=== PATIENT | male | born 1935 | race Caucasian/White ===

== ENCOUNTER → 2018-01-23 | Outpatient (CLI) | payer MEDICARE ==
[~2018-01-23] MED LIST: ASPEC81 PO; CLC150 PO; FLM4 PO; HYDR-5688 PO; LRT5 PO; MULT-506 PO; REVEIWED; SIMV80TA2 PO
--- NOTE | 2018-01-23 13:40 | DIAGNOSTIC IMAGING REPORT ---
TWO VIEW CHEST CLINICAL HISTORY: Dyspnea. FINDINGS: PA and lateral chest radiographs are compared to study dated 02/02/2015. The PA view is degraded by patient rotation. The patient is status post midline sternotomy and cardiac valve surgery. The heart is enlarged and there is atherosclerotic calcification of the thoracic aorta. Pulmonary vasculature is noncongested. There are bibasilar airspace opacities, left greater than right. There is no large pleural effusion or pneumothorax. The skeletal structures are osteopenic. The bony thorax appears intact. IMPRESSION: 1. Cardiomegaly without radiographic evidence of congestive failure. 2. There are bibasilar airspace opacities, left greater than right. This likely represents atelectasis. Correlate clinically for evidence of superimposed pneumonia. Electronically signed by: yAdin Snyder M.D. 01/23/2018 1:38 PM Dictated Date/Time: 01/23/2018 1:35 PM
--- NOTE | 2018-01-23 13:44 | DIAGNOSTIC IMAGING REPORT ---
ART DOP LOWER EXT BILAT CLINICAL HISTORY: 82 years-old Male presenting with PERIPHERAL ARTERY DISEASE. TECHNIQUE: Real-time grayscale and color and spectral Doppler ultrasound imaging of the bilateral lower extremities arteries was performed. Measurements calculated based on NASCET criteria. COMPARISON: 02/03/2015. FINDINGS: Right: Common femoral artery: Patent. Peak systolic velocity 161 cm/s. Superficial femoral artery: Focal stenosis in the proximal right superficial femoral artery. Distal to this, significant blunting of waveforms with spectral broadening and decreased peak systolic velocity noted. Arterial waveforms are not appreciable in the mid femoral artery, consistent with occlusion. However, arterial waveforms are detectable distally, consistent with reconstitution, where the peak systolic velocity measures 53 cm/s. Deep femoral artery: Patent. Peak systolic velocity 169 cm/s. Popliteal artery: Spectral broadening. Peak systolic velocity 33-41 cm/s. Anterior tibial artery: Spectral broadening. Peak systolic velocity 20-36 cm/s. Posterior tibial artery: Spectral broadening. Peak systolic velocity 28-30 cm/s. Peroneal artery: Spectral broadening with loss of diastolic flow. Peak systolic velocity 19-22 cm/s. Dorsalis pedis: Patent. Peak systolic velocity 29-41 cm/s. Left: Common femoral artery: Patent. Peak systolic velocity 126 cm/s. Superficial femoral artery: Patent. Peak systolic velocity 172 cm/s at the site of mild stenosis in the mid femoral artery. Peak systolic velocity measures 89-157 cm/s in the proximal femoral artery. The distal femoral artery peak systolic velocity measures 74-100 cm/s. Deep femoral artery: Patent. Peak systolic velocity 116 cm/s. Popliteal artery: Mild spectral broadening. Peak systolic velocity 34-64 cm/s. Anterior tibial artery: Patent. Peak systolic velocity 49 cm/s. Posterior tibial artery: Patent. Peak systolic velocity 59 cm/s. Peroneal artery: Spectral broadening. Peak systolic velocity 30 cm/s. Dorsalis pedis: Intermittent spectral broadening. Peak systolic velocity 19-35 cm/s. MAUREEN Not performed. Reference ranges: Normal MAUREEN 1.0-1.4; 0.9-0.99 borderline; less than 0.9 abnormal. IMPRESSION: 1. 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 Right lower extremity arteries remain patent through the level of the dorsalis pedis. 2. Atherosclerosis without severe focal stenosis in the left lower extremity. Mild stenosis of the mid left superficial femoral artery. 3. MAUREEN not performed. Electronically signed by: Nitin Guillermo M.D. 01/23/2018 1:43 PM Dictated Date/Time: 01/23/2018 1:33 PM
== END | disposition home or self-care (01) ==
LOC: C.ULTR 12:03
PROVIDERS: ATTEND Internal Medicine
DX: I73.9 Peripheral vascular disease, unspecified (principal); R06.00 Dyspnea, unspecified

== ENCOUNTER 2019-10-05 14:26 | Inpatient (IN) ==
[2019-10-05 17:14] LABS: Basophils # (auto) 0.04 K/uL (0-0.2); Basophils % (auto) 0.4 %; Eosinophils # (auto) 0.12 K/uL (0-0.5); Eosinophils % (auto) 1.1 %; Hematocrit (blood only) 35.2 % (42-52); Hemoglobin 11.6 g/dL (14.0-18.0); Immature Granulocytes # (auto) 0.01 K/uL (0.00-0.02); Immature Granulocytes % (auto) 0.1 %; Lymphocytes # (auto) 1.49 K/uL (1.2-3.4); Lymphocytes % (auto) 14.3 %; Mean Corpuscular Hemoglobin 30.7 pg (25-34); Mean Corpuscular Volume 93.1 fL (80-100); Mean Platelet Volume 9.3 fL (7.4-10.4); Monocytes # (auto) 1.06 K/uL (0.11-0.59); Monocytes % (auto) 10.1 %; Neutrophils # (auto) 7.73 K/uL (1.4-6.5); Platelet Count 204 K/uL (130-400); RDW Coefficient of Variation 15.4 % (11.5-14.5); RDW Standard Deviation 52.7 fL (36.4-46.3); Red Blood Count 3.78 M/uL (4.7-6.1); White Blood Count 10.45 K/uL (4.8-10.8)
--- NOTE | 2019-10-05 17:31 | XRay Report ---
SINGLE VIEW CHEST CLINICAL HISTORY: Atypical chest pain. FINDINGS: An AP, portable, upright chest radiograph is compared to study dated 03/15/2019. The examina tion is degraded by portable technique and patient rotation. The patient is status post midline castrejon otomy. The heart is enlarged noting atherosclerotic calcification of the thoracic aorta. There is mil d pulmonary vascular congestion. Chronic interstitial thickening is similar to previous. There is a l obulated 4 cm subpleural density identified in the left midlung. No large pleural effusion or pneumot horax is seen. The skeletal structures are osteopenic. The bony thorax is grossly intact. Calcific te ndinopathy is noted in the left shoulder. IMPRESSION: 1. Cardiomegaly with mild pulmonary vascular congestion. 2. There is a 4 cm lobulated subpleural density seen in the left midlung. Correlation with a chest CT is recommended to exclude underlying neoplasm. ACT 112: Negative or not required by law. Electronically signed by: Aydin Snyder M.D. 10/05/2019 5:30 PM
[2019-10-05 17:32] LABS: INR 1.1 (0.9-1.1); Partial Thromboplastin Ratio 1.1; Partial Thromboplastin Time 28.6 Seconds (21.0-31.0); Prothrombin Time 11.5 Seconds (9.0-12.0)
[2019-10-05 17:39] LABS: Alanine Aminotransferase 13 U/L (12-78); Albumin Level 3.1 gm/dl (3.4-5.0); Aspartate Aminotransferase 29 U/L (15-37); BUN Creatinine Ratio 14.7 (10-20); Blood Urea Nitrogen 17 mg/dl (7-18); Calcium 9.9 mg/dl (8.5-10.1); Carbon Dioxide 27 mmol/L (21-32); Chloride 104 mmol/L (98-107); Creatinine Clr Calc Pharmacy 46.9 ml/min; Est GFR (African American) 65.3; Est GFR (Non-African American) 56.3; Glucose 117 mg/dl (70-99); Lipase 50 U/L (73-393); Potassium 4.2 mmol/L (3.5-5.1); Sodium 137 mmol/L (136-145)
[2019-10-05 17:44] LABS: Albumin Globulin Ratio 0.6 (0.9-2); Alkaline Phosphatase 208 U/L (45-117); Bilirubin,Total 0.6 mg/dl (0.2-1); Globulin 4.9 gm/dl (2.5-4.0); Troponin I < 0.015 ng/ml (0-0.045)
[2019-10-05] MEDS ORDERED: OXYCODONE IR HOME PACK PO ONE (19:58)
--- NOTE | 2019-10-05 20:31 | Magnetic Resonance Report ---
MR cervical spine wo con, MR thoracic spine wo con HISTORY: 84 years-old Male neck rad down arms subacute neck and low back pain. No reported trauma or known cancer COMPARISON: Thoracic spine radiographs 03/15/2018 TECHNIQUE: Multiplanar multisequence MRI of the cervical and thoracic spine was obtained without the use of IV contrast. 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 Motion degraded exam. 2.1 x 2.2 cm T2 hyperintense structure is noted within the region of the left nasal turbinate and nasopharynx. No abnormality identified involving the imaged posterior fossa. Signal within the brainstem and cervical spinal cord also appears normal. Infiltrative 10 mm lesion of the C3 vertebral body extends to the posterior cortex. Ill-defined lesion is also noted involving the C6 vertebral body extending into the right pedicle. Heterogeneous marrow signal of the occipital condyles and lateral arches of C1 and right lateral mass of C2 suggests additional lesions. Ill-defin ed lesion involves the right C5 facet. No acute pathologic fracture identified. C2-C3: Uncovertebral spurring with small posterior annular disc bulge and moderate facet arthrosis. N o central canal or foraminal narrowing. C3-C4: Probable erosion of the posterior cortex of the C3 lesion. Mild central canal stenosis with mo derate narrowing of the lateral recesses. Mild to moderate bilateral foraminal narrowing. C4-C5: Mild disc space narrowing with uncovertebral spurring and moderate facet arthrosis. Flattening of the ventral thecal sac without significant central canal stenosis. Neuroforamen are generally pat ent. C5-C6: Mild disc space narrowing with posterior disc osteophyte complex and facet arthrosis causes mi ld central canal and mild bilateral foraminal narrowing. Mild right and moderate left foraminal narro wing. C6-C7: Posterior annular disc bulge with facet arthrosis. Central canal is patent. No significant for aminal narrowing. C7-T1: Mild spondylitic spurring with facet arthrosis. No central canal or foraminal narrowing. THORACIC: Limited exam. The patient was unable to tolerate axial images. STIR images were also obtained. Ill-de fined areas of marrow replacement are noted throughout the thoracic segment also within the imaged up per lumbar spine. Large lesions at T3 and T4 extend into the posterior elements and demonstrate epidu ral tumor which measures up to at least 3.0 cm along the posterior aspect of the thecal sac at T3-T4. Large amount of edema within the paraspinal musculature is noted within the mid and lower cervical s pine and upper thoracic spine centered about the T2 and T3 lesions, conglomerate measuring up to at l east 4.5 x 3.4 cm tracking along the left T2 and T3 ribs. Lesions also appear to extend into the left neuroforamen at T2-T3 and T3-T4 and also possibly on the right. Findings result in severe central ca nal stenosis, AP dimension of the thecal sac measuring 4 mm at T3. There are also appears to be sever e multilevel left foraminal narrowing. No additional high-grade central canal stenosis identified in the sagittal images. Conus medullaris t erminates at T12-L1. IMPRESSION: 1. Limited exam secondary to patient pain and discomfort. 2. Multifocal infiltrative osseous lesions of the cervical, thoracic and lumbar spine suggest metasta tic disease from unknown primary versus multiple myeloma. 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 Oncologic consultation and workup is needed. 3. C3 lesion may partially erode through the posterior cortex of the vertebral body. No high-grade ce ntral canal or foraminal narrowing of the cervical spine. 4. Indeterminate T2 hyperintense lesion of the left nasal turbinates and nasopharynx. This may reflec t a mucocele however should be correlated with direct imaging to exclude mass. ACT 112: Negative or not required by law. The above report was generated using voice recognition software. It may contain grammatical, syntax o r spelling errors. Electronically signed by: Alessandro Beal M.D. 10/05/2019 8:30 PM
[2019-10-05] MEDS ORDERED: OXYCODONE HCL IR 5 MG TAB (IMMEDIATE RELEASE) ONE (21:04)
--- NOTE | 2019-10-05 23:22 | Emergency Department Note ---
Entered by Doreen Francois acting as a scribe for History of Present Illness General Chief complaint: Back Injury/Pain Stated complaint: SEVERE BACK PAIN Time Seen by Provider: 10/05/19 16:15 Source: patient Mode of arrival: wheelchair Limitations: no limitations History of Present Illness Onset (ago): month(s) 4 Location: back Radiation: extremity (bilateral arms) Pain Consistency: + constant Maximum Pain Intensity: 10 Current Pain Intensity: 10 Relieved By: + none Exacerbated By: + movement Associated symptoms: + chest pain and + cough; no fever/chills and no weakness (No numbness or weakness in the legs) Treatments prior to arrival: other (Hydrocodone) The patient is an 84 year old male who presents to the ED with complaints of back pain. He rates his discomfort as a 10/10 in severity. Movement worsens his pain. His daughter states the pain started in April of 2019. He saw his PCP, Dr. Issa who then referred him to Dr. Izaguirre of Orthopedics. He saw Orthopedics, but states "they didn't do anything". He went back to Dr. Wilfred Fischer who made a referral to physical therapy and the patient went to [facility] for therapy, but has not seen much improvement. He states the pain is located in his upper back, below the neck. The pain radiates down his bilateral arms. Hydrocodone has provided good relief. His daughter reports ever since he had aortic valve replacement in 2011, he has experienced a chronic cough and she thinks his pain may be from coughing so hard. The patient denies any recent fevers. He has experienced some chest pain. He denies any numbness or weakness in the legs. Home Medications Home Medications Medication Instructions Recorded Confirmed Type apixaban 5 mg PO BID 08/05/18 10/05/19 History aspirin 325 mg PO QAM 08/05/18 10/05/19 History carvedilol 12.5 mg PO BID 08/05/18 10/05/19 History digoxin 125 mcg PO Q2D 08/05/18 10/05/19 History losartan 12.5 mg PO QAM 08/05/18 10/05/19 History blood sugar diagnostic [OneTouch #50 ea 08/08/18 07/30/19 Rx Verio strips] lancets [OneTouch Delica Lancets] #25 ea 08/08/18 07/30/19 Rx insulin glargine 100 unit/mL 35 units SUBCUT HS #1 ml 04/17/19 10/05/19 History subcutaneous solution tamsulosin 0.4 mg capsule 0.4 mg PO BID cap 04/17/19 10/05/19 History metoprolol succinate 50 mg 50 mg PO QAM #90 tab 09/26/19 10/05/19 Rx tablet,extended release 24 hr atorvastatin 40 mg PO HS 10/05/19 10/05/19 History furosemide [Lasix] 20 mg PO QAM 10/05/19 10/05/19 History insulin glargine 6 unit SUBCUT QAM 10/05/19 10/05/19 History metformin 500 mg PO QAM 10/05/19 10/05/19 History tramadol 50 mg PO DAILY PRN 10/05/19 10/05/19 History Allergies Allergy/AdvReac Type Severity Reaction Status Date / Time doxycycline Allergy Mild Rash Verified 10/05/19 16:25 tetracycline Allergy Mild RASH Verified 10/05/19 16:25 Penicillins Allergy Unknown HIVES-SOB Verified 10/05/19 16:25 Past Med/Surg History Medical History Aortic stenosis Atrial flutter BPH w/o urinary obs/LUTS CAD (coronary artery disease) 1-vessel (LAD), complicated by internal bleeding requiring another surgery Cardiomyopathy Carotid artery stenosis Carotid stenosis Chronic cough Chronic renal disease COPD (chronic obstructive pulmonary disease) Depression Diabetes mellitus, new onset (2018) Dyslipidemia History of alcohol dependence quit early History of tobacco use Leg fracture, left s/p ORIF Mixed hyperlipidemia PAD (peripheral artery disease) PAD (peripheral artery disease) Surgical History Aortic valve replaced [facility] - 2011 H/O carotid endarterectomy left S/P aortic valve replacement with bioprosthetic valve (2010) S/P CABG (coronary artery bypass graft) (2010) Complicated postoperative course S/P CABG x 1 Family History Father , age 79 Congestive heart failure Atherosclerosis Mother , from diverticulitis age 84 Rheumatoid arthritis Social History Preferred Language: Cymro Communication Ability: Effective 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 and A total of 10 systems reviewed and were otherwise negative Physical Exam Vital Signs Vital Signs - 24 hr 10/05/19 14:58 10/05/19 16:26 10/05/19 17:00 Temperature 36.7 C Temperature Source Oral Pulse Rate 107 H 104 H Pulse Rate [Finger] 103 H Pulse Rate from SpO2 Sensor 105 H Pulse Rhythm [Finger] Regular Pulse Strength [Finger] Normal Respiratory Rate 18 18 17 Respiratory Effort / Characteristics Non-Labored Spontaneous Respiratory Depth Normal Respiratory Pattern Regular Blood Pressure 150/65 H 151/77 H Blood Pressure [Right Arm] 132/90 Blood Pressure Mean 93 83 Blood Pressure Mean [Right Arm] 104 Blood Pressure Position [Right Arm] Lying Pulse Oximetry 94 96 94 Oxygen Delivery Method Room Air Room Air Room Air Sepsis Recent Fever Within 48 Hours No Sepsis New/Unexplained Change in Mental Status No Sepsis Action Taken by Nursing No Action Required 10/05/19 17:08 10/05/19 17:30 10/05/19 18:00 Temperature Temperature Source Pulse Rate 105 H 104 H 106 H Pulse Rate [Finger] Pulse Rate from SpO2 Sensor 105 H 103 H 106 H Pulse Rhythm [Finger] Pulse Strength [Finger] Respiratory Rate 24 22 22 Respiratory Effort / Characteristics Respiratory Depth Respiratory Pattern Blood Pressure 149/78 H 160/76 H Blood Pressure [Right Arm] Blood Pressure Mean 125 122 Blood Pressure Mean [Right Arm] Blood Pressure Position [Right Arm] Pulse Oximetry 94 93 94 Oxygen Delivery Method Room Air Room Air Room Air Sepsis Recent Fever Within 48 Hours Sepsis New/Unexplained Change in Mental Status Sepsis Action Taken by Nursing 10/05/19 18:30 10/05/19 19:50 10/05/19 20:00 Temperature Temperature Source Pulse Rate 103 H Pulse Rate [Finger] 111 H Pulse Rate from SpO2 Sensor 101 H 109 H 113 H Pulse Rhythm [Finger] Pulse Strength [Finger] Respiratory Rate 23 22 Respiratory Effort / Characteristics Respiratory Depth Respiratory Pattern Blood Pressure 135/67 136/62 149/66 H Blood Pressure [Right Arm] 136/62 Blood Pressure Mean 97 98 97 Blood Pressure Mean [Right Arm] 86 Blood Pressure Position [Right Arm] Pulse Oximetry 94 94 94 Oxygen Delivery Method Room Air Sepsis Recent Fever Within 48 Hours Sepsis New/Unexplained Change in Mental Status Sepsis Action Taken by Nursing 10/05/19 20:30 10/05/19 20:40 10/05/19 21:00 Temperature Temperature Source Pulse Rate Pulse Rate [Finger] 88 Pulse Rate from SpO2 Sensor 107 H 108 H Pulse Rhythm [Finger] Pulse Strength [Finger] Respiratory Rate 20 Respiratory Effort / Characteristics Respiratory Depth Respiratory Pattern Blood Pressure 134/70 155/83 H Blood Pressure [Right Arm] 155/83 H Blood Pressure Mean 89 106 Blood Pressure Mean [Right Arm] 107 Blood Pressure Position [Right Arm] Pulse Oximetry 92 98 93 Oxygen Delivery Method Sepsis Recent Fever Within 48 Hours Sepsis New/Unexplained Change in Mental Status Sepsis Action Taken by Nursing 10/05/19 21:30 10/05/19 23:05 10/05/19 23:06 Temperature Temperature Source Pulse Rate Pulse Rate [Finger] Pulse Rate from SpO2 Sensor 105 H Pulse Rhythm [Finger] Pulse Strength [Finger] Respiratory Rate Respiratory Effort / Characteristics Respiratory Depth Respiratory Pattern Blood Pressure 145/81 H 110/72 Blood Pressure [Right Arm] Blood Pressure Mean 117 75 Blood Pressure Mean [Right Arm] Blood Pressure Position [Right Arm] Pulse Oximetry 92 Oxygen Delivery Method Sepsis Recent Fever Within 48 Hours Sepsis New/Unexplained Change in Mental Status Sepsis Action Taken by Nursing General: Non-ill appearing older male in no acute distress. HEENT: Normal cephalic atraumatic. Pupils are equal round and reactive to light. Extraocular movements are intact. Oropharynx is pink with moist mucous membranes. No swelling of the mouth lips or tongue. Neck: Supple with a midline trachea. No meningeal signs or stiffness, no JVD or bruits. No Stridor. Chest: Clear to auscultation bilaterally. No wheezes or rhonchi. No increased work of breathing. Heart: regular rate and rhythm. Abdomen: Soft nontender, nondistended without rebound guarding or rigidity. Extremities: No cyanosis clubbing or edema. No calf tenderness or asymmetry Spine/Back. Pain in upper thoracic region, worse with palpation and movement. No CVA tenderness Skin: Good turgor without rashes. Neurologic exam: Cranial nerves two through 12 are intact. Motor and sensation are intact and symmetrical throughout. Course Course 1636: The patient was evaluated in room C4 and a complete history and physical were performed. 1951: Nursing informed me the patient is having intense pain. 1999: I reevaluated the patient. He had a hard time sitting for the entire MRI. His daughter would like us to try Oxycodone. 2199: I reevaluated the patient. He is resting comfortably. I discussed his results and my recommendation he remain in the hospital for further evaluation and management and he and his daughter are agreeable with the plan. 2009: I discussed the patients case with Dr. Bronson, [facility] Hospitalist. The patient will be further evaluated. Administered Medications Discontinued Medications Oxycodone HCl (Roxicodone Immediate Rel 5mg Home Pack) 1 homepack PO UD ONE Stop: 10/05/19 19:59 Last Admin: 10/05/19 22:32 Dose: Not Given Documented by: [id number] Oxycodone HCl (Roxicodone Immediate Rel) Confirm Administered Dose 5 mg .ROUTE .STK-MED ONE Stop: 10/05/19 21:05 Last Admin: 10/05/19 21:07 Dose: 5 mg Documented by: [id number] Medical Decision Making Differential Diagnosis The differential diagnoses considered include lumbar disc disease, electrolyte or metabolic abnormality, cardiac disease, CHF. Medical Records Attestation: I reviewed the patient's medical records. Home Medications Current Medication List: was personally reviewed by me Laboratory Data Attestation: I reviewed the patient's lab results. Result diagrams: 10/05/19 17:02 10/05/19 17:02 Lab Results 10/05/19 10/05/19 10/05/19 Range/Units 17:02 17:02 17:02 WBC 10.45 (4.8-10.8) K/uL RBC 3.78 L (4.7-6.1) M/uL Hgb 11.6 L (14.0-18.0) g/dL Hct 35.2 L (42-52) % MCV 93.1 (80-100) fL MCH 30.7 (25-34) pg MCHC 33.0 (32-36) g/dL RDW Std Deviation 52.7 H (36.4-46.3) fL RDW Coeff of Godfrey 15.4 H (11.5-14.5) % Plt Count 204 (130-400) K/uL MPV 9.3 (7.4-10.4) fL Immature Gran % (Auto) 0.1 % Neut % (Auto) 74.0 % Lymph % (Auto) 14.3 % [place] % (Auto) 10.1 % Eos % (Auto) 1.1 % Baso % (Auto) 0.4 % Immature Gran # (Auto) 0.01 (0.00-0.02) K/uL Neut # (Auto) 7.73 H (1.4-6.5) K/uL Lymph # (Auto) 1.49 (1.2-3.4) K/uL [place] # (Auto) 1.06 H (0.11-0.59) K/uL Eos # (Auto) 0.12 (0-0.5) K/uL Baso # (Auto) 0.04 (0-0.2) K/uL PT 11.5 (9.0-12.0) Seconds INR 1.1 (0.9-1.1) APTT 28.6 (21.0-31.0) Seconds PTT Ratio 1.1 Sodium 137 (136-145) mmol/L Potassium 4.2 (3.5-5.1) mmol/L Chloride 104 (98-107) mmol/L Carbon Dioxide 27 (21-32) mmol/L Anion Gap 6.0 (3-11) BUN 17 (7-18) mg/dl Creatinine 1.18 (0.6-1.4) mg/dl Est Cr Clr Drug Dosing 46.9 ml/min Est GFR ( Amer) 65.3 Est GFR (Non-Af Amer) 56.3 BUN/Creatinine Ratio 14.7 (10-20) Glucose 117 H (70-99) mg/dl Calcium 9.9 (8.5-10.1) mg/dl Total Bilirubin 0.6 (0.2-1) mg/dl AST 29 (15-37) U/L ALT 13 (12-78) U/L Alkaline Phosphatase 208 H (45-117) U/L Troponin I < 0.015 (0-0.045) ng/ml Total Protein 8.0 (6.4-8.2) gm/dl Albumin 3.1 L (3.4-5.0) gm/dl Globulin 4.9 H (2.5-4.0) gm/dl Albumin/Globulin Ratio 0.6 L (0.9-2) Lipase 50 L (73-393) U/L Imaging Data Radiologist's Impression: Radiology results as stated below per my review and the radiologist's interpretation: SINGLE VIEW CHEST CLINICAL HISTORY: Atypical chest pain. FINDINGS: An AP, portable, upright chest radiograph is compared to study dated 03/15/2019. The examination is degraded by portable technique and patient rotation. The patient is status post midline sternotomy. The heart is enlarged noting atherosclerotic calcification of the thoracic aorta. There is mild pulmonary vascular congestion. Chronic interstitial thickening is similar to previous. There is a lobulated 4 cm subpleural density identified in the left midlung. No large pleural effusion or pneumothorax is seen. The skeletal structures are osteopenic. The bony thorax is grossly intact. Calcific tendinopathy is noted in the left shoulder. IMPRESSION: 1. Cardiomegaly with mild pulmonary vascular congestion. 2. There is a 4 cm lobulated subpleural density seen in the left midlung. Correlation with a chest CT is recommended to exclude underlying neoplasm. ACT 112: Negative or not required by law. Electronically signed by: Aydin Snyder M.D. 10/05/2019 5:30 PM MR cervical spine wo con, MR thoracic spine wo con HISTORY: 84 years-old Male neck rad down arms subacute neck and low back pain. No reported trauma or known cancer COMPARISON: Thoracic spine radiographs 03/15/2018 TECHNIQUE: Multiplanar multisequence MRI of the cervical and thoracic spine was obtained without the use of IV contrast. 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 Motion degraded exam. 2.1 x 2.2 cm T2 hyperintense structure is noted within the region of the left nasal turbinate and nasopharynx. No abnormality identified involving the imaged posterior fossa. Signal within the brainstem and cervical spinal cord also appears normal. Infiltrative 10 mm lesion of the C3 vertebral body extends to the posterior cortex. Ill-defined lesion is also noted involving the C6 vertebral body extending into the right pedicle. Heterogeneous marrow signal of the occipital condyles and lateral arches of C1 and right lateral mass of C2 suggests additional lesions. Ill-defined lesion involves the right C5 facet. No acute pathologic fracture identified. C2-C3: Uncovertebral spurring with small posterior annular disc bulge and moderate facet arthrosis. No central canal or foraminal narrowing. C3-C4: Probable erosion of the posterior cortex of the C3 lesion. Mild central canal stenosis with moderate narrowing of the lateral recesses. Mild to moderate bilateral foraminal narrowing. C4-C5: Mild disc space narrowing with uncovertebral spurring and moderate facet arthrosis. Flattening of the ventral thecal sac without significant central canal stenosis. Neuroforamen are generally patent. C5-C6: Mild disc space narrowing with posterior disc osteophyte complex and facet arthrosis causes mild central canal and mild bilateral foraminal narrowing. Mild right and moderate left foraminal narrowing. C6-C7: Posterior annular disc bulge with facet arthrosis. Central canal is patent. No significant foraminal narrowing. C7-T1: Mild spondylitic spurring with facet arthrosis. No central canal or foraminal narrowing. THORACIC: Limited exam. The patient was unable to tolerate axial images. STIR images were also obtained. Ill-defined areas of marrow replacement are noted throughout the thoracic segment also within the imaged upper lumbar spine. Large lesions at T3 and T4 extend into the posterior elements and demonstrate epidural tumor which measures up to at least 3.0 cm along the posterior aspect of the thecal sac at T3-T4. Large amount of edema within the paraspinal musculature is noted within the mid and lower cervical spine and upper thoracic spine centered about the T2 and T3 lesions, conglomerate measuring up to at least 4.5 x 3.4 cm tracking along the left T2 and T3 ribs. Lesions also appear to extend into the left neuroforamen at T2-T3 and T3-T4 and also possibly on the right. Findings result in severe central canal stenosis, AP dimension of the thecal sac measuring 4 mm at T3. There are also appears to be severe multilevel left foraminal narrowing. No additional high-grade central canal stenosis identified in the sagittal images. Conus medullaris terminates at T12-L1. IMPRESSION: 1. Limited exam secondary to patient pain and discomfort. 2. Multifocal infiltrative osseous lesions of the cervical, thoracic and lumbar spine suggest metastatic disease from unknown primary versus multiple myeloma. Large infiltrative mass/masses of T2-T3 extend into the epidural space, left foramina and paraspinal tissues as above tracking along the adjacent ribs resulting in severe central canal stenosis at T2-T3 with severe left-sided foraminal narrowing at T2-T3 and T3-T4. Oncologic consultation and workup is needed. 3. C3 lesion may partially erode through the posterior cortex of the vertebral body. No high-grade central canal or foraminal narrowing of the cervical spine. 4. Indeterminate T2 hyperintense lesion of the left nasal turbinates and nasopharynx. This may reflect a mucocele however should be correlated with di rect imaging to exclude mass. ACT 112: Negative or not required by law. The above report was generated using voice recognition software. It may contain grammatical, syntax or spelling errors. Electronically signed by: Alessandro Beal M.D. 10/05/2019 8:30 PM ECG Data Attestation: I personally reviewed and interpreted this ECG as follows: Indication: + other (back pain) Rate (beats per minute): 105 Rhythm: + sinus tachycardia ECG Findings: + Other (non-specific interventicular block, non-specific T-wave abnormalities) Comparison ECG Date: from (08/05/2018) Change: the following changes noted (Rate has increased, normal sinus rhythm has replaced atrial fibrillation) Blood Pressure Blood Pressure Findings: Elevated blood pressure Blood Pressure Disposition: further management by hospitalist JESSA Hendricks This patient comes in as scribed above he has been having back pain and neck pain for several months. He has been to physical therapy. He had no fall or trauma. it was getting worse and it radiates down his arms mostly the left. He has no chest pain or shortness of breath. it is definitely positional. He has had no trauma. On exam, he has no neurologic deficits. IV access established EKG and multiple blood testing was obtained. EKG does not suggest acute coronary syndrome or arrhythmia. Chest x-ray does not show any definite acute findings. He has no significant electrolyte or metabolic abnormalities. MRI was obtained of the cervical and thoracic spine. The patient did not tolerate laying in the MRI for that long of a the time and the thoracic is somewhat suboptimal however there are lesions on the cervical and thoracic spine. Please refer to report. He also has a T2 lesion which sounds like it encroaches along the spine of the neural foramen. I think this is likely causing his pain. He was given oxycodone p.o. I do think he needs to be admitted/observe for further treatment and evaluation. I am concerned that this could be metastatic or oncologic process such as multiple myeloma. I discussed this with the patient and his daughter and they agree with the plan.I have consulted the [facility] hospitalist to see the patient in the ER for these measures. Impression & Plan Thoracic spine tumor, Radicular pain, Back pain, Metastasis to spinal column, Neck pain, Chronic anticoagulation Discharge Plan Visit Data Chief Complaint: Back Injury/Pain Stated Complaint: SEVERE BACK PAIN ED Provider: Matty Daniel Discharge Problem: Thoracic spine tumor, Radicular pain, Back pain, Metastasis to spinal column, Neck pain, Chronic anticoagulation Forms Stand Alone Forms: [facility] Prescriptions Prescriptions: No Action metoprolol succinate 50 mg tablet extended release 24 hr 50 mg PO QAM Qty: 90 RF: 3 Lantus U-100 Insulin 100 unit/mL solution 35 units subcut HS Qty: 1 RF: 0 carvedilol 12.5 mg tablet 12.5 mg PO BID RF: 0 aspirin 325 mg Tablet 325 mg PO QAM RF: 0 losartan 25 mg tablet 12.5 mg PO QAM RF: 0 digoxin 125 mcg tablet 125 mcg PO Q2D RF: 0 apixaban 5 mg tablet 5 mg PO BID RF: 0 (DME) blood sugar diagnostic [OneTouch Verio] strip See Dose Instructions .ROUTE .MEDSUPPLY Qty: 50 RF: 0 (DME) lancets [OneTouch Delica Lancets] 30 gauge misc See Dose Instructions .ROUTE .MEDSUPPLY Qty: 25 RF: 0 tamsulosin 0.4 mg capsule 0.4 mg PO BID RF: 0 insulin glargine 100 unit/mL Solution 6 unit SUBCUT QAM RF: 0 furosemide [Lasix] 20 mg Tablet 20 mg PO QAM RF: 0 atorvastatin 40 mg tablet 40 mg PO HS RF: 0 metformin 500 mg tablet extended release 24 hr 500 mg PO QAM RF: 0 tramadol 50 mg Tablet 50 mg PO DAILY PRN (Reason: Pain) RF: 0 Referrals Referrals: Kit Issa MD [Primary Care Provider] - The scribe's documentation has been prepared under my direction and personally reviewed by me in its entirety. I confirm that the note above accurately reflects all work, treatment, procedures, and medical decision making performed by me.
--- NOTE | 2019-10-06 01:01 | History & Physical Report ---
Date of Service October 06, 2019 Assessment & Plan (1) Back pain: Jayy is an 84-year-old male with a past medical history of a flutter/A. fib, CABG, cardiomyopathy, dyslipidemia, PAD, COPD, type 2 diabetes, hypertension, and BPH who presented to the emergency department with cervical and thoracic back pain and who was found to have multiple bony lesions on MRI. Vertebral bony lesions Multifocal infiltrative osseous lesions of the cervical, thoracic, and lumbar spine appreciated on MRI. Large masses of T2-T3 extending into the epidural space and a C3 lesion eroding through the posterior cortex of the vertebral body. Highly concerning for metastatic disease versus multiple myeloma. Total protein elevated, SPEP/UPEP ordered Oncology consulted. Patient's daughter is known to Dr. Reed with [facility] oncology, and they prefer to follow with [facility] oncology even if they are out of network with insurance. X-ray film from March 2019 reviewed, consistent with degenerative change but no ashley lesions appreciated on plain film at that time. Pain control with morphine 2 to 4 mg every 4 hours as needed CAD with history of CABG Continue metoprolol XL 50 mg every morning Continue TRAIN RESERVATION CLERK carvedilol 12.5 mg p.o. twice daily Continue losartan 12.5 mg p.o. every morning Continue Lasix 20 mg p.o. every morning Continue atorvastatin 40 mg p.o. nightly History of a flutter/A. fib Continue TRAIN RESERVATION CLERK digoxin 125 mcg every other day Beta-blockers as above Continue TRAIN RESERVATION CLERK apixaban 5 mg p.o. twice daily Hypertension Continue ARB as above Continue aspirin daily. Patient is on full dose aspirin TRAIN RESERVATION CLERK, recommend decrease to 81 mg Type 2 diabetes mellitus On TRAIN RESERVATION CLERK glargine 35 units nightly, 6 units every morning Converted to hospital basal bolus based on total insulin requirements Glargine 10 units twice daily, SSI insulin. Hold oral anti-glycemic's DVT prophylaxis: Apixaban as above FEN/GI: Type II diabetic diet CODE STATUS: Full code. Discussed with patient and his daughter. Disposition: Admit to [facility] (2) Atrial flutter with controlled response: (3) Status post carotid endarterectomy: (4) Anticoagulant long-term use: (5) S/P CABG (coronary artery bypass graft): (6) Cardiomyopathy: (7) Carotid artery stenosis: (8) PAD (peripheral artery disease): (9) S/P aortic valve replacement with bioprosthetic valve: (10) Lesion of vertebra: History of Present Illness Chief Complaint: Neck/back pain Primary Care Provider: Kit Issa MD Jayy is an 84-year-old male with a past medical history of a flutter/A. 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 Zaheer reports that his back pain began several months ago in March 2019 in the midline upper neck. He reports he had x-rays at that time which showed degenerative disc disease and he was referred to physical therapy and Dr. Holbrook. Repeat x-rays showed degenerative changes and he was referred to therapy at [place]. His pain did not improve with therapy and continued to gradually worsen. On follow-up with his primary care physician Dr. Levy son he had a lidocaine shot on August 24 which helped transiently, but quickly wear off. In the last 2 weeks he has had gradual increase in his pain to 10/10 which is not improved with tramadol. He was scheduled for consultation with pain management, but missed that appointment and was recommended by his PCP to go to the emergency department for intractable pain. He has been found to have multiple bony lesions on MRI. He reports his pain has been a 10/10 in the last week, is 8/10 at time of visit following pain medication administration. He reports his pain is worst in the midline and paraspinal neck and upper thoracic spine, but occasionally travels down as far as his tailbone. He has experienced left arm burning just in the past week. Denies extremity weakness or other change in sensation. He has had 6 pound weight loss this week from an absent appetite without nausea. No weight change prior to this. He denies B-cell symptoms including night sweats. He has not had any recent fever, chills, chest pain, shortness of breath. He endorses a wet cough since his cardiac bypass in 2011. He denies other new symptoms. Last colonoscopy was within 5 years, reports no concerning findings and was recommended for 10-year follow-up. History of BPH with LUTS, no change in urinary symptoms recently. Medical history: Reviewed in EMR Surgical history: Reviewed in EMR Family history: History of lung cancer and a son who was a heavy smoker. History of CHF in his father. History of rheumatoid arthritis in his mother. 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 Recreational, denies recreational drug use Allergies Allergy/AdvReac Type Severity Reaction Status Date / Time doxycycline Allergy Mild Rash Verified 10/05/19 16:25 tetracycline Allergy Mild RASH Verified 10/05/19 16:25 Penicillins Allergy Unknown HIVES-SOB Verified 10/05/19 16:25 Home Medications Home Medications Medication Instructions Recorded Confirmed Type apixaban 5 mg PO BID 08/05/18 10/05/19 History aspirin 325 mg PO QAM 08/05/18 10/05/19 History carvedilol 12.5 mg PO BID 08/05/18 10/05/19 History digoxin 125 mcg PO Q2D 08/05/18 10/05/19 History losartan 12.5 mg PO QAM 08/05/18 10/05/19 History blood sugar diagnostic [OneTouch #50 ea 08/08/18 07/30/19 Rx Verio strips] lancets [OneTouch Delica Lancets] #25 ea 08/08/18 07/30/19 Rx insulin glargine 100 unit/mL 35 units SUBCUT HS #1 ml 04/17/19 10/05/19 History subcutaneous solution tamsulosin 0.4 mg capsule 0.4 mg PO BID cap 04/17/19 10/05/19 History metoprolol succinate 50 mg 50 mg PO QAM #90 tab 09/26/19 10/05/19 Rx tablet,extended release 24 hr atorvastatin 40 mg PO HS 10/05/19 10/05/19 History furosemide [Lasix] 20 mg PO QAM 10/05/19 10/05/19 History insulin glargine 6 unit SUBCUT QAM 10/05/19 10/05/19 History metformin 500 mg PO QAM 10/05/19 10/05/19 History tramadol 50 mg PO DAILY PRN 10/05/19 10/05/19 History Past Med/Surg History Medical History Aortic stenosis Atrial flutter BPH w/o urinary obs/LUTS CAD (coronary artery disease) 1-vessel (LAD), complicated by internal bleeding requiring another surgery Cardiomyopathy Carotid artery stenosis Carotid stenosis Chronic cough Chronic renal disease COPD (chronic obstructive pulmonary disease) Depression Diabetes mellitus, new onset (2018) Dyslipidemia History of alcohol dependence quit early 1970s History of tobacco use Leg fracture, left s/p ORIF Mixed hyperlipidemia PAD (peripheral artery disease) PAD (peripheral artery disease) Surgical History Aortic valve replaced [facility] - 2011 H/O carotid endarterectomy left S/P aortic valve replacement with bioprosthetic valve (2010) S/P CABG (coronary artery bypass graft) (2010) Complicated postoperative course S/P CABG x 1 Family History Father , age 79 Congestive heart failure Atherosclerosis Mother , from diverticulitis age 84 Rheumatoid arthritis Social History Preferred Language: Cymraes Communication Ability: Effective 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 Weight changes as noted in HPI Eyes: Denies double vision, vision change, eye pain ENT: Denies ear pain, sore throat, sinus pain Cardiovascular: Denies Chest pain, chest pressure, palpitations, extremity swelling Respiratory: Denies shortness of breath, sputum production, difficulty breathing. Wet cough is noted in HPI Gastrointestinal: Denies abdominal pain, nausea, vomiting, constipation, diarrhea. Endorses minimal appetite in the last week. Genitourinary: Denies pain with urination, urinary urgency, urinary frequency. Endorses intermittent BPH symptoms. Musculoskeletal: Denies weakness. Endorses left shoulder and neck/back pain as noted in HPI. Integumentary:Denies rash, lesions, bruising Neurological: Denies headache, numbness, focal weakness Physical Exam Physical Exam: General: A&Ox3. NAD. Cooperative. HEENT: Atraumatic, normocephalic. Pulm: Expiratory rhonchi present. -wheezes, -rales, -rhonchi. Symmetrical chest rise. No increase work of breathing. No respiratory distress. Cardiac: RRR, soft systolic murmur appreciated. Radial pulses intact and symmetrical. Abdominal: Nontender, soft. BS present. MSK: Endorses tenderness at midline and parasternal cervical and high thoracic spine. Denies worsening of pain with palpation. CN II: Visual quan are full to confrontation. Pupils are equal and react to light and accomidation. Visual acuity grossly intact. CN III, IV, : At primary gaze, there is no eye deviation. EoM intact without nystagmus. No visual field cuts. CN V: Facial sensation is intact to soft touch in all 3 divisions bilaterally. CN VII: No facial asymmetry, full strength to eyebrow raise, smile, eye close, and cheek puff. CN VII: Hearing is grossly intact. CN IX, X: Palate elevates symmetrically. Phonation is normal without dysarthria. CN XI: Head turning and shoulder shrug are intact CN XII: Tongue protrudes midline. Sensory: Light touch, pinprick intact in upper and low extremities without deficit or asymmetry. Strength: RUE: Shoulder flexion/extension/internal rotation/external rotation, elbow flexion/extension, finger flexion/extension, fur puller strength, interosseous 5/5 LUE: Shoulder flexion/extension/internal rotation/external rotation, elbow flexion/extension, finger flexion/extension, fur puller strength, interosseous 5/5 RLE: Hip flexion, knee flexion/extension, ankle plantar flexion/dorsiflexion 5/5 LLE: Hip flexion, knee flexion/extension, ankle plantar flexion/dorsiflexion 5/5 Results & Data Vital Signs (Past 12 Hours) Vital Signs Temp Pulse Pulse Resp BP BP Pulse Ox 10/05/19 23:06 110/72 10/05/19 23:05 92 10/05/19 21:30 145/81 H 10/05/19 21:00 155/83 H 93 10/05/19 20:40 88 20 155/83 H 98 10/05/19 20:30 134/70 92 10/05/19 20:00 149/66 H 94 10/05/19 19:50 111 H 22 136/62 136/62 94 10/05/19 18:30 103 H 23 135/67 94 10/05/19 18:00 106 H 22 160/76 H 94 10/05/19 17:30 104 H 22 149/78 H 93 10/05/19 17:08 105 H 24 94 10/05/19 17:00 104 H 17 151/77 H 94 10/05/19 16:26 103 H 18 132/90 96 10/05/19 14:58 36.7 C 107 H 18 150/65 H 94 Code Status & VTE Plan VTE Prophylaxis Plan VTE Prophylaxis will be ordered: Yes Supervising Physician Co-Signing Physician Notes Patient was seen and examined by me personally. I reviewed the chart, the orders and discussed the case in detail with Dr. Nitin Walters MD . I read this H&P and agree with its contents to entirety. Resident Activity Tracking Resident Involvement: Resident Care Provided Care Provided: Adult Hospital Medicine
[2019-10-06] MEDS ORDERED: GLUCAGON FOR INJ 1 MG VIAL SQ PRN (01:28)
[2019-10-06] MEDS ORDERED: MoRPHine SULFATE 4 MG/ML 1 ML CARP\\VIAL IV PRN (01:28)
[2019-10-06] MEDS ORDERED: GLUCOSE 40% GEL 15 GM TUBE PO PRN (01:28)
[2019-10-06] MEDS ORDERED: MoRPHine SULFATE 2 MG/ML CARP IV PRN (01:28)
[2019-10-06] MEDS ORDERED: DEXTROSE 50% 50 ML SYRINGE IV PRN (01:28)
[2019-10-06] MEDS ORDERED: CARBOHYDRATES FOR HYPOGLYCEMIA PO PRN (01:28)
[2019-10-06] MEDS ORDERED: GLUCOSE 10 TABS/TUBE PO PRN (01:28)
--- NOTE | 2019-10-06 04:17 | Billing Data ---
Date of Service October 06, 2019 Coding Level of Care Code 75113 OBS Care - Level 3
[2019-10-06] MEDS ORDERED: OXYCODONE HCL IR 5 MG TAB (IMMEDIATE RELEASE) ONE (06:04)
[2019-10-06] MEDS: FUROSEMIDE 20 MG TAB PO SCH (09:07)
[2019-10-06] MEDS: ASPIRIN 325 MG ECTAB PO SCH (09:07)
[2019-10-06] MEDS: carvediloL 12.5 MG TAB PO SCH ×2 (09:07→21:00)
[2019-10-06] MEDS: METOPROLOL SUCC 50MG EXT REL TAB PO SCH (09:07)
[2019-10-06] MEDS: LOSARTAN POTASSIUM 25 MG TAB PO SCH (09:08)
[2019-10-06] MEDS: INSULIN GLARGINE SOLOSTAR 100 UNITS/ML 3 ML PEN SC SCH ×2 (09:19→21:09)
[2019-10-06] MEDS: APIXABAN 5 MG TABLET PO SCH ×2 (09:19→21:01)
[2019-10-06] MEDS: INSULIN ASPART 100 UNITS/ML 3 ML PEN SC SCH ×4 (09:20→21:11)
[2019-10-06] MEDS: OXYCODONE HCL IR 5 MG TAB (IMMEDIATE RELEASE) PO PRN ×3 (10:09→21:06)
--- NOTE | 2019-10-06 14:49 | Hospitalist Progress Note ---
Date of Service October 06, 2019 Assessment & Plan (1) Back pain: Jayy is an 84-year-old male with a past medical history of a flutter/A. fib, CABG, cardiomyopathy, dyslipidemia, PAD, COPD, type 2 diabetes, hypertension, and BPH who presented to the emergency department with cervical and thoracic back pain and who was found to have multiple bony lesions on MRI. Vertebral bony lesions: - Multifocal infiltrative osseous lesions of the cervical, thoracic, and lumbar spine appreciated on MRI. Large masses of T2-T3 extending into the epidural space and a C3 lesion eroding through the posterior cortex of the vertebral body. Highly concerning for metastatic disease versus multiple myeloma. - Total protein elevated, SPEP/UPEP ordered - [facility] consulted. Patient's daughter is known to Dr. Reed with [facility] oncology, and they prefer to follow with [facility] oncology even if they are out of network with insurance. - X-ray film from March 2019 reviewed, consistent with degenerative change but no ahsley lesions appreciated on plain film at that time. - Pain control with oxycodone 5 mg every 4 hours as needed - Bowel regimen available CAD with history of CABG: - Continue metoprolol XL 50 mg every morning - Continue PIEROGI MAKER carvedilol 12.5 mg p.o. twice daily - Continue losartan 12.5 mg p.o. every morning - Continue Lasix 20 mg p.o. every morning - Continue atorvastatin 40 mg p.o. nightly - Patient has cough that is been chronic and persistent since CABG. Will attempt flutter valve and Symbicort as this is previously relieved the symptoms while in hospital, cough exacerbates current pain from spinal masses History of a flutter/A. fib: - Continue PIEROGI MAKER digoxin 125 mcg every other day - Beta-blockers as above - Continue PIEROGI MAKER apixaban 5 mg p.o. twice daily Hypertension: - Continue home regimen - Continue aspirin daily Type 2 diabetes mellitus: - On PIEROGI MAKER glargine 35 units nightly, 6 units every morning - Converted to hospital basal bolus based on total insulin requirements - Glargine 10 units twice daily, SSI insulin. - Hold oral anti-glycemic's Diet: Type II diabetic diet DVT prophylaxis: Apixaban as above Code: Full code. (2) Atrial flutter with controlled response: (3) Status post carotid endarterectomy: (4) Anticoagulant long-term use: (5) S/P CABG (coronary artery bypass graft): (6) Cardiomyopathy: (7) Carotid artery stenosis: (8) PAD (peripheral artery disease): (9) S/P aortic valve replacement with bioprosthetic valve: (10) Lesion of vertebra: Supervising Physician Co-Signing Physician Notes Patient seen and examined with PGY-1 Dr. Velazquez. Agree with history, exam findings, assessment and plan as outlined with the following updates: In brief, Mr. Turk is an 84 year old male with history of CAD, cardiomyopathy, afib/aflutter anticoagulated with Xa, COPD, DM, HTN admitted with intractable upper thoracic pain and upper extremity paresthesias. On admission, was found to have lytic lesions and amass in the upper thoracic region. Unsure if this is MM vs metastatic disease. MM work up in progress. Appreciate heme-onc ([facility]) recommendations. Bony pain controlled with oxycodone. If not seen by mid-day tomorrow by Heme-Onc, we will call the rounding provider to follow up on any recommendations. Subpleural density on CXR. Needs follow up CT Chest. Anticipate that once pain is controlled, barring any additional inpatient work up that needs to be performed, patient can be discharged. Subjective Patient continues to have numbness and tingling in upper extremities specifically it has moved to his right arm in place of left arm where it had been for some time; patient's back pain has improved on oxycodone and prefers this in place of IV medication; having no continued issues with movement of the arms or legs Review of Systems Constitutional: no fever, no chills and no sweats Eyes: no diplopia, no discharge and no spots in vision Ear, Nose, Mouth, Throat: no tinnitus, no dizziness, no nasal congestion and no nasal discharge Respiratory: no cough, no dyspnea and no wheezing Cardiovascular: no chest pain, no radiating jaw, neck or arm pain, no palpitations and no edema Gastrointestinal: no abdominal pain, no nausea and no vomiting Genitourinary: no difficulty urinating, no urinary frequency and no hematuria Physical Exam Constitutional: WD/WN, vitals as above Eyes: PERRL, conjunctivae normal, anicteric sclerae Respiratory: normal respiratory effort and + cough; no respiratory distress and no labored breathing Auscultation: + rhonchi (lower lobes); no crackles, no rales and no wheezes Cardiovascular: Rate/Rhythm: regular rate and regular rhythm Heart Sounds: normal S1 and normal S2; no gallop, no murmur and no cardiac rub Vessels: no JVD Neurologic: patellar DTR's 2+ bilat, sensation intact and PERRL, EOMI, accommodation nl, no face palsy, no dysarthria normal touch/pain/proprioception and moves all extremities; no focal motor deficits Results & Data ([facility]) Vital Signs (Past 12 Hours) Vital Signs Temp Pulse Resp BP Pulse Ox 10/06/19 07:38 96 10/06/19 07:35 36.5 C 100 H 20 100/60 86 L Laboratory Results 10/06/19 10/06/19 10/06/19 Range/Units 12:04 08:09 05:37 WBC (4.8-10.8) K/uL RBC (4.7-6.1) M/uL Hgb (14.0-18.0) g/dL Hct (42-52) % MCV (80-100) fL MCH (25-34) pg MCHC (32-36) g/dL RDW Std Deviation (36.4-46.3) fL RDW Coeff of Godfrey (11.5-14.5) % Plt Count (130-400) K/uL MPV (7.4-10.4) fL Immature Gran % (Auto) % Neut % (Auto) % Lymph % (Auto) % [place] % (Auto) % Eos % (Auto) % Baso % (Auto) % Immature Gran # (Auto) (0.00-0.02) K/uL Neut # (Auto) (1.4-6.5) K/uL Lymph # (Auto) (1.2-3.4) K/uL [place] # (Auto) (0.11-0.59) K/uL Eos # (Auto) (0-0.5) K/uL Baso # (Auto) (0-0.2) K/uL PT (9.0-12.0) Seconds INR (0.9-1.1) APTT (21.0-31.0) Seconds PTT Ratio Sodium (136-145) mmol/L Potassium (3.5-5.1) mmol/L Chloride (98-107) mmol/L Carbon Dioxide (21-32) mmol/L Anion Gap (3-11) BUN (7-18) mg/dl Creatinine (0.6-1.4) mg/dl Est Cr Clr Drug Dosing ml/min Est GFR ( Amer) Est GFR (Non-Af Amer) BUN/Creatinine Ratio (10-20) Glucose (70-99) mg/dl POC Glucose 126 H 120 H (70-99) mg/dl Calcium (8.5-10.1) mg/dl Total Bilirubin (0.2-1) mg/dl AST (15-37) U/L ALT (12-78) U/L Alkaline Phosphatase (45-117) U/L Troponin I (0-0.045) ng/ml Total Protein (6.4-8.2) gm/dl Total Protein (PEP) Pending Albumin (3.4-5.0) gm/dl Albumin (PEP) Pending Globulin (2.5-4.0) gm/dl Albumin/Globulin Ratio (0.9-2) Chmhw-2-Fapvaizos Pending Uommm-2-Rdmbkjhlt Pending Ishx-6-Vginvkxx Pending Gofn-2-Livlhahy Pending Gamma Globulins Pending Monoclonal Peak 3 Pending Ser Monoclonl Protein Pending Ser Monoclonal Prot 2 Pending PEP Interpretation Pending Lipase (73-393) U/L 10/05/19 10/05/19 10/05/19 Range/Units 17:02 17:02 17:02 WBC 10.45 (4.8-10.8) K/uL RBC 3.78 L (4.7-6.1) M/uL Hgb 11.6 L (14.0-18.0) g/dL Hct 35.2 L (42-52) % MCV 93.1 (80-100) fL MCH 30.7 (25-34) pg MCHC 33.0 (32-36) g/dL RDW Std Deviation 52.7 H (36.4-46.3) fL RDW Coeff of Godfrey 15.4 H (11.5-14.5) % Plt Count 204 (130-400) K/uL MPV 9.3 (7.4-10.4) fL Immature Gran % (Auto) 0.1 % Neut % (Auto) 74.0 % Lymph % (Auto) 14.3 % [place] % (Auto) 10.1 % Eos % (Auto) 1.1 % Baso % (Auto) 0.4 % Immature Gran # (Auto) 0.01 (0.00-0.02) K/uL Neut # (Auto) 7.73 H (1.4-6.5) K/uL Lymph # (Auto) 1.49 (1.2-3.4) K/uL [place] # (Auto) 1.06 H (0.11-0.59) K/uL Eos # (Auto) 0.12 (0-0.5) K/uL Baso # (Auto) 0.04 (0-0.2) K/uL PT 11.5 (9.0-12.0) Seconds INR 1.1 (0.9-1.1) APTT 28.6 (21.0-31.0) Seconds PTT Ratio 1.1 Sodium 137 (136-145) mmol/L Potassium 4.2 (3.5-5.1) mmol/L Chloride 104 (98-107) mmol/L Carbon Dioxide 27 (21-32) mmol/L Anion Gap 6.0 (3-11) BUN 17 (7-18) mg/dl Creatinine 1.18 (0.6-1.4) mg/dl Est Cr Clr Drug Dosing 46.9 ml/min Est GFR ( Amer) 65.3 Est GFR (Non-Af Amer) 56.3 BUN/Creatinine Ratio 14.7 (10-20) Glucose 117 H (70-99) mg/dl POC Glucose (70-99) mg/dl Calcium 9.9 (8.5-10.1) mg/dl Total Bilirubin 0.6 (0.2-1) mg/dl AST 29 (15-37) U/L ALT 13 (12-78) U/L Alkaline Phosphatase 208 H (45-117) U/L Troponin I < 0.015 (0-0.045) ng/ml Total Protein 8.0 (6.4-8.2) gm/dl Total Protein (PEP) Albumin 3.1 L (3.4-5.0) gm/dl Albumin (PEP) Globulin 4.9 H (2.5-4.0) gm/dl Albumin/Globulin Ratio 0.6 L (0.9-2) Ramze-0-Plnndxreq Xvoqb-3-Aaglrwyos Zlek-1-Tufsvliq Eqwl-9-Dlqboduw Gamma Globulins Monoclonal Peak 3 Ser Monoclonl Protein Ser Monoclonal Prot 2 PEP Interpretation Lipase 50 L (73-393) U/L Medications Administered Current Inpatient Medications Acetaminophen (Tylenol) 650 mg PO Q4H PRN PRN Reason: pain/fever Stop: 11/05/19 01:27 Apixaban (Eliquis) 5 mg PO BID [facility] Stop: 11/05/19 08:59 Last Admin: 10/06/19 09:19 Dose: 5 mg Documented by: Aspirin (Ecotrin) 325 mg PO QAM [facility] Stop: 11/05/19 08:59 Last Admin: 10/06/19 09:07 Dose: 325 mg Documented by: Atorvastatin Calcium (Lipitor) 40 mg PO HS [facility] Stop: 11/05/19 20:59 Carvedilol (Coreg) 12.5 mg PO BID [facility] Stop: 11/05/19 08:59 Last Admin: 10/06/19 09:07 Dose: 12.5 mg Documented by: Dextrose (Dextrose 50%) 25 - 50 ml IV UD PRN; Protocol PRN Reason: Hypoglycemia Protocol Stop: 11/05/19 01:27 Digoxin (Lanoxin) 0.125 mg PO Q48H [facility] Stop: 11/05/19 15:59 Fluticasone/Vilanterol (Breo Ellipta 100/25 Mcg Inh) 1 puffs INH DAILY [facility] Stop: 11/06/19 08:59 Furosemide (Lasix) 20 mg PO QAM [facility] Stop: 11/05/19 08:59 Last Admin: 10/06/19 09:07 Dose: 20 mg Documented by: Glucagon (Glucagen) 1 mg SQ UD PRN; Protocol PRN Reason: Hypoglycemia Protocol Stop: 11/05/19 01:27 Glucose (Dex4 Glucose) 4 - 8 tabs PO UD PRN; Protocol PRN Reason: Hypoglycemia Protocol Stop: 11/05/19 01:27 Glucose (Glucose 40%) 15 - 30 gm PO UD PRN; Protocol PRN Reason: Hypoglycemia Protocol Stop: 11/05/19 01:27 Insulin Aspart (Novolog Flexpen) 0 units SC ACHS [facility] Stop: 11/05/19 07:29 Last Admin: 10/06/19 13:31 Dose: 1 units Documented by: Insulin Glargine (Lantus Solostar Pen) 10 units SC BID [facility] Stop: 11/05/19 08:59 Last Admin: 10/06/19 09:19 Dose: 10 units Documented by: Losartan Potassium (Cozaar) 12.5 mg PO QAM [facility] Stop: 11/05/19 08:59 Last Admin: 10/06/19 09:08 Dose: 12.5 mg Documented by: Metoprolol Succinate ([facility]l) [facility] Stop: 11/05/19 08:59 Last Admin: 10/06/19 09:07 Dose: 50 mg Documented by: Miscellaneous (Carbohydrates For Hypoglycemia) 15 - 30 gm PO UD PRN PRN Reason: Hypoglycemia Protocol Stop: 11/05/19 01:27 Oxycodone HCl (Roxicodone Immediate Rel) 5 mg PO Q4H PRN PRN Reason: Pain Stop: 10/20/19 05:16 Last Admin: 10/06/19 10:09 Dose: 5 mg Documented by: Resident Activity Tracking Resident Involvement: Resident Care Provided Care Provided: Adult Hospital Medicine
[2019-10-06] MEDS: FLUTICASONE/VILANTEROL 100/25MCG 14 PUFFS/INHALER INH SCH (16:54)
--- NOTE | 2019-10-06 17:03 | Electrocardiogram Report ---
Test Reason : Blood Pressure : / mmHG Vent. Rate : 105 BPM Atrial Rate : 105 BPM P-R Int : 200 ms QRS Dur : 134 ms QT Int : 352 ms P-R-T Axes : 084 004 109 degrees QTc Int : 465 ms Sinus tachycardia Non-specific intra-ventricular conduction block T wave abnormality, consider lateral ischemia Abnormal ECG When compared with ECG of 05-AUG-2018 15:42, Sinus rhythm has replaced Atrial fibrillation /flutter Confirmed by Dylan Graham ([id number]) on 10/06/2019 5:02:57 PM Referred By: REFERRED SELF Confirmed By:Dylan Graham
[2019-10-06] MEDS: DIGOXIN 0.125 MG TAB PO SCH (17:09)
[2019-10-06] MEDS: ATORVASTATIN 40 MG TAB PO SCH (21:01)
[2019-10-06] MEDS: ACETAMINOPHEN 325 MG TAB PO PRN (21:05)
[2019-10-07 06:51] LABS: Basophils # (auto) 0.03 K/uL (0-0.2); Basophils % (auto) 0.3 %; Eosinophils # (auto) 0.28 K/uL (0-0.5); Eosinophils % (auto) 2.7 %; Hematocrit (blood only) 29.4 % (42-52); Hemoglobin 9.8 g/dL (14.0-18.0); Immature Granulocytes # (auto) 0.02 K/uL (0.00-0.02); Immature Granulocytes % (auto) 0.2 %; Lymphocytes # (auto) 1.97 K/uL (1.2-3.4); Mean Corpuscular Hemoglobin 30.3 pg (25-34); Mean Corpuscular Hgb Conc 33.3 g/dL (32-36); Mean Platelet Volume 9.2 fL (7.4-10.4); Monocytes # (auto) 1.24 K/uL (0.11-0.59); Monocytes % (auto) 11.9 %; Neutrophils # (auto) 6.85 K/uL (1.4-6.5); Neutrophils % (auto) 65.9 %; Platelet Count 203 K/uL (130-400); RDW Coefficient of Variation 15.5 % (11.5-14.5); RDW Standard Deviation 52.3 fL (36.4-46.3); Red Blood Count 3.23 M/uL (4.7-6.1); White Blood Count 10.39 K/uL (4.8-10.8)
[2019-10-07 07:30] LABS: BUN Creatinine Ratio 22.8 (10-20); Calcium 9.4 mg/dl (8.5-10.1); Creatinine Clr Calc Pharmacy 39.1 ml/min; Est GFR (African American) 52.6; Est GFR (Non-African American) 45.4
[2019-10-07] MEDS: OXYCODONE HCL IR 5 MG TAB (IMMEDIATE RELEASE) PO PRN (08:02)
[2019-10-07] MEDS: FLUTICASONE/VILANTEROL 100/25MCG 14 PUFFS/INHALER INH SCH (08:37)
[2019-10-07] MEDS: carvediloL 12.5 MG TAB PO SCH (08:38)
[2019-10-07] MEDS: ASPIRIN 325 MG ECTAB PO SCH (08:39)
[2019-10-07] MEDS: LOSARTAN POTASSIUM 25 MG TAB PO SCH (08:39)
[2019-10-07] MEDS: METOPROLOL SUCC 50MG EXT REL TAB PO SCH (08:40)
[2019-10-07] MEDS: APIXABAN 5 MG TABLET PO SCH ×2 (08:40→20:58)
[2019-10-07] MEDS: FUROSEMIDE 20 MG TAB PO SCH (08:40)
[2019-10-07] MEDS: SENNA 8.6 MG TAB PO SCH (08:40)
[2019-10-07] MEDS: INSULIN GLARGINE SOLOSTAR 100 UNITS/ML 3 ML PEN SC SCH ×2 (08:42→21:00)
[2019-10-07] MEDS: INSULIN ASPART 100 UNITS/ML 3 ML PEN SC SCH ×4 (09:01→21:00)
[2019-10-07] MEDS ORDERED: OXYCODONE HCL IR 5 MG TAB (IMMEDIATE RELEASE) PO PRN ×2 (10:13→16:31)
[2019-10-07] MEDS ORDERED: Nursing to Pharmacy Communication ONE (11:20)
[2019-10-07] MEDS ORDERED: LIDOCAINE 5% 1 PATCH TD ONE (11:30)
[2019-10-07] MEDS: IOVERSOL 100ml IV PRN (13:12)
--- NOTE | 2019-10-07 13:54 | CT Scan Report ---
CT SCAN OF THE CHEST, ABDOMEN, AND PELVIS WITH IV CONTRAST CLINICAL HISTORY: Metastatic disease. COMPARISON STUDY: Chest x-ray dated 10/05/2019. MRI of the thoracic spine dated 10/05/2019. Abdominal CT dated 611. TECHNIQUE: Following the IV administration of 93 of Optir[employer] 320, CT scan of the chest, abdomen, and p rafael was performed from the thoracic inlet to the proximal femora. Images are reviewed in the axial, sagittal, and coronal planes. IV contrast was administered without complication. A dose lowering te chnique was utilized adhering to the principles of ALARA. CT DOSE: 840.89 mGy.cm FINDINGS: CHEST: Thyroid: Imaged portions of the thyroid gland are normal in size and attenuation. Thoracic aorta: There is advanced atherosclerotic calcification of the thoracic aorta, which is nancy l in caliber and demonstrates standard 3-vessel arch anatomy. No dissection is seen. Pulmonary vasculature: The pulmonary trunk is normal in caliber. There are no filling defects identif ied in the central pulmonary vessels to indicate pulmonary embolus. Note that this examination was no t protocoled for evaluation of the pulmonary arteries. Heart: The patient is status post midline sternotomy and aortic valve surgery. The heart is enlarged and without pericardial effusion. The coronary arteries are densely calcified. Lungs and pleural spaces: Emphysematous change is identified. No airspace consolidation is seen typic al for pneumonia. There is trace right pleural effusion. 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 There is a 1.3 cm irregular nodule in the l eft lower lobe on image #107, and a 1.9 cm irregular nodule in the left lower lobe seen on image #170 . A 1.4 cm irregular nodule in the right upper lobe is seen on image #139, and a 0.7 cm irregular rig ht middle lobe nodule is seen on image #173. A 5 mm right lower lobe nodule is seen on image #117 anny ng the major fissure and a subcentimeter left upper lobe nodule seen on image #89. The trachea and ce ntral airways are clear. Lower neck: A left supraclavicular node on image #24 measures 2.9 x 2.2 cm. Question right cervical a denopathy versus thrombosis of the right internal jugular vein. Mediastinum: There is mediastinal lymphadenopathy. A subcarinal node seen on image #133 measures 4.2 x 3.1 cm. A large right peritracheal rohan aggregate on image #84 measures 4.8 x 3.9 cm. Kellee: There is right hilar adenopathy. The largest node is seen on image #121 and measures 3.4 x 2.4 cm. Axillae: There is no axillary lymphadenopathy. Bony thorax: The skeletal structures are osteopenic. 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 A large permeative lesion is seen within the body, left pedicle, and left lamina of T3 , as well as the superior aspect of T2. This measures to significant acquired compromise of the centr al canal at this level. Additional spinal lesions are identified, the largest of which is located in the body of T12. Vertebral body height is maintained throughout the thoracic spine. Hyperkyphosis is observed. Additional lesions are present within the manubrium of the sternum, the left humeral head, several bilateral ribs. There is a pathological fracture of the right posterior fourth rib. ABDOMEN AND PELVIS: Liver: The contrast-enhanced liver is cirrhotic in morphology and heterogeneous in attenuation. There is hypertrophy of the left lobe and caudate as well as nodularity of the surface contour. There is n o intra- or extrahepatic biliary ductal dilatation. The hepatic veins and portal veins are patent. Gallbladder: There are numerous calcified gallstones with no CT evidence of acute cholecystitis. Spleen: Normal in size and attenuation. Small splenules are unchanged dating back to 2010. Pancreas: The pancreas is moderately atrophic. Numerous parenchymal calcifications suggest chronic pa ncreatitis. Adrenal glands: Bilateral adrenal nodules are unchanged dating back to 2011. The largest is on the le ft and measures 2.3 cm. These likely represent adenomas but cannot be definitively characterized due to the presence of IV contrast. Kidneys: The contrast enhanced kidneys are atrophic and without hydronephrosis. The kidneys enhance s ymmetrically. A 1.3 cm cyst is noted in the left lower pole. Abdominal vasculature: There is advanced atherosclerotic calcification and mild ectasia of the abdomi nal aorta. Stomach and bowel: There is a small hiatal hernia. There is moderate diverticulosis of left colon wit hout CT evidence of acute diverticulitis. No bowel obstruction is seen. Fecal retention is noted in t he right colon. The appendix is normal as visualized. Peritoneum: There is no intraperitoneal free air or abdominal ascites. Lymphadenopathy: There are numerous mildly enlarged retroperitoneal and left iliac chain lymph nodes. The largest is in the left periaortic region seen on image #157 and measures 1.1 x 1.0 cm. There is no upper abdominal or mesenteric lymphadenopathy. Pelvic viscera: The prostate gland is enlarged and heterogeneous noting median lobe hypertrophy. The bladder wall is thickened and trabeculated indicating chronic outlet obstruction. There are left larg er than right fat-containing inguinal hernias. Skeletal structures: The skeletal structures are osteopenic. Numerous osteolytic lesions are identifi ed in the lumbar spine and bony pelvis. Large lesions are seen within the bodies of L1 and L3. Severa l small lesions are present within the iliac wings bilaterally as well as the left pubic ring. IMPRESSION: 1. Cardiomegaly and emphysema. 2. Again seen is evidence of multifocal osteolytic metastatic disease as detailed above. Lesions cent ered around T3 encroach upon the thecal sac and contribute to severe central canal stenosis. This was better assessed on the recent thoracic spine MRI. 3. There is bulky right hilar, mediastinal, and left supraclavicular adenopathy. 4. Question a necrotic right supraclavicular adenopathy versus thrombosis of the right internal jugul ar vein. Ultrasound correlation would be definitive. 5. There are numerous (less than 10) irregular pulmonary nodules scattered throughout both lungs. Thi s is highly concerning for pulmonary metastatic disease. 6. Cirrhotic liver morphology. 7. Mildly enlarged retroperitoneal and left iliac chain lymph nodes are concerning for metastatic dis ease. 8. Cholelithiasis. 9. Moderate diverticulosis of the left colon without CT evidence of acute diverticulitis. 10. Prostatomegaly with evidence of chronic bladder outlet obstruction. 11. Trace right pleural effusion. 12. There are numerous calcified pleural plaques seen bilaterally consistent with asbestos related pl eural disease. This likely corresponds to the left subpleural density seen by chest x-ray. 13. Additional findings as above. ACT 112: Negative or not required by law. Electronically signed by: Aydin Snyder M.D. 10/07/2019 1:52 PM
[2019-10-07] MEDS: ACETAMINOPHEN 325 MG TAB PO PRN (15:51)
--- NOTE | 2019-10-07 16:25 | Hospitalist Progress Note ---
Date of Service October 07, 2019 Assessment & Plan (1) Back pain: Jayy is an 84-year-old male with a past medical history of a flutter/A. fib, CABG, cardiomyopathy, dyslipidemia, PAD, COPD, type 2 diabetes, hypertension, and BPH who presented to the emergency department with cervical and thoracic back pain and who was found to have multiple bony lesions on MRI. Vertebral bony lesions: - CT chest/abdomen/pelvis conducted 10/07 demonstrating multiple likely metastatic lesions throughout lungs bilaterally and liver. Also demonstrated an increased size of prostate likely representing prostate cancer in the setting of an elevated PSA - PSA 154 - Multifocal infiltrative osseous lesions of the cervical, thoracic, and lumbar spine appreciated on MRI. Large masses of T2-T3 extending into the epidural space and a C3 lesion eroding through the posterior cortex of the vertebral body. Highly concerning for metastatic disease versus multiple myeloma. - Nuclear medicine bone scan ordered; to be performed tomorrow - SPEP/UPEP pending - [facility] Oncology consulted: Had discussion with Dr. Reed who recommended CT chest abdomen pelvis as well as nuclear medicine bone scan and PSA. Also recommended set-up for outpatient radiation oncology, and surgery for biopsy of 1 of the sites of disease for better determination of oncologic type - X-ray film from March 2019 reviewed, consistent with degenerative change but no ashley lesions appreciated on plain film at that time. - Pain control with oxycodone 5 mg every 4 hours as needed - Bowel regimen available CAD with history of CABG: - Continue metoprolol XL 50 mg every morning - Continue [employer] NON MEDICAL carvedilol 12.5 mg p.o. twice daily - Continue losartan 12.5 mg p.o. every morning - Continue Lasix 20 mg p.o. every morning - Continue atorvastatin 40 mg p.o. nightly History of a flutter/A. fib: - Continue [employer] NON MEDICAL digoxin 125 mcg every other day - Beta-blockers as above - Continue [employer] NON MEDICAL apixaban 5 mg p.o. twice daily Hypertension: - Continue home regimen - Continue aspirin daily Type 2 diabetes mellitus: - On [employer] NON MEDICAL glargine 35 units nightly, 6 units every morning - Converted to hospital basal bolus based on total insulin requirements - Glargine 10 units twice daily, SSI insulin. - Hold oral anti-glycemic's Diet: Type II diabetic diet DVT prophylaxis: Apixaban as above Code: Full code. Supervising Physician Co-Signing Physician Notes Patient seen and examined with PGY-1 Dr. Velazquez. Agree with history, exam fin dings, assessment and plan as outlined with the following updates: In brief, Mr. Turk is an 84 year old male with history of CAD, cardiomyopathy, afib/aflutter anticoagulated with Xa, COPD, DM, HTN admitted with intractable upper thoracic pain and upper extremity paresthesias. On admission, was found to have lytic lesions and a mass in the upper thoracic region. Pain is controlled with oxycodone 5mg q4h. Added lidocaine patch to the upper back but doubt this will have much effect on bony pain. Primary is likely prostate given elevated PSA, but will need tissue bx to be done to confirm. This can be arranged as an outpatient. Dr. Velazquez called heme-onc and spoke with Dr. Reed (after he was not able to get in contact with the provider listed as the weekend on-call heme-onc provider for [facility]). We were informed by Dr. Reed that their service does not come to the hospital to see patients without a confirmed primary diagnosis. Dr. Reed did give recommendations for further work up including additional CT Abd/Pelvis. CT Chest as well to follow up on subpleural density seen on CXR. CT Chest/Abd/Pelvis with likely metastatic nodules within the bilateral lungs as well as enlarged lymph nodes in the right hilar, mediastinal, left supraclavicular, retroperitoneal and left iliac change lymphadenopathy. Noted additional bony lesions in the lumbar spine and pelvis as well. Bone scan pending tomorrow AM. Protein electrophoresis still pending. Discussed that tissue dx can be done as an outpatient. Patient's daughter works with Dr. Reed at [facility] and would prefer for father to have care with [facility]. Will plan to refer to radiation oncology for symptom management of his painful bony lesions. Low blood pressures this afternoon after oxycodone dose. Asymptomatic. Hold coreg and tamsulosin this evening. Dispo: pending any new medical issues, likely discharge tomorrow after bone scan. Subjective Patient continues to have numbness and tingling in upper extremities specifically it has moved to his right arm in place of left arm where it had been for some time; patient's back pain has improved on oxycodone and family would like to try lidocaine patch for patient's pain family would like to try lidocaine patch; having no continued issues with movement of the arms or legs Subsequent reevaluation, patient not tolerating lidocaine patch as still having continued increased pain. That was previously well controlled while on oxycodone every 4 hours. Review of Systems Review of Systems: All systems reviewed & are unremarkable except as noted in HPI & below Neurologic: + tingling (to right shoulder) and + radiating pain (to right shoulder) Physical Exam Constitutional: WD/WN, vitals as above Eyes: PERRL, conjunctivae normal, anicteric sclerae Respiratory: normal respiratory effort and + cough; no respiratory distress and no labored breathing Auscultation: + rhonchi (lower lobes); no crackles, no rales and no wheezes Cardiovascular: Rate/Rhythm: regular rate and regular rhythm Heart Sounds: normal S1 and normal S2; no gallop, no murmur and no cardiac rub Vessels: no JVD Neurologic: patellar DTR's 2+ bilat, sensation intact and PERRL, EOMI, accommodation nl, no face palsy, no dysarthria normal touch/pain/propriocep tion and moves all extremities; no focal motor deficits Results & Data ([facility]) Vital Signs (Past 12 Hours) Vital Signs Temp Pulse Resp BP Pulse Ox 10/07/19 07:23 36.4 C L 81 16 105/65 91 Laboratory Results 10/07/19 10/07/19 10/07/19 Range/Units 13:01 12:00 08:15 WBC (4.8-10.8) K/uL RBC (4.7-6.1) M/uL Hgb (14.0-18.0) g/dL Hct (42-52) % MCV (80-100) fL MCH (25-34) pg MCHC (32-36) g/dL RDW Std Deviation (36.4-46.3) fL RDW Coeff of Godfrey (11.5-14.5) % Plt Count (130-400) K/uL MPV (7.4-10.4) fL Immature Gran % (Auto) % Neut % (Auto) % Lymph % (Auto) % Branch % (Auto) % Eos % (Auto) % Baso % (Auto) % Immature Gran # (Auto) (0.00-0.02) K/uL Neut # (Auto) (1.4-6.5) K/uL Lymph # (Auto) (1.2-3.4) K/uL Branch # (Auto) (0.11-0.59) K/uL Eos # (Auto) (0-0.5) K/uL Baso # (Auto) (0-0.2) K/uL Sodium (136-145) mmol/L Potassium (3.5-5.1) mmol/L Chloride (98-107) mmol/L Carbon Dioxide (21-32) mmol/L Anion Gap (3-11) BUN (7-18) mg/dl Creatinine (0.6-1.4) mg/dl Est Cr Clr Drug Dosing ml/min Est GFR ( Amer) Est GFR (Non-Af Amer) BUN/Creatinine Ratio (10-20) Glucose (70-99) mg/dl POC Glucose 111 H 106 H (70-99) mg/dl Calcium (8.5-10.1) mg/dl Prostate Specific Ag 154.000 H (0-4) ng/ml Specimen Hemolysis Ur Creatinine 24 Hour Ur Total Protein 24 Hr Protein/Creat Ratio 24h Urine Albumin (%) U Hnrso-5-Ncaoxdih (%) U Vbest-8-Qchdyqin (%) U Beta Globulin (%) U Gamma Globulin (%) U Abnormal Prot Band 1 U Abnormal Prot Band 2 U Abnormal Prot Band 3 Urine PEP Interpret Procainamide 10/07/19 10/07/19 10/07/19 Range/Units 06:29 06:29 04:30 WBC 10.39 (4.8-10.8) K/uL RBC 3.23 L (4.7-6.1) M/uL Hgb 9.8 L (14.0-18.0) g/dL Hct 29.4 L (42-52) % MCV 91.0 (80-100) fL MCH 30.3 (25-34) pg MCHC 33.3 (32-36) g/dL RDW Std Deviation 52.3 H (36.4-46.3) fL RDW Coeff of Godfrey 15.5 H (11.5-14.5) % Plt Count 203 (130-400) K/uL MPV 9.2 (7.4-10.4) fL Immature Gran % (Auto) 0.2 % Neut % (Auto) 65.9 % Lymph % (Auto) 19.0 % Branch % (Auto) 11.9 % Eos % (Auto) 2.7 % Baso % (Auto) 0.3 % Immature Gran # (Auto) 0.02 (0.00-0.02) K/uL Neut # (Auto) 6.85 H (1.4-6.5) K/uL Lymph # (Auto) 1.97 (1.2-3.4) K/uL Branch # (Auto) 1.24 H (0.11-0.59) K/uL Eos # (Auto) 0.28 (0-0.5) K/uL Baso # (Auto) 0.03 (0-0.2) K/uL Sodium 132 L (136-145) mmol/L Potassium 4.0 (3.5-5.1) mmol/L Chloride 99 (98-107) mmol/L Carbon Dioxide 28 (21-32) mmol/L Anion Gap 5.0 (3-11) BUN 32 H D (7-18) mg/dl Creatinine 1.41 H (0.6-1.4) mg/dl Est Cr Clr Drug Dosing 39.1 ml/min Est GFR ( Amer) 52.6 Est GFR (Non-Af Amer) 45.4 BUN/Creatinine Ratio 22.8 H (10-20) Glucose 104 H (70-99) mg/dl POC Glucose (70-99) mg/dl Calcium 9.4 (8.5-10.1) mg/dl Prostate Specific Ag (0-4) ng/ml Specimen Hemolysis Ur Creatinine 24 Hour Pending Ur Total Protein 24 Hr Pending Protein/Creat Ratio 24h Pending Urine Albumin (%) Pending U Kgaxf-6-Gwwtoyjb (%) Pending U Jhera-4-Vavjsukq (%) Pending U Beta Globulin (%) Pending U Gamma Globulin (%) Pending U Abnormal Prot Band 1 Pending U Abnormal Prot Band 2 Pending U Abnormal Prot Band 3 Pending Urine PEP Interpret Pending Procainamide Pending 10/06/19 10/06/19 Range/Units 21:08 17:18 WBC (4.8-10.8) K/uL RBC (4.7-6.1) M/uL Hgb (14.0-18.0) g/dL Hct (42-52) % MCV (80-100) fL MCH (25-34) pg MCHC (32-36) g/dL RDW Std Deviation (36.4-46.3) fL RDW Coeff of Godfrey (11.5-14.5) % Plt Count (130-400) K/uL MPV (7.4-10.4) fL Immature Gran % (Auto) % Neut % (Auto) % Lymph % (Auto) % Branch % (Auto) % Eos % (Auto) % Baso % (Auto) % Immature Gran # (Auto) (0.00-0.02) K/uL Neut # (Auto) (1.4-6.5) K/uL Lymph # (Auto) (1.2-3.4) K/uL Branch # (Auto) (0.11-0.59) K/uL Eos # (Auto) (0-0.5) K/uL Baso # (Auto) (0-0.2) K/uL Sodium (136-145) mmol/L Potassium (3.5-5.1) mmol/L Chloride (98-107) mmol/L Carbon Dioxide (21-32) mmol/L Anion Gap (3-11) BUN (7-18) mg/dl Creatinine (0.6-1.4) mg/dl Est Cr Clr Drug Dosing ml/min Est GFR ( Amer) Est GFR (Non-Af Amer) BUN/Creatinine Ratio (10-20) Glucose (70-99) mg/dl POC Glucose 144 H 138 H (70-99) mg/dl Calcium (8.5-10.1) mg/dl Prostate Specific Ag (0-4) ng/ml Specimen Hemolysis Ur Creatinine 24 Hour Ur Total Protein 24 Hr Protein/Creat Ratio 24h Urine Albumin (%) U Xhpig-5-Iglubcwe (%) U Usgdt-3-Bnziaree (%) U Beta Globulin (%) U Gamma Globulin (%) U Abnormal Prot Band 1 U Abnormal Prot Band 2 U Abnormal Prot Band 3 Urine PEP Interpret Procainamide Diagnostic Findings CT SCAN OF THE CHEST, ABDOMEN, AND PELVIS WITH IV CONTRAST CLINICAL HISTORY: Metastatic disease. COMPARISON STUDY: Chest x-ray dated 10/05/2019. MRI of the thoracic spine dated 10/05/2019. Abdominal CT dated 611. TECHNIQUE: Following the IV administration of 93 of Optiray 320, CT scan of the chest, abdomen, and pelvis was performed from the thoracic inlet to the proximal femora. Images are reviewed in the axial, sagittal, and coronal planes. IV con trast was administered without complication. A dose lowering technique was utilized adhering to the principles of ALARA. CT DOSE: 840.89 mGy.cm FINDINGS: CHEST: Thyroid: Imaged portions of the thyroid gland are normal in size and attenuation. Thoracic aorta: There is advanced atherosclerotic calcification of the thoracic aorta, which is normal in caliber and demonstrates standard 3-vessel arch anatomy. No dissection is seen. Pulmonary vasculature: The pulmonary trunk is normal in caliber. There are no filling defects identified in the central pulmonary vessels to indicate pulmonary embolus. Note that this examination was not protocoled for evaluation of the pulmonary arteries. Heart: The patient is status post midline sternotomy and aortic valve surgery. The heart is enlarged and without pericardial effusion. The coronary arteries are densely calcified. Lungs and pleural spaces: Emphysematous change is identified. No airspace consolidation is seen typical for pneumonia. There is trace right pleural effusion. 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 There is a 1.3 cm irregular nodule in the left lower lobe on image #107, and a 1.9 cm irregular nodule in the left lower lobe seen on image #170. A 1.4 cm irregular nodule in the right upper lobe is seen on image #139, and a 0.7 cm irregular right middle lobe nodule is seen on image #173. A 5 mm right lower lobe nodule is seen on image #117 along the major fissure and a subcentimeter left upper lobe nodule seen on image #89. The trachea and central airways are clear. Lower neck: A left supraclavicular node on image #24 measures 2.9 x 2.2 cm. Question right cervical adenopathy versus thrombosis of the right internal jugular vein. Mediastinum: There is mediastinal lymphadenopathy. A subcarinal node seen on image #133 measures 4.2 x 3.1 cm. A large right peritracheal rohan aggregate on image #84 measures 4.8 x 3.9 cm. Kellee: There is right hilar adenopathy. The largest node is seen on image #121 and measures 3.4 x 2.4 cm. Axillae: There is no axillary lymphadenopathy. Bony thorax: The skeletal structures are osteopenic. There is evidence of multifocal osteolytic metastatic disease. A large permeative lesion is seen within the body, left pedicle, and left lamina of T3, as well as the superior aspect of T2. This measures to significant acquired compromise of the central canal at this level. Additional spinal lesions are identified, the largest of which is located in the body of T12. Vertebral body height is maintained throughout the thoracic spine. Hyperkyphosis is observed. Additional lesions are present within the manubrium of the sternum, the left humeral head, several bilateral ribs. There is a pathological fracture of the right posterior fourth rib. ABDOMEN AND PELVIS: Liver: The contrast-enhanced liver is cirrhotic in morphology and heterogeneous in attenuation. There is hypertrophy of the left lobe and caudate as well as nod ularity of the surface contour. There is no intra- or extrahepatic biliary ductal dilatation. The hepatic veins and portal veins are patent. Gallbladder: There are numerous calcified gallstones with no CT evidence of acute cholecystitis. Spleen: Normal in size and attenuation. Small splenules are unchanged dating back to 2010. Pancreas: The pancreas is moderately atrophic. Numerous parenchymal calcifications suggest chronic pancreatitis. Adrenal glands: Bilateral adrenal nodules are unchanged dating back to 2011. The largest is on the left and measures 2.3 cm. These likely represent adenomas but cannot be definitively characterized due to the presence of IV contrast. Kidneys: The contrast enhanced kidneys are atrophic and without hydronephrosis. The kidneys enhance symmetrically. A 1.3 cm cyst is noted in the left lower pole. Abdominal vasculature: There is advanced atherosclerotic calcification and mild ectasia of the abdominal aorta. Stomach and bowel: There is a small hiatal hernia. There is moderate diverticulosis of left colon without CT evidence of acute diverticulitis. No bowel obstruction is seen. Fecal retention is noted in the right colon. The appendix is normal as visualized. Peritoneum: There is no intraperitoneal free air or abdominal ascites. Lymphadenopathy: There are numerous mildly enlarged retroperitoneal and left iliac chain lymph nodes. The largest is in the left periaortic region seen on image #157 and measures 1.1 x 1.0 cm. There is no upper abdominal or mesenteric lymphadenopathy. Pelvic viscera: The prostate gland is enlarged and heterogeneous noting median lobe hypertrophy. The bladder wall is thickened and trabeculated indicating chronic outlet obstruction. There are left larger than right fat-containing inguinal hernias. Skeletal structures: The skeletal structures are osteopenic. Numerous osteolytic lesions are identified in the lumbar spine and bony pelvis. Large lesions are seen within the bodies of L1 and L3. Several small lesions are present within the iliac wings bilaterally as well as the left pubic ring. IMPRESSION: 1. Cardiomegaly and emphysema. 2. Again seen is evidence of multifocal osteolytic metastatic disease as detailed above. Lesions centered around T3 encroach upon the thecal sac and contribute to severe central canal stenosis. This was better assessed on the recent thoracic spine MRI. 3. There is bulky right hilar, mediastinal, and left supraclavicular adenopathy. 4. Question a necrotic right supraclavicular adenopathy versus thrombosis of the right internal jugular vein. Ultrasound correlation would be definitive. 5. There are numerous (less than 10) irregular pulmonary nodules scattered throughout both lungs. This is highly concerning for pulmonary metastatic disease. 6. Cirrhotic liver morphology. 7. Mildly enlarged retroperitoneal and left iliac chain lymph nodes are concerning for metastatic disease. 8. Cholelithiasis. 9. Moderate diverticulosis of the left colon without CT evidence of acute diverticulitis. 10. Prostatomegaly with evidence of chronic bladder outlet obstruction. 11. Trace right pleural effusion. 12. There are numerous calcified pleural plaques seen bilaterally consistent with asbestos related pleural disease. This likely corresponds to the left subpleural density seen by chest x-ray. 13. Additional findings as above. ACT 112: Negative or not required by law. Electronically signed by: Aydin Snyder M.D. 10/07/2019 1:52 PM Medications Administered Current Inpatient Medications Acetaminophen (Tylenol) 650 mg PO Q4H PRN PRN Reason: pain/fever Stop: 11/05/19 01:27 Last Admin: 10/07/19 15:51 Dose: 650 mg Documented by: Apixaban (Eliquis) 5 mg PO BID DOMO Stop: 11/05/19 08:59 Last Admin: 10/07/19 08:40 Dose: 5 mg Documented by: Aspirin (Ecotrin) 325 mg PO QAM DOMO Stop: 11/05/19 08:59 Last Admin: 10/07/19 08:39 Dose: 325 mg Documented by: Atorvastatin Calcium (Lipitor) 40 mg PO HS [facility] Stop: 11/05/19 20:59 Last Admin: 10/06/19 21:01 Dose: 40 mg Documented by: Carvedilol (Coreg) 12.5 mg PO BID [facility] Stop: 11/05/19 08:59 Last Admin: 10/07/19 08:38 Dose: 12.5 mg Documented by: Dextrose (Dextrose 50%) 25 - 50 ml IV UD PRN; Protocol PRN Reason: Hypoglycemia Protocol Stop: 11/05/19 01:27 Digoxin (Lanoxin) 0.125 mg PO Q48H [facility]O Stop: 11/05/19 15:59 Last Admin: 10/06/19 17:09 Dose: 0.125 mg Documented by: Fluticasone/Vilanterol (Breo Ellipta 100/25 Mcg Inh) 1 puffs INH DAILY [facility] Stop: 11/06/19 08:59 Last Admin: 10/07/19 08:37 Dose: 1 puffs Documented by: Furosemide (Lasix) 20 mg PO QAM [facility] Stop: 11/05/19 08:59 Last Admin: 10/07/19 08:40 Dose: 20 mg Documented by: Glucagon (Glucagen) 1 mg SQ UD PRN; Protocol PRN Reason: Hypoglycemia Protocol Stop: 11/05/19 01:27 Glucose (Dex4 Glucose) 4 - 8 tabs PO UD PRN; Protocol PRN Reason: Hypoglycemia Protocol Stop: 11/05/19 01:27 Glucose (Glucose 40%) 15 - 30 gm PO UD PRN; Protocol PRN Reason: Hypoglycemia Protocol Stop: 11/05/19 01:27 Insulin Aspart (Novolog Flexpen) 0 units SC ACHS [facility] Stop: 11/05/19 07:29 Last Admin: 10/07/19 13:02 Dose: 4 units Documented by: Insulin Glargine (Lantus Solostar Pen) 10 units SC BID [facility] Stop: 11/05/19 08:59 Last Admin: 10/07/19 08:42 Dose: 10 units Documented by: Ioversol (Optiray 320 100ml) 93 ml IV ONCE PRN PRN Reason: Interaction Checking Stop: 10/11/19 13:11 Last Admin: 10/07/19 13:12 Dose: 93 ml Documented by: Losartan Potassium (Cozaar) 12.5 mg PO QAM [facility] Stop: 11/05/19 08:59 Last Admin: 10/07/19 08:39 Dose: 12.5 mg Documented by: Metoprolol Succinate ([facility]rol Xl) [facility] [place] Stop: 11/05/19 08:59 Last Admin: 10/07/19 08:40 Dose: 50 mg Documented by: Miscellaneous (Carbohydrates For Hypoglycemia) 15 - 30 gm PO UD PRN PRN Reason: Hypoglycemia Protocol Stop: 11/05/19 01:27 Miscellaneous (Remove Lidoderm Patch) 1 ea N/A DAILY@2100 [facility] Stop: 11/06/19 20:59 Oxycodone HCl (Roxicodone Immediate Rel) 5 mg PO Q4H PRN PRN Reason: Pain Stop: 10/21/19 16:29 Sennosides (Senokot) [facility] [place] Stop: 11/06/19 08:59 Last Admin: 10/07/19 08:40 Dose: 8.6 mg Documented by: Tamsulosin HCl (Flomax) 0.4 mg PO [facility] Stop: 11/06/19 20:59 Resident Activity Tracking Resident Involvement: Resident Care Provided Care Provided: Adult Hospital Medicine
[2019-10-07] MEDS: ATORVASTATIN 40 MG TAB PO SCH (20:58)
[2019-10-07] MEDS ORDERED: TAMSULOSIN HCL 0.4 MG CAP PO SCH (21:00)
[2019-10-08] MEDS: ACETAMINOPHEN 325 MG TAB PO PRN ×2 (01:38→16:36)
[2019-10-08 05:40] LABS: Basophils # (auto) 0.03 K/uL (0-0.2); Basophils % (auto) 0.4 %; Eosinophils # (auto) 0.36 K/uL (0-0.5); Eosinophils % (auto) 4.3 %; Hemoglobin 10.7 g/dL (14.0-18.0); Immature Granulocytes # (auto) 0.03 K/uL (0.00-0.02); Immature Granulocytes % (auto) 0.4 %; Lymphocytes # (auto) 1.42 K/uL (1.2-3.4); Mean Corpuscular Hemoglobin 30.2 pg (25-34); Mean Corpuscular Hgb Conc 33.4 g/dL (32-36); Mean Corpuscular Volume 90.4 fL (80-100); Mean Platelet Volume 9.3 fL (7.4-10.4); Monocytes # (auto) 0.71 K/uL (0.11-0.59); Monocytes % (auto) 8.5 %; Neutrophils # (auto) 5.78 K/uL (1.4-6.5); Neutrophils % (auto) 69.4 %; Platelet Count 202 K/uL (130-400); RDW Coefficient of Variation 15.1 % (11.5-14.5); RDW Standard Deviation 50.5 fL (36.4-46.3); Red Blood Count 3.54 M/uL (4.7-6.1); White Blood Count 8.33 K/uL (4.8-10.8)
[2019-10-08 06:07] LABS: BUN Creatinine Ratio 24.9 (10-20); Calcium 9.4 mg/dl (8.5-10.1); Creatinine Clr Calc Pharmacy 39.1 ml/min; Est GFR (African American) 52.6; Est GFR (Non-African American) 45.4; Potassium 3.7 mmol/L (3.5-5.1)
[2019-10-08] MEDS: APIXABAN 5 MG TABLET PO SCH ×2 (08:35→20:58)
[2019-10-08] MEDS: METOPROLOL SUCC 50MG EXT REL TAB PO SCH (08:36)
[2019-10-08] MEDS: ASPIRIN 325 MG ECTAB PO SCH (08:36)
[2019-10-08] MEDS: SENNA 8.6 MG TAB PO SCH (08:37)
[2019-10-08] MEDS: LOSARTAN POTASSIUM 25 MG TAB PO SCH (08:38)
[2019-10-08] MEDS: FUROSEMIDE 20 MG TAB PO SCH (08:39)
[2019-10-08] MEDS: INSULIN GLARGINE SOLOSTAR 100 UNITS/ML 3 ML PEN SC SCH ×2 (08:40→20:59)
[2019-10-08] MEDS: INSULIN ASPART 100 UNITS/ML 3 ML PEN SC SCH ×4 (08:43→21:00)
[2019-10-08] MEDS: FLUTICASONE/VILANTEROL 100/25MCG 14 PUFFS/INHALER INH SCH (08:44)
[2019-10-08] MEDS ORDERED: LIDOCAINE 5% 1 PATCH TD SCH (09:00)
--- NOTE | 2019-10-08 13:28 | Radiation OncologyConsultation ---
Date of Consultation October 08, 2019 Assessment & Plan (1) Secondary malignant neoplasm of bone: Assessment: Mr. Turk is an 84-year-old gentleman who presents with no known history of cancer. The patient presented to the emergency room due to back pain. Imaging studies have revealed potential metastatic disease involving the thoracic spine. Additionally, CT of the abdomen and pelvis did reveal prostatomegaly with enlarged retroperitoneal and iliac chain lymph nodes. PSA is elevated to 154.0. The patient has been admitted to the hospital for further work-up and evaluation. I have been asked to evaluate the patient regarding radiation therapy. Recommendation/Discussion/Plan: 1. Given elevated PSA, patient most likely has metastatic prostate cancer. I discussed the case with Dr. Jose Ramon Reed for medical oncology who agrees to stil l obtain a tissue diagnosis. Tissue diagnosis may be obtained for multiple sources/locations including spine (orthopedic surgery), left supraclavicular mass (ultrasound required first, IR-guided biopsy) or prostate gland (via urology). Will defer to primary medical team to determine method for obtaining tissue diagnosis. 2. Based on imaging studies and elevated PSA and high likelihood of metastatic prostate cancer, we will bring the patient down tomorrow for CT simulation for treatment planning for radiation therapy. I would like to wait for the bone scan to be completed in order to make sure that we adequately treat areas that are involved with metastatic disease and causing him pain. Bone scan is scheduled to be completed today. 3. After confirming a tissue diagnosis, we will plan to deliver palliative external beam radiation therapy in 10 fractions at 300 cGy per fraction. This may be completed in the outpatient setting. Plan: 1. Obtain tissue diagnosis. Confirm metastatic prostate cancer. 2. Bone scan to be completed today. 3. CT simulation for treatment planning for radiation therapy tomorrow. Plan to start radiation therapy either on Tuesday or depending on results from work-up. 4. Continue all other management as per primary medical team. Rationale/Explanation of Treatment: I explained the indications, alternatives, benefits, risks and side effects of external beam radiation therapy. I then discussed radiation therapy side effects for treatment which include, but are not limited to, skin erythema, dry/moist desquamation of the skin, hyperpigmentation, telangiectasias, damage to the heart and development of cardiovascular disease, damage to the lungs including radiation pneumonitis, pul monary fibrosis, decrease in pulmonary function, cough, fistula formation, tracheal stenosis, esophageal stenosis, esophageal perforation, dysphagia, nausea, vomiting, ulcers in stomach/bowel, gastritis, gastric perforation, bowel perforation, bowel obstruction, weight loss, dehydration, decreased appetite, liver damage including hepatitis and liver failure, damage to the kidneys including decreased renal function and renal failure, spinal cord damage including myelopathy, fatigue and secondary malignancy. I have explained the indications, alternatives, benefits, risks and side effects of radiation therapy. I have explained the most common side effects including but are not limited to skin erythema, skin break down, hair loss, fibrosis, adhesion development, heart failure and heart disease, esophagitis, esophageal stenosis, bowel obstruction, urinary symptoms, thyroid disorders, mucositis, nausea, vomiting, diarrhea, anemia, fatigue, carotid artery stenosis and development of secondary malignancy. Additionally, patients suffer may have xerostomia, stomatitis, glossitis, dysphagia, aspiration, mandibular osteoradionecrosis, mucocutaneous fistula formation, lymphedema in the neck, p haryngeal edema, mucositis, loss of taste. I have explained the CT simulation process and treatment planning. I explained what to expect before, during and after treatment on a regular basis. The patient understands and would be willing to consent to treatment. The patient and family had multiple questions which were answered to their full satisfaction. Thank you for allowing us to participate in the care of this patient. This chart was completed in part utilizing [employer] Voice Recognition software. Attempts were made to minimize the grammatical errors, random word insertions, pronoun errors and incomplete sentences. Any formal questions or concerns about the content, text or information contained within the body of this dictation should be directly addressed to the provider for clarification. Patria Reed MD Department of Radiation Oncology [facility] Present on Admission?: Yes History of Present Illness Attending Physician: Jorge Campbell DO History of Present Illness 10/05/2019. Patient presents to emergency room department with upper neck pain. No previous history of cancer. 10/05/2019. MRI of cervical spine. IMPRESSION: 1. Limited exam secondary to patient pain and discomfort. 2. Multifocal infiltrative osseous lesions of the cervical, thoracic and lumbar spine suggest metastatic disease from unknown primary versus multiple myeloma. Large infiltrative mass/masses of T2-T3 extend into the epidural space, left foramina and paraspinal tissues as above tracking along the adjacent ribs resulting in severe central canal stenosis at T2-T3 with severe left-sided foraminal narrowing at T2-T3 and T3-T4. Oncologic consultation and workup is needed. 3. C3 lesion may partially erode through the posterior cortex of the vertebral body. No high-grade central canal or foraminal narrowing of the cervical spine. 4. Indeterminate T2 hyperintense lesion of the left nasal turbinates and nasopharynx. This may reflect a mucocele however should be correlated with direct imaging to exclude mass. 10/07/2019. CT of chest/abdomen/pelvis. IMPRESSION: 1. Cardiomegaly and emphysema. 2. Again seen is evidence of multifocal osteolytic metastatic disease as detailed above. Lesions centered around T3 encroach upon the thecal sac and contribute to severe central canal stenosis. This was better assessed on the recent thoracic spine MRI. 3. There is bulky right hilar, mediastinal, and left supraclavicular adenopathy. 4. Question a necrotic right supraclavicular adenopathy versus thrombosis of the right internal jugular vein. Ultrasound correlation would be definitive. 5. There are numerous (less than 10) irregular pulmonary nodules scattered throughout both lungs. This is highly concerning for pulmonary metastatic disease. 6. Cirrhotic liver morphology. 7. Mildly enlarged retroperitoneal and left iliac chain lymph nodes are concerning for metastatic disease. 8. Cholelithiasis. 9. Moderate diverticulosis of the left colon without CT evidence of acute diverticulitis. 10. Prostatomegaly with evidence of chronic bladder outlet obstruction. 11. Trace right pleural effusion. 12. There are numerous calcified pleural plaques seen bilaterally consistent with asbestos related pleural disease. This likely corresponds to the left subpleural density seen by chest x-ray. 13. Additional findings as above. 10/07/2019. PSA. 154.0. Patient continues to have pain involving the neck and upper back. Allergies Allergy/AdvReac Type Severity Reaction Status Date / Time doxycycline Allergy Mild Rash Verified 10/05/19 16:25 tetracycline Allergy Mild RASH Verified 10/05/19 16:25 Penicillins Allergy Unknown HIVES-SOB Verified 10/05/19 16:25 Home Medications Home Medications Medication Instructions Recorded Confirmed Type apixaban 5 mg PO BID 08/05/18 10/05/19 History aspirin 325 mg PO QAM 08/05/18 10/05/19 History carvedilol 12.5 mg PO BID 08/05/18 10/05/19 History digoxin 125 mcg PO Q2D 08/05/18 10/05/19 History losartan 12.5 mg PO QAM 08/05/18 10/05/19 History blood sugar diagnostic [OneTouch #50 ea 08/08/18 07/30/19 Rx Verio strips] lancets [OneTouch Delica Lancets] #25 ea 08/08/18 07/30/19 Rx insulin glargine 100 unit/mL 35 units SUBCUT HS #1 ml 04/17/19 10/05/19 History subcutaneous solution tamsulosin 0.4 mg capsule 0.4 mg PO BID cap 04/17/19 10/05/19 History metoprolol succinate 50 mg 50 mg PO QAM #90 tab 09/26/19 10/05/19 Rx tablet,extended release 24 hr atorvastatin 40 mg PO HS 10/05/19 10/05/19 History furosemide [Lasix] 20 mg PO QAM 10/05/19 10/05/19 History insulin glargine 6 unit SUBCUT QAM 10/05/19 10/05/19 History metformin 500 mg PO QAM 10/05/19 10/05/19 History tramadol 50 mg PO DAILY PRN 10/05/19 10/05/19 History oxycodone 5 mg PO Q4H PRN #20 tab 10/07/19 Rx Patient History Medical History Aortic stenosis Atrial flutter BPH w/o urinary obs/LUTS CAD (coronary artery disease) 1-vessel (LAD), complicated by internal bleeding requiring another surgery Cardiomyopathy Carotid artery stenosis Carotid stenosis Chronic cough Chronic renal disease COPD (chronic obstructive pulmonary disease) Depression Diabetes mellitus, new onset (2018) Dyslipidemia History of alcohol dependence quit early History of tobacco use Leg fracture, left s/p ORIF Mixed hyperlipidemia PAD (peripheral artery disease) PAD (peripheral artery disease) Surgical History Aortic valve replaced [facility] - 2011 H/O carotid endarterectomy left S/P aortic valve replacement with bioprosthetic valve (2010) S/P CABG (coronary artery bypass graft) (2010) Complicated postoperative course S/P CABG x 1 Family History Father , age 79 Congestive heart failure Atherosclerosis Mother , from diverticulitis age 84 Rheumatoid arthritis Social History Preferred Language: Andorran Communication Ability: Effective Invasive Manager Required: No Beliefs That Will Affect Care: None marital status: marital status details: spouse 2009 Current Living Situation: Alone 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 other: 3 children one of whom is Feels Safe at Home: Yes Safety Concerns: Feels Safe At This Time Smoking Status: Former smoker Tobacco Type: cigarettes ; Cigarettes Per Day: 1- 2 ppd ; Smoking End Date: 12-14 years ago ; Hx Alcohol Use: No Hx Substance Use: No Review of Systems Constitutional: as per Subjective / HPI Eyes: as per Subjective / HPI Ear, Nose, Mouth, Throat: as per Subjective / HPI Respiratory: as per Subjective / HPI Cardiovascular: as per Subjective / HPI Gastrointestinal: as per Subjective / HPI Musculoskeletal: as per Subjective / HPI Integumentary: as per Subjective / HPI Neurologic: as per Subjective / HPI Psychiatric: as per Subjective / HPI Endocrine: as per Subjective / HPI Hematologic / Lymphatic: as per Subjective / HPI Allergy / Immunological: as per Subjective / HPI Physical Exam Constitutional: WD/WN, vitals as above well developed and well nourished Eyes: PERRL, conjunctivae normal, anicteric sclerae ENMT: external ear and nose normal, oropharynx normal Neck: trachea midline, no thyromegaly Respiratory: normal respiratory effort, lungs clear to auscultation Cardiovascular: RRR, no murmur, no edema Gastrointestinal (Abdomen): normal bowel sounds, soft, nontender, no hepatosplenomegaly Musculoskeletal: no cyanosis or clubbing, extremities motor strength 5/5 Tenderness to palpation involving the cervical spine. Skin: no rashes, warm and dry Neurologic: patellar DTR's 2+ bilat, sensation intact and PERRL, EOMI, accommodation nl, no face palsy, no dysarthria Psychiatric: A+Ox3, euthymic affect Time Spent Attending I spent 45 minutes for this consultation, which included obtaining clinical information, performing a physical exam, recommending a plan of action and answering questions. Greater than 50% of the time spent was direct face to face interaction with the patient.
[2019-10-08] MEDS: OXYCODONE HCL IR 5 MG TAB (IMMEDIATE RELEASE) PO PRN ×2 (14:15→21:06)
--- NOTE | 2019-10-08 15:08 | Nuclear Medicine Report ---
NM bone scan whole body CLINICAL HISTORY: 84 years-old Male presenting with determination of extent of metastatic tumors. TECHNIQUE: Planar anterior and posterior imaging of the whole body was performed 3 hours following th e intravenous administration of 27.2 mCi Tc-99m MDP. COMPARISON: MR T-spine from 10/05/2019, CT chest from 10/07/2019, and CT abdomen pelvis from 10/07/2019. FINDINGS: Extensive multifocal osseous metastatic disease involving the calvarium, cervical, thoracic, and lumb ar spine, sacrum, pelvis, and ribs. The manubrium also appears involved. Additionally, there is appen dicular skeletal involvement within the left clavicle, bilateral humeri, right forearm, and bilateral femurs. More vague and mild radiotracer avidity in the right knee and left foot likely degenerative in etiolo gy. Urinary bladder excreted radiotracer avidity also noted. IMPRESSION: 1. Widespread osseous metastatic disease evidenced by multifocal radiotracer avid osseous lesions in volving the axial and appendicular skeleton. ACT 112: Negative or not required by law. Electronically signed by: Nitin Guillermo M.D. 10/08/2019 3:06 PM
[2019-10-08] MEDS: IOVERSOL 100ml IV PRN (15:14)
--- NOTE | 2019-10-08 15:33 | CT Scan Report ---
CT sinus w con HISTORY: 84 years-old Male further evaluate mass widespread osseous metastatic disease. Follow-up ex am to assess a lesion of the nasal terminates seen on MRI cervical spine. COMPARISON: Chest CT 10/07/2019, MRI cervical spine 10/05/2019, bone scan 10/08/2019 TECHNIQUE: Multiple axial CT images of the paranasal sinuses were obtained following the intravenous ministration of 93 mL Optiray 320 IV contrast. A dose lowering technique was used consistent with the principals of ELADIA. FINDINGS: Imaged intracranial structures demonstrate age-related involutional changes. Encephalomalacia of the right frontal lobe. Patchy white matter hypodensities suggest chronic microvascular ischemic disease. Study is not tailored to assess for possible intracranial metastatic disease. There is a 5.1 x 2.5 x 1.7 cm soft tissue attenuating lesion centered about the left inferior nasal turbinate which demonst rates circumscribed margins without invasion into the adjacent structures. This extends to the neonatal intensive care nurse ior nasal nasal aperture and partially extends into the nasopharynx. Rightward bowing and spurring of the nasal septum. Prior bilateral lens replacement. No adenopathy identified. Calcified plaque of th e cavernous and supraclinoid segments of the internal carotid arteries. Mastoid air cells and middle ear cavities are clear. Mild mucosal thickening of the nasal turbinates and ethmoid air cells. The sphenoid, maxillary and frontal sinuses are clear. Patent sphenoethmoidal, and frontoethmoidal recesses and bilateral maxillary ostiomeatal units. No large Verito cell. Unrema rkable tuan kendall. IMPRESSION: 1. The lesion originally described on the recent MRI cervical spine study correlates with a lobular s oft tissue attenuating 5.1 x 2.5 x 1.7 cm lesion centered about the inferior left nasal turbinate ext ending through the posterior nasal aperture into the nasopharynx. Correlation with direct visualizati on and tissue sampling is recommended. 2. Mild mucosal thickening of the remaining nasal turbinates and ethmoid air cells. 3. Patency of the sinus outflow tracts. 4. Rightward bowing and spurring of the nasal septum. ACT 112: Negative or not required by law. The above report was generated using voice recognition software. It may contain grammatical, syntax o r spelling errors. Electronically signed by: Alessandro Beal M.D. 10/08/2019 3:32 PM
--- NOTE | 2019-10-08 15:48 | Orthopedic Consultation ---
Date of Consultation October 08, 2019 Assessment & Plan (1) Lesion of vertebra: Plan at this time the gentleman appears to have metastatic disease most likely prostate in origin. Would suggest complementing his MRI scans with an MRI of the lumbar spine. I discussed with the family possible need for surgical intervention to provide additional stabilization to this region of the thoracic spine in order to avoid neurologic compromise. Certainly not suggesting any urgent procedure. It appears that he is going to be seeking possible radiation oncology. Hopefully this would be all that would be necessary to address his thoracic region. History of Present Illness Reason for Consultation: Thoracic and neck pain Attending Physician: Jorge Campbell DO History of Present Illness This is a very pleasant 84-year-old male that comes to the hospital for worsening worsening he states that he has pain in the upper thoracic spine. Denies any numbness or tingling or radicular complaints involving the rib cage of the arms or the lower extremities. He is a community ambulator. He has had no changes in bowel bladder function. Allergies Allergy/AdvReac Type Severity Reaction Status Date / Time doxycycline Allergy Mild Rash Verified 10/05/19 16:25 tetracycline Allergy Mild RASH Verified 10/05/19 16:25 Penicillins Allergy Unknown HIVES-SOB Verified 10/05/19 16:25 Home Medications Home Medications Medication Instructions Recorded Confirmed Type apixaban 5 mg PO BID 08/05/18 10/05/19 History aspirin 325 mg PO QAM 08/05/18 10/05/19 History carvedilol 12.5 mg PO BID 08/05/18 10/05/19 History digoxin 125 mcg PO Q2D 08/05/18 10/05/19 History losartan 12.5 mg PO QAM 08/05/18 10/05/19 History blood sugar diagnostic [OneTouch #50 ea 08/08/18 07/30/19 Rx Verio strips] lancets [OneTouch Delica Lancets] #25 ea 08/08/18 07/30/19 Rx insulin glargine 100 unit/mL 35 units SUBCUT HS #1 ml 04/17/19 10/05/19 History subcutaneous solution tamsulosin 0.4 mg capsule 0.4 mg PO BID cap 04/17/19 10/05/19 History metoprolol succinate 50 mg 50 mg PO QAM #90 tab 09/26/19 10/05/19 Rx tablet,extended release 24 hr atorvastatin 40 mg PO HS 10/05/19 10/05/19 History furosemide [Lasix] 20 mg PO QAM 10/05/19 10/05/19 History insulin glargine 6 unit SUBCUT QAM 10/05/19 10/05/19 History metformin 500 mg PO QAM 10/05/19 10/05/19 History tramadol 50 mg PO DAILY PRN 10/05/19 10/05/19 History oxycodone 5 mg PO Q4H PRN #20 tab 10/07/19 Rx Patient History Medical History (Updated 10/08/19 @ 13:23 by Patria Reed MD) Aortic stenosis Atrial flutter BPH w/o urinary obs/LUTS CAD (coronary artery disease) 1-vessel (LAD), complicated by internal bleeding requiring another surgery Cardiomyopathy Carotid artery stenosis Carotid stenosis Chronic cough Chronic renal disease COPD (chronic obstructive pulmonary disease) Depression Diabetes mellitus, new onset (2017) Dyslipidemia History of alcohol dependence quit early History of tobacco use Leg fracture, left s/p ORIF Mixed hyperlipidemia PAD (peripheral artery disease) PAD (peripheral artery disease) Secondary malignant neoplasm of bone (Chronic) Surgical History Aortic valve replaced [facility] - 2011 H/O carotid endarterectomy left S/P aortic valve replacement with bioprosthetic valve (2010) S/P CABG (coronary artery bypass graft) (2010) Complicated postoperative course S/P CABG x 1 Family History Father , age 79 Congestive heart failure Atherosclerosis Mother , from diverticulitis age 84 Rheumatoid arthritis Social History Preferred Language: Vietnamese Communication Ability: Effective Family And Marriage Counsellor Required: No Beliefs That Will Affect Care: None marital status: marital status details: spouse 2009 Current Living Situation: Alone 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 Sensations intact to light touch and cold. He has limited range of motion of the left ankle but reasonable range of motion to the right ankle. There is no evidence of clonus. Reflexes are blunted bilaterally lower extremities. He does have tenderness palpation of the upper thoracic spine. Results & Data ([facility]) Vital Signs (Past 12 Hours) Vital Signs Temp Pulse Resp BP Pulse Ox 10/08/19 15:35 36.5 C 82 16 100/63 96 10/08/19 07:08 36.5 C 83 16 99/60 L 91
[2019-10-08] MEDS: DIGOXIN 0.125 MG TAB PO SCH (16:08)
--- NOTE | 2019-10-08 18:04 | Hospitalist Progress Note ---
Date of Service October 08, 2019 Assessment & Plan (1) Back pain: Jayy is an 84-year-old male with a past medical history of a flutter/A. fib, CABG, cardiomyopathy, dyslipidemia, PAD, COPD, type 2 diabetes, hypertension, and BPH who presented to the emergency department with cervical and thoracic back pain and who was found to have multiple bony lesions on MRI likely 2/2 metastatic prostate cancer vs. MM. Vertebral bony lesions: - CT chest/abdomen/pelvis conducted 2 demonstrating multiple likely metastatic lesions throughout lungs bilaterally and liver. Also demonstrated an increased size of prostate likely representing prostate cancer in the setting of an elevated PSA of 154 - Multifocal infiltrative osseous lesions of the cervical, thoracic, and lumbar spine appreciated on MRI. Large masses of T2-T3 extending into the epidural space and a C3 lesion eroding through the posterior cortex of the vertebral body. Highly concerning for metastatic disease versus multiple myeloma. - Nuclear medicine bone scan w/ multiple bony mets in the axial and appendicular skeleton - CT sinus to better evaluate the lesion seen on MR, 5.1X2.5X1.7cm lesion that is soft tissue attenuation in the inferior left nasal turbinate. recommendation from radiology is tissue sampling. - SPEP[facility]UPEP [facility] consulted: Had discussion with Dr. Reed who recommended CT chest abdomen pelvis as well as nuclear medicine bone scan and PSA. Also recommended radiation oncology, and surgery for biopsy of 1 of the sites of disease for better determination of oncologic type - consulted orthopaedics for concern of impingement of the thecal sac with concern for collapse and potential for paralysis. Currently neurovascularly intact. - consulted radiation oncology, with plan for Sim tomorrow - X-ray film from March 2019 reviewed, consistent with degenerative change but no ashley lesions appreciated on plain film at that time. - Pain control with oxycodone 5 mg every 4 hours as needed - Bowel regimen available CAD with history of CABG: - Continue metoprolol XL 50 mg every morning - Holding carvedilol 12.5 mg p.o. twice daily - Holding losartan 12.5 mg p.o. every morning - Continue Lasix 20 mg p.o. every morning - Continue atorvastatin 40 mg p.o. nightly History of a flutter/A. fib: - Continue [employer] digoxin 125 mcg every other day - Beta-blockers as above - Continue [employer] apixaban 5 mg p.o. twice daily Hypertension: - Continue home regimen - Continue Aspirin daily Type 2 diabetes mellitus: - On [employer] glargine 35 units nightly, 6 units every morning - Converted to hospital basal bolus based on total insulin requirements - Glargine 10 units twice daily, SSI insulin. - Hold oral anti-glycemic's Diet: Type II diabetic diet DVT prophylaxis: Apixaban as above Code: Full code. Supervising Physician Co-Signing Physician Notes I personally examined the patient and verified all fuller points of history and exam, discussed case, and agree with decision making with Dr Arauz. Pain about the same. Mostly whenever he moves. Case discussed with orthopedic surgery, input appreciated. Radiation oncology input appreciated. Updated patient and daughter to the best of my ability. Vitals noted, in general he is awake and alert pleasant no distress. He does appear a bit uncomfortable whenever he tries to move but otherwise no distress. HEENT normocephalic atraumatic mucous membranes moist. Breathing unlabored no accessory muscle use good effort. Skin shows no rashes no pallor or icterus. Labs and diagnostics noted. Metastatic cancer with significant bony mets/bone painscans noted, radiation treatment will hopefully be able to protect spine from further deteriorationwe will need to discuss with radiation oncology, but at this point hopefully orthopedic stabilization will not be required. More than likely prostate, obtain tissuemost likely from supraclavicular nodewe will need to discuss with radiology. Then close outpatient follow-up with hematology/oncology and radiation oncology. Otherwise as above. Subjective Mr. Turk is doing okay this morning. He states that he has been urinating more frequently. He also complains of 5/10 pain in his back and pain that bothers him when he moves or attempts to get up. The pain does not does not go down his legs and he does not feel weak. Review of Systems Constitutional: no fever and no chills Respiratory: + cough (chronic since his CABG) denies shortness of breath Cardiovascular: no chest pain and no palpitations Gastrointestinal: no nausea and no vomiting Genitourinary: + urinary frequency; no dysuria Neurologic: no headache(s) Physical Exam Constitutional: WD/WN, vitals as above well developed and well nourished Eyes: PERRL, conjunctivae normal, anicteric sclerae ENMT: external ear and nose normal, oropharynx normal Neck: trachea midline, no thyromegaly Respiratory: normal respiratory effort, lungs clear to auscultation normal respiratory effort and + cough; no respiratory distress and no labored breathing Auscultation: no crackles, no rales and no wheezes Cardiovascular: RRR, no murmur, no edema Rate/Rhythm: regular rate and regular rhythm Heart Sounds: normal S1 and normal S2; no gallop, no murmur and no cardiac rub Gastrointestinal (Abdomen): normal bowel sounds, soft, nontender, no hepatospl enomegaly Musculoskeletal: no cyanosis or clubbing, extremities motor strength 5/5 back: pain on palpation of the spinous process of C7-T1 region Skin: no rashes, warm and dry Neurologic: patellar DTR's 2+ bilat, sensation intact and PERRL, EOMI, accommodation nl, no face palsy, no dysarthria normal touch/pain/proprioception and moves all extremities; no focal motor deficits Psychiatric: A+Ox3, euthymic affect Results & Data ([facility]) Vital Signs (Past 12 Hours) Vital Signs Temp Pulse Pulse Resp BP Pulse Ox 10/08/19 16:08 82 10/08/19 15:35 36.5 C 82 16 100/63 96 10/08/19 07:08 36.5 C 83 16 99/60 L 91 Resident Activity Tracking Resident Involvement: Resident Care Provided Care Provided: Adult Hospital Medicine
--- NOTE | 2019-10-08 18:23 | Billing Data ---
Date of Service October 08, 2019 Coding Level of Care Code 51805 Subseq Hosp Care Lvl 3
[2019-10-08] MEDS: ATORVASTATIN 40 MG TAB PO SCH (20:58)
[2019-10-09] MEDS: OXYCODONE HCL IR 5 MG TAB (IMMEDIATE RELEASE) PO PRN ×2 (01:12→10:17)
[2019-10-09 06:31] LABS: Basophils # (auto) 0.05 K/uL (0-0.2); Basophils % (auto) 0.6 %; Eosinophils # (auto) 0.44 K/uL (0-0.5); Eosinophils % (auto) 5.6 %; Hematocrit (blood only) 30.7 % (42-52); Immature Granulocytes # (auto) 0.02 K/uL (0.00-0.02); Immature Granulocytes % (auto) 0.3 %; Lymphocytes % (auto) 21.8 %; Mean Corpuscular Hemoglobin 29.8 pg (25-34); Mean Corpuscular Hgb Conc 32.6 g/dL (32-36); Mean Corpuscular Volume 91.4 fL (80-100); Mean Platelet Volume 9.3 fL (7.4-10.4); Monocytes # (auto) 0.69 K/uL (0.11-0.59); Monocytes % (auto) 8.8 %; Neutrophils % (auto) 62.9 %; Platelet Count 220 K/uL (130-400); RDW Coefficient of Variation 15.3 % (11.5-14.5); RDW Standard Deviation 51.5 fL (36.4-46.3); Red Blood Count 3.36 M/uL (4.7-6.1)
[2019-10-09 07:02] LABS: BUN Creatinine Ratio 24.2 (10-20); Calcium 9.3 mg/dl (8.5-10.1); Creatinine Clr Calc Pharmacy 36.7 ml/min; Est GFR (African American) 48.8; Est GFR (Non-African American) 42.1
[2019-10-09] MEDS: FLUTICASONE/VILANTEROL 100/25MCG 14 PUFFS/INHALER INH SCH (08:44)
[2019-10-09] MEDS: FUROSEMIDE 20 MG TAB PO SCH (08:45)
[2019-10-09] MEDS: APIXABAN 5 MG TABLET PO SCH (08:45)
[2019-10-09] MEDS: METOPROLOL SUCC 50MG EXT REL TAB PO SCH (08:45)
[2019-10-09] MEDS: SENNA 8.6 MG TAB PO SCH (08:46)
[2019-10-09] MEDS: ASPIRIN 325 MG ECTAB PO SCH (08:46)
[2019-10-09] MEDS: INSULIN ASPART 100 UNITS/ML 3 ML PEN SC SCH ×2 (08:49→12:04)
[2019-10-09] MEDS: INSULIN GLARGINE SOLOSTAR 100 UNITS/ML 3 ML PEN SC SCH (08:50)
[2019-10-09] MEDS ORDERED: SODIUM CHLORIDE 0.9% 500 ML IV ONE (08:58)
[2019-10-09 09:28] LABS: Alpha 1 Globulin 0.6 g/dL (0.2-0.3); Beta-1-Globulin 0.4 g/dL (0.4-0.6); Beta-2-Globulin 0.4 g/dL (0.2-0.5); Monoclonal Protein Band 1 DNR g/dL (NONE DETECTED); Monoclonal Protein Band 2 DNR g/dL (NONE DETECTED); Monoclonal Protein Band 3 DNR g/dL (NONE DETECTED); Total Protein 6.4 g/dL (6.1-8.1)
--- NOTE | 2019-10-09 15:01 | Ultrasound Report ---
ULTRASOUND GUIDED FINE NEEDLE ASPIRATION OF LEFT SUPRACLAVICULAR LYMPH NODE CLINICAL HISTORY: Metastatic disease. COMPARISON STUDY: Chest CT October 07, 2019. PROCEDURE: Sonography of the left supraclavicular region demonstrated an enlarged left supraclavicula r lymph node that measured 2.8 x 1.6 cm. The cortex was markedly thickened. This was targeted for tin y laceration. The procedure, risks and benefits were discussed with the patient and informed written consent was obtained. The procedure was performed by Dr. Richardson following a timeout. Skin of the l eft supraclavicular region was prepped and draped in sterile fashion and local anesthesia was achieve d with 1% lidocaine. Under direct ultrasound guidance, 2 22-gauge fine needle aspirations were perfor med. Samples were deemed preliminarily adequate by pathology. The patient tolerated the procedure wel l and no immediate complications were evident. IMPRESSION: Successful ultrasound guided fine needle aspiration of an enlarged left supraclavicular lymph node. ACT 112: Negative or not required by law. Electronically signed by: Kentrell Richardson M.D. 10/09/2019 2:59 PM
--- NOTE | 2019-10-09 19:36 | Billing Data ---
Date of Service October 09, 2019 Coding Level of Care Code D/C Day Management <30 mins
--- NOTE | 2019-10-09 20:26 | Discharge Summary ---
Date of Service October 09, 2019 Admission HPI Per Admitting Provider Jayy is an 84-year-old male with a past medical history of a flutter/A. 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 Zaheer reports that his back pain began several months ago in March 2019 in the midline upper neck. He reports he had x-rays at that time which showed degenerative disc disease and he was referred to physical therapy and Dr. Holbrook. Repeat x-rays showed degenerative changes and he was referred to therapy at [place]. His pain did not improve with therapy and continued to gradually worsen. On follow-up with his primary care physician Dr. Levy son he had a lidocaine shot on August 24 which helped transiently, but quickly wear off. In the last 2 weeks he has had gradual increase in his pain to 10/10 which is not improved with tramadol. He was scheduled for consultation with pain management, but missed that appointment and was recommended by his PCP to go to the emergency department for intractable pain. He has been found to have multiple bony lesions on MRI. He reports his pain has been a 10/10 in the last week, is 8/10 at time of visit following pain medication administration. He reports his pain is worst in the midline and paraspinal neck and upper thoracic spine, but occasionally travels down as far as his tailbone. He has experienced left arm burning just in the past week. Denies extremity weakness or other change in sensation. He has had 6 pound weight loss this week from an absent appetite without nausea. No weight change prior to this. He denies B-cell symptoms including night sweats. He has not had any recent fever, chills, chest pain, shortness of breath. He endorses a wet cough since his cardiac bypass in 2011. He denies other new symptoms. Last colonoscopy was within 5 years, reports no concerning findings and was recommended for 10-year follow-up. History of BPH with LUTS, no change in urinary symptoms recently. Medical history: Reviewed in EMR Surgical history: Reviewed in EMR Family history: History of lung cancer and a son who was a heavy smoker. History of CHF in his father. History of rheumatoid arthritis in his mother. 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 Recreational, denies recreational drug use Admission Exam Per Admitting Provider Constitutional: well developed and well nourished; no acute distress Eyes: PERRL ENMT: Mouth: + oral mucosal abnormality (MM very dry) Throat: no posterior oropharynx abnormality Neck: trachea midline, no thyromegaly Respiratory: Auscultation: + wheezes (scattered b/l ) Cardiovascular: Rate/Rhythm: regular rate; + abnormal rhythm (irregular ) Heart Sounds: normal S1 and normal S2; no murmur Vessels: posterior tibial pulses present and dorsalis pedis pulses present; no JVD Extremities: no edema Gastrointestinal (Abdomen): normal bowel sounds, soft, nontender, no hepatosplenomegaly Musculoskeletal: Extremities: strength 5/5 throughout Skin: no rashes, warm and dry multiple scars about the distal left leg Neurologic: deep tendon reflexes 2+ bilaterally; no focal motor deficits Psychiatric: A+Ox3, euthymic affect Lymphatic: no cervical lymphadenopathy Principal Diagnosis Metastatic cancer CAD Hx. of A. flutter/A. fib HTN TIIDM Discharge Exam Constitutional WD/WN, vitals as above well developed and well nourished Eyes PERRL, conjunctivae normal, anicteric sclerae ENMT external ear and nose normal, oropharynx normal Neck trachea midline, no thyromegaly Respiratory normal respiratory effort, lungs clear to auscultation normal respiratory effort and + cough; no respiratory distress and no labored breathing Auscultation: no crackles, no rales and no wheezes Cardiovascular RRR, no murmur, no edema Rate/Rhythm: regular rate and regular rhythm Heart Sounds: normal S1 and normal S2; no gallop, no murmur and no cardiac rub Gastrointestinal (Abdomen) normal bowel sounds, soft, nontender, no hepatosplenomegaly Musculoskeletal no cyanosis or clubbing, extremities motor strength 5/5 Skin no rashes, warm and dry Neurologic patellar DTR's 2+ bilat, sensation intact and PERRL, EOMI, accommodation nl, no face palsy, no dysarthria normal touch/pain/proprioception and moves all extremities; no focal motor deficits Psychiatric A+Ox3, euthymic affect Discharge Data Allergies Allergy/AdvReac Type Severity Reaction Status Date / Time doxycycline Allergy Mild Rash Verified 10/10/19 01:02 tetracycline Allergy Mild RASH Verified 10/10/19 01:02 Penicillins Allergy Unknown HIVES-SOB Verified 10/10/19 01:02 Consultations 10/05/19 21:24 ED Decision to Admit Stat 10/06/19 01:28 Consult Oncology Routine 10/08/19 11:13 Consult Radiation Oncology Routine 10/08/19 11:18 Consult Orthopedic Surgery Routine Ordered Studies 10/05/19 16:46 MR cervical spine wo con Stat MR thoracic spine wo con Stat 10/07/19 12:53 CT abd pelvis IV con only Routine CT chest w con Routine 10/08/19 13:55 CT sinus w con Routine 10/09/19 12:37 US FNA w/img 1st lesion Routine 10/09/19 13:25 CT guide rad therapy neck Routine Hospital Course (1) Back pain: Jayy is an 84-year-old male with a past medical history of a flutter/A. fib, CABG, cardiomyopathy, dyslipidemia, PAD, COPD, type 2 diabetes, hypertension, and BPH who presented to the emergency department with cervical and thoracic back pain and who was found to have multiple bony lesions on MRI likely 2/2 metastatic prostate cancer (enlarged prostate and PSA 154) vs. Multiple myeloma. Vertebral bony lesions: - CT chest/abdomen/pelvis conducted 2/2 demonstrating multiple likely metastatic lesions throughout lungs bilaterally and liver. Also demonstrated an increased size of prostate likely representing prostate cancer in the setting of an elev ated PSA of 154 - Multifocal infiltrative osseous lesions of the cervical, thoracic, and lumbar spine appreciated on MRI. Large masses of T2-T3 extending into the epidural sp danyel and a C3 lesion eroding through the posterior cortex of the vertebral body. Highly concerning for metastatic disease versus multiple myeloma. - Nuclear medicine bone scan w/ multiple bony mets in the axial and appendicular skeleton - CT sinus to better evaluate the lesion seen on MR, 5.1X2.5X1.7cm lesion that is soft tissue attenuation in the inferior left nasal turbinate. recommendation from radiology is tissue sampling. - SPE[facility]P [facility]: Had discussion with Dr. Reed who recommended CT chest abdomen pelvis as well as nuclear medicine bone scan and PSA. Also recommended radiation oncology, and biopsy that was obtained while inpatient. - consulted orthopaedics for concern of impingement of the thecal sac with concern for collapse and potential for paralysis. Currently neurovascularly intact. - consulted radiation oncology, with plan radiation treatment outpatient - Pain control with oxycodone 5 mg every 4 hours as needed CAD with history of CABG: - Continue metoprolol XL 50 mg every morning - Continue carvedilol 12.5 mg p.o. twice daily - Continue losartan 12.5 mg p.o. every morning - Continue Lasix 20 mg p.o. every morning - Continue atorvastatin 40 mg p.o. nightly History of a flutter/A. fib: - Continue M[employer] digoxin 125 mcg every other day - Beta-blockers as above - Continue [employer] apixaban 5 mg p.o. twice daily Hypertension: - Continue home regimen - Continue Aspirin Type 2 diabetes mellitus: - return to home regimen Total Time Total Time Spent Total Time Spent (In Minutes): <30 Discharge Plan Discharge Items Patient Disposition: Home - Self-Care Reason For Visit: PAIN CONTROL, SPINE LESIONS Discharge Diagnosis: metastatic cancer Activity: Per Instructions section Non-emergency contact: Primary Care Provider Call non-emergency contact if: your pain is not controlled and your temperature is above 101.5 Follow-up/Referrals: Patria Reed MD [Physician] - (Please, follow up at The [facility] Radiation Oncology Office. *A nurse from this office will call you with the appointment information. The office is located in the rear of this [facility]. You will park BEHIND the hospital in [address] and enter via [facility]. If you have any questions, call the office at [phone].) Kit Issa MD [Primary Care Provider] - Eliecer Arce MD [Hospitalist] - 10/16/19 9:45 am (Please, follow up at The [facility]ology [facility] On[facility] Office with Dr. Arce, he works with Dr. Jose Ramon Reed, on TuesdayOctober 16 at 9:45 am. The office is located at [address] [place] [address] in [place]. You should enter using entrance #2. If you need to change this appointment, call the office at [phone]. PLEASE, CALL THE MEMBER SERVICES NUMBER ON YOUR INSURANCE CARD TO CONFIRM THAT ALL OF YOUR APPOINTMENTS ARE WITH IN-NETWORK PROVIDERS. IF THEY ARE NOT, YOU MAY HAVE TO ASK THE PROVIDER TO APPLY FOR A GAP EXCEPTION. ) Diet: Regular Addtl Attending Provider Instructions: Metastatic cancer You came to the hospital for pain in your back. When they did an MRI of your spine they found that you had multiple lesions on your spine that were concerning for cancer that had spread, as well as an enlarged prostate. We also did a bone scan that looks at abnormalities concerning for cancer. This bone scan found again multiple areas in your skeleton that were likely to be cancerous. We also did a test that looks at your prostate and this was found to be elevated to a level that was concerning that this may be the origin of the cancer. We think that you may have prostate cancer that has spread to your bones, liver, and lungs. To further evaluate for the cause of the cancer you had a biopsy. Biopsy The biopsy was necessary for your oncologist to have a diagnosis of cancer. They removed some tissue from a lymph node on your left upper chest that will hopefully give us a diagnosis. Radiation therapy You had met with radiation therapy while in the hospital and they did an initial simulation and will likely start treatment for you with radiation therapy by the end of the week. Pain You came to the hospital with pain, and we are working with you to help you to control your pain. Oxycodone was sent to your pharmacy and will be available to you to help with pain control. Return precautions If you are noticing that you are incontinent of urine or bowels, that you are having shooting pains down your legs, or having weakness in one leg or arm we will want you to come in to get evaluated. These are concerning signs for worsening of the lesions on your spine. Follow up You will have follow up with your Oncologist to discuss biopsy results and any plans going forward. Pending Studies at Discharge: Yes Studies:: biopsy results Stand-Alone Forms: My [employer], Smoking Cessation Medications and DC Order Prescriptions: New oxycodone 5 mg Tablet 5 mg PO Q4H PRN (Reason: pain) Qty: 20 RF: 0 Breo Ellipta 100-25 mcg/dose Blister With Device 1 puff inhalation DAILY 30 Days Qty: 1 RF: 0 Continued metoprolol succinate 50 mg tablet extended release 24 hr 50 mg PO QAM Qty: 90 RF: 3 insulin glargine 100 unit/mL solution 35 units subcut HS Qty: 1 RF: 0 carvedilol 12.5 mg tablet 12.5 mg PO BID RF: 0 aspirin 325 mg Tablet 325 mg PO QAM RF: 0 losartan 25 mg tablet 12.5 mg PO QAM RF: 0 digoxin 125 mcg tablet 125 mcg PO Q2D RF: 0 apixaban 5 mg tablet 5 mg PO BID RF: 0 (DME) blood sugar diagnostic [OneTouch Verio] strip See Dose Instructions .ROUTE .MEDSUPPLY Qty: 50 RF: 0 (DME) lancets [OneTouch Delica Lancets] 30 gauge misc See Dose Instructions .ROUTE .MEDSUPPLY Qty: 25 RF: 0 tamsulosin 0.4 mg capsule 0.4 mg PO BID RF: 0 insulin glargine 100 unit/mL Solution 6 unit SUBCUT QAM RF: 0 furosemide [Lasix] 20 mg Tablet 20 mg PO QAM RF: 0 atorvastatin 40 mg tablet 40 mg PO HS RF: 0 metformin 500 mg tablet extended release 24 hr 500 mg PO QAM RF: 0 Discontinued tramadol 50 mg Tablet 50 mg PO DAILY PRN (Reason: Pain) RF: 0 No Action Symbicort 160-4.5 mcg/actuation Hfa Aerosol Inhaler 2 puff INHALATION BID RF: 0 ciprofloxacin HCl [Cipro] 500 mg tablet 500 mg PO BID Qty: 20 RF: 0 Discharge Orders: Discharge Order (Routine); Ordered 10/09/19 Ordered By: Hamilton Arauz Admission Data Admit Date/Time: 10/07/19 14:14 Attending Provider: Jorge Campbell Admit Provider: Nitin Waletrs Primary Care Provider: Kit Issa Other Providers: Kee Bronson ; Eliecer Arce Kiyomi K. ; Hossein Fu Veeral B. ; [facility] Other Interventions: Discharge Summary Assessment (RN) Last Done: 10/09/19 17:21 DC Date/Time DO NOT enter until pt leaves facility: 10/09/19 18:04 Supervising Physician Co-Signing Physician Notes I personally examined the patient and verified all fuller points of history and exam, discussed case, and agree with decision making with Dr Arauz. Really wants to go home today. Case discussed with radiology and radiation oncology. Discussed with patient and daughter that as long as everything can be coordinated we will be able to get him home later today. Vitals noted, in general he is awake and alert pleasant no distress. HEENT normocephalic atraumatic mucous membranes moist. Breathing unlabored no accessory muscle use good effort. Skin shows no rashes no pallor or icterus. Labs and diagnostics noted. Metastatic cancer with significant bony mets/bone painscans noted, biopsy obtained, set up for radiation treatment. Outpatient follow-up being arranged. Resident Activity Tracking Resident Involvement: Resident Care Provided Care Provided: Adult [facility] Medicine
== END 2019-10-09 18:04 | disposition home health service (06) | DRG 516 ==
LOC: ED 14:26 → 3N 14:26 → SUATTDRO 10-06 00:11 → 3N 10-06 01:15 → SUATTDRO 10-07 14:14

== ENCOUNTER 2020-05-10 13:43 | Inpatient (IN) ==
[2020-05-10] MEDS ORDERED: ALBUTEROL HFA 8 GM INHALER INH ONE (14:19)
[2020-05-10] MEDS ORDERED: ERTAPENEM SODIUM 10 ML IV STA (14:19)
[2020-05-10] MEDS ORDERED: SODIUM CHLORIDE 0.9% 1000ML 500 ML IV ONE (14:19)
[2020-05-10] MEDS ORDERED: ACETAMINOPHEN 1,000 MG/100 ML VIAL IV STA (14:19)
--- NOTE | 2020-05-10 14:30 | Emergency Department Note ---
Impression & Plan Sepsis, SOB (shortness of breath), Acute confusion, Acute UTI ED Provider Note NAME: NELSON JOSHI AGE: 85 SEX: M : 1935 ARRIVES VIA: Walk-In INFORMANT: [Patient][daughter] ED PROVIDER(S): [Aydin Sandoval MD] CHIEF COMPLAINT: Shortness of breath HISTORY OF PRESENT ILLNESS: The patient is an 85-year-old male who has a history of metastatic prostate cancer. He is a chronic indwelling Garcia catheter. Yesterday, his Garcia catheter was changed. He received a shot yesterday to help strength of his bones. The patient today, began to complain of some shortness of breath. His respiratory rate has increased. He has developed a fever. As per his daughter, he started to seem somewhat confused today as well. The patient has not been vomiting. There has been no diarrhea. He has not really had a stuffy nose or sore throat. No known coronavirus exposures. The patient lives with his daughter who is tested weekly for COVID as she works for [employer]. Patient has had UTIs before although, he typically does not develop a urinary infection this quickly after a catheter change. His daughter is concerned that her father has pneumonia, she states his cough has been ongoing for some time but does seem to be worse today, the cough seems more moist in nature today as well. REVIEW OF SYSTEMS: See HPI for pertinent positives and negatives. A total of ten systems were reviewed and were otherwise negative. PMHx/PSHx: See Below SOCIAL HISTORY: See Below. PHYSICAL EXAM: GENERAL: Patient is in mild distress HEENT: No acute trauma, normocephalic atraumatic, mucous membranes moist, no nasal congestion, no scleral icterus. NECK: No stridor, no adenopathy, no meningismus, trachea is midline. LUNGS: The patient has an increased respiratory rate, he seems slightly short of breath. There are crackles bilaterally especially on the right. A few subtle wheezes were heard. HEART: Tachycardic, regular rhythm, no murmurs. ABDOMEN: Soft, nontender, bowel sounds positive, no hernias, no peritonitis. EXTREMITIES: No cyanosis or edema, full range of motion of all the joints without pain or difficulty, no signs for acute trauma. NEUROLOGIC: Awake and alert, no acute motor or sensory deficits, no focal weakness. SKIN: No rash, no jaundice, no diaphoresis. DIFFERENTIAL DIAGNOSIS: Sepsis, UTI, pneumonia, metabolic, electrolyte abnormalities, coronavirus, cellulitis, cardiac sources, intracerebral event, toxicologic, neurologic, as well as other pathologies. EMERGENCY DEPARTMENT COURSE/PROCEDURES: ECG: Indication was shortness of breath. The ECG shows a sinus rhythm with a first-degree AV block. PVCs are seen. There is no ST elevation. The rate is 99. The QTc is 482. There are some inverted T waves laterally. When compared to an ECG from 05 October 2019, PVCs are now present. Continuous Cardiac Monitoring: An order was placed for continuous cardiac monitoring. The monitor shows a rate of 116 with sinus tachycardia with a first-degree AV block with some PVCs. Critical Care Note: I have personally spent greater than 48 minutes of critical care time in the direct management of this patient. This includes bedside care, interpretation of diagnostic studies, and testing, discussion with consultants, patient, and family members, and other required patient management activities. This 48 minutes is in excess of all separately billable procedures. MEDICAL DECISION MAKING: There is no leukocytosis. The patient is somewhat anemic with a hemoglobin of 11.3. This anemia is baseline looking back at previous testing. There is a normal platelet count. No coagulopathy. No significant electrolyte abnormality or kidney failure. Lactic acid level is not significantly elevated making severe sepsis less likely. No worrisome liver enzyme elevation. The procalcitonin level was slightly elevated. ECG showed a sinus rhythm, no acute ischemic change. Cardiac enzyme testing x1 is not consistent with acute cardiac injury. Urinalysis results are consistent with infection. Digoxin level was not toxic. Coronavirus testing returned negative. Chest film shows some potential fluid overload, no focal pneumonia noted. The patient received a small amount of IV saline, 500 cc. He was given IV ertapenem as empiric antibiotic coverage. He received 3 puffs of albuterol with a spacer. He was given a dose of IV Tylenol for his fever. The patient presents with some weakness, increasing shortness of breath and confusion. He appears to have early sepsis from a urinary source. His respiratory status should of course be followed as an early pneumonia not yet seen on chest film is a possibility. The patient was aggressively managed while here in the ED. He is currently resting comfortably. I discussed my results with the patient's daughter. I did speak with the case management team. The on-call hospitalist has been counseled. A hospital stay is clearly warranted. Past Med/Surg History Medical History Aortic stenosis Atrial flutter BPH w/o urinary obs/LUTS CAD (coronary artery disease) 1-vessel (LAD), complicated by internal bleeding requiring another surgery Cardiomyopathy Carotid artery stenosis Carotid stenosis Chronic cough Chronic renal disease COPD (chronic obstructive pulmonary disease) Depression Diabetes mellitus, new onset (2018) Dyslipidemia History of alcohol dependence quit early History of tobacco use Leg fracture, left s/p ORIF Mixed hyperlipidemia PAD (peripheral artery disease) PAD (peripheral artery disease) Secondary malignant neoplasm of bone Surgical History Aortic valve replaced [facility] - 2011 H/O carotid endarterectomy left S/P aortic valve replacement with bioprosthetic valve (2010) S/P CABG (coronary artery bypass graft) (2010) Complicated postoperative course S/P CABG x 1 Family History Father , age 79 Congestive heart failure Atherosclerosis Mother , from diverticulitis age 84 Rheumatoid arthritis Social History Smoking Status: Never smoker Cigarettes Per Day: 1-2 ppd; Hx Alcohol Use: No Hx Substance Use: No Preferred Language: Portuguese Communication Ability: Effective Salesperson Driver Required: No Beliefs That Will Affect Care: None marital status: marital status details: spouse 2009 Current Living Situation: Family Current Living Situation Comment: lives with daughter Kristina 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 other: 3 children one of whom is Feels Safe at Home: Yes Safety Concerns: Feels Safe At This Time Allergies Allergies Allergy/AdvReac Type Severity Reaction Status Date / Time doxycycline Allergy Mild Rash Verified 05/09/20 11:09 tetracycline Allergy Mild RASH Verified 05/09/20 11:09 Penicillins Allergy Unknown HIVES-SOB Verified 05/09/20 11:09 Home Meds Home Medications Medication Instructions Recorded Confirmed apixaban 5 mg PO BID 08/05/18 05/10/20 aspirin 325 mg PO QAM 08/05/18 05/10/20 carvedilol 6.2 mg PO QAM 08/05/18 05/10/20 calcium carbonate-vitamin D3 600 1 tab PO DAILY tab 01/30/20 05/10/20 mg(1,500 mg)-400 unit chewable tablet docusate sodium 100 mg capsule 100 mg PO DAILY 01/30/20 05/10/20 digoxin 125 mcg (0.125 mg) tablet 125 mcg PO Q2D tab 02/14/20 05/10/20 carvedilol 12.5 mg PO QPM 05/10/20 05/10/20 fluticasone furoate-vilanterol 1 inh INHALATION DAILY 05/10/20 05/10/20 [Breo Ellipta] losartan 12.5 mg PO DAILY 05/10/20 05/10/20 tamsulosin 0.4 mg PO QPM 05/10/20 05/10/20 Previous Rx's Medication Instructions Recorded oxycodone 5 mg PO Q4H PRN #20 tab 10/07/19 lidocaine 5 % topical ointment 1 appln TOP TID PRN #60 gm 10/18/19 atorvastatin 40 mg tablet 40 mg PO HS #90 tab 04/22/20 Results & Data (ED) Vital Signs Vital Signs - 24 hr 05/10/20 13:53 05/10/20 14:00 05/10/20 14:19 Temperature 37.9 C H Temperature Source Oral Pulse Rate 119 H Pulse Rate from SpO2 Sensor Respiratory Rate 20 Respiratory Effort / Characteristics Short of Breath SOB on Exertion Respiratory Depth Normal Respiratory Pattern Tachypnea Blood Pressure 185/86 H Blood Pressure Mean 119 Pulse Oximetry 90 90 Oxygen Delivery Method Room Air Room Air Sepsis Recent Fever Within 48 Hours Yes Sepsis New/Unexplained Change in Mental Status Yes Sepsis Action Taken by Nursing Physician Notified 05/10/20 15:45 05/10/20 15:50 05/10/20 16:00 Temperature Temperature Source Pulse Rate 97 H 97 H 99 H Pulse Rate from SpO2 Sensor 98 H 97 H 99 H Respiratory Rate 26 H 27 H 22 Respiratory Effort / Characteristics Respiratory Depth Respiratory Pattern Blood Pressure 126/62 Blood Pressure Mean 90 Pulse Oximetry 92 92 92 Oxygen Delivery Method Sepsis Recent Fever Within 48 Hours Sepsis New/Unexplained Change in Mental Status Sepsis Action Taken by Nursing 05/10/20 16:12 05/10/20 16:15 05/10/20 16:30 Temperature 37.2 C Temperature Source Oral Pulse Rate 96 H 95 H Pulse Rate from SpO2 Sensor 96 H 96 H Respiratory Rate 21 27 H Respiratory Effort / Characteristics Respiratory Depth Respiratory Pattern Blood Pressure Blood Pressure Mean Pulse Oximetry 90 92 Oxygen Delivery Method Sepsis Recent Fever Within 48 Hours Sepsis New/Unexplained Change in Mental Status Sepsis Action Taken by Nursing 05/10/20 16:45 05/10/20 17:00 05/10/20 17:15 Temperature Temperature Source Pulse Rate 95 H 95 H 92 H Pulse Rate from SpO2 Sensor 84 95 H 92 H Respiratory Rate 20 19 17 Respiratory Effort / Characteristics Respiratory Depth Respiratory Pattern Blood Pressure Blood Pressure Mean Pulse Oximetry 92 92 Oxygen Delivery Method Sepsis Recent Fever Within 48 Hours Sepsis New/Unexplained Change in Mental Status Sepsis Action Taken by Nursing 05/10/20 17:30 05/10/20 17:45 Temperature Temperature Source Pulse Rate 92 H 91 H Pulse Rate from SpO2 Sensor 93 H 91 H Respiratory Rate 26 H 24 Respiratory Effort / Characteristics Respiratory Depth Respiratory Pattern Blood Pressure Blood Pressure Mean Pulse Oximetry 92 94 Oxygen Delivery Method Sepsis Recent Fever Within 48 Hours Sepsis New/Unexplained Change in Mental Status Sepsis Action Taken by Alf Medications Current Medication List: was personally reviewed by me Laboratory Data Attestation: I reviewed the patient's lab results. Result diagrams: 05/10/20 15:07 05/10/20 15:07 Lab Results 05/10/20 05/10/20 05/10/20 Range/Units 15:07 15:07 15:07 WBC 10.61 (4.8-10.8) K/uL RBC 3.76 L (4.7-6.1) M/uL Hgb 11.3 L (14.0-18.0) g/dL Hct 33.8 L (42-52) % MCV 89.9 (80-100) fL MCH 30.1 (25-34) pg MCHC 33.4 (32-36) g/dL RDW Std Deviation 50.4 H (36.4-46.3) fL RDW Coeff of Godfrey 15.5 H (11.5-14.5) % Plt Count 166 (130-400) K/uL MPV 9.7 (7.4-10.4) fL Immature Gran % (Auto) 0.2 % Neut % (Auto) 83.7 % Lymph % (Auto) 7.2 % [place] % (Auto) 7.9 % Eos % (Auto) 0.7 % Baso % (Auto) 0.3 % Neut # (Auto) 8.89 H (1.4-6.5) K/uL Lymph # (Auto) 0.76 L (1.2-3.4) K/uL [place] # (Auto) 0.84 H (0.11-0.59) K/uL Eos # (Auto) 0.07 (0-0.5) K/uL Baso # (Auto) 0.03 (0-0.2) K/uL Immature Gran # (Auto) 0.02 (0.00-0.02) K/uL PT 11.6 (9.0-12.0) Seconds INR 1.1 (0.9-1.1) APTT 27.4 (21.0-31.0) Seconds PTT Ratio 1.0 Sodium 139 (136-145) mmol/L Potassium 4.2 (3.5-5.1) mmol/L Chloride 108 H (98-107) mmol/L Carbon Dioxide 24 (21-32) mmol/L Anion Gap 7.0 (3-11) BUN 17 (7-18) mg/dl Creatinine 1.30 (0.6-1.4) mg/dl Est Cr Clr Drug Dosing 40.2 ml/min Est GFR ( Amer) 57.7 Est GFR (Non-Af Amer) 49.8 BUN/Creatinine Ratio 13.1 (10-20) Glucose 142 H (70-99) mg/dl Lactate (0.4-2.0) mmol/L Calcium 9.4 (8.5-10.1) mg/dl Magnesium 2.1 (1.8-2.4) mg/dl Total Bilirubin 0.5 (0.2-1) mg/dl AST 18 (15-37) U/L ALT 20 (12-78) U/L Alkaline Phosphatase 92 (45-117) U/L Troponin I < 0.015 (0-0.045) ng/ml Total Protein 7.4 (6.4-8.2) gm/dl Albumin 3.0 L (3.4-5.0) gm/dl Globulin 4.4 H (2.5-4.0) gm/dl Albumin/Globulin Ratio 0.7 L (0.9-2) Procalcitonin (0-0.5) ng/ml Urine Color Urine Appearance (Clear) Urine pH (4.5-7.5) Ur Specific Okay (1.000-1.030) Urine Protein (Negative) Urine Glucose (UA) (Negative) Urine Ketones (Negative) Urine Blood (Negative) Urine Nitrite (Negative) Urine Bilirubin (Negative) Urine Urobilinogen (Negative) Ur Leukocyte Esterase (Negative) Urine WBC (Auto) (0-5) /hpf Urine RBC (Auto) (0-4) /hpf U Hyaline Cast (Auto) (0-5) /lpf U Epithel Cells (Auto) (0-5) /lpf Urine Bacteria (Auto) (Negative) Digoxin (0.8-2.0) ng/ml COVID-19 Eval Order COVID-19 PCR (Negative) 05/10/20 05/10/20 05/10/20 Range/Units 15:07 15:07 15:07 WBC (4.8-10.8) K/uL RBC (4.7-6.1) M/uL Hgb (14.0-18.0) g/dL Hct (42-52) % MCV (80-100) fL MCH (25-34) pg MCHC (32-36) g/dL RDW Std Deviation (36.4-46.3) fL RDW Coeff of Godfrey (11.5-14.5) % Plt Count (130-400) K/uL MPV (7.4-10.4) fL Immature Gran % (Auto) % Neut % (Auto) % Lymph % (Auto) % [place] % (Auto) % Eos % (Auto) % Baso % (Auto) % Neut # (Auto) (1.4-6.5) K/uL Lymph # (Auto) (1.2-3.4) K/uL [place] # (Auto) (0.11-0.59) K/uL Eos # (Auto) (0-0.5) K/uL Baso # (Auto) (0-0.2) K/uL Immature Gran # (Auto) (0.00-0.02) K/uL PT (9.0-12.0) Seconds INR (0.9-1.1) APTT (21.0-31.0) Seconds PTT Ratio Sodium (136-145) mmol/L Potassium (3.5-5.1) mmol/L Chloride (98-107) mmol/L Carbon Dioxide (21-32) mmol/L Anion Gap (3-11) BUN (7-18) mg/dl Creatinine (0.6-1.4) mg/dl Est Cr Clr Drug Dosing ml/min Est GFR ( Amer) Est GFR (Non-Af Amer) BUN/Creatinine Ratio (10-20) Glucose (70-99) mg/dl Lactate 1.9 (0.4-2.0) mmol/L Calcium (8.5-10.1) mg/dl Magnesium (1.8-2.4) mg/dl Total Bilirubin (0.2-1) mg/dl AST (15-37) U/L ALT (12-78) U/L Alkaline Phosphatase (45-117) U/L Troponin I (0-0.045) ng/ml Total Protein (6.4-8.2) gm/dl Albumin (3.4-5.0) gm/dl Globulin (2.5-4.0) gm/dl Albumin/Globulin Ratio (0.9-2) Procalcitonin 0.74 H (0-0.5) ng/ml Urine Color Urine Appearance (Clear) Urine pH (4.5-7.5) Ur Specific Okay (1.000-1.030) Urine Protein (Negative) Urine Glucose (UA) (Negative) Urine Ketones (Negative) Urine Blood (Negative) Urine Nitrite (Negative) Urine Bilirubin (Negative) Urine Urobilinogen (Negative) Ur Leukocyte Esterase (Negative) Urine WBC (Auto) (0-5) /hpf Urine RBC (Auto) (0-4) /hpf U Hyaline Cast (Auto) (0-5) /lpf U Epithel Cells (Auto) (0-5) /lpf Urine Bacteria (Auto) (Negative) Digoxin 0.6 L (0.8-2.0) ng/ml COVID-19 Eval Order COVID-19 PCR (Negative) 05/10/20 05/10/20 05/10/20 Range/Units 15:40 15:40 15:40 WBC (4.8-10.8) K/uL RBC (4.7-6.1) M/uL Hgb (14.0-18.0) g/dL Hct (42-52) % MCV (80-100) fL MCH (25-34) pg MCHC (32-36) g/dL RDW Std Deviation (36.4-46.3) fL RDW Coeff of Godfrey (11.5-14.5) % Plt Count (130-400) K/uL MPV (7.4-10.4) fL Immature Gran % (Auto) % Neut % (Auto) % Lymph % (Auto) % [place] % (Auto) % Eos % (Auto) % Baso % (Auto) % Neut # (Auto) (1.4-6.5) K/uL Lymph # (Auto) (1.2-3.4) K/uL [place] # (Auto) (0.11-0.59) K/uL Eos # (Auto) (0-0.5) K/uL Baso # (Auto) (0-0.2) K/uL Immature Gran # (Auto) (0.00-0.02) K/uL PT (9.0-12.0) Seconds INR (0.9-1.1) APTT (21.0-31.0) Seconds PTT Ratio Sodium (136-145) mmol/L Potassium (3.5-5.1) mmol/L Chloride (98-107) mmol/L Carbon Dioxide (21-32) mmol/L Anion Gap (3-11) BUN (7-18) mg/dl Creatinine (0.6-1.4) mg/dl Est Cr Clr Drug Dosing ml/min Est GFR ( Amer) Est GFR (Non-Af Amer) BUN/Creatinine Ratio (10-20) Glucose (70-99) mg/dl Lactate (0.4-2.0) mmol/L Calcium (8.5-10.1) mg/dl Magnesium (1.8-2.4) mg/dl Total Bilirubin (0.2-1) mg/dl AST (15-37) U/L ALT (12-78) U/L Alkaline Phosphatase (45-117) U/L Troponin I (0-0.045) ng/ml Total Protein (6.4-8.2) gm/dl Albumin (3.4-5.0) gm/dl Globulin (2.5-4.0) gm/dl Albumin/Globulin Ratio (0.9-2) Procalcitonin (0-0.5) ng/ml Urine Color Yellow Urine Appearance Clear (Clear) Urine pH 5.0 (4.5-7.5) Ur Specific Okay 1.020 (1.000-1.030) Urine Protein 2+ H (Negative) Urine Glucose (UA) Trace H (Negative) Urine Ketones Negative (Negative) Urine Blood 2+ H (Negative) Urine Nitrite Positive A (Negative) Urine Bilirubin Negative (Negative) Urine Urobilinogen Negative (Negative) Ur Leukocyte Esterase 1+ H (Negative) Urine WBC (Auto) >30 H (0-5) /hpf Urine RBC (Auto) 10-30 H (0-4) /hpf U Hyaline Cast (Auto) 5-10 H (0-5) /lpf U Epithel Cells (Auto) 0-5 (0-5) /lpf Urine Bacteria (Auto) Negative (Negative) Digoxin (0.8-2.0) ng/ml COVID-19 Eval Order Covid19 Done at [facility] COVID-19 PCR NEGATIVE (Negative) Administered Medications Albuterol (Albut/Ipratrop 3mg/0.5mg Neb 3 Ml Vial) 3 ml NEB QIDR DOMO Stop: 05/11/20 19:44 Last Admin: 05/10/20 20:12 Dose: 3 ml Documented by: [id number] Apixaban (Apixaban 5 Mg Tablet) 5 mg PO BID DOMO Stop: 06/09/20 20:59 Last Admin: 05/10/20 20:34 Dose: 5 mg Documented by: [id number] Atorvastatin Calcium (Atorvastatin 40 Mg Tab) 40 mg PO HS DOMO Stop: 06/09/20 20:59 Last Admin: 05/10/20 20:33 Dose: 40 mg Documented by: [id number] Carvedilol (Carvedilol 12.5 Mg Tab) 12.5 mg PO QPM DOMO Stop: 06/09/20 20:59 Last Admin: 05/10/20 20:33 Dose: 12.5 mg Documented by: [id number] Tamsulosin HCl (Tamsulosin Hcl 0.4 Mg Cap) 0.4 mg PO QPM DOMO Stop: 06/09/20 20:59 Last Admin: 05/10/20 20:33 Dose: 0.4 mg Documented by: [id number] Discontinued Medications Albuterol (Albuterol Hfa 8 Gm Inhaler) 3 puffs INH NOW ONE Stop: 05/10/20 14:20 Last Admin: 05/10/20 15:47 Dose: 3 puffs Documented by: [id number] Fexofenadine HCl (Fexofenadine 60 Mg Tab) 60 mg PO NOW STA Stop: 05/10/20 17:46 Last Admin: 05/10/20 18:38 Dose: 60 mg Documented by: [id number] Acetaminophen (Ofirmev) 1,000 mg in 100 mls @ 400 mls/hr IV NOW STA Stop: 05/10/20 14:33 Last Infusion: 05/10/20 16:03 Dose: 0 mls/hr Documented by: [id number] Admin: 05/10/20 15:48 Dose: 400 mls/hr Documented by: [id number] Sodium Chloride (Nss 1000ml) 500 mls @ 999 mls/hr IV .Q31M ONE Stop: 05/10/20 14:49 Last Infusion: 05/10/20 16:24 Dose: 0 mls/hr Documented by: [id number] Admin: 05/10/20 15:48 Dose: 999 mls/hr Documented by: [id number] Ertapenem 1,000 mg/ Sodium (Chloride) 60 mls @ 100 mls/hr IV NOW STA Stop: 05/10/20 15:58 Last Infusion: 05/10/20 16:24 Dose: 0 mls/hr Documented by: [id number] Admin: 05/10/20 15:48 Dose: 100 mls/hr Documented by: [id number] Imaging Data Radiologist's Impression: XR chest 1V portable HISTORY: SEPSIS COMPARISON: Chest 10/05/2019. FINDINGS: No pneumothorax. The heart is mildly enlarged. There are poststernotomy changes and a cardiac valve prosthesis. Mild diffuse interstitial thickening persists. This has slightly progressed. Old, healed bilateral rib fractures. Trace bilateral pleural effusions. Bibasilar linear densities are nonspecific but favor subsegmental atelectasis. IMPRESSION: 1. Interval progression of the mild pulmonary vascular congestion and trace bilateral pleural effusions. 2. Bibasilar linear densities are nonspecific but favor atelectasis. Blood Pressure Blood Pressure Findings: Elevated blood pressure Blood Pressure Disposition: further management by hospitalist Discharge Plan Visit Data Chief Complaint: Shortness of Breath/Dyspnea Stated Complaint: SOB,CHILLS,NAUSEA ED Provider: yAdin Sandoval Discharge Problem: Sepsis, SOB (shortness of breath), Acute confusion, Acute UTI Patient Disposition: Admitted As Inpatient Condition: Fair Discharge Instructions Interventions: ED Discharge Assessment Last Done: 05/10/20 18:38 Discharge Problem: Sepsis Qualifiers: Sepsis type: sepsis due to unspecified organism Sepsis acute organ dysfunction status: without acute organ dysfunction Qualified Code(s): A41.9 - Sepsis, unspecified organism
[2020-05-10] MEDS ORDERED: ERTAPENEM SODIUM 1,000 MG in SODIUM CHLORIDE 0.9% 50 ML IV STA (15:23)
[2020-05-10 15:24] LABS: Basophils # (auto) 0.03 K/uL (0-0.2); Basophils % (auto) 0.3 %; Eosinophils # (auto) 0.07 K/uL (0-0.5); Eosinophils % (auto) 0.7 %; Hematocrit (blood only) 33.8 % (42-52); Hemoglobin 11.3 g/dL (14.0-18.0); Immature Granulocytes # (auto) 0.02 K/uL (0.00-0.02); Immature Granulocytes % (auto) 0.2 %; Lymphocytes # (auto) 0.76 K/uL (1.2-3.4); Lymphocytes % (auto) 7.2 %; Mean Corpuscular Hemoglobin 30.1 pg (25-34); Mean Corpuscular Hgb Conc 33.4 g/dL (32-36); Mean Corpuscular Volume 89.9 fL (80-100); Mean Platelet Volume 9.7 fL (7.4-10.4); Monocytes # (auto) 0.84 K/uL (0.11-0.59); Monocytes % (auto) 7.9 %; Neutrophils # (auto) 8.89 K/uL (1.4-6.5); Neutrophils % (auto) 83.7 %; Platelet Count 166 K/uL (130-400); RDW Coefficient of Variation 15.5 % (11.5-14.5); RDW Standard Deviation 50.4 fL (36.4-46.3); Red Blood Count 3.76 M/uL (4.7-6.1); White Blood Count 10.61 K/uL (4.8-10.8)
[2020-05-10 15:35] LABS: INR 1.1 (0.9-1.1); Partial Thromboplastin Time 27.4 Seconds (21.0-31.0); Prothrombin Time 11.6 Seconds (9.0-12.0)
[2020-05-10 15:41] LABS: Alanine Aminotransferase 20 U/L (12-78); Aspartate Aminotransferase 18 U/L (15-37); BUN Creatinine Ratio 13.1 (10-20); Blood Urea Nitrogen 17 mg/dl (7-18); Calcium 9.4 mg/dl (8.5-10.1); Carbon Dioxide 24 mmol/L (21-32); Chloride 108 mmol/L (98-107); Creatinine Clr Calc Pharmacy 40.2 ml/min; Est GFR (African American) 57.7; Est GFR (Non-African American) 49.8; Glucose 142 mg/dl (70-99); Magnesium 2.1 mg/dl (1.8-2.4); Potassium 4.2 mmol/L (3.5-5.1); Sodium 139 mmol/L (136-145)
[2020-05-10 15:46] LABS: Albumin Globulin Ratio 0.7 (0.9-2); Alkaline Phosphatase 92 U/L (45-117); Bilirubin,Total 0.5 mg/dl (0.2-1); Globulin 4.4 gm/dl (2.5-4.0); Total Protein 7.4 gm/dl (6.4-8.2); Troponin I < 0.015 ng/ml (0-0.045)
[2020-05-10 16:08] LABS: Appearance Urine Clear (Clear); Bacteria Urine Automated Negative (Negative); Bilirubin Urine Negative (Negative); Blood Urine 2+ (Negative); Color Urine Yellow; Epithelial Cell Urine Auto 0-5 /lpf (0-5); Glucose Urine UA Trace (Negative); Ketones Urine Negative (Negative); Leukocyte Esterase Urine 1+ (Negative); Nitrite Urine Positive (Negative); Protein Urine 2+ (Negative); Urobilinogen Urine Negative (Negative); WBC Urine Automated >30 /hpf (0-5)
--- NOTE | 2020-05-10 16:23 | XRay Report ---
XR chest 1V portable HISTORY: SEPSIS COMPARISON: Chest 10/05/2019. FINDINGS: No pneumothorax. The heart is mildly enlarged. There are poststernotomy changes and a cardi ac valve prosthesis. Mild diffuse interstitial thickening persists. This has slightly progressed. Old , healed bilateral rib fractures. Trace bilateral pleural effusions. Bibasilar linear densities are n onspecific but favor subsegmental atelectasis. IMPRESSION: 1. Interval progression of the mild pulmonary vascular congestion and trace bilateral pleural effusio ns. 2. Bibasilar linear densities are nonspecific but favor atelectasis. ACT 112: Negative or not required by law. Electronically signed by: Hima Cuellar M.D. 05/10/2020 4:22 PM
[2020-05-10] MEDS ORDERED: FEXOFENADINE 60 MG TAB PO STA (17:45)
--- NOTE | 2020-05-10 17:50 | History & Physical Report ---
Date of Service May 10, 2020 Assessment & Plan (1) Aspiration pneumonia: Ertapenem started in the ER due to concerns for UTI sepsis however would also cover for aspiration PNA. Likely mainly aspiration pneumonitis at this stage but given immunosuppression and elevated procalcitonin he should be covered for this. Speech consult. However suspect mainly aspiration after nausea and vomiting due to filling up his bladder for voiding trial yesterday +/- Xgeva injection. (2) Mucus plugging of bronchi: Suspect course of main symptom of shortness of breath given rapid recovery just in our office antibiotics given. Flutter valve, incentive spirometry, DuoNebs 4 times daily for 24 hours. (3) Acute confusion: Unclear etiology. Now appears resolved. Suspect this represents mucous plugging with hypoxia since antibiotics only given 1 hour ago. (4) Secondary malignant neoplasm of bone: Xgeva injection given 05/09. (5) BPH loc w/o ur obs/LUTS: Continue Tafoya catheter, failed voiding trial as outpatient 05/09. Continue tamsulosin 0.4 mg p.o. every afternoon (6) Chronic rhinitis: Chrissy 60 mg p.o. twice daily Consider ipratropium nasal spray if antihistamines not helpful. Suspect contributing towards chronic cough. (7) Chronic cough: Suspect due to postnasal drip as above + ?aspirations History of Present Illness Chief Complaint: Shortness of breath, fever, confusion Primary Care Provider: Kit Issa MD Jayy Turk is a 85 year old male with metastatic prostate cancer who presents to the ER with shortness of breath and fever. Patient seen with his daughter at bedside who is able to provide the majority of his history. His symptoms occurred acutely this morning however his daughter feels this started because of nausea and vomiting happened yesterday in the context of him having a voiding trial with urology for his chronic indwelling tafoya catheter. Subsequently failed this trial and had tafoya catheter placed back. He also had his annual Xgeva yesterday but she reports he does not usually have a bad reaction to this. His shortness of breath associated with worsening of his chronic productive cough and confusion. His confusion has already mostly resolved while in the ER. No known COVID-19 exposure. Allergies Allergy/AdvReac Type Severity Reaction Status Date / Time doxycycline Allergy Mild Rash Verified 05/09/20 11:09 tetracycline Allergy Mild RASH Verified 05/09/20 11:09 Penicillins Allergy Unknown HIVES-SOB Verified 05/09/20 11:09 Home Medications Home Medications Medication Instructions Recorded Confirmed Type apixaban 5 mg PO BID 08/05/18 05/10/20 History aspirin 325 mg PO QAM 08/05/18 05/10/20 History carvedilol 6.2 mg PO QAM 08/05/18 05/10/20 History oxycodone 5 mg PO Q4H PRN #20 tab 10/07/19 05/10/20 Rx lidocaine 5 % topical ointment 1 appln TOP TID PRN #60 gm 10/18/19 05/10/20 Rx calcium carbonate-vitamin D3 600 1 tab PO DAILY tab 01/30/20 05/10/20 History mg(1,500 mg)-400 unit chewable tablet docusate sodium 100 mg capsule 100 mg PO DAILY 01/30/20 05/10/20 History digoxin 125 mcg (0.125 mg) tablet 125 mcg PO Q2D tab 02/14/20 05/10/20 History atorvastatin 40 mg tablet 40 mg PO HS #90 tab 04/22/20 05/10/20 Rx carvedilol 12.5 mg PO QPM 05/10/20 05/10/20 History fluticasone furoate-vilanterol 1 inh INHALATION DAILY 05/10/20 05/10/20 History [Breo Ellipta] losartan 12.5 mg PO DAILY 05/10/20 05/10/20 History tamsulosin 0.4 mg PO QPM 05/10/20 05/10/20 History Past Med/Surg History Medical History Aortic stenosis Atrial flutter BPH w/o urinary obs/LUTS CAD (coronary artery disease) 1-vessel (LAD), complicated by internal bleeding requiring another surgery Cardiomyopathy Carotid artery stenosis Carotid stenosis Chronic cough Chronic renal disease COPD (chronic obstructive pulmonary disease) Depression Diabetes mellitus, new onset (2018) Dyslipidemia History of alcohol dependence quit early 1970s History of tobacco use Leg fracture, left s/p ORIF Mixed hyperlipidemia PAD (peripheral artery disease) PAD (peripheral artery disease) Secondary malignant neoplasm of bone Surgical History Aortic valve replaced [facility] - 2012 H/O carotid endarterectomy left S/P aortic valve replacement with bioprosthetic valve (2010) S/P CABG (coronary artery bypass graft) (2010) Complicated postoperative course S/P CABG x 1 Family History Father , age 79 Congestive heart failure Atherosclerosis Mother , from diverticulitis age 84 Rheumatoid arthritis Social History Smoking Status: Never smoker Cigarettes Per Day: 1-2 ppd; Hx Alcohol Use: No Hx Substance Use: No Preferred Language: Kinyarwanda Communication Ability: Effective Set Up Inspector Required: No Beliefs That Will Affect Care: None marital status: marital status details: spouse 2009 Current Living Situation: Family Current Living Situation Comment: lives with daughter Kristina 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 other: 3 children one of whom is Feels Safe at Home: Yes Safety Concerns: Feels Safe At This Time Review of Systems Review of Systems: All systems reviewed & are unremarkable except as noted in HPI & below Physical Exam Constitutional: well developed and + frail appearing; + not well nourished and no acute distress Eyes: PERRL, conjunctivae normal, anicteric sclerae ENMT: Mouth: + dry oral mucous membranes Neck: trachea midline, no thyromegaly Respiratory: + retractions, + uses accessory muscles and + cough (productive); + abnormal respiratory effort and + not able to speak in complete sentence Auscultation: + crackles (bibasal coarse); no diminished lung sounds and no wheezes Cardiovascular: Rate/Rhythm: regular rhythm and + tachycardic Heart Sounds: + murmur (apex, systolic) Vessels: no JVD Extremities: normal capillary refill; no calf tenderness and no pedal edema Gastrointestinal (Abdomen): normal bowel sounds, soft, nontender, no hepatosplenomegaly Skin: no rashes, warm and dry (no areas of cellulitis) Neurologic: moves all extremities and awake; no focal motor deficits and not confused (resolved as per his daughter at baseline) Psychiatric: Orientation: alert, oriented to person, oriented to place and oriented to time Genitourinary: no CVA tenderness Results & Data Results & [facility] ([facility]) Vital Signs (Past 12 Hours) Vital Signs Temp Pulse Resp BP Pulse Ox 05/10/20 16:12 37.2 C 05/10/20 16:00 99 H 22 92 05/10/20 15:50 97 H 27 H 92 05/10/20 15:45 97 H 26 H 126/62 92 05/10/20 14:19 90 05/10/20 13:53 37.9 C H 119 H 20 185/86 H 90 Diagnostic Findings XR chest 1V portable IMPRESSION: 1. Interval progression of the mild pulmonary vascular congestion and trace bilateral pleural effusions. 2. Bibasilar linear densities are nonspecific but favor atelectasis. ECG Indication: tachycardia Rate (beats per minute): 99 Rhythm: sinus tachycardia Findings: + other (Non-sepcific intraventricular block), + PVC and + T-wave inversion (Lateral) Comparison ECG Date: from (10/05/2019) Change: no significant change Code Status & VTE Plan Code Status DNR/DNI as discussed with the patient and his daughter at bedside VTE Prophylaxis Plan VTE Prophylaxis will be ordered: Yes PG Care Time/CCT Total # of Minutes Spent Total Time Spent with Patient: Total time spent is greater than 50% in coordination of care (as documented) at patient's floor/unit and/or counseling patient: Coding Level of Care Code 94500 Initial Inpt Care Lvl 3 Diagnoses Aspiration pneumonia J69.0 Mucus plugging of bronchi J98.09 Acute confusion R41.0 Secondary malignant neoplasm of bone C79.51 BPH loc w/o ur obs/LUTS N40.0 Chronic rhinitis J31.0 Chronic cough R05
[2020-05-10] MEDS ORDERED: OXYCODONE HCL IR 5 MG TAB (IMMEDIATE RELEASE) PO PRN (19:45)
[2020-05-10] MEDS ORDERED: ACETAMINOPHEN 325 MG TAB PO PRN (19:45)
[2020-05-10] MEDS ORDERED: ONDANSETRON INJ 2 MG/ML 2 ML VIAL IV PRN (19:45)
[2020-05-10] MEDS ORDERED: ALUMINUM/MAGNESIUM SUSP 30 ML UDC PO PRN (19:45)
[2020-05-10] MEDS ORDERED: LIDOCAINE HCL 5% OINT 30 GM TUBE TOP PRN (20:00)
[2020-05-10] MEDS: ALBUT/IPRATROP 3MG/0.5MG NEB 3 ML VIAL NEB SCH (20:12)
[2020-05-10] MEDS: ATORVASTATIN 40 MG TAB PO SCH (20:33)
[2020-05-10] MEDS: TAMSULOSIN HCL 0.4 MG CAP PO SCH (20:33)
[2020-05-10] MEDS: carvediloL 12.5 MG TAB PO SCH (20:33)
[2020-05-10] MEDS: APIXABAN 5 MG TABLET PO SCH (20:34)
--- NOTE | 2020-05-11 05:16 | Electrocardiogram Report ---
Test Reason : Blood Pressure : / mmHG Vent. Rate : 099 BPM Atrial Rate : 099 BPM P-R Int : 210 ms QRS Dur : 136 ms QT Int : 376 ms P-R-T Axes : 096 -15 110 degrees QTc Int : 482 ms Sinus rhythm with 1st degree A-V block with occasional Premature ventricular complexes Non-specific intra-ventricular conduction block T wave abnormality, consider lateral ischemia Abnormal ECG When compared with ECG of 05-OCT-2019 16:57, Premature ventricular complexes are now Present Confirmed by Dylan Graham ([id number]) on 05/11/2020 5:16:38 AM Referred By: REFERRED SELF Confirmed By:Dylan Graham
[2020-05-11 06:21] LABS: Basophils # (auto) 0.03 K/uL (0-0.2); Basophils % (auto) 0.3 %; Eosinophils # (auto) 0.01 K/uL (0-0.5); Eosinophils % (auto) 0.1 %; Hematocrit (blood only) 33.7 % (42-52); Hemoglobin 10.6 g/dL (14.0-18.0); Immature Granulocytes # (auto) 0.02 K/uL (0.00-0.02); Immature Granulocytes % (auto) 0.2 %; Lymphocytes # (auto) 0.88 K/uL (1.2-3.4); Lymphocytes % (auto) 8.6 %; Mean Corpuscular Hemoglobin 29.2 pg (25-34); Mean Corpuscular Hgb Conc 31.5 g/dL (32-36); Mean Corpuscular Volume 92.8 fL (80-100); Mean Platelet Volume 9.1 fL (7.4-10.4); Monocytes % (auto) 7.8 %; Neutrophils # (auto) 8.53 K/uL (1.4-6.5); Platelet Count 171 K/uL (130-400); RDW Standard Deviation 54.2 fL (36.4-46.3); Red Blood Count 3.63 M/uL (4.7-6.1); White Blood Count 10.27 K/uL (4.8-10.8)
[2020-05-11 06:54] LABS: BUN Creatinine Ratio 13.8 (10-20); Calcium 8.7 mg/dl (8.5-10.1); Creatinine Clr Calc Pharmacy 42.5 ml/min; Est GFR (African American) 62.3; Est GFR (Non-African American) 53.7
[2020-05-11] MEDS: ALBUT/IPRATROP 3MG/0.5MG NEB 3 ML VIAL NEB SCH ×4 (07:27→19:26)
[2020-05-11] MEDS: APIXABAN 5 MG TABLET PO SCH ×2 (08:28→20:58)
[2020-05-11] MEDS: FLUTICASONE/VILANTEROL 100/25MCG 14 PUFFS/INHALER INH SCH (08:28)
[2020-05-11] MEDS: carvediloL 6.25 MG TAB PO SCH (08:29)
[2020-05-11] MEDS: DOCUSATE SODIUM 100 MG CAP PO SCH (08:29)
[2020-05-11] MEDS: CALCIUM 600MG + VIT D 400 IU TAB PO SCH (08:29)
[2020-05-11] MEDS: DIGOXIN 0.125 MG TAB PO SCH (08:29)
[2020-05-11] MEDS: LOSARTAN POTASSIUM 25 MG TAB PO SCH (08:29)
--- NOTE | 2020-05-11 09:17 | XRay Report ---
KUB HISTORY: ?fecal impaction COMPARISON: Abdomen and pelvis CT 10/25/2019. FINDINGS: There is a Garcia catheter terminating in the mid pelvis. Moderate amount of well-formed sto ol seen within the colon and rectum. This includes a 6 cm rectal stool ball. No dilated loops of ced l to suggest an obstruction. No renal calculi. No ureteral calculi. No pneumoperitoneum or pneumatos is. IMPRESSION: 1. No evidence for bowel obstruction. 2. Moderate well-formed stool within the colon and rectum. ACT 112: Negative or not required by law. Electronically signed by: Hima Cuellar M.D. 05/11/2020 9:16 AM
--- NOTE | 2020-05-11 13:27 | Hospitalist Progress Note ---
Date of Service May 11, 2020 Assessment & Plan (1) Sepsis: Mr Turk is an 85-year-old male who was brought to [facility] by his daughter due to acute confusion and shortness of breath. On arrival to the ED he was found to be febrile. He recently had his indwelling Garcia changed. The procedure caused bladder pain, leading to nausea and vomiting. This combined with his baseline cough at that moment most likely caused an aspiration. Sepsis - Clinically improving - Most likely due to pneumonia--community acquired vs aspiration - also concern for UTI due to indwelling cath but patient has no urinary symptoms - Blood culture: no growth in 24hrs - Urine cx: Staph species--sensitivities to follow - Currently on ertapenem 1g IV q24h to cover for UTI and PNA - Consider switching to unasyn if patient unable to be discharged tomorrow Chronic cough - Patient and daughter report chronic cough after open heart surgery - They feel it is currently at baseline - Possibly due to postnasal drip, as patient usually has nasal allergies - Monitor in light of current clinical picture Acute confusion - Daughter reported altered mental status at home, which led to bringing him to hospital - Has been stable since--seemingly resolved - Monitor clinically Atrial flutter - Continue home carvedilol 6.25 PO qAM and 12.5mg PO qPM - Continue digoxin 125mcg PO every two days - Continue Eliquis 5mg PO BID Hypertension - Continue carvedilol as above - Continue losartan 12.5 mg PO daily Hyperlipidemia - Continue atorvastatin 40mg PQ HS 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 - Xgeva injection given 05/09 BPH - Continue home tamsulosin 0.4mg PO every afternoon - Garcia catheter in prior to arrival--continue Chronic rhinitis - Chrissy 60mg PO BID DVT ppx: Eliquis 5mg PO BID FENGI: Regular, soft bite-sized Dispo: Med/surg tele Code: DNR/DNI (2) Chronic cough: (3) Acute confusion: (4) Secondary malignant neoplasm of bone: (5) Chronic rhinitis: (6) BPH loc w/o ur obs/LUTS: (7) Hypertension: (8) Atrial flutter with controlled response: Admission and Anticipated Discharge Date Admission Date: May 10, 2020 Supervising Physician Co-Signing Physician Notes I personally examined the patient and verified all fuller points of history and exam, discussed case, and agree with decision making with Dr Cowan. feeling better acting more like himself. has chronic cough - dtr starting to think is probably PND - but this makes him cough a lot. (cough now back to baseline) but was at urology - procedure caused bladder pain which caused nausea which led to vomiting -- baseline cough + lots of vomiting = dtr pretty certain he aspirated. has no urinary sx. no bladder pain. vitals noted nad heent nc at mmm lungs diminished bibasilar faint rhonchi mid L lung. no suprapubic or abdominal tenderness sepsis picture - present on admission - does appear pneumonia related. as piration vs CAP; covid negative. on ertapenem which will cover gram negs and anaerobes - probably could be on unasyn but will wait on switching abx as he's improving enough he might be able to go home tomorrow -- then would have made more switches in abx possibly insulting gut microbiome enough to precipitate cdiff. continue erta for now, wean O2, supportive care. does not appear UTI related given his lack of UTI sx. otherwise as above Subjective Patient seen at bedside with his daughter in room. Says he feels much better today and has no real symptoms apart from his usual baseline cough. Daughter explained that her father recently had his indwelling Garcia changed. The procedure caused bladder pain, leading to nausea and vomiting. This combined with his baseline cough at that moment most likely caused an aspiration. They think that is the cause of this current episode. No other symptoms. Denies SOB, CP, palpitations, fever, chills, nausea, vomiting, diarrhea, abd pain, suprapubic pain. Review of Systems Constitutional: no fever, no chills, no sweats and no fatigue Respiratory: + cough; no dyspnea and no pain on inspiration Cardiovascular: no chest pain, no palpitations and no edema Gastrointestinal: no abdominal pain, no nausea, no vomiting, no constipation and no diarrhea/loose stools Genitourinary: no dysuria and no flank pain Integumentary: no rash, no lesions and no wounds Physical Exam Constitutional: WD/WN, vitals as above no acute distress Respiratory: Auscultation: + diminished lung sounds (at both bases) and + rhonchi (left side); no crackles and no wheezes Cardiovascular: RRR, no murmur, no edema Heart Sounds: normal S1 and normal S2; no gallop, no murmur and no cardiac rub Gastrointestinal (Abdomen): normal bowel sounds, soft, nontender, no hepatosplenomegaly Skin: no rashes, warm and dry Psychiatric: A+Ox3, euthymic affect Results & Data Results & Data ([facility]) Vital Signs (Past 12 Hours) Vital Signs Temp Pulse Pulse Resp BP BP Pulse Ox 05/11/20 11:28 96 H 17 95 05/11/20 11:11 36.9 C 90 18 126/65 94 05/11/20 08:29 96 H 05/11/20 07:28 91 H 18 96 05/11/20 07:12 37.5 C 92 H 16 101/58 L 93 05/11/20 03:35 37.2 C 94 H 18 122/69 93 Resident Activity Tracking Resident Involvement: Resident Care Provided Care Provided: Adult Hospital Medicine (1) Sepsis Sepsis acute organ dysfunction status: without acute organ dysfunction Sepsis type: sepsis due to unspecified organism Qualified Code(s): A41.9 - Sepsis, unspecified organism
[2020-05-11] MEDS: ERTAPENEM SODIUM 1,000 MG in SODIUM CHLORIDE 0.9% 50 ML IV SCH (14:40)
--- NOTE | 2020-05-11 16:41 | Billing Data ---
Date of Service May 11, 2020 Coding Level of Care Code 52351 Subseq Hosp Care Lvl 3
[2020-05-11] MEDS ORDERED: LORazepam 0.5 MG TAB PO PRN (17:52)
[2020-05-11] MEDS: carvediloL 12.5 MG TAB PO SCH (20:58)
[2020-05-11] MEDS: TAMSULOSIN HCL 0.4 MG CAP PO SCH (20:58)
[2020-05-11] MEDS: ATORVASTATIN 40 MG TAB PO SCH (20:59)
[2020-05-12 06:42] LABS: BUN Creatinine Ratio 15.4 (10-20); Calcium 8.7 mg/dl (8.5-10.1); Creatinine Clr Calc Pharmacy 44.5 ml/min; Est GFR (African American) 65.5; Est GFR (Non-African American) 56.5
[2020-05-12 07:13] LABS: Estimated Average Glucose 128 mg/dl; Hemoglobin A1C 6.1 % (4.5-5.6)
[2020-05-12] MEDS: FLUTICASONE/VILANTEROL 100/25MCG 14 PUFFS/INHALER INH SCH (07:55)
[2020-05-12] MEDS: CALCIUM 600MG + VIT D 400 IU TAB PO SCH (07:56)
[2020-05-12] MEDS: carvediloL 6.25 MG TAB PO SCH (07:56)
[2020-05-12] MEDS: DOCUSATE SODIUM 100 MG CAP PO SCH (07:56)
[2020-05-12] MEDS: APIXABAN 5 MG TABLET PO SCH ×2 (07:56→20:36)
[2020-05-12] MEDS: LOSARTAN POTASSIUM 25 MG TAB PO SCH (07:56)
[2020-05-12] MEDS: ERTAPENEM SODIUM 1,000 MG in SODIUM CHLORIDE 0.9% 50 ML IV SCH (15:37)
--- NOTE | 2020-05-12 16:42 | Hospitalist Progress Note ---
Date of Service May 12, 2020 Assessment & Plan (1) Sepsis: Mr Turk is an 85-year-old male who was brought to [facility] by his daughter due to acute confusion and shortness of breath. On arrival to the ED he was found to be febrile. He recently had his indwelling Tafoya changed. The procedure caused bladder pain, leading to nausea and vomiting. This combined with his baseline cough at that moment most likely caused an aspiration. Sepsis - Clinically improving - Most likely due to pneumonia--community acquired vs aspiration - Also concern for UTI due to indwelling cath but patient has no urinary symptoms - Blood culture: positive growth in one tube of gram + cocci in clusters; will repeat blood cultures today - Urine cx: coag negative staph - Currently on ertapenem 1g IV q24h to cover for UTI and PNA Chronic cough - Patient and daughter report chronic cough after open heart surgery - They feel it is currently at baseline - Possibly due to postnasal drip, as patient usually has nasal allergies - Monitor in light of current clinical picture Acute confusion - Daughter reported altered mental status at home, which led to bringing him to hospital - Has been stable since--seemingly resolved - Monitor clinically Atrial flutter - Continue home carvedilol 6.25 PO qAM and 12.5mg PO qPM - Continue digoxin 125mcg PO every two days - Continue Eliquis 5mg PO BID Hypertension - Continue carvedilol as above - Continue losartan 12.5 mg PO daily Hyperlipidemia - Continue atorvastatin 40mg PQ HS 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 - Xgeva injection given 05/09 BPH - Continue home tamsulosin 0.4mg PO every afternoon - Tafoya catheter in prior to arrival--continue Chronic rhinitis - Chrissy 60mg PO BID DVT ppx: Eliquis 5mg PO BID FENGI: Regular, soft bite-sized Dispo: Med/surg tele Code: DNR/DNI (2) Chronic cough: (3) Acute confusion: (4) Secondary malignant neoplasm of bone: (5) Chronic rhinitis: (6) BPH loc w/o ur obs/LUTS: (7) Hypertension: (8) Atrial flutter with controlled response: Admission and Anticipated Discharge Date Admission Date: May 10, 2020 Supervising Physician Co-Signing Physician Notes Patient seen and examined with PGY-1 Dr. Perez. Agree with history, exam findings, assessment and plan of care as outlined. In brief, Mr. Turk is an 85 year old male with history of atrial flutter, HTN, HLD, BPH with indwelling tafoya (changed monthly), and prostate cancer with mets admitted with confusion and dyspnea. Today, denies dyspnea. Daughter, who is at the bedside, feel that he looks much better. VS reviewed. Nursing notes reviewed. On exam, he is non-toxic appearing. Moist mucus membranes. Heart with regular rate and rhythm. S1/S2. No murmur. Using 2L NC and saturating in the high 90s. Lungs with crackles in the bilateral bases. 1. sepsis. positive procalcitonin on admission. Improving. Afebrile. Urine cultu re with staph, awaiting sensitivities. CXR--CAP vs aspiration. Wean O2. Blood cultures with 1/2 bottles growing gram positive cocci in clusters. Awaiting speciation. Continue with Ertapenem. Repeat cultures are pending. 2. Atrial flutter. Rate controlled. Continue home coreg 6.25mg qAM and 12.5m qPM, dig 125mcg q2 days. AC with Eliquis. 3. Prostate cancer with mets. Stable. Last xgeva injection given 05/09. Also on Lupron. Followed by Dr. Reed ([facility]). 4. BPH. Failed voiding trial, tafoya in place. Followed by urology. Continue home tamsulosin. Dispo: pending clinical improvement and repeat cultures. Subjective Patient seen and evaluated at bedside with his daughter in room. Pt states that he is feeling better today. Persistent baseline cough. Otherwise denies increased shortness of breath, fever, chills, chest pain, abdominal pain, nausea, vomiting, leg pain, or leg swelling. Patient's daughter notes that he "is much better" and that he is no longer confused. Patient's daughter provides more information to me today with regards to his cancer diagnosis. Patient was diagnosed with prostate cancer in September; there are known mets to the lung and bone. Patient had an indwelling tafoya catheter placed in October; the catheter is changed monthly. Daughter states that there are "always problems" with the monthly cath changes. Review of Systems Constitutional: no fever, no chills and no body aches Respiratory: + cough; no dyspnea Cardiovascular: no chest pain Gastrointestinal: no abdominal pain, no nausea and no vomiting Neurologic: no headache(s) Physical Exam Physical Exam: GENERAL: No acute distress. Well developed and well nourished. Vital signs reviewed as above. A/O x3. HENT: Moist mucous membranes. RESPIRATORY: + rhonci in bilateral lower lung quan. Good respiratory effort. CARDIOVASCULAR: Regular rate and rhythm. No murmurs. ABDOMEN: Soft, non-tender and non-distended. No palpable masses. Normal bowel sounds. EXTREMITIES: No edema. Non-tender. NEUROLOGIC: No focal neurological deficits. PSYCHIATRIC: Cooperative. Appropriate mood and affect. Results & Data Results & Data ([facility]) Vital Signs (Past 12 Hours) Vital Signs Temp Pulse Pulse Resp BP Pulse Ox 05/12/20 15:31 36.6 C 87 20 149/80 H 97 05/12/20 11:56 36.6 C 79 21 130/75 95 05/12/20 08:46 85 05/12/20 06:25 36.7 C 86 18 129/77 93 (1) Sepsis Sepsis acute organ dysfunction status: without acute organ dysfunction Sepsis type: sepsis due to unspecified organism Qualified Code(s): A41.9 - Sepsis, unspecified organism
[2020-05-12] MEDS: ATORVASTATIN 40 MG TAB PO SCH (20:37)
[2020-05-12] MEDS: TAMSULOSIN HCL 0.4 MG CAP PO SCH (20:37)
[2020-05-12] MEDS: carvediloL 12.5 MG TAB PO SCH (20:37)
[2020-05-13 06:00] LABS: Basophils # (auto) 0.02 K/uL (0-0.2); Basophils % (auto) 0.3 %; Eosinophils # (auto) 0.18 K/uL (0-0.5); Eosinophils % (auto) 2.9 %; Hematocrit (blood only) 31.3 % (42-52); Hemoglobin 10.6 g/dL (14.0-18.0); Immature Granulocytes # (auto) 0.02 K/uL (0.00-0.02); Immature Granulocytes % (auto) 0.3 %; Lymphocytes # (auto) 1.37 K/uL (1.2-3.4); Lymphocytes % (auto) 22.3 %; Mean Corpuscular Hemoglobin 30.5 pg (25-34); Mean Corpuscular Hgb Conc 33.9 g/dL (32-36); Mean Corpuscular Volume 90.2 fL (80-100); Mean Platelet Volume 9.2 fL (7.4-10.4); Monocytes # (auto) 0.57 K/uL (0.11-0.59); Monocytes % (auto) 9.3 %; Neutrophils # (auto) 3.98 K/uL (1.4-6.5); Neutrophils % (auto) 64.9 %; Platelet Count 155 K/uL (130-400); RDW Coefficient of Variation 15.9 % (11.5-14.5); Red Blood Count 3.47 M/uL (4.7-6.1); White Blood Count 6.14 K/uL (4.8-10.8)
[2020-05-13 06:27] LABS: BUN Creatinine Ratio 17.3 (10-20); Calcium 9.4 mg/dl (8.5-10.1); Creatinine Clr Calc Pharmacy 43.5 ml/min; Est GFR (African American) 63.5; Est GFR (Non-African American) 54.8
[2020-05-13] MEDS: DOCUSATE SODIUM 100 MG CAP PO SCH (08:11)
[2020-05-13] MEDS: CALCIUM 600MG + VIT D 400 IU TAB PO SCH (08:11)
[2020-05-13] MEDS: DIGOXIN 0.125 MG TAB PO SCH (08:11)
[2020-05-13] MEDS: LOSARTAN POTASSIUM 25 MG TAB PO SCH (08:11)
[2020-05-13] MEDS: FLUTICASONE/VILANTEROL 100/25MCG 14 PUFFS/INHALER INH SCH (08:11)
[2020-05-13] MEDS: APIXABAN 5 MG TABLET PO SCH ×2 (08:12→20:10)
[2020-05-13] MEDS: carvediloL 6.25 MG TAB PO SCH (08:12)
--- NOTE | 2020-05-13 09:52 | Hospitalist Progress Note ---
Date of Service May 13, 2020 Assessment & Plan (1) Sepsis: Mr Turk is an 85-year-old male who was brought to [facility] by his daughter due to acute confusion and shortness of breath. On arrival to the ED he was found to be febrile. He recently had his indwelling Tafoya changed. The procedure caused bladder pain, leading to nausea and vomiting. This combined with his baseline cough at that moment most likely caused an aspiration. Sepsis - Clinically improving - Most likely due to pneumonia--community acquired vs aspiration - Also concern for UTI due to indwelling cath but patient has no urinary symptoms - Blood culture: positive growth in one tube of gram + cocci in clusters; repeat blood cultures yesterday -- prelim cultures negative 10/07, will await final cultures at 48 hours - Lung sounds on exam are worsening; will get repeat CXR for further evaluation -- CXR 05/13 with mild pulmonary vascular congestion which has progressed and small b/l pleural effusion have also slightly progressed -- IV lasx 20mg x1 administered to patient - Urine cx: coag negative staph - Currently on ertapenem 1g IV q24h to cover for UTI and PNA - PT/OT evaluations ordered; cleared by OT, recommended acute care PT -- Will consult care management for assistance with plan for home PT - Encouraged patient OOB to chair - Will continue to clinically monitor Chronic cough - Patient and daughter report chronic cough after open heart surgery - They feel it is currently at baseline - Possibly due to postnasal drip, as patient usually has nasal allergies - Monitor in light of current clinical picture Acute confusion - Daughter reported altered mental status at home, which led to bringing him to hospital - Has been stable since--seemingly resolved - Monitor clinically Atrial flutter - Continue rate control with home carvedilol 6.25 PO qAM and 12.5mg PO qPM - Continue digoxin 125mcg PO every two days - Continue Eliquis 5mg PO BID Hypertension - Continue carvedilol as above - Continue losartan 12.5 mg PO daily Hyperlipidemia - Continue atorvastatin 40mg PQ HS 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 - Xgeva injection given 05/09 BPH - Continue home tamsulosin 0.4mg PO every afternoon - Recently failed voiding trial - Tafoya catheter in prior to arrival--continue Chronic rhinitis - Chrissy 60mg PO BID DVT ppx: Eliquis 5mg PO BID FENGI: Regular, soft bite-sized Dispo: Med/surg tele Code: DNR/DNI (2) Chronic cough: (3) Acute confusion: (4) Secondary malignant neoplasm of bone: (5) Chronic rhinitis: (6) BPH loc w/o ur obs/LUTS: (7) Hypertension: (8) Atrial flutter with controlled response: Admission and Anticipated Discharge Date Admission Date: May 10, 2020 Supervising Physician Co-Signing Physician Notes Patient seen and examined independently of PGY-1 Dr. Perez. Agree with history, exam findings, assessment and plan of care as outlined. In brief, Mr. Turk is an 85 year old male with history of atrial flutter, HTN, HLD, BPH with indwelling tafoya (changed monthly), and prostate cancer with mets admitted with confusion and dyspnea. Today, denies dyspnea, but continues to have his chronic cough. Cough continues to be non-productive. He has been able to wean off O2. VS and labs reviewed. Nursing notes reviewed. On exam, he is non-toxic appearing. Moist mucus membranes. Heart with regular rate and rhythm. S1/S2. No murmur. On room air and saturating in the high 90s. Lungs with crackles in the bilateral bases. No wheezes or ronchi (which is improved from exam by Dr. Perez earlier today). 1. sepsis. positive procalcitonin on admission. Improving. Afebrile. Urine culture with staph. And blood cultures 1 of 2 bottles with staph. Repeat cultures negative x 24 hours. Repeat CXR done this morning due to concern for new ronchi. Consistent with increased pulmonary edema. No new infiltrate. s/p 1 dose of 20mg IV Lasix and clinically improving. No new infiltrate. Continue with Ertapenem. If repeat cultures are negative x 48 hours tomorrow, will plan to discharge home on oral abx. 2. Atrial flutter. Rate controlled. Continue home coreg 6.25mg qAM and 12.5m qPM, dig 125mcg q2 days. AC with Eliquis. 3. Prostate cancer with mets. Stable. Last xgeva injection given 05/09. Also on Lupron. Followed by Dr. Reed ([facility]). 4. BPH. Failed voiding trial, tafoya in place. Followed by urology. Continue home tamsulosin. Dispo: pending clinical improvement and repeat cultures. Subjective Patient seen and evaluated at bedside this morning. He states that he overall is feeling better. Patient with persistent baseline cough that has reportedly not worsened from baseline; he does report intermittent sputum production and this "clears things up for a while." Patient has no specific complaints or concerns today. He has been eating and sleeping well. He specifically denies fever, chills, increased shortness of breath, chest pain, abdominal pain, nausea, vomiting, leg pain, or leg swelling. Addendum: Patient and patient's daughter were updated on results and plan of care. Informed of slightly worsened CXR as compared to XR on admission. IV lasix 20mg x1 administered. Pt's breath sounds improved, but still with some coarse breath sounds in b/l lower lung quan. Pt feeling well without any questions or concerns. Will plan for d/c home tomorrow on Augmentin pending negative blood cultures. Review of Systems Constitutional: no fever and no chills Respiratory: + cough; no dyspnea Cardiovascular: no chest pain Gastrointestinal: no abdominal pain, no nausea and no vomiting Musculoskeletal: no swelling denies leg pain Neurologic: no headache(s) and no confusion Physical Exam Physical Exam: GENERAL: No acute distress. Well developed and well nourished. Vital signs reviewed as above. HENT: Moist mucous membranes. RESPIRATORY: + rhonci and coarse breath sounds in bilateral lung quan diffusely. Good respiratory effort. CARDIOVASCULAR: Regular rate and rhythm. No murmurs. ABDOMEN: Soft, non-tender and non-distended. No palpable masses. Normal bowel sounds. EXTREMITIES: No edema. Non-tender. NEUROLOGIC: No focal neurological deficits. A/O x3. PSYCHIATRIC: Cooperative. Appropriate mood and affect. Results & Data Results & Data ([facility]) Vital Signs (Past 12 Hours) Vital Signs Temp Pulse Pulse Resp BP BP Pulse Ox 05/13/20 08:49 78 05/13/20 08:11 78 05/13/20 07:37 36.8 C 75 17 126/70 92 05/13/20 03:40 36.3 C L 79 20 103/64 94 05/12/20 23:32 36.9 C 79 18 120/71 92 05/12/20 22:20 77 (1) Sepsis Sepsis acute organ dysfunction status: without acute organ dysfunction Sepsis type: sepsis due to unspecified organism Qualified Code(s): A41.9 - Sepsis, unspecified organism
--- NOTE | 2020-05-13 10:16 | XRay Report ---
XR chest 2V PA/lateral HISTORY: worsening lung sounds on exam, cough COMPARISON: Chest 05/10/2020. FINDINGS: No pneumothorax. Small bilateral pleural effusions have slightly progressed. Mild diffuse i nterstitial thickening has progressed. Old, healed bilateral rib fractures are again noted. There are poststernotomy changes. The heart remains mildly enlarged. A cardiac valve prosthesis is noted. IMPRESSION: 1. Mild pulmonary vascular congestion which has progressed. 2. Small bilateral pleural effusions have also slightly progressed. ACT 112: Negative or not required by law. Electronically signed by: Hima Cuellar M.D. 05/13/2020 10:15 AM
[2020-05-13] MEDS ORDERED: FUROSEMIDE 20 MG in SYRINGE 0 ML IV ONE (10:45)
[2020-05-13] MEDS: ERTAPENEM SODIUM 1,000 MG in SODIUM CHLORIDE 0.9% 50 ML IV SCH (15:49)
[2020-05-13] MEDS: carvediloL 12.5 MG TAB PO SCH (20:11)
[2020-05-13] MEDS: ATORVASTATIN 40 MG TAB PO SCH (20:11)
[2020-05-13] MEDS: TAMSULOSIN HCL 0.4 MG CAP PO SCH (20:11)
[2020-05-14 07:33] LABS: Basophils # (auto) 0.03 K/uL (0-0.2); Basophils % (auto) 0.6 %; Eosinophils # (auto) 0.16 K/uL (0-0.5); Hematocrit (blood only) 31.9 % (42-52); Hemoglobin 10.9 g/dL (14.0-18.0); Immature Granulocytes # (auto) 0.01 K/uL (0.00-0.02); Immature Granulocytes % (auto) 0.2 %; Lymphocytes # (auto) 1.14 K/uL (1.2-3.4); Lymphocytes % (auto) 21.2 %; Mean Corpuscular Hemoglobin 30.8 pg (25-34); Mean Corpuscular Hgb Conc 34.2 g/dL (32-36); Mean Corpuscular Volume 90.1 fL (80-100); Mean Platelet Volume 9.4 fL (7.4-10.4); Monocytes % (auto) 9.3 %; Neutrophils # (auto) 3.54 K/uL (1.4-6.5); Neutrophils % (auto) 65.7 %; Platelet Count 171 K/uL (130-400); RDW Coefficient of Variation 15.5 % (11.5-14.5); RDW Standard Deviation 51.6 fL (36.4-46.3); Red Blood Count 3.54 M/uL (4.7-6.1); White Blood Count 5.38 K/uL (4.8-10.8)
[2020-05-14 08:02] LABS: BUN Creatinine Ratio 18.3 (10-20); Calcium 9.1 mg/dl (8.5-10.1); Creatinine Clr Calc Pharmacy 44.5 ml/min; Est GFR (African American) 65.5; Est GFR (Non-African American) 56.5; Potassium 3.9 mmol/L (3.5-5.1)
[2020-05-14] MEDS: CALCIUM 600MG + VIT D 400 IU TAB PO SCH (08:20)
[2020-05-14] MEDS: APIXABAN 5 MG TABLET PO SCH (08:20)
[2020-05-14] MEDS: carvediloL 6.25 MG TAB PO SCH (08:20)
[2020-05-14] MEDS: FLUTICASONE/VILANTEROL 100/25MCG 14 PUFFS/INHALER INH SCH (08:20)
[2020-05-14] MEDS: LOSARTAN POTASSIUM 25 MG TAB PO SCH (08:20)
[2020-05-14] MEDS: DOCUSATE SODIUM 100 MG CAP PO SCH (08:20)
[2020-05-14 11:25] VITALS: BP 94/59; TEMP 97.3; O2SAT 93
[2020-05-14 14:17] VITALS: PULSE 112
--- NOTE | 2020-05-14 18:22 | Discharge Summary ---
Date of Service May 14, 2020 Admission HPI Per Admitting Provider Jayy Turk is a 85 year old male with metastatic prostate cancer who presents to the ER with shortness of breath and fever. Patient seen with his daughter at bedside who is able to provide the majority of his history. His symptoms occurred acutely this morning however his daughter feels this started because of nausea and vomiting happened yesterday in the context of him having a voiding trial with urology for his chronic indwelling tafoya catheter. Subsequently failed this trial and had tafoya catheter placed back. He also had his annual Xgeva yesterday but she reports he does not usually have a bad reaction to this. His shortness of breath associated with worsening of his chronic productive cough and confusion. His confusion has already mostly resolved while in the ER. No known COVID-19 exposure. Admission Exam Per Admitting Provider Constitutional: well developed and + frail appearing; + not well nourished and no acute distress Eyes: PERRL, conjunctivae normal, anicteric sclerae ENMT: Mouth: + dry oral mucous membranes Neck: trachea midline, no thyromegaly Respiratory: + retractions, + uses accessory muscles and + cough (productive); + abnormal respiratory effort and + not able to speak in complete sentence Auscultation: + crackles (bibasal coarse); no diminished lung sounds and no wheezes Cardiovascular: Rate/Rhythm: regular rhythm and + tachycardic Heart Sounds: + murmur (apex, systolic) Vessels: no JVD Extremities: normal capillary refill; no calf tenderness and no pedal edema Gastrointestinal (Abdomen): normal bowel sounds, soft, nontender, no hepatosplenomegaly Skin: no rashes, warm and dry (no areas of cellulitis) Neurologic: moves all extremities and awake; no focal motor deficits and not confused (resolved as per his daughter at baseline) Psychiatric: Orientation: alert, oriented to person, oriented to place and oriented to time Genitourinary: no CVA tenderness Principal Diagnosis pneumonia and UTI Discharge Exam GENERAL: No acute distress. Well developed and well nourished. Vital signs reviewed as noted in this chart. HENT: Moist mucous membranes. RESPIRATORY: + coarse breath sounds in bilateral lung quan diffusely with forced expirations. Otherwise, good respiratory effort at rest. No labored respirations or increased work of breathing. CARDIOVASCULAR: Regular rate and rhythm. No murmurs. ABDOMEN: Soft, non-tender and non-distended. No palpable masses. Normal bowel sounds. EXTREMITIES: No edema. Non-tender. NEUROLOGIC: No focal neurological deficits. A/O x3. PSYCHIATRIC: Cooperative. Appropriate mood and affect. Discharge Data Allergies Allergy/AdvReac Type Severity Reaction Status Date / Time doxycycline Allergy Mild Rash Verified 05/09/20 11:09 tetracycline Allergy Mild RASH Verified 05/09/20 11:09 Penicillins Allergy Unknown HIVES-SOB Verified 05/09/20 11:09 Consultations 05/10/20 16:22 ED Decision to Admit Stat 05/14/20 06:44 Consult Case Management - Discharge Planning Routine Hospital Course (1) Sepsis: Mr Turk is an 85-year-old male who was brought to [facility] by his daughter due to acute confusion and shortness of breath. On arrival to the ED he was found to be febrile. He recently had his indwelling Tafoya changed. The procedure caused bladder pain, leading to nausea and vomiting. This combined with his baseline cough at that moment most likely caused an aspiration. Upon evaluation and exam today, patient states that he "feels great." He is back to baseline and is currently complaining only of his chronic cough. Patient is eager to be discharged home. He denies fever, chills, SOB, CP, abdominal pain, nausea, vomiting, leg pain, or leg swelling. Sepsis - Most likely due to pneumonia--community acquired vs aspiration; also with UTI due to indwelling cath but patient has no urinary symptoms (urine cx revealed coag negative staph) - Blood culture: positive growth in one tube of gram + cocci in clusters; repeat blood cultures negative 2/2 confirmed after 48 hours - CXR 05/13 with mild pulmonary vascular congestion which has progressed and small b/l pleural effusion have also slightly progressed -- Pt received IV lasx 20mg x1 - Received ertapenem 1g IV q24h to cover for UTI and PNA -- Switched to Augmentin po BID x6 days upon discharge today - PT/OT evaluations completed; cleared by OT, recommended acute care PT -- Recommended home PT; patient and family agree Chronic cough - Patient and daughter report chronic cough after open heart surgery - They feel it is currently at baseline, possibly due to postnasal drip, as patient usually has nasal allergies Acute confusion - Daughter reported altered mental status at home, which led to bringing him to hospital - Has been stable since--seemingly resolved Atrial flutter - Continued rate control with home carvedilol 6.25 PO qAM and 12.5mg PO qPM - Continued digoxin 125mcg PO every two days - Continued Eliquis 5mg PO BID Hypertension - Continued carvedilol as above - Continued losartan 12.5 mg PO daily Hyperlipidemia - Continued atorvastatin 40mg PQ HS 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 - Xgeva injection given 05/09 BPH - Continued home tamsulosin 0.4mg PO every afternoon - Recently failed voiding trial - Tafoya catheter in prior to arrival--continue Chronic rhinitis - Chrissy 60mg PO BID DVT ppx: Eliquis 5mg PO BID FENGI: Regular, soft bite-sized Dispo: Med/surg tele Code: DNR/DNI (2) Chronic cough: (3) Acute confusion: (4) Secondary malignant neoplasm of bone: (5) Chronic rhinitis: (6) BPH loc w/o ur obs/LUTS: (7) Hypertension: (8) Atrial flutter with controlled response: Total Time Total Time Spent Total Time Spent (In Minutes): See attending attestation Discharge Plan Discharge Items Patient Disposition: Home - Self-Care Reason For Visit: ASPIRATION PNA UTI Discharge Diagnosis: pneumonia and UTI Condition on Discharge: Fair Activity: Per Instructions section Non-emergency contact: Primary Care Provider Call non-emergency contact if: you have any medication questions, your symptoms worsen, your pain is not controlled, your pain is worsening, you have a fever and your temperature is above 101 Follow-up/Referrals: Kit Issa MD [Primary Care Provider] - 05/20/20 2:15 pm (You have an appt with your PCP, on Tuesday at 2:15pm. [address] [place] [address] ) Diet: Regular Addtl Attending Provider Instructions: Mr. Turk, It was our pleasure caring for you at [facility] from 05/10/2020 to 05/14/2020 for your pneumonia and UTI. Please see below for a summary of your care and for recommendations: Sepsis - You initially presented with acute confusion, shortness of breath, and a fever - This was likely due to the pneumonia and UTI - You have clinically improved significantly and there is no persistent confusion - Your first set of blood cultures came back with one tube being positive - We repeated the blood cultures and as of today, both of the blood cultures are negative - You received IV antibiotics throughout your stay - Upon discharge today, you will stop the IV antibiotics and start an oral antibiotic - Please take Augmentin 875mg by mouth twice a day for the next 6 days - We also had you evaluated by PT and OT during your stay - There are no current needs for you to continue occupational therapy - As discussed during your stay, we do recommend that you continue physical therapy at home, a paper script has been provided to you prior to discharge. - Please follow up with your PCP within the next week. Atrial flutter - We continued you medications for atrial flutter, high blood pressure, and high cholesterol while you were admitted - Please continue your home medications including: - Home carvedilol 6.25 by mouth every morning and 12.5mg by mouth every evening - Home digoxin 125mcg by mouth every two days - Home Eliquis 5mg by mouth twice a day Hypertension - Continue your home carvedilol as above - Continue your home losartan 12.5 mg by mouth daily Hyperlipidemia - Continue your home atorvastatin 40mg by mouth every night Secondary malignant neoplasm of bone - This is secondary to your known prostate cancer - You received an Xgeva injection on 05/09/20 BPH - You failed the voiding trial prior to arrival to the hospital - You had a tafoya catheter upon arrival to the hospital. Continue your tafoya catheter care as recommended and follow up as scheduled - Continue you home tamsulosin 0.4mg by mouth every afternoon Pending Studies at Discharge: No Stand-Alone Forms: My [facility] [employer], Smoking Cessation Medications and DC Order Prescriptions: New amoxicillin-pot clavulanate [Augmentin] 875-125 mg tablet 1 tab PO BID 6 Days Qty: 12 RF: 0 Continued Calcium 600 with Vitamin D3 600 mg(1,500mg) -400 unit tablet,chewable 1 tab PO DAILY RF: 0 docusate sodium [Colace] 100 mg capsule 100 mg PO DAILY RF: 0 atorvastatin 40 mg tablet 40 mg PO HS Qty: 90 RF: 3 digoxin 125 mcg (0.125 mg) tablet 125 mcg PO Q2D RF: 0 lidocaine 5 % ointment 1 appln TOP TID PRN (Reason: pain) Qty: 60 RF: 3 carvedilol 12.5 mg tablet 6.2 mg PO QAM RF: 0 aspirin 325 mg Tablet 325 mg PO QAM RF: 0 apixaban 5 mg tablet 5 mg PO BID RF: 0 oxycodone 5 mg Tablet 5 mg PO Q4H PRN (Reason: pain) Qty: 20 RF: 0 Breo Ellipta 100-25 mcg/dose blister with device 1 inh INHALATION DAILY RF: 0 carvedilol 12.5 mg tablet 12.5 mg PO QPM RF: 0 losartan 25 mg tablet 12.5 mg PO DAILY RF: 0 tamsulosin 0.4 mg capsule 0.4 mg PO QPM RF: 0 Discharge Orders: Discharge Order (Routine); Ordered 05/14/20 Ordered By: Jose J Leavitt/Other Patient Handouts: Managing Type 2 Diabetes Admission Data Admit Date/Time: 05/10/20 17:58 Attending Provider: Jung Vieira Admit Provider: Owen Smiley Primary Care Provider: Kit Issa Other Providers: Owen Smiley ; [facility],Home Healthcare Other Interventions: Discharge Summary Assessment (RN) Last Done: 05/14/20 14:16 Supervising Physician Co-Signing Physician Notes Patient seen and examined with PGY-1 Dr. Perez. Agree with history, exam findings, assessment and plan of care as outlined. In brief, Mr. Turk is an 85 year old male with history of atrial flutter, HTN, HLD, BPH with indwelling tafoya (changed monthly), and prostate cancer with mets admitted with confusion and dyspnea. Today, denies dyspnea, but continues to have his chronic cough. Was able to cough up some clear mucus Last night. Off O2. He is eager to be discharged. VS and labs reviewed. Nursing notes reviewed. On exam, he is non-toxic appearing. Moist mucus membranes. Heart with regular rate and rhythm. S1/S2. No murmur. On room air and saturating in the mid 90s. Lungs with faint crackles in the bilateral bases. No wheezes or ronchi. 1. sepsis. positive procalcitonin on admission. Improving. Afebrile. Urine culture with staph. And blood cultures 1 of 2 bottles with staph. Repeat cultures negative x 48 hours. Discharge on clinda for continued coverage of aspiration pneumonia. 2. pulmonary edema. s/p Lasix yesterday and clinically improving. Off O2. 2. Atrial flutter. Rate controlled. Continue home coreg 6.25mg qAM and 12.5m qPM, dig 125mcg q2 days. AC with Eliquis. 3. Prostate cancer with mets. Stable. Last xgeva injection given 05/09. Also on Lupron. Followed by Dr. eRed ([facility]). 4. BPH. Failed voiding trial, tafoya in place. Followed by urology. Continue home tamsulosin. Dispo: discharge home with home PT today. I personally spent 35 minutes discharge planning for this patient.
== END 2020-05-14 14:50 | disposition home or self-care (01) | DRG 871 ==
LOC: ED 13:43 → SUATTDRO 17:58 → 2N 17:58

== ENCOUNTER 2020-11-26 15:18 | Inpatient (IN) ==
--- NOTE | 2020-11-26 16:12 | Electrocardiogram Report ---
Test Reason : Blood Pressure : / mmHG Vent. Rate : 090 BPM Atrial Rate : 090 BPM P-R Int : 212 ms QRS Dur : 134 ms QT Int : 384 ms P-R-T Axes : 104 -15 117 degrees QTc Int : 469 ms Sinus rhythm with sinus arrhythmia with 1st degree A-V block Non-specific intra-ventricular conduction block T wave abnormality, consider lateral ischemia Abnormal ECG When compared with ECG of 10-MAY-2020 15:41, Premature ventricular complexes are no longer Present Confirmed by Pillo Delgadillo ([id number]) on 11/26/2020 4:11:37 PM Referred By: Confirmed By:John Delgadillo
[2020-11-26 16:22] LABS: Basophils # (auto) 0.02 K/uL (0-0.2); Basophils % (auto) 0.2 %; Eosinophils # (auto) 0.02 K/uL (0-0.5); Eosinophils % (auto) 0.2 %; Hematocrit (blood only) 33.8 % (42-52); Hemoglobin 11.5 g/dL (14.0-18.0); Immature Granulocytes # (auto) 0.03 K/uL (0.00-0.02); Immature Granulocytes % (auto) 0.3 %; Lymphocytes # (auto) 1.15 K/uL (1.2-3.4); Lymphocytes % (auto) 10.4 %; Mean Corpuscular Hemoglobin 29.9 pg (25-34); Mean Corpuscular Volume 87.8 fL (80-100); Mean Platelet Volume 9.4 fL (7.4-10.4); Monocytes # (auto) 0.83 K/uL (0.11-0.59); Monocytes % (auto) 7.5 %; Neutrophils # (auto) 8.96 K/uL (1.4-6.5); Neutrophils % (auto) 81.4 %; Platelet Count 199 K/uL (130-400); RDW Coefficient of Variation 17.2 % (11.5-14.5); RDW Standard Deviation 55.5 fL (36.4-46.3); Red Blood Count 3.85 M/uL (4.7-6.1); White Blood Count 11.01 K/uL (4.8-10.8)
[2020-11-26] MEDS ORDERED: SODIUM CHLORIDE 0.9% 1000ML 1,000 ML IV ONE (16:38)
--- NOTE | 2020-11-26 16:38 | Emergency Department Note ---
Impression & Plan Acute alteration in mental status, Anticoagulant long-term use, Leukocytosis ED Provider Note NAME: NELSON JOSHI AGE: 85 SEX: M : 1935 ARRIVES VIA: Walk-In INFORMANT: Patient ED PROVIDER(S): Jorge Cortes DO CHIEF COMPLAINT: Altered mental status HPI: Patient is an 85-year-old male who presents to the ER for altered mental status brought in by daughter. Patient was normal at 4 AM this morning. When she got home patient did not take any of his medications and was talking differently. He was talking about getting locked into the room and there was no locks on the doors. He does not know what year it is or the month which is atypical. He denies any headache or change in vision. He was complaining of urinary issues. Garcia was replaced on Tuesday and has been having issues since then. Denies any chest pain or shortness of breath. No nausea, vomiting, or diarrhea. No other exacerbating or remitting factors. ROS: See above HPI for pertinent positives & negatives. A total of 10 systems reviewed and were otherwise negative. PAST MEDICAL HISTORY:See Below PAST SURGICAL HISTORY:See Below FAMILY HISTORY:See Below SOCIAL HISTORY:See Below HOME MEDICATIONS:See Below ALLERGIES:See Below VITALS:See Below PHYSICAL EXAMINATION: GENERAL: Sitting up in bed, alert, well appearing, well nourished, no distress, non-toxic EYE EXAM: normal conjunctiva. PERRL and EOM's intact. OROPHARYNX: no exudate, no erythema, lips, buccal mucosa, and tongue normal and mucous membranes are moist NECK: supple, no nuchal rigidity, no adenopathy, non-tender LUNGS: Clear to auscultation. Normal chest wall mechanics HEART: no murmurs, S1 normal and S2 normal ABDOMEN: abdomen soft, non-tender, normo-active bowel sounds, no masses, no rebound or guarding. UPPER EXTREMITIES: upper extremities are grossly normal. LOWER EXTREMITIES: No pitting edema. NEURO EXAM: Oriented to person and place but not month or year, cranial nerves II-XII intact, normal speech, no weakness of arms, no weakness of legs. No drift. Finger to nose intact. Gross sensation intact. MEDICAL DECISION MAKING: Patient is an 85-year-old male brought in by daughter for confusion and altered mental status. IV was established blood work was obtained. Labs show mild leukocytosis and mild anemia 11. INR was unremarkable. BMP along with LFTs bilirubin and lactic acid was normal. Troponin was negative. UA was contaminated with multiple epithelial cells. Digoxin normal. Covid was negative. CT head was unremarkable. Patient was covered with gram of Rocephin. He was given IV fluids. Discussed with daughter and patient was admitted to the hospital for further work-up. Triage Nursing notes reviewed. Limited review of prior medical records performed Vital Signs: reviewed and remarkable for no significant abnormalities Differential diagnosis: Differential diagnoses includes but is not limited to toxic, metabolic, infectious, traumatic, cardiac, neurologic, hematologic, psychiatric and inflammatory etiologies. ER treatment provided: See below Diagnostics interpreted by me: ECG: Sinus rhythm rate of [address] depressions in the high lateral leads ST depressions in the lateral leads QTC 469 Cardiac Monitoring: An order was placed for continuous cardiac monitoring. The monitor shows a rate of 75 with sinus rhythm. Laboratory studies: As stated above and show below. Imaging studies: Small bilateral pleural effusions CT head shows no acute pathology Consultation(s): Discussed the hospitalist for further evaluation Procedures: none Critical Care: None Past Med/Surg History Medical History Aortic stenosis Atrial flutter Bilateral pleural effusion BPH w/o urinary obs/LUTS CAD (coronary artery disease) 1-vessel (LAD), complicated by internal bleeding requiring another surgery Cardiomyopathy Carotid artery stenosis Carotid stenosis Chronic cough Chronic renal disease COPD (chronic obstructive pulmonary disease) Cough Depression Diabetes mellitus, new onset (2018) Dyslipidemia History of alcohol dependence quit early 1970s History of tobacco use Leg fracture, left s/p ORIF Mixed hyperlipidemia PAD (peripheral artery disease) PAD (peripheral artery disease) 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 Rhinitis Secondary malignant neoplasm of bone Surgical History Aortic valve replaced [facility] - 2011 H/O carotid endarterectomy left S/P aortic valve replacement with bioprosthetic valve (2010) S/P CABG (coronary artery bypass graft) (2010) Complicated postoperative course S/P CABG x 1 Family History Father , age 79 Congestive heart failure Atherosclerosis Mother , from diverticulitis age 84 Rheumatoid arthritis Other Cancer Heart disease Denies family history of Tuberculosis Allergies Emphysema, unspecified Lung disease Asthma Social History Smoking Status: Former smoker Years Smoked: 50; Cigarettes Per Day: 1-2 ppd; Hx Alcohol Use: No Hx Substance Use: No Preferred Language: Italian Communication Ability: Effective Back Tender Fourdrinier Required: No Beliefs That Will Affect Care: None marital status: marital status details: spouse 2009 Current Living Situation: Family Current Living Situation Comment: dtr 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 other: 3 children one of whom is Feels Safe at Home: Yes Assistive Devices: Denture - Upper, Denture - Lower, Glasses and Hearing Aid - Bilateral Allergies Allergies Allergy/AdvReac Type Severity Reaction Status Date / Time Penicillins Allergy Severe Hives and Verified 11/26/20 17:50 shortness of breath doxycycline Allergy Mild Rash Verified 11/26/20 16:55 tetracycline Allergy Mild Rash Verified 11/26/20 16:55 Home Meds Home Medications Medication Instructions Recorded Confirmed apixaban 5 mg PO BID 08/05/18 11/26/20 docusate sodium 100 mg capsule 100 mg PO DAILY 01/30/20 11/26/20 calcium carbonate-vitamin D3 600 2 tab PO DAILY tab 07/30/20 11/26/20 mg(1,500 mg)-400 unit chewable tablet carvedilol 12.5 mg tablet See Rx Instructions .ROUTE 08/19/20 11/26/20 .COMPLEX tab aspirin 81 mg tablet,delayed 81 mg PO DAILY 09/25/20 11/26/20 release digoxin 125 mcg (0.125 mg) tablet 125 mcg PO Q2D tab 09/26/20 11/26/20 enzalutamide [Xtandi] 160 mg PO QAM 11/26/20 11/26/20 ipratropium-albuterol 3 ml INHALATION BID 11/26/20 11/26/20 ondansetron HCl 8 mg PO TID PRN 11/26/20 11/26/20 Previous Rx's Medication Instructions Recorded rosuvastatin 40 mg tablet 40 mg PO DAILY #30 tab 09/25/20 azelastine 205.5 mcg (0.15 %) 1 spray INTRANASAL BID #30 ml 09/26/20 nasal spray metoprolol succinate 50 mg 50 mg PO DAILY #90 tab 09/30/20 tablet,extended release 24 hr losartan 25 mg tablet 12.5 mg PO DAILY #45 tab 10/16/20 Results & Data (ED) Vital Signs Vital Signs - 24 hr 11/26/20 15:22 11/26/20 16:03 11/26/20 16:07 Temperature 36.7 C Temperature Source Temporal Artery Scan Pulse Rate 92 H 90 89 Pulse Rate [Finger] 88 Pulse Rate from SpO2 Sensor 90 89 Respiratory Rate 18 23 22 Respiratory Effort / Characteristics Non-Labored Respiratory Depth Normal Respiratory Pattern Regular Blood Pressure 105/57 L 106/47 L Blood Pressure [Right Arm] 106/47 L Blood Pressure Mean 73 66 Blood Pressure Mean [Right Arm] 66 Pulse Oximetry 95 93 93 Oxygen Delivery Method Room Air Room Air Sepsis Recent Fever Within 48 Hours No Sepsis New/Unexplained Change in Mental Status N/A Sepsis Action Taken by Nursing No Action Required 11/26/20 16:30 11/26/20 16:31 11/26/20 17:00 Temperature Temperature Source Pulse Rate 97 H 89 86 Pulse Rate [Finger] Pulse Rate from SpO2 Sensor 97 H 90 82 Respiratory Rate 25 H 20 18 Respiratory Effort / Characteristics Respiratory Depth Respiratory Pattern Blood Pressure 90/50 L 94/50 L Blood Pressure [Right Arm] Blood Pressure Mean 63 64 Blood Pressure Mean [Right Arm] Pulse Oximetry 94 93 94 Oxygen Delivery Method Sepsis Recent Fever Within 48 Hours Sepsis New/Unexplained Change in Mental Status Sepsis Action Taken by Nursing 11/26/20 17:01 11/26/20 17:30 11/26/20 17:31 Temperature Temperature Source Pulse Rate 87 87 86 Pulse Rate [Finger] Pulse Rate from SpO2 Sensor 87 87 88 Respiratory Rate 20 20 23 Respiratory Effort / Characteristics Respiratory Depth Respiratory Pattern Blood Pressure 94/48 L Blood Pressure [Right Arm] Blood Pressure Mean 63 Blood Pressure Mean [Right Arm] Pulse Oximetry 94 93 93 Oxygen Delivery Method Sepsis Recent Fever Within 48 Hours Sepsis New/Unexplained Change in Mental Status Sepsis Action Taken by Nursing 11/26/20 17:59 11/26/20 18:00 11/26/20 18:01 Temperature Temperature Source Pulse Rate 83 84 Pulse Rate [Finger] 83 Pulse Rate from SpO2 Sensor 83 85 Respiratory Rate 16 21 18 Respiratory Effort / Characteristics Respiratory Depth Respiratory Pattern Blood Pressure 90/52 L Blood Pressure [Right Arm] 94/48 L Blood Pressure Mean 64 Blood Pressure Mean [Right Arm] 63 Pulse Oximetry 98 94 94 Oxygen Delivery Method Sepsis Recent Fever Within 48 Hours Sepsis New/Unexplained Change in Mental Status Sepsis Action Taken by Nursing Laboratory Data Result diagrams: 11/26/20 16:10 11/26/20 16:10 Lab Results 11/26/20 11/26/20 11/26/20 Range/Units 16:10 16:10 16:10 WBC (4.8-10.8) K/uL RBC (4.7-6.1) M/uL Hgb (14.0-18.0) g/dL Hct (42-52) % MCV (80-100) fL MCH (25-34) pg MCHC (32-36) g/dL RDW Std Deviation (36.4-46.3) fL RDW Coeff of Godfrey (11.5-14.5) % Plt Count (130-400) K/uL MPV (7.4-10.4) fL Immature Gran % (Auto) % Neut % (Auto) % Lymph % (Auto) % Gray % (Auto) % Eos % (Auto) % Baso % (Auto) % Neut # (Auto) (1.4-6.5) K/uL Lymph # (Auto) (1.2-3.4) K/uL Gray # (Auto) (0.11-0.59) K/uL Eos # (Auto) (0-0.5) K/uL Baso # (Auto) (0-0.2) K/uL Immature Gran # (Auto) (0.00-0.02) K/uL PT 11.2 (9.0-12.0) Seconds INR 1.1 (0.9-1.1) Sodium 136 (136-145) mmol/L Potassium 4.7 (3.5-5.1) mmol/L Chloride 106 (98-107) mmol/L Carbon Dioxide 25 (21-32) mmol/L Anion Gap 5.0 (3-11) BUN 21 H (7-18) mg/dl Creatinine 1.34 (0.6-1.4) mg/dl Est Cr Clr Drug Dosing 36.4 ml/min Est GFR ( Amer) 55.6 Est GFR (Non-Af Amer) 48.0 BUN/Creatinine Ratio 15.9 (10-20) Glucose 125 H (70-99) mg/dl Lactate 1.9 (0.4-2.0) mmol/L Calcium 9.6 (8.5-10.1) mg/dl Magnesium 2.3 (1.8-2.4) mg/dl Total Bilirubin 0.8 (0.2-1) mg/dl AST 10 L (15-37) U/L ALT 11 L (12-78) U/L Alkaline Phosphatase 91 (45-117) U/L Troponin I < 0.015 (0-0.045) ng/ml C-Reactive Protein (0-0.29) mg/dl Total Protein 7.9 (6.4-8.2) gm/dl Albumin 3.1 L (3.4-5.0) gm/dl Globulin 4.8 H (2.5-4.0) gm/dl Albumin/Globulin Ratio 0.7 L (0.9-2) Procalcitonin (0-0.5) ng/ml TSH 2.960 (0.300-4.500) uIu/ml Digoxin (0.8-2.0) ng/ml COVID-19 Eval Order SARS-CoV-2 (PCR) (Negative) Influenza Type A (PCR) (Neg) Influenza Type B (PCR) (Neg) RSV (RT-PCR) (Neg) 11/26/20 11/26/20 11/26/20 Range/Units 16:10 17:46 17:46 WBC 11.01 H (4.8-10.8) K/uL RBC 3.85 L (4.7-6.1) M/uL Hgb 11.5 L (14.0-18.0) g/dL Hct 33.8 L (42-52) % MCV 87.8 (80-100) fL MCH 29.9 (25-34) pg MCHC 34.0 (32-36) g/dL RDW Std Deviation 55.5 H (36.4-46.3) fL RDW Coeff of Godfrey 17.2 H (11.5-14.5) % Plt Count 199 (130-400) K/uL MPV 9.4 (7.4-10.4) fL Immature Gran % (Auto) 0.3 % Neut % (Auto) 81.4 % Lymph % (Auto) 10.4 % Gray % (Auto) 7.5 % Eos % (Auto) 0.2 % Baso % (Auto) 0.2 % Neut # (Auto) 8.96 H (1.4-6.5) K/uL Lymph # (Auto) 1.15 L (1.2-3.4) K/uL Gray # (Auto) 0.83 H (0.11-0.59) K/uL Eos # (Auto) 0.02 (0-0.5) K/uL Baso # (Auto) 0.02 (0-0.2) K/uL Immature Gran # (Auto) 0.03 H (0.00-0.02) K/uL PT (9.0-12.0) Seconds INR (0.9-1.1) Sodium (136-145) mmol/L Potassium (3.5-5.1) mmol/L Chloride (98-107) mmol/L Carbon Dioxide (21-32) mmol/L Anion Gap (3-11) BUN (7-18) mg/dl Creatinine (0.6-1.4) mg/dl Est Cr Clr Drug Dosing ml/min Est GFR ( Amer) Est GFR (Non-Af Amer) BUN/Creatinine Ratio (10-20) Glucose (70-99) mg/dl Lactate (0.4-2.0) mmol/L Calcium (8.5-10.1) mg/dl Magnesium (1.8-2.4) mg/dl Total Bilirubin (0.2-1) mg/dl AST (15-37) U/L ALT (12-78) U/L Alkaline Phosphatase (45-117) U/L Troponin I (0-0.045) ng/ml C-Reactive Protein (0-0.29) mg/dl Total Protein (6.4-8.2) gm/dl Albumin (3.4-5.0) gm/dl Globulin (2.5-4.0) gm/dl Albumin/Globulin Ratio (0.9-2) Procalcitonin (0-0.5) ng/ml TSH (0.300-4.500) uIu/ml Digoxin (0.8-2.0) ng/ml COVID-[address] CovFluRsv at [facility] SARS-CoV-2 (PCR) NEGATIVE (Negative) Influenza Type A (PCR) Negative (Neg) Influenza Type B (PCR) Negative (Neg) RSV (RT-PCR) Negative (Neg) 11/26/20 11/26/20 11/26/20 Range/Units 17:47 17:47 17:47 WBC (4.8-10.8) K/uL RBC (4.7-6.1) M/uL Hgb (14.0-18.0) g/dL Hct (42-52) % MCV (80-100) fL MCH (25-34) pg MCHC (32-36) g/dL RDW Std Deviation (36.4-46.3) fL RDW Coeff of Godfrey (11.5-14.5) % Plt Count (130-400) K/uL MPV (7.4-10.4) fL Immature Gran % (Auto) % Neut % (Auto) % Lymph % (Auto) % Gray % (Auto) % Eos % (Auto) % Baso % (Auto) % Neut # (Auto) (1.4-6.5) K/uL Lymph # (Auto) (1.2-3.4) K/uL Gray # (Auto) (0.11-0.59) K/uL Eos # (Auto) (0-0.5) K/uL Baso # (Auto) (0-0.2) K/uL Immature Gran # (Auto) (0.00-0.02) K/uL PT (9.0-12.0) Seconds INR (0.9-1.1) Sodium (136-145) mmol/L Potassium (3.5-5.1) mmol/L Chloride (98-107) mmol/L Carbon Dioxide (21-32) mmol/L Anion Gap (3-11) BUN (7-18) mg/dl Creatinine (0.6-1.4) mg/dl Est Cr Clr Drug Dosing ml/min Est GFR ( Amer) Est GFR (Non-Af Amer) BUN/Creatinine Ratio (10-20) Glucose (70-99) mg/dl Lactate (0.4-2.0) mmol/L Calcium (8.5-10.1) mg/dl Magnesium (1.8-2.4) mg/dl Total Bilirubin (0.2-1) mg/dl AST (15-37) U/L ALT (12-78) U/L Alkaline Phosphatase (45-117) U/L Troponin I (0-0.045) ng/ml C-Reactive Protein 8.20 H (0-0.29) mg/dl Total Protein (6.4-8.2) gm/dl Albumin (3.4-5.0) gm/dl Globulin (2.5-4.0) gm/dl Albumin/Globulin Ratio (0.9-2) Procalcitonin 0.78 H (0-0.5) ng/ml TSH (0.300-4.500) uIu/ml Digoxin 0.9 (0.8-2.0) ng/ml COVID-19 Eval Order SARS-CoV-2 (PCR) (Negative) Influenza Type A (PCR) (Neg) Influenza Type B (PCR) (Neg) RSV (RT-PCR) (Neg) Administered Medications Albuterol (Albut/Ipratrop 3mg/0.5mg Neb 3 Ml Vial) 3 ml INH BIDR DOMO Stop: 12/26/20 20:59 Last Admin: 11/26/20 21:03 Dose: 3 ml Documented by: [id number] Lactated Ringer's (Lr) 1,000 mls @ 100 mls/hr IV .Q10H DOMO Stop: 12/26/20 18:29 Last Admin: 11/26/20 21:05 Dose: 100 mls/hr Documented by: [id number] Discontinued Medications Sodium Chloride (Nss 1000ml) 1,000 mls @ 999 mls/hr IV .Q1H1M ONE Stop: 11/26/20 17:38 Last Infusion: 11/26/20 17:44 Dose: 0 mls/hr Documented by: [id number] Admin: 11/26/20 16:45 Dose: 999 mls/hr Documented by: [id number] Ceftriaxone Sodium (Rocephin) 1,000 mg in 50 mls @ 100 mls/hr IV NOW STA Stop: 11/26/20 17:25 Last Infusion: 11/26/20 19:22 Dose: 0 mls/hr Documented by: [id number] Admin: 11/26/20 17:51 Dose: 100 mls/hr Documented by: [id number] Lactated Ringer's (Lr) 250 mls @ 999 mls/hr IV .Q16M ONE Stop: 11/26/20 19:04 Last Infusion: 11/26/20 21:15 Dose: 0 mls/hr Documented by: [id number] Admin: 11/26/20 20:42 Dose: 999 mls/hr Documented by: [id number] Discharge Plan Visit Data Chief Complaint: Altered Mental Status Stated Complaint: ALTERED MENTAL STATUS STARTING TODAY ED Provider: Jorge Cortes Discharge Problem: Acute alteration in mental status, Anticoagulant long-term use, Leukocytosis Patient Disposition: Admitted As Inpatient Discharge Instructions Interventions: ED Discharge Assessment Last Done: 11/26/20 19:20 Discharge Problem: Leukocytosis Qualifiers: Leukocytosis type: unspecified Qualified Code(s): D72.829 - Elevated white blood cell count, unspecified
[2020-11-26 16:40] LABS: Alanine Aminotransferase 11 U/L (12-78); Albumin Level 3.1 gm/dl (3.4-5.0); Aspartate Aminotransferase 10 U/L (15-37); BUN Creatinine Ratio 15.9 (10-20); Blood Urea Nitrogen 21 mg/dl (7-18); Calcium 9.6 mg/dl (8.5-10.1); Carbon Dioxide 25 mmol/L (21-32); Chloride 106 mmol/L (98-107); Creatinine Clr Calc Pharmacy 36.4 ml/min; Est GFR (African American) 55.6; Glucose 125 mg/dl (70-99); Magnesium 2.3 mg/dl (1.8-2.4); Potassium 4.7 mmol/L (3.5-5.1); Sodium 136 mmol/L (136-145)
--- NOTE | 2020-11-26 16:41 | XRay Report ---
XR chest 1V portable CLINICAL HISTORY: weakness COMPARISON STUDY: 06/11/2020 FINDINGS: The cardiac and mediastinal contours remain stable. There are postsurgical changes of a mid line sternotomy. There are old rib deformities. 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 There is no lo bar consolidation. There are small bilateral pleural effusions.[ IMPRESSION: 1. Small bilateral pleural effusions right greater than left 2. Progressive blastic skeletal metastasis. ACT 112: Negative or not required by law. Electronically signed by: Miguel A Cantu M.D. 11/26/2020 4:39 PM
--- NOTE | 2020-11-26 16:46 | CT Scan Report ---
CT head/brain wo con CLINICAL HISTORY: Acute change in mental status COMPARISON STUDY: August 2018, sinus CT dated October 2019 TECHNIQUE: Axial CT of the brain is performed from the vertex to the skull base. IV contrast was not administered for this examination. A dose lowering technique was utilized adhering to the principles of ALARA. CT DOSE: 537.48 mGy.cm FINDINGS: No intra or extra-axial mass lesions are visualized. There is no CT evidence of acute cortical infarc tion. There is no evidence of midline shift. There is no acute hemorrhage. No calvarial fractures ar e visualized. There are patchy white matter hypodensities likely on a small vessel basis. There is an old right fro ntal infarct. There is an old right cerebellar lacunar infarct. There is an old right caudate lacunar infarct. There is no evidence of pathologic ventricular dilatation. There is no evidence of acute sinusitis. There is a left nasal mass IMPRESSION: 1. No acute intracranial findings 2. 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 3. 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 Electronically signed by: Miguel A Cantu M.D. 11/26/2020 4:44 PM
[2020-11-26 16:49] LABS: INR 1.1 (0.9-1.1); Prothrombin Time 11.2 Seconds (9.0-12.0)
[2020-11-26 16:50] LABS: Albumin Globulin Ratio 0.7 (0.9-2); Alkaline Phosphatase 91 U/L (45-117); Bilirubin,Total 0.8 mg/dl (0.2-1); Globulin 4.8 gm/dl (2.5-4.0); Total Protein 7.9 gm/dl (6.4-8.2); Troponin I < 0.015 ng/ml (0-0.045)
[2020-11-26] MEDS ORDERED: cefTRIAXone SODIUM 1,000 MG/50 ML BAG IV STA (16:56)
--- NOTE | 2020-11-26 17:54 | History & Physical Report ---
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 - Check digoxin level - MRI if mental status does not improve r/o metastatic process - Old infarcts noted on CT (2) Sepsis: Suspected urinary source as above and strongly supported with HPI - SIRS- 0 Qsofa- 2 - Blood and urine cultures pending - Rocephin while awaiting speciations - No lactate - Organ dysfunction- mental status - MAPS >65 - LR 250 ml bolus now and then 100ml per hour (3) Atrial flutter with controlled response: Rate controlled - Hold Metoprolol - Continue digoxin for inotropic and rate control- pending level - Hold Carvedilol tonight and if MAPS > 65 restart in morning-- unsure of why double BB, patient daughter reports with 1/2 dose of carvediolol in morning and full dose at night, and on Metoprolol - She thinks it may be related to his BP fluctuations through the day. - Might be worth just using Carvedilol for rate and cardiomyopathy (4) Carotid artery stenosis: No acute needs - Has had endarterectomy on right side and reported 70% stenosis on left (2009) with lutrasound in 2012 no significant stnotic process and mild plaque formation bilaterally. - MRI if worsening in mentation - Continue ASA and high dose statin (5) Dyslipidemia: As above (6) Heart failure: Cardiomyopathy - BB, continue as above - Hold ARB until ensure MAPS >65 with no further resuscitation - Continue high dose statin (7) Prostate cancer: Tafoya changed, continue outpatient oral agents - He is up to date on his q3 months and monthly chemo medciations. - Daughter is a nurse and is very informed of his medication schedule and doses. 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 History of Present Illness Chief Complaint: confusion Primary Care Provider: Kit Issa MD 85 YOM with significant history CAD, CABG 1V with tissue AVR (2010), past smoker, Carotid stenosis with endarterectomy, HTN, afib and aflutter on Digoxin and Apixaban 2010, DMII, metastatic prostate cancer (lungs/spine) 2019, chronic indwelling Tafoya. Patient is brought in today by his daughter for confusion and disorientation. She went to work this morning at 4am and came home to find he did not take any of his medications and/or eat or drink for the day. He is normally very independent with his care and medications. Leading up until today the patient had his Tafoya catheter changed out on Tuesday and they noted it to be a difficult change, and he had little output in his bag over the weekend as well as complaints of bilateral back flank pain and suprapubic pain and pressure. He had a similar appearance in May with CONS in his urine. In the emergency room, he had his Tafoya changed out which is now draining good yellow urine, urine culture, blood cultures, CXR, and CT scan of the head performed. No acute hemorrhage on CT scan. Patient was started on antibiotics, urine and blood cultures pending as well as digoxin level. Patient will be admitted for monitoring and clearing of mentation. Allergies Allergy/AdvReac Type Severity Reaction Status Date / Time Penicillins Allergy Severe Hives and Verified 11/26/20 17:50 shortness of breath doxycycline Allergy Mild Rash Verified 11/26/20 16:55 tetracycline Allergy Mild Rash Verified 11/26/20 16:55 Home Medications Medication Instructions Recorded Confirmed Type apixaban 5 mg PO BID 08/05/18 11/26/20 History docusate sodium 100 mg capsule 100 mg PO DAILY 01/30/20 11/26/20 History calcium carbonate-vitamin D3 600 2 tab PO DAILY tab 07/30/20 11/26/20 History mg(1,500 mg)-400 unit chewable tablet carvedilol 12.5 mg tablet See Rx Instructions .ROUTE 08/19/20 11/26/20 History .COMPLEX tab aspirin 81 mg tablet,delayed 81 mg PO DAILY 09/25/20 11/26/20 History release rosuvastatin 40 mg tablet 40 mg PO DAILY #30 tab 09/25/20 11/26/20 Rx azelastine 205.5 mcg (0.15 %) 1 spray INTRANASAL BID #30 ml 09/26/20 11/26/20 Rx nasal spray digoxin 125 mcg (0.125 mg) tablet 125 mcg PO Q2D tab 09/26/20 11/26/20 History metoprolol succinate 50 mg 50 mg PO DAILY #90 tab 09/30/20 11/26/20 Rx tablet,extended release 24 hr losartan 25 mg tablet 12.5 mg PO DAILY #45 tab 10/16/20 11/26/20 Rx enzalutamide [Xtandi] 160 mg PO QAM 11/26/20 11/26/20 History ipratropium-albuterol 3 ml INHALATION BID 11/26/20 11/26/20 History ondansetron HCl 8 mg PO TID PRN 11/26/20 11/26/20 History Past Med/Surg History Medical History Aortic stenosis Atrial flutter Bilateral pleural effusion BPH w/o urinary obs/LUTS CAD (coronary artery disease) 1-vessel (LAD), complicated by internal bleeding requiring another surgery Cardiomyopathy Carotid artery stenosis Carotid stenosis Chronic cough Chronic renal disease COPD (chronic obstructive pulmonary disease) Cough Depression Diabetes mellitus, new onset (2017) Dyslipidemia History of alcohol dependence quit early History of tobacco use Leg fracture, left s/p ORIF Mixed hyperlipidemia PAD (peripheral artery disease) PAD (peripheral artery disease) 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 Rhinitis Secondary malignant neoplasm of bone Surgical History Aortic valve replaced [facility] - 2011 H/O carotid endarterectomy left S/P aortic valve replacement with bioprosthetic valve (2010) S/P CABG (coronary artery bypass graft) (2010) Complicated postoperative course S/P CABG x 1 Family History Father , age 79 Congestive heart failure Atherosclerosis Mother , from diverticulitis age 84 Rheumatoid arthritis Other Cancer Heart disease Denies family history of Tuberculosis Allergies Emphysema, unspecified Lung disease Asthma Social History Smoking Status: Former smoker Years Smoked: 50; Cigarettes Per Day: 1-2 ppd; Hx Alcohol Use: No Hx Substance Use: No Preferred Language: Maltese Communication Ability: Effective Blue Prints Trimmer Required: No Beliefs That Will Affect Care: None marital status: marital status details: spouse 2010 Current Living Situation: Family Current Living Situation Comment: lives with daughter Kristina 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 other: 3 children one of whom is Feels Safe at Home: Yes Assistive Devices: Walker Review of Systems Review of Systems: REVIEW OF SYSTEMS: Constitutional: (+) chills, No fever, sweats Eyes: No diplopia, no worsening or blurred vision ENT: difficulty hearing, no trouble swallowing Respiratory: No cough, sputum, dyspnea at rest or on exertion Cardiovascular: No chest pain, tightness or palpitations Abdomen: (+) flank and suprapubic, No other abd pain, nausea, vomiting, diarrhea or constipation Musculoskeletal: No joint pain, calf pain, swelling Neurologic: (+) confusion, No weakness, numbness/tingling, or balance problems Psychiatric: No anxiety or depression Skin: No rash or itch Physical Exam Physical Exam: PHYSICAL EXAM: General: awake, alert, no apparent distress Head: Normocephalic, atraumatic ENT: PERRL, EOMI, no pharyngeal exudate, mucous membranes moist Neuro: AAO x 3, speech clear and appropriate, strength intact bilaterally 5/5, sensation intact and equal all extremities and dermatomes, no pronator drift Chest: equal rise and fall of the chest, no accessory muscle use, no heaves or thrills, Clear to auscultation, on room air, Cardiac: Regular rate and rhythm, telemetry reviewed, skin warm dry, cap refill <3 seconds, peripheral pulses +2 no JVD, systolic murmur LSB, no edema GI: NABS x 4 quadrants, soft, nontender to palpation, no rebound, guarding or tenderness : tafoya replaced, currently no pain, (-) CVA tenderness, Extremities: Normal inspection, no peripheral edema or erythema, calfs nontender to palpation Psych: Normal mood and affect Skin: no rash or erythema Results & Data Results & Data ([facility]) Vital Signs (Past 12 Hours) Vital Signs Temp Pulse Pulse Resp BP BP Pulse Ox 11/26/20 16:03 88 18 106/47 L 95 11/26/20 15:22 36.7 C 92 H 18 105/57 L 95 Laboratory Results Abnormal lab results 11/26/20 11/26/20 Range/Units 16:10 16:10 WBC 11.01 H (4.8-10.8) K/uL RBC 3.85 L (4.7-6.1) M/uL Hgb 11.5 L (14.0-18.0) g/dL Hct 33.8 L (42-52) % RDW Std Deviation 55.5 H (36.4-46.3) fL RDW Coeff of Godfrey 17.2 H (11.5-14.5) % Neut # (Auto) 8.96 H (1.4-6.5) K/uL Lymph # (Auto) 1.15 L (1.2-3.4) K/uL [place] # (Auto) 0.83 H (0.11-0.59) K/uL Immature Gran # (Auto) 0.03 H (0.00-0.02) K/uL BUN 21 H (7-18) mg/dl Glucose 125 H (70-99) mg/dl AST 10 L (15-37) U/L ALT 11 L (12-78) U/L Albumin 3.1 L (3.4-5.0) gm/dl Globulin 4.8 H (2.5-4.0) gm/dl Albumin/Globulin Ratio 0.7 L (0.9-2) Diagnostic Findings XR chest 1V portable CLINICAL HISTORY: weakness COMPARISON STUDY: 06/11/2020 FINDINGS: The cardiac and mediastinal contours remain stable. There are postsurgical changes of a midline sternotomy. There are old rib deformities. 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 There is no lobar consolidation. There are small bilateral pleural effusions.[ IMPRESSION: 1. Small bilateral pleural effusions right greater than left 2. Progressive blastic skeletal metastasis. CT head/brain wo con CLINICAL HISTORY: Acute change in mental status COMPARISON STUDY: August 2018, sinus CT dated October 2019 TECHNIQUE: Axial CT of the brain is performed from the vertex to the skull base. IV contrast was not administered for this examination. A dose lowering technique was utilized adhering to the principles of ALARA. CT DOSE: 537.48 mGy.cm FINDINGS: No intra or extra-axial mass lesions are visualized. There is no CT evidence of acute cortical infarction. There is no evidence of midline shift. There is no acute hemorrhage. No calvarial fractures are visualized. There are patchy white matter hypodensities likely on a small vessel basis. There is an old right frontal infarct. There is an old right cerebellar lacunar infarct. There is an old right caudate lacunar infarct. There is no evidence of pathologic ventricular dilatation. There is no evidence of acute sinusitis. There is a left nasal mass IMPRESSION: 1. No acute intracranial findings 2. 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 3. 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 Medications Administered Discontinued Medications Sodium Chloride (Nss 1000ml) 1,000 mls @ 999 mls/hr IV .Q1H1M ONE Stop: 11/26/20 17:38 Last Infusion: 11/26/20 17:44 Dose: 0 mls/hr Documented by: [id number] Admin: 11/26/20 16:45 Dose: 999 mls/hr Documented by: [id number] Ceftriaxone Sodium (Rocephin) 1,000 mg in 50 mls @ 100 mls/hr IV NOW STA Stop: 11/26/20 17:25 Last Admin: 11/26/20 17:51 Dose: 100 mls/hr Documented by: [id number] Home Medications apixaban 5 mg PO BID 08/05/18 [History Confirmed 11/26/20] docusate sodium 100 mg capsule 100 mg PO DAILY 01/30/20 [History Confirmed 11/26/20] calcium carbonate-vitamin D3 600 mg(1,500 mg)-400 unit chewable tablet 2 tab PO DAILY tab 07/30/20 [History Confirmed 11/26/20] carvedilol 12.5 mg tablet See Rx Instructions .ROUTE .COMPLEX tab 08/19/20 [History Confirmed 11/26/20] aspirin 81 mg tablet,delayed release 81 mg PO DAILY 09/25/20 [History Confirmed 11/26/20] rosuvastatin 40 mg tablet 40 mg PO DAILY #30 tab 09/25/20 [Rx Confirmed 11/26/20] azelastine 205.5 mcg (0.15 %) nasal spray 1 spray INTRANASAL BID #30 ml 09/26/20 [Rx Confirmed 11/26/20] digoxin 125 mcg (0.125 mg) tablet 125 mcg PO Q2D tab 09/26/20 [History Confirmed 11/26/20] metoprolol succinate 50 mg tablet,extended release 24 hr 50 mg PO DAILY #90 tab 09/30/20 [Rx Confirmed 11/26/20] losartan 25 mg tablet 12.5 mg PO DAILY #45 tab 10/16/20 [Rx Confirmed 11/26/20] enzalutamide [Xtandi] 160 mg PO QAM 11/26/20 [History Confirmed 11/26/20] ipratropium-albuterol 3 ml INHALATION BID 11/26/20 [History Confirmed 11/26/20] ondansetron HCl 8 mg PO TID PRN 11/26/20 [History Confirmed 11/26/20] ECG Additional Comments: Vent. Rate : 090 BPM Atrial Rate : 090 BPM P-R Int : 212 ms QRS Dur : 134 ms QT Int : 384 ms P-R-T Axes : 104 -15 117 degrees QTc Int : 469 ms Sinus rhythm with sinus arrhythmia with 1st degree A-V block Non-specific intra-ventricular conduction block T wave abnormality, consider lateral ischemia Abnormal ECG When compared with ECG of 10-MAY-2020 15:41, Premature ventricular complexes are no longer Present Confirmed by Pillo Delgadillo ([id number]) on 11/26/2020 4:11:37 PM Code Status & VTE Plan Code Status CODE: Limited CODE VTE: Apixaban, VTE VTE Prophylaxis Plan VTE Prophylaxis will be ordered: Yes Supervising Physician Co-Signing Physician Notes Patient was seen and examined independently I discussed the case with John REA I reviewed pertinent past medical social family history and also the plan of care and agree with the plan of care. Patient is in the accompaniment of his daughter who states that every time he has a difficult Tafoya catheter exchange typically he gets a urine infection. Patient is some mild confusion and forgetfulness and lower blood pressure consistent with likely Sirs and possible metabolic encephalopathy with urinary tract infection associated with a urinary catheter present on admission examination is fairly nonfocal except for some forgetfulness Cardiac exam is regular lungs are clear abdomen is without suprapubic tenderness a Tafoya catheter is in place draining dilcia urine Agreeable to continue antibiotics at this time awaiting urine and blood cultures with gentle hydration to help his lower blood pressure Any exceptions will be noted below PG Care Time/CCT Total # of Minutes Spent Total Time Spent with Patient: Total time spent is greater than 50% in coordination of care (as documented) at patient's floor/unit and/or counseling patient: Coding Level of Care Code 11686 Initial Inpt Care Lvl 3 Diagnoses Encephalopathy G93.40 Sepsis A41.9; R65.20 Sepsis acute organ dysfunction status: with acute organ dysfunction Sepsis type: sepsis due to unspecified organism Severe sepsis acute organ dysfunction type: unspecified Severe sepsis shock status: without septic shock Atrial flutter with controlled response I48.92 Carotid artery stenosis I65.29 Laterality: unspecified laterality Dyslipidemia E78.5 Heart failure I50.9 Heart failure chronicity: chronic Heart failure type: unspecified Prostate cancer C61 Metastasis to spinal column C79.51 (1) Carotid artery stenosis Laterality: unspecified laterality Qualified Code(s): I65.29 - Occlusion and stenosis of unspecified carotid artery (2) Heart failure Heart failure chronicity: chronic Heart failure type: unspecified Qualified Code(s): I50.9 - Heart failure, unspecified (3) Sepsis Sepsis acute organ dysfunction status: with acute organ dysfunction Sepsis type: sepsis due to unspecified organism Severe sepsis acute organ dysfunction type: unspecified Severe sepsis shock status: without septic shock Qualified Code(s): A41.9 - Sepsis, unspecified organism; R65.20 - Severe sepsis without septic shock
[2020-11-26 18:19] LABS: Appearance Urine Cloudy (Clear); Bacteria Urine Automated 1+ (Negative); Bilirubin Urine Negative (Negative); Blood Urine 2+ (Negative); Color Urine Yellow; Epithelial Cell Urine Auto 20-30 /lpf (0-5); Glucose Urine UA Negative (Negative); Ketones Urine Trace (Negative); Leukocyte Esterase Urine 2+ (Negative); Nitrite Urine Negative (Negative); Protein Urine 2+ (Negative); Specific Gravity Urine 1.023 (1.000-1.030); Urobilinogen Urine Negative (Negative); WBC Urine Automated >30 /hpf (0-5)
[2020-11-26 18:37] LABS: Influenza A virus by PCR Negative (Neg); Influenza B virus by PCR Negative (Neg); RSV by PCR Negative (Neg); SARS CoV2 RNA(COVID-19) InHosp NEGATIVE (Negative)
[2020-11-26] MEDS ORDERED: LACTATED RINGER'S 250 ML IV ONE (18:49)
[2020-11-26] MEDS ORDERED: ONDANSETRON 8MG OD TAB PO PRN (20:42)
[2020-11-26] MEDS ORDERED: PNEUMOCOCCAL ADMINISTRATION CHARGE ONE (20:54)
[2020-11-26] MEDS ORDERED: PNEUMOCOCCAL POLYSACCHARIDES 25 MCG/0.5 ML VIAL/SYR IM ONE (20:54)
[2020-11-26] MEDS: ALBUT/IPRATROP 3MG/0.5MG NEB 3 ML VIAL INH SCH (21:03)
[2020-11-26] MEDS: LACTATED RINGER'S 1,000 ML IV SCH (21:05)
[2020-11-26] MEDS: APIXABAN 5 MG TABLET PO SCH (21:47)
[2020-11-27] MEDS: LACTATED RINGER'S 1,000 ML IV SCH (04:59)
[2020-11-27] MEDS: ACETAMINOPHEN 500 MG TAB PO PRN ×2 (06:00→15:59)
[2020-11-27] MEDS: ALBUT/IPRATROP 3MG/0.5MG NEB 3 ML VIAL INH SCH ×2 (07:22→19:00)
[2020-11-27] MEDS: APIXABAN 5 MG TABLET PO SCH ×2 (08:45→21:40)
[2020-11-27] MEDS: ROSUVASTATIN CALCIUM 20 MG TAB PO SCH (08:46)
[2020-11-27] MEDS: DOCUSATE SODIUM 100 MG CAP PO SCH (08:46)
[2020-11-27] MEDS: ASPIRIN 81 MG ECTAB PO SCH (08:46)
[2020-11-27] MEDS: ENZALUTAMIDE PO SCH (08:47)
[2020-11-27] MEDS ORDERED: METOPROLOL SUCC 50MG EXT REL TAB PO SCH (09:00)
[2020-11-27 09:14] LABS: Basophils # (auto) 0.01 K/uL (0-0.2); Basophils % (auto) 0.1 %; Eosinophils # (auto) 0.01 K/uL (0-0.5); Eosinophils % (auto) 0.1 %; Hematocrit (blood only) 29.3 % (42-52); Hemoglobin 9.7 g/dL (14.0-18.0); Immature Granulocytes # (auto) 0.01 K/uL (0.00-0.02); Immature Granulocytes % (auto) 0.1 %; Lymphocytes # (auto) 0.86 K/uL (1.2-3.4); Lymphocytes % (auto) 11.9 %; Mean Corpuscular Hemoglobin 29.7 pg (25-34); Mean Corpuscular Hgb Conc 33.1 g/dL (32-36); Mean Corpuscular Volume 89.6 fL (80-100); Mean Platelet Volume 9.3 fL (7.4-10.4); Monocytes % (auto) 8.3 %; Neutrophils # (auto) 5.71 K/uL (1.4-6.5); Neutrophils % (auto) 79.5 %; Platelet Count 161 K/uL (130-400); RDW Coefficient of Variation 17.4 % (11.5-14.5); RDW Standard Deviation 56.9 fL (36.4-46.3); Red Blood Count 3.27 M/uL (4.7-6.1)
[2020-11-27 09:51] LABS: BUN Creatinine Ratio 14.6 (10-20); Calcium 8.6 mg/dl (8.5-10.1); Creatinine Clr Calc Pharmacy 37.2 ml/min; Est GFR (African American) 57.1; Est GFR (Non-African American) 49.3; Potassium 3.9 mmol/L (3.5-5.1)
--- NOTE | 2020-11-27 11:54 | Hospitalist Progress Note ---
Date of Service November 27, 2020 Assessment & Plan Admission and Anticipated Discharge Date Admission Date: November 26, 2020 85 yo M w/ pMHx. of CAD, CABG 1V (2010), prior history of smoking, carotid artery stenosis s/p endarterectomy, HTN, atrial fibrillation, atrial flutter, on Digoxin and Apixaban, DM II, metastatic prostate cancer 2019, with chronic tafoya in place presenting with confusion and abdominal pain found to have a UTI. Encephalopathy, acute delirium- suspected related to Urinary infection, no focal deficits; has had a waxing and waning course - Gram negative yunior, Awaiting speciation and sensitivities - Resuscitation with LR- hemodynamic stable at this time, discontinued fluids - Glucose normal, no changes in medications, BUN cr. stable - digoxin level 0.9 - MRI if mental status does not improve r/o metastatic process - Old infarcts noted on CT Sepsis, suspected urinary source as above and strongly supported with HPI - SIRS- 0 Qsofa- 2 - Blood and urine cultures pending - Rocephin while awaiting speciations - No lactate - Organ dysfunction- mental status - MAPS >65 - initially getting LR 250 ml bolus now and then 100ml per hour - discontinued fluids Atrial flutter with controlled response - continue Metoprolol - Continue digoxin for inotropic and rate control - restarted Carvedilol, unsure of why double BB, patient daughter reports with 1/2 dose of Carvediolol in morning and full dose at night, and on Metoprolol - She thinks it may be related to his BP fluctuations through the day. - Might be worth just using Carvedilol for rate and cardiomyopathy Carotid artery stenosis: No acute needs - Has had endarterectomy on right side and reported 70% stenosis on left (2009) with lutrasound in 2013 no significant stenotic process and mild plaque formation bilaterally. - MRI if worsening in mentation - Continue ASA and high dose statin Dyslipidemia: As above Heart failure: Cardiomyopathy - BB, continue as above - holding ARB - Continue high dose statin Prostate cancer: Tafoya changed, continue outpatient oral agents - He is up to date on his q3 months and monthly chemo medications. - Daughter is a nurse and is very informed of his medication schedule and doses. 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 DVT: Apixaban, SCD's Code: conditional Diet: regular Supervising Physician Co-Signing Physician Notes Attending note I saw the patient confirmed fuller portions of the history and physical examination. I agree with the impression and plan as noted above. I was also able to speak with the patient's daughter he was bedside this afternoon as well. Briefly 85-year-old male with history of coronary artery disease, atrial fibrillation on chronic anticoagulation, and metastatic prostate cancer with chronic indwelling Tafoya who presented to the hospital yesterday with confusion and disorientation. This morning, the patient tells us that he feels much better. He was alert and oriented this morning; after a early afternoon nap, he did awake with some disorientation but was easily redirected and reoriented. Exam 109/60, 89, 16, 36.7 Alert and oriented. No acute distress. Heart sounds regular. Rate 75. Lungs clear with nonlabored respirations Abdomen soft and nontender Laboratory data White blood cell count 7.20, down from 11.01 upon admission. Hemoglobin 9.7, down from 11.5 on admission. BUN 19, creatinine 1.31 Micro Pulmonary urine culture showing gram-negative bacilli. Imaging A chest x-ray from 11/26 shows small bilateral pleural effusions, right greater than left. Progressive skeletal metastasis. Impression and plan Sepsis, suspect urinary source Metabolic encephalopathy secondary to infection Chronic Tafoya catheter Atrial fibrillation, chronic anticoagulation Prostate cancer with metastasis Continue antibiotics Await final cultures and adjust as needed Subjective Mr. Jayy Turk was doing well this morning. He was not sure exactly what brought him in to the hospital but did remember that he was feeling "fuzzy". On reevaluation his daughter was in the room and thought that he was not as interactive for her and had an altered mental status. He had just woken up from a nap but was not able to answer questions with as much clarity as our discussion in the morning when he was able to tell us where he lived and where he had lived prior to that. He currently lives with his daughter. Review of Systems Review of Systems: Constitutional: denies fevers, chills Cardiac: denies chest pain, palpitations Pulm.: admits chronic cough (since CABG), denies shortness of breath GI: denies nausea, vomiting Physical Exam Constitutional: WD/WN, vitals as above Eyes: PERRL, conjunctivae normal, anicteric sclerae ENMT: external ear and nose normal, oropharynx normal Neck: normal visual inspection Respiratory: normal respiratory effort, lungs clear to auscultation Cardiovascular: RRR, no murmur, no edema Gastrointestinal (Abdomen): normal bowel sounds, soft, nontender, no hepatosplenomegaly Skin: no rashes, warm and dry Neurologic: no focal motor deficits Psychiatric: Orientation: alert and oriented to person; + not oriented to place and + not oriented to time Eye Contact: + fair eye contact Motor Behavior: no abnormal motor movements Speech: + loud speech Results & Data Results & Data ([facility]) Vital Signs (Past 12 Hours) Vital Signs Temp Pulse Resp BP BP Pulse Ox 11/27/20 11:46 36.7 C 81 20 109/60 93 11/27/20 07:55 37.2 C 89 18 100/61 92 11/27/20 07:22 74 20 92 11/27/20 03:02 36.6 C 84 16 119/63 95 CBC Results Results Complete Blood Count Results: RBC 3.27 M/uL (4.7-6.1) L 11/27/20 WBC 7.20 K/uL (4.8-10.8) 11/27/20 Hgb 9.7 g/dL (14.0-18.0) L 11/27/20 Hct 29.3 % (42-52) L 11/27/20 Plt Count 161 K/uL (130-400) 11/27/20 Chemistry (BMP) Results [facility] Results: Sodium 136 mmol/L (136-145) 11/27/20 Potassium 3.9 mmol/L (3.5-5.1) 11/27/20 Chloride 105 mmol/L (98-107) 11/27/20 BUN 19 mg/dl (7-18) H 11/27/20 Creatinine 1.31 mg/dl (0.6-1.4) 11/27/20 Glucose 151 mg/dl (70-99) H 11/27/20 Resident Activity Tracking Resident Involvement: Resident Care Provided Care Provided: Adult Hospital Medicine
[2020-11-27] MEDS ORDERED: DIGOXIN 0.125 MG TAB PO SCH (16:00)
[2020-11-27] MEDS ORDERED: cefTRIAXone SODIUM 1,000 MG in DEXTROSE 5% 50 ML IV SCH (18:00)
[2020-11-27] MEDS: CEFEPIME 2,000 MG in SYRINGE 0 ML IV SCH (21:39)
[2020-11-27] MEDS: carvediloL 12.5 MG TAB PO SCH (21:49)
[2020-11-28 06:49] LABS: Basophils # (auto) 0.01 K/uL (0-0.2); Basophils % (auto) 0.2 %; Eosinophils # (auto) 0.04 K/uL (0-0.5); Eosinophils % (auto) 0.7 %; Hematocrit (blood only) 29.3 % (42-52); Hemoglobin 9.9 g/dL (14.0-18.0); Immature Granulocytes # (auto) 0.02 K/uL (0.00-0.02); Immature Granulocytes % (auto) 0.4 %; Lymphocytes # (auto) 0.85 K/uL (1.2-3.4); Lymphocytes % (auto) 15.8 %; Mean Corpuscular Hgb Conc 33.8 g/dL (32-36); Mean Corpuscular Volume 88.8 fL (80-100); Mean Platelet Volume 8.7 fL (7.4-10.4); Monocytes # (auto) 0.55 K/uL (0.11-0.59); Monocytes % (auto) 10.2 %; Neutrophils % (auto) 72.7 %; Platelet Count 146 K/uL (130-400); RDW Coefficient of Variation 17.3 % (11.5-14.5); RDW Standard Deviation 56.5 fL (36.4-46.3); White Blood Count 5.37 K/uL (4.8-10.8)
[2020-11-28 07:24] LABS: BUN Creatinine Ratio 20.8 (10-20); Calcium 8.4 mg/dl (8.5-10.1); Creatinine Clr Calc Pharmacy 41.7 ml/min; Est GFR (African American) 65.5; Est GFR (Non-African American) 56.5; Potassium 4.2 mmol/L (3.5-5.1)
[2020-11-28] MEDS: carvediloL 6.25 MG TAB PO SCH (07:45)
[2020-11-28] MEDS: ASPIRIN 81 MG ECTAB PO SCH (07:46)
[2020-11-28] MEDS: DOCUSATE SODIUM 100 MG CAP PO SCH (07:46)
[2020-11-28] MEDS: APIXABAN 5 MG TABLET PO SCH ×2 (07:46→20:24)
[2020-11-28] MEDS: ROSUVASTATIN CALCIUM 20 MG TAB PO SCH (07:47)
[2020-11-28] MEDS: CEFEPIME 2,000 MG in SYRINGE 0 ML IV SCH (07:50)
[2020-11-28] MEDS: ENZALUTAMIDE PO SCH (07:50)
[2020-11-28] MEDS: ALBUT/IPRATROP 3MG/0.5MG NEB 3 ML VIAL INH SCH ×2 (08:08→19:27)
--- NOTE | 2020-11-28 12:38 | Hospitalist Progress Note ---
Date of Service November 28, 2020 Assessment & Plan Admission and Anticipated Discharge Date Admission Date: November 26, 2020 85 yo M w/ pMHx. of CAD, CABG 1V (2010), prior history of smoking, carotid artery stenosis s/p endarterectomy, HTN, atrial fibrillation, atrial flutter, on Digoxin and Apixaban, DM II, metastatic prostate cancer 2019, with chronic Tafoya in place presenting with confusion and abdominal pain found to have a UTI. Encephalopathy, acute delirium - suspected related to Urinary infection, no focal deficits; has had a waxing and waning course - E. coli grew from urine culture - Resuscitation with LR- hemodynamic stable at this time, discontinued fluids - Glucose normal, no changes in medications, BUN & cr. stable - Digoxin level 0.9 - MRI-H if mental status does not improve to r/o metastatic process - Old infarcts noted on CT Sepsis, suspected urinary source; improved - initially: SIRS- 0 Q sofa -2, altered mental status, no lactate - Rocephin initially, transitioned to Cefepime given fevers yesterday evening, given improvement and cultures and sensitivities he was transitioned back to Rocephin - initially getting LR 250 ml bolus now and then 100ml per hour, and discontinued Atrial flutter with controlled response - Continue digoxin for inotropic and rate control - restarted Carvedilol, patient daughter reports with 1/2 dose of Carvedilol in morning and full dose at night - previously on Metoprolol but this appears to have been discontinued Carotid artery stenosis: No acute needs - Has had endarterectomy on right side and reported 70% stenosis on left (2009) with ultrasound in 2012 no significant stenotic process and mild plaque formation bilaterally. - MRI - H if worsening in mentation - Continue ASA and high dose statin Dyslipidemia: As above Heart failure: Cardiomyopathy - BB, continue as above - holding ARB due to low blood pressures, resume when tolerable - Continue high dose statin Prostate cancer: Tafoya changed, continue outpatient oral agents - He is up to date on his q3 months and monthly chemo medications. - Daughter is a nurse and is very informed of his medication schedule and doses. 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 DVT: Apixaban, SCD's Code: conditional Diet: regular Supervising Physician Co-Signing Physician Notes Patient seen and examined with PGY-2 Dr. Arauz. Agree with history, exam findings, assessment and plan of care as outlined. In brief, Mr. Turk is an 85 year old male with history of CAD, CAB x4, carotid artery stenosis s/p CEA, HTN, afib/flutter on dig and AC with apixaban, DM, metastatic prostate cancer and chronic tafoya admitted with confusion. Vital signs and nursing notes reviewed. Sensorium is clear this morning. No complaints today except that he got a shot in the arm yesterday and now his arm is achy. 1.Metabolic encephalopathy. Secondary to sepsis/urinary tract infection. 2. Sepsis. Urinary source. QSOFA=2, SIRS=0. Blood cultures without growth. Hemodynamically stable and off fluids. 3. Urinary tract infection. Urine growing E. Coli (resistant to fluoroquinolones). De-escalate from cefepime to ceftriaxone. 4. A fib/flutter. Rate controlled. Continue with home coreg. AC with apixaban. 5. Cardiomyopathy. Continue coreg as above. Continue statin. Holding home losartan 12.5mg due to low blood pressures. 6. Metastatic prostate cancer with chronic Tafoya. Mets to spine. Continue home pain medication regimen. Dispo: pending clinical improvement. Subjective Jayy Turk was doing okay this morning. He was able to tell me where we were and some of the story of what brought him to the hospital. He was not in any pain currently but did complain of pain when he received the pna vaccine in his left arm. He also brought up that he had pain a few months ago with diverticulitis but that this pain was no longer present. Review of Systems Review of Systems: Conditional: denies fevers, chills GI: denies abdominal pain Physical Exam Constitutional: WD/WN, vitals as above Eyes: PERRL, conjunctivae normal, anicteric sclerae ENMT: external ear and nose normal, oropharynx normal Neck: normal visual inspection Respiratory: normal respiratory effort, lungs clear to auscultation Cardiovascular: RRR, no murmur, no edema Gastrointestinal (Abdomen): normal bowel sounds, soft, nontender, no hepatosplenomegaly Skin: no rashes, warm and dry Neurologic: no focal motor deficits Psychiatric: Orientation: alert, oriented to person and oriented to place; + not oriented to time Eye Contact: + fair eye contact Motor Behavior: no abnormal motor movements Speech: + loud speech Results & Data Results & Data ([facility]) Vital Signs (Past 12 Hours) Vital Signs Temp Pulse Resp BP BP Pulse Ox 11/28/20 11:39 37.1 C 88 18 93/57 L 90 11/28/20 08:09 77 16 96 11/28/20 07:31 36.9 C 88 20 96/58 L 91 11/28/20 03:00 37.2 C 92 H 18 97/59 L 90 CBC Results Results Complete Blood Count Results: RBC 3.30 M/uL (4.7-6.1) L 11/28/20 WBC 5.37 K/uL (4.8-10.8) 11/28/20 Hgb 9.9 g/dL (14.0-18.0) L 11/28/20 Hct 29.3 % (42-52) L 11/28/20 Plt Count 146 K/uL (130-400) 11/28/20 Chemistry (BMP) Results BMP Results: Sodium 135 mmol/L (136-145) L 11/28/20 Potassium 4.2 mmol/L (3.5-5.1) 11/28/20 Chloride 107 mmol/L (98-107) 11/28/20 BUN 24 mg/dl (7-18) H 11/28/20 Creatinine 1.17 mg/dl (0.6-1.4) 11/28/20 Glucose 96 mg/dl (70-99) 11/28/20 Resident Activity Tracking Resident Involvement: Resident Care Provided Care Provided: Adult [facility] Medicine
[2020-11-28] MEDS: carvediloL 12.5 MG TAB PO SCH (20:24)
[2020-11-28] MEDS ORDERED: cefTRIAXone SODIUM 1,000 MG in DEXTROSE 5% 50 ML IV SCH (21:00)
[2020-11-29] MEDS: ALBUT/IPRATROP 3MG/0.5MG NEB 3 ML VIAL INH SCH (07:30)
[2020-11-29 07:34] LABS: Basophils # (auto) 0.02 K/uL (0-0.2); Basophils % (auto) 0.5 %; Eosinophils # (auto) 0.12 K/uL (0-0.5); Eosinophils % (auto) 2.8 %; Hemoglobin 10.2 g/dL (14.0-18.0); Immature Granulocytes # (auto) 0.01 K/uL (0.00-0.02); Immature Granulocytes % (auto) 0.2 %; Lymphocytes # (auto) 1.14 K/uL (1.2-3.4); Mean Corpuscular Volume 88.2 fL (80-100); Monocytes # (auto) 0.57 K/uL (0.11-0.59); Monocytes % (auto) 13.5 %; Neutrophils # (auto) 2.37 K/uL (1.4-6.5); Platelet Count 153 K/uL (130-400); RDW Standard Deviation 55.4 fL (36.4-46.3); White Blood Count 4.23 K/uL (4.8-10.8)
[2020-11-29 07:55] VITALS: PULSE 74; TEMP 97.9; O2SAT 93
[2020-11-29 08:03] LABS: BUN Creatinine Ratio 21.8 (10-20); Calcium 8.8 mg/dl (8.5-10.1); Creatinine Clr Calc Pharmacy 39.3 ml/min; Est GFR (African American) 61.1; Est GFR (Non-African American) 52.7; Potassium 4.6 mmol/L (3.5-5.1)
[2020-11-29] MEDS: ASPIRIN 81 MG ECTAB PO SCH (10:15)
[2020-11-29] MEDS: ROSUVASTATIN CALCIUM 20 MG TAB PO SCH (10:16)
[2020-11-29] MEDS: carvediloL 6.25 MG TAB PO SCH (10:16)
[2020-11-29] MEDS: APIXABAN 5 MG TABLET PO SCH (10:17)
[2020-11-29] MEDS: DOCUSATE SODIUM 100 MG CAP PO SCH (10:18)
[2020-11-29] MEDS: ENZALUTAMIDE PO SCH (10:19)
--- NOTE | 2020-11-29 12:01 | Discharge Summary ---
Date of Service November 29, 2020 Admission HPI Per Admitting Provider 85 YOM with significant history CAD, CABG 1V with tissue AVR (2010), past smoker, Carotid stenosis with endarterectomy, HTN, afib and aflutter on Digoxin and Apixaban 2010, DMII, metastatic prostate cancer (lungs/spine) 2018, chronic indwelling Tafoya. Patient is brought in today by his daughter for confusion and disorientation. She went to work this morning at 4am and came home to find he did not take any of his medications and/or eat or drink for the day. He is normally very independent with his care and medications. Leading up until today the patient had his Tafoya catheter changed out on Tuesday and they noted it to be a difficult change, and he had little output in his bag over the weekend as well as complaints of bilateral back flank pain and suprapubic pain and pressure. He had a similar appearance in May with CONS in his urine. In the emergency room, he had his Tafoya changed out which is now draining good yellow urine, urine culture, blood cultures, CXR, and CT scan of the head performed. No acute hemorrhage on CT scan. Patient was started on antibiotics, urine and blood cultures pending as well as digoxin level. Patient will be admitted for monitoring and clearing of mentation. Admission Exam Per Admitting Provider General: awake, alert, no apparent distress Head: Normocephalic, atraumatic ENT: PERRL, EOMI, no pharyngeal exudate, mucous membranes moist Neuro: AAO x 3, speech clear and appropriate, strength intact bilaterally 5/5, sensation intact and equal all extremities and dermatomes, no pronator drift Chest: equal rise and fall of the chest, no accessory muscle use, no heaves or thrills, Clear to auscultation, on room air, Cardiac: Regular rate and rhythm, telemetry reviewed, skin warm dry, cap refill <3 seconds, peripheral pulses +2 no JVD, systolic murmur LSB, no edema GI: NABS x 4 quadrants, soft, nontender to palpation, no rebound, guarding or tenderness : tafoya replaced, currently no pain, (-) CVA tenderness, Extremities: Normal inspection, no peripheral edema or erythema, calfs nontender to palpation Psych: Normal mood and affect Skin: no rash or erythema Principal Diagnosis AMS, UTI Discharge Exam Constitutional WD/WN, vitals as above Respiratory normal respiratory effort, lungs clear to auscultation Cardiovascular RRR, no murmur, no edema Gastrointestinal (Abdomen) normal bowel sounds, soft, nontender, no hepatosplenomegaly Skin no rashes, warm and dry Psychiatric A+Ox3, euthymic affect Genitourinary Tafoya draining clear yellow urine Discharge Data Allergies Allergy/AdvReac Type Severity Reaction Status Date / Time Penicillins Allergy Severe Hives and Verified 11/26/20 17:50 shortness of breath doxycycline Allergy Mild Rash Verified 11/26/20 16:55 tetracycline Allergy Mild Rash Verified 11/26/20 16:55 Consultations 11/26/20 17:15 ED Decision to Admit Stat Ordered Studies 11/26/20 15:59 CT head/brain wo con Stat 1. No acute intracranial findings 2. 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 3. 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 Small bilateral pleural effusions right greater than left 2. Progressive blastic skeletal metastasis. Hospital Course (1) Acute alteration in mental status: 85 yo M PMHx metastatic prostate cancer. HTN, DM2, CAD s/p CABG, AFib on Eliquis therapy admitted for AMS and sepsis 2/2 UTI. Encephalopathy, acute delirium - suspected related to Urinary infection, no focal deficits; has had a waxing and waning course - Suspected to be secondary to UTI, symptoms have improved dramatically with continued treatment. - CT head performed while admitted did not show any new findings, old infarcts noted. - Glucose normal, no changes in medications, BUN & creatinine stable. - Digoxin level 0.9. Sepsis secondary to UTI: - On admission: SIRS 0, Q SOFA 2, altered mental status, mildly hypotensive. - Started on Rocephin; urine cultures grew E. coli sensitive to ceftriaxone. Patient was transitioned to cefuroxime 250 mg twice daily on discharge, to complete a total of 7 days of antibiotics. - Blood cultures negative to date. - Did receive IV fluids early in admission, discontinued and patient tolerating p.o. intake well. Atrial flutter with controlled response: - No acute concerns while admitted. - Continue digoxin, carvedilol. - Continue Eliquis for AC. Carotid artery stenosis: - Has had endarterectomy on right side and reported 70% stenosis on left (2009) with ultrasound in 2013 no significant stenotic process and mild plaque formation bilaterally. - Continue ASA and high dose statin, no acute concerns. Dyslipidemia: - Continue statin. Heart failure/HTN: - No signs of fluid overload this admission. - Continue beta [place]. - ARB held in the setting of hypotension, BP on discharge of 100s/60s. Continue to hold until PCP follow-up. - Continue high dose statin. Prostate cancer: - Tafoya changed while admitted due to UTI. - No changes made to oncologic medications. - He is up to date on his [id number] and monthly chemo medications. - Follow up with Oncology in outpatient setting. Metastasis to spinal column: - Progressive blastic lesions on CXR. - Pain well controlled. 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: (5) Sepsis: Total Time Total Time Spent Total Time Spent (In Minutes): see attending attestation Discharge Plan Discharge Items Patient Disposition: Home - Home Health Services Reason For Visit: ENCEPHALOPATHY Discharge Diagnosis: UTI, altered mental status Activity: Per Instructions section Non-emergency contact: Primary Care Provider, Oncologist and Urologist Call non-emergency contact if: your symptoms worsen and your temperature is a george 101 Follow-up/Referrals: Kit Issa MD [Primary Care Provider] - Diet: Heart Healthy and Low Sodium (2gm) Addtl Attending Provider Instructions: You were admitted to the hospital for confusion and found to have a UTI. We started you on IV antibiotics and you continued to improve. You got a little confused in the hospital, we believe this is due to your infection as well as being in an unfamiliar place. This improved as the infection got better. We watched your blood cultures for signs of infection, and your blood did not grow bacteria. While you were here you had some low blood pressure so we stopped your losartan medicine. We felt safe to discharge you back home into the care of your daughter with the following recommendations: 1) You will take the pill antibiotic called cefuroxime; this is a twice a day antibiotic (every 12 hours). You will take this starting this evening with dinner, and continue it until the prescription is gone, even if you feel all better. This was sent to the [facility] in [place]. 2) You should have follow up with Dr. Issa within a week of discharge. 3) We stopped your losartan medicine while you were here. You should not take that medication until talking it over with Dr. Issa. If you have any worsening of your symptoms, chest pain, trouble breathing, please come back for urgent evaluation. For all other concerns you can call your family doctor's office. Pending Studies at Discharge: No Stand-Alone Forms: [facility], Smoking Cessation Medications and DC Order Prescriptions: New cefuroxime axetil 250 mg tablet 250 mg PO BID 4 Days Qty: 8 RF: 0 Continued docusate sodium [Colace] 100 mg capsule 100 mg PO DAILY RF: 0 Calcium 600 with Vitamin D3 600 mg(1,500mg) -400 unit tablet,chewable 2 tab PO DAILY RF: 0 rosuvastatin [Crestor] 40 mg tablet 40 mg PO DAILY Qty: 30 RF: 2 digoxin 125 mcg (0.125 mg) tablet 125 mcg PO Q2D RF: 0 aspirin [Aspirin Low Dose] 81 mg tablet,delayed release (DR/EC) 81 mg PO DAILY RF: 0 azelastine 0.15 % (205.5 mcg) spray,non-aerosol 1 spray intranasal BID Qty: 30 RF: 2 apixaban 5 mg tablet 5 mg PO BID RF: 0 carvedilol 12.5 mg tablet See Rx Instructions .ROUTE .COMPLEX RF: 0 ondansetron HCl 8 mg tablet 8 mg PO TID PRN (Reason: Nausea) RF: 0 Xtandi 40 mg capsule 160 mg PO QAM RF: 0 ipratropium-albuterol 0.5 mg-3 mg(2.5 mg base)/3 mL solution for nebulization 3 ml inhalation BID RF: 0 Discontinued metoprolol succinate 50 mg tablet extended release 24 hr 50 mg PO DAILY Qty: 90 RF: 3 losartan 25 mg tablet 12.5 mg PO DAILY Qty: 45 RF: 3 Discharge Orders: Discharge Order (Routine); Ordered 11/29/20 Ordered By: Mirela Leavitt/Other Patient Handouts: Urinary Tract Infections in Men, What is Delirium? Admission Data Admit Date/Time: 11/26/20 18:17 Attending Provider: Jung Vieira Admit Provider: Jose J Cao Primary Care Provider: Kit Issa Other Providers: Jose J Cao Other Interventions: Discharge Summary Assessment (RN) Last Done: 11/29/20 12:04 Supervising Physician Co-Signing Physician Notes Patient seen and examined with PGY-2 Dr. Davidson. Agree with history, exam findings, assessment and plan of care as outlined. In brief, Mr. Turk is an 85 year old male with history of CAD, CAB x4, carotid artery stenosis s/p CEA, HTN, afib/flutter on dig and AC with apixaban, DM, metastatic prostate cancer and chronic tafoya admitted with confusion. Confusion has resolved. He feels well and has no complaints or concerns. Vital signs and nursing notes reviewed. Non-toxic appearing. Sensorium is clear this morning, conversational. 1. Metabolic encephalopathy. Secondary to sepsis/urinary tract infection. 2. Sepsis. Urinary source. QSOFA=2, SIRS=0. Blood cultures without growth. Hemodynamically stable and off fluids. 3. Urinary tract infection. Urine growing E. Coli (resistant to fluoroquinolo monalisa). Discharge home with cefuroxime. 4. A fib/flutter. Rate controlled. Continue with home coreg. AC with apixaban. 5. Cardiomyopathy. Continue coreg as above. Continue statin. Holding home losartan 12.5mg due to low blood pressures. 6. Metastatic prostate cancer with chronic Tafoya. Mets to spine. Continue home pain medication regimen. Dispo: discharge home today. Has home health services. I personally spent 25 minutes discharge planning for this patient. Resident Activity Tracking Resident Involvement: Resident Care Provided Care Provided: Adult Hospital Medicine
[2020-11-29 12:06] VITALS: BP 97/59
== END 2020-11-29 15:20 | disposition home health service (06) | DRG 698 ==
LOC: ED 15:18 → 2N 18:17 → SUATTDRO 18:17 → 2N 19:20 → 3W 11-29 00:38

== ENCOUNTER 2021-02-17 17:26 | Inpatient (IN) ==
--- NOTE | 2021-02-17 18:10 | XRay Report ---
XR chest 1V portable CLINICAL HISTORY: Chest Pain. Metastatic prostate cancer. COMPARISON STUDY: Chest radiograph February 16, 2021. Chest CT February 17, 2021. FINDINGS: A right hydropneumothorax is noted. Superior pleural separation is 8 mm. There is a small a mount of pleural gas with moderate pleural fluid. A small left pleural effusion is noted. There are m edian sternotomy wires. Calcified pleural plaques are noted. Old right rib fractures are incidentally noted. There is mild cardiomegaly. There is mild interstitial thickening. IMPRESSION: Right hydropneumothorax. Small amount of pleural gas and moderate amount of pleural fluid, similar to chest CT performed earlier today. ACT 112: Negative or not required by law. Electronically signed by: Kentrell Richardson M.D. 02/17/2021 6:09 PM
[2021-02-17 18:12] LABS: Basophils # (auto) 0.02 K/uL (0-0.2); Basophils % (auto) 0.3 %; Eosinophils # (auto) 0.59 K/uL (0-0.5); Hematocrit (blood only) 35.5 % (42-52); Hemoglobin 11.9 g/dL (14.0-18.0); Immature Granulocytes # (auto) 0.03 K/uL (0.00-0.02); Immature Granulocytes % (auto) 0.4 %; Lymphocytes # (auto) 1.39 K/uL (1.2-3.4); Lymphocytes % (auto) 18.8 %; Mean Corpuscular Hemoglobin 29.7 pg (25-34); Mean Corpuscular Hgb Conc 33.5 g/dL (32-36); Mean Corpuscular Volume 88.5 fL (80-100); Mean Platelet Volume 9.3 fL (7.4-10.4); Monocytes # (auto) 0.44 K/uL (0.11-0.59); Neutrophils # (auto) 4.91 K/uL (1.4-6.5); Neutrophils % (auto) 66.5 %; Platelet Count 289 K/uL (130-400); RDW Coefficient of Variation 15.9 % (11.5-14.5); RDW Standard Deviation 51.2 fL (36.4-46.3); Red Blood Count 4.01 M/uL (4.7-6.1); White Blood Count 7.38 K/uL (4.8-10.8)
[2021-02-17 18:27] LABS: Partial Thromboplastin Time 26.8 Seconds (21.0-31.0)
[2021-02-17 18:34] LABS: Alanine Aminotransferase 10 U/L (12-78); Albumin Level 2.6 gm/dl (3.4-5.0); Aspartate Aminotransferase 14 U/L (15-37); BUN Creatinine Ratio 18.8 (10-20); Blood Urea Nitrogen 23 mg/dl (7-18); Calcium 9.5 mg/dl (8.5-10.1); Carbon Dioxide 21 mmol/L (21-32); Chloride 111 mmol/L (98-107); Est GFR (African American) 61.1 ml/min; Est GFR (Non-African American) 52.7 ml/min; Glucose 154 mg/dl (70-99); Lipase 91 U/L (73-393); Sodium 141 mmol/L (136-145)
[2021-02-17 18:40] LABS: Albumin Globulin Ratio 0.5 (0.9-2); Alkaline Phosphatase 91 U/L (45-117); Bilirubin,Total 0.4 mg/dl (0.2-1); Creatine Kinase 29 U/L (39-308); Creatine Kinase MB 1.5 ng/ml (0.5-3.6); Globulin 5.2 gm/dl (2.5-4.0); Total Protein 7.8 gm/dl (6.4-8.2); Troponin I 0.017 ng/ml (0-0.045)
--- NOTE | 2021-02-17 19:58 | History & Physical Report ---
Date of Service February 17, 2021 Assessment & Plan (1) Hydropneumothorax: Right heart pneumothorax- Admit to monitored bed Consult placed to pulmonology Dr. Lucero for possible tube placement Holding apixaban and aspirin Present on Admission?: Yes (2) Prostate cancer metastatic to bone: Continue usual medications Xtandi and megace Also on Xgeva and Lupron as an outpatient Present on Admission?: Yes (3) Atrial flutter with controlled response: Atrial flutter with controlled response/cardiomyopathy/hypertension- Continue carvedilol, digoxin, losartan and Toprol succinate. Hold apixaban and aspirin preprocedure Present on Admission?: Yes (4) Cardiomyopathy: See above Present on Admission?: Yes (5) Dyslipidemia: Continue rosuvastatin 40 mg daily Present on Admission?: Yes History of Present Illness Chief Complaint: The patient presents to the emergency department after being referred by his PCP for an abnormal chest x-ray/CT of chest showing a right hydropneumothorax Primary Care Provider: Kit Issa MD The patient is an 85-year-old male with a past med history [place] CHF, prostate cancer metastatic to bone, encephalopathy due to infection, bilateral pleural effusion, sepsis, UTI, aspiration pneumonia, chronic anticoagulation, atrial flutter with controlled response, status post CABG, status post CEA, cardiomyopathy, carotid artery stenosis, depression, dyslipidemia, PAD, status post bioprosthetic AVR, BPH without LUTS, COPD, diabetes mellitus, hypertension, and CKD. The patient was referred to the emergency department by his PCP, after presenting there with chest discomfort and shortness of breath. Chest x-ray performed showed a right hydropneumothorax, and patient was referred for admission. Allergies Allergy/AdvReac Type Severity Reaction Status Date / Time Penicillins Allergy Severe Hives and Verified 02/17/21 18:32 shortness of breath doxycycline Allergy Mild Rash Verified 02/17/21 18:32 tetracycline Allergy Mild Rash Verified 02/17/21 18:32 Home Medications Medication Instructions Recorded Confirmed Type apixaban 5 mg PO BID 08/05/18 02/17/21 History docusate sodium 100 mg capsule 100 mg PO DAILY 01/30/20 02/17/21 History calcium carbonate-vitamin D3 600 2 tab PO DAILY tab 07/30/20 02/17/21 History mg(1,500 mg)-400 unit chewable tablet carvedilol 12.5 mg tablet See Rx Instructions .ROUTE 08/19/20 02/17/21 History .COMPLEX tab aspirin 81 mg tablet,delayed 81 mg PO DAILY 09/25/20 02/17/21 History release rosuvastatin 40 mg tablet 40 mg PO DAILY #30 tab 09/25/20 02/17/21 Rx digoxin 125 mcg (0.125 mg) tablet 125 mcg PO Q2D tab 09/26/20 02/17/21 History Xtandi 160 mg PO QAM 11/26/20 02/17/21 History ipratropium-albuterol 3 ml INHALATION BID 11/26/20 02/17/21 History ondansetron HCl 8 mg PO TID PRN 11/26/20 02/17/21 History Lupron 1 dose IM .EVERY 4 MONTHS 02/17/21 02/17/21 History azelastine 1 spray INTRANASAL DAILY 02/17/21 02/17/21 History denosumab [Xgeva] 120 mg SUBCUT MONTHLY 02/17/21 02/17/21 History losartan 12.5 mg PO DAILY 02/17/21 02/17/21 History megestrol 400 mg PO DAILY 02/17/21 02/17/21 History metoprolol succinate 25 mg PO QAM 02/17/21 02/17/21 History Past Med/Surg History Medical History (Updated 02/18/21 @ 06:05 by Fredy Tam MD) Aortic stenosis Atrial flutter Bilateral pleural effusion BPH w/o urinary obs/LUTS CAD (coronary artery disease) 1-vessel (LAD), complicated by internal bleeding requiring another surgery Cardiomyopathy Carotid artery stenosis Carotid stenosis Chronic cough Chronic renal disease COPD (chronic obstructive pulmonary disease) Cough Depression Diabetes mellitus, new onset (2018) Dyslipidemia Dysuria History of alcohol dependence quit early History of tobacco use Leg fracture, left s/p ORIF Mixed hyperlipidemia PAD (peripheral artery disease) PAD (peripheral artery disease) 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 - 2011 H/O carotid endarterectomy left S/P aortic valve replacement with bioprosthetic valve (2010) S/P CABG (coronary artery bypass graft) (2010) Complicated postoperative course S/P CABG x 1 Family History Father , age 79 Congestive heart failure Atherosclerosis Mother , from diverticulitis age 84 Rheumatoid arthritis Other Cancer Heart disease Denies family history of Tuberculosis Allergies Emphysema, unspecified Lung disease Asthma Social History Smoking Status: Former smoker Years Smoked: 50; Cigarettes Per Day: 1-2 ppd; Hx Alcohol Use: No Hx Substance Use: No Preferred Language: Yemeni Communication Ability: [facility] Rag Baler Required: No Beliefs That Will Affect Care: None marital status: marital status details: spouse 2009 Current Living Situation: Family Current Living Situation Comment: lives w/ dtr 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 Other Information That Helps Us Care for You: No other: 3 children one of whom is Feels Safe at Home: Yes Safety Concerns: Feels Safe At This Time Assistive Devices: Cane, Denture - Upper, Denture - Lower, Glasses and Hearing Aid - Bilateral Review of Systems Review of Systems: The patient denies palpitations, lower extremity swelling, sore throat, fevers, chills, sweats, nausea, vomiting, diarrhea , constipation, abdominal pain, pelvic pain, blood in urine or stool, dysuria, urinary frequency or urgency, lightheadedness, dizziness, headache, loss of consciousness, rash, abnormal bruising or bleeding, focal weakness, numbness or tingling in arms or legs, generalized arthralgias or myalgias, neck pain, or night sweats. The review of systems is otherwise negative other than for that already noted above, and at least 10 systems have been reviewed. Physical Exam Physical Exam: The patient is awake, alert and oriented 3, normocephalic and atraumatic, lying in bed and in no acute distress. HEENT--PERRL, EOMI, mucous membranes and oropharynx normal. Neck--supple. No JVD. No bruits. Thyroid normal, trachea midline, no adenopathy. Heart--normal S1 and S2. No murmurs, rubs or gallops. Lungs--decreased breath sounds right base. No respiratory distress, no accessory muscle use. Abdomen--normal bowel sounds and soft. Nontender. Nondistended, no hernias or masses, no organomegaly. Extremities--no cyanosis or clubbing. No edema. Dermatologic--normal skin turgor, normal color, no abnormal lymph nodes, no rash. Neurologic--cranial nerves II through XII grossly intact. Rheumatologic--normal range of motion. Psychiatric--normal affect. Results & Data Results & Data ([facility]) Vital Signs (Past 12 Hours) Vital Signs Temp Pulse Resp BP Pulse Ox 02/17/21 19:40 89 98 02/17/21 19:30 83 21 125/73 96 02/17/21 19:20 84 23 97 02/17/21 19:10 85 23 119/70 97 02/17/21 19:00 85 22 96 02/17/21 18:50 84 23 95 02/17/21 18:40 86 23 95 02/17/21 18:30 89 26 H 92 02/17/21 18:20 88 23 96 02/17/21 18:10 93 H 23 95 02/17/21 18:04 91 H 96 02/17/21 18:02 94 02/17/21 17:50 99 H 97 02/17/21 17:48 101 H 97 02/17/21 17:45 98 H 22 151/73 H 97 02/17/21 17:35 97.0 F L 103 H 23 102/59 L 94 Laboratory Results Laboratory Results WBC 7.38 K/uL (4.8-10.8) 02/17/21 17:50 RBC 4.01 M/uL (4.7-6.1) L 02/17/21 17:50 Hgb 11.9 g/dL (14.0-18.0) L 02/17/21 17:50 Hct 35.5 % (42-52) L 02/17/21 17:50 MCV 88.5 fL (80-100) 02/17/21 17:50 MCH 29.7 pg (25-34) 02/17/21 17:50 MCHC 33.5 g/dL (32-36) 02/17/21 17:50 RDW Std Deviation 51.2 fL (36.4-46.3) H 02/17/21 17:50 RDW Coeff of Godfrey 15.9 % (11.5-14.5) H 02/17/21 17:50 Plt Count 289 K/uL (130-400) 02/17/21 17:50 MPV 9.3 fL (7.4-10.4) 02/17/21 17:50 Immature Gran % (Auto) 0.4 % 02/17/21 17:50 Neut % (Auto) 66.5 % 02/17/21 17:50 Lymph % (Auto) 18.8 % 02/17/21 17:50 Canadian % (Auto) 6.0 % 02/17/21 17:50 Eos % (Auto) 8.0 % 02/17/21 17:50 Baso % (Auto) 0.3 % 02/17/21 17:50 Neut # (Auto) 4.91 K/uL (1.4-6.5) 02/17/21 17:50 Lymph # (Auto) 1.39 K/uL (1.2-3.4) 02/17/21 17:50 Canadian # (Auto) 0.44 K/uL (0.11-0.59) 02/17/21 17:50 Eos # (Auto) 0.59 K/uL (0-0.5) H 02/17/21 17:50 Baso # (Auto) 0.02 K/uL (0-0.2) 02/17/21 17:50 Immature Gran # (Auto) 0.03 K/uL (0.00-0.02) H 02/17/21 17:50 APTT 26.8 Seconds (21.0-31.0) 02/17/21 17:50 PTT Ratio 1.0 02/17/21 17:50 Sodium 141 mmol/L (136-145) 02/17/21 17:50 Potassium 4.0 mmol/L (3.5-5.1) 02/17/21 17:50 Chloride 111 mmol/L (98-107) H 02/17/21 17:50 Carbon Dioxide 21 mmol/L (21-32) 02/17/21 17:50 Anion Gap 9.0 (3-11) 02/17/21 17:50 BUN 23 mg/dl (7-18) H 02/17/21 17:50 Creatinine 1.24 mg/dl (0.6-1.4) 02/17/21 17:50 Est Cr Clr Drug Dosing Not Reportable 02/17/21 17:50 Est GFR ( Amer) 61.1 ml/min 02/17/21 17:50 Est GFR (Non-Af Amer) 52.7 ml/min 02/17/21 17:50 BUN/Creatinine Ratio 18.8 (10-20) 02/17/21 17:50 Glucose 154 mg/dl (70-99) H 02/17/21 17:50 POC Glucose 104 mg/dl (70-99) H 02/17/21 21:57 Calcium 9.5 mg/dl (8.5-10.1) 02/17/21 17:50 Total Bilirubin 0.4 mg/dl (0.2-1) 02/17/21 17:50 AST 14 U/L (15-37) L 02/17/21 17:50 ALT 10 U/L (12-78) L 02/17/21 17:50 Alkaline Phosphatase 91 U/L (45-117) 02/17/21 17:50 Total Creatine Kinase 29 U/L (39-308) L 02/17/21 17:50 CK-MB (CK-2) 1.5 ng/ml (0.5-3.6) 02/17/21 17:50 CK/CKMB % Calc 5.2 (0-3.0) H 02/17/21 17:50 Troponin I 0.017 ng/ml (0-0.045) 02/17/21 17:50 Total Protein 7.8 gm/dl (6.4-8.2) 02/17/21 17:50 Albumin 2.6 gm/dl (3.4-5.0) L 02/17/21 17:50 Globulin 5.2 gm/dl (2.5-4.0) H 02/17/21 17:50 Albumin/Globulin Ratio 0.5 (0.9-2) L 02/17/21 17:50 Lipase 91 U/L (73-393) 02/17/21 17:50 Nasal Screen MRSA (PCR) Negative (Negative) 02/17/21 22:15 Digoxin 0.7 ng/ml (0.8-2.0) L 02/17/21 17:50 COVID-19 Eval Order Covid19 at [facility] 02/17/21 17:59 SARS-CoV-2 (PCR) NEGATIVE (Negative) 02/17/21 17:59 Impressions Chest X-Ray 02/17/21 17:52 XR chest 1V portable CLINICAL HISTORY: Chest Pain. Metastatic prostate cancer. COMPARISON STUDY: Chest radiograph February 16, 2021. Chest CT February 17, 2021. FINDINGS: A right hydropneumothorax is noted. Superior pleural separation is 8 mm. There is a small amount of pleural gas with moderate pleural fluid. A small left pleural effusion is noted. There are median sternotomy wires. Calcified pleural plaques are noted. Old right rib fractures are incidentally noted. There is mild cardiomegaly. There is mild interstitial thickening. IMPRESSION: Right hydropneumothorax. Small amount of pleural gas and moderate amount of pleural fluid, similar to chest CT performed earlier today. ACT 112: Negative or not required by law. Electronically signed by: Kentrell Richardson M.D. 02/17/2021 6:09 PM Diagnostic Findings [facility], [id number] CT Scan Report Patient: NELSON JOSHI EAdmit Date: 02/17/21#: [id number][id number] ID:[id number]: Date: [address] [place] [address] Zip: [place], [place] [address]Xwx: [phone]: CTSex: MRoom/Bed:Att Phy: Eli Ramos M.D.Diagnosis: BILATERAL PLEURAL EFFUSION, METASTATIC PROSTATE Alanis Phy: Kit Ramos M.D.Service Date: 02/17/21[facility] Phy:Interpreting Phy: Kentrell Richardson MDAit Phy: Ordering Phy: Kit Ramos M.D. cc: ~ CT OF THE CHEST WITH IV CONTRAST CLINICAL HISTORY: BILATERAL PLEURAL EFFUSION, METASTATIC PROSTATE CA COMPARISON STUDY: Chest radiograph February 16, 2021. Chest CT August 13, 2020. TECHNIQUE: Following IV administration of 93 mL of Optiray, helical axial images of the chest were obtained. Sagittal and coronal reconstructions were viewed as well as maximal intensity projections on an independent 3-D workstation. Automated exposure control was utilized for the study. A dose lowering technique was utilized adhering to the principles of ALARA. CT DOSE: 311.04 mGycm FINDINGS: Median sternotomy wires are noted. There are postoperative findings from bypass grafting. Prosthetic aortic valve is noted. Cardiomegaly is noted. There is no pericardial effusion. Multiple enlarged thoracic lymph nodes are noted. An index right paratracheal lymph node measures 3.7 x 3.3 cm. This has slightly decreased in size since prior CT of August 23, 2021 when it measured 4.1 x 3.2 cm. A left supraclavicular lymph node measures 2.2 x 2.2 cm. It previously measured 2.4 x 2.3 cm. Central airways are patent. Note is made of a right hydropneumothorax. A moderate to large amount of right pleural fluid is noted with small amount of pleural gas. There is no left pneumothorax. There are numerous calcified and noncalcified pleural plaques. There is trace left pleural effusion. The amount of right pleural fluid is similar to prior CT. Numerous skeletal metastases are similar to exam of August 23, 2020. A few thoracic spine fractures appear unchanged. Several pulmonary nodules have slightly decreased in size since CT of August 13, 2020. These include a left lower lobe nodule on image 147 measures 1 cm. It previously measured 1.4 cm. Left adrenal nodule is unchanged. No lesions are identified within visualized portions of the liver. IMPRESSION: 1. Slight decrease in thoracic lymphadenopathy and pulmonary metastases since chest CT of August 23, 2020. 2. Right hydropneumothorax. Moderate to large amount of right pleural fluid with small amount of pleural gas. This finding was discussed with Dr. Rick Fischer at time of dictation. 3. No significant change in extensive skeletal metastatic disease. ACT 112: Negative or not required by law. Electronically signed by: Kentrell Richardson M.D. 02/17/2021 3:27 PM Dictated: 02/17/21 1457Transcribed: 02/17/21 1509 Code Status & VTE Plan Code Status Full code VTE Prophylaxis Plan VTE Prophylaxis will be ordered: Yes PG Care Time/CCT Total # of Minutes Spent Total Time Spent with Patient: Total time spent is greater than 50% in coordination of care (as documented) at patient's floor/unit and/or counseling patient: Coding Level of Care Code 03992 Initial In Care Lvl 3 Diagnoses Hydropneumothorax J94.8 Prostate cancer metastatic to bone C61; C79.51 Atrial flutter with controlled response I48.92 Cardiomyopathy I42.9 Dyslipidemia E78.5
[2021-02-17] MEDS ORDERED: PATIENT'S HEIGHT AND/OR WEIGHT NEEDED SCH (21:45)
[2021-02-17] MEDS: NSS + 20MEQ KCL 20 MEQ/1,000 ML BAG IV SCH (22:19)
[2021-02-17] MEDS: FAMOTIDINE 20 MG in SYRINGE 3 ML IV SCH (22:20)
[2021-02-17] MEDS: ALBUT/IPRATROP 3MG/0.5MG NEB 3 ML VIAL INH SCH (23:16)
[2021-02-18] MEDS ORDERED: Nursing to Pharmacy Communication SCH (06:15)
[2021-02-18] MEDS: ALBUT/IPRATROP 3MG/0.5MG NEB 3 ML VIAL INH SCH ×2 (07:15→19:35)
[2021-02-18 07:24] LABS: Basophils # (auto) 0.03 K/uL (0-0.2); Basophils % (auto) 0.5 %; Eosinophils # (auto) 0.56 K/uL (0-0.5); Eosinophils % (auto) 9.4 %; Hematocrit (blood only) 29.4 % (42-52); Immature Granulocytes # (auto) 0.02 K/uL (0.00-0.02); Immature Granulocytes % (auto) 0.3 %; Lymphocytes # (auto) 1.19 K/uL (1.2-3.4); Mean Corpuscular Hemoglobin 29.6 pg (25-34); Monocytes # (auto) 0.53 K/uL (0.11-0.59); Monocytes % (auto) 8.9 %; Neutrophils # (auto) 3.62 K/uL (1.4-6.5); Neutrophils % (auto) 60.9 %; Platelet Count 230 K/uL (130-400); RDW Standard Deviation 51.3 fL (36.4-46.3); Red Blood Count 3.38 M/uL (4.7-6.1); White Blood Count 5.95 K/uL (4.8-10.8)
[2021-02-18 07:44] LABS: INR 1.1 (0.9-1.1); Partial Thromboplastin Time 26.6 Seconds (21.0-31.0); Prothrombin Time 10.9 Seconds (9.0-12.0)
[2021-02-18 07:59] LABS: Alanine Aminotransferase 8 U/L (12-78); Albumin Level 2.3 gm/dl (3.4-5.0); Aspartate Aminotransferase 10 U/L (15-37); BUN Creatinine Ratio 21.6 (10-20); Blood Urea Nitrogen 23 mg/dl (7-18); Calcium 9.1 mg/dl (8.5-10.1); Carbon Dioxide 19 mmol/L (21-32); Chloride 114 mmol/L (98-107); Est GFR (African American) 73.8 ml/min; Est GFR (Non-African American) 63.7 ml/min; Glucose 111 mg/dl (70-99); Magnesium 2.4 mg/dl (1.8-2.4); Potassium 4.3 mmol/L (3.5-5.1); Sodium 141 mmol/L (136-145)
[2021-02-18 08:02] LABS: Albumin Globulin Ratio 0.5 (0.9-2); Alkaline Phosphatase 82 U/L (45-117); Bilirubin Direct < 0.1 mg/dl (0-0.2); Bilirubin,Total 0.4 mg/dl (0.2-1); Globulin 4.6 gm/dl (2.5-4.0); Phosphorus 2.1 mg/dl (2.5-4.9); Total Protein 6.9 gm/dl (6.4-8.2)
[2021-02-18] MEDS: DIGOXIN 0.125 MG TAB PO SCH (09:02)
[2021-02-18] MEDS: DOCUSATE SODIUM 100 MG CAP PO SCH (09:03)
[2021-02-18] MEDS: CALCIUM 600MG + VIT D 400 IU TAB PO SCH (09:03)
[2021-02-18] MEDS: METOPROLOL SUCC 25MG EXT REL TAB PO SCH (09:03)
[2021-02-18] MEDS: MEGESTROL ACETATE SUSP 400 MG/10 ML UDC PO SCH (09:03)
[2021-02-18] MEDS: ROSUVASTATIN CALCIUM 20 MG TAB PO SCH (09:03)
[2021-02-18] MEDS: ENZALUTAMIDE PO SCH (09:04)
--- NOTE | 2021-02-18 09:38 | Electrocardiogram Report ---
Test Reason : Blood Pressure : / mmHG Vent. Rate : 102 BPM Atrial Rate : 102 BPM P-R Int : 194 ms QRS Dur : 130 ms QT Int : 362 ms P-R-T Axes : 094 -04 121 degrees QTc Int : 471 ms Poor data quality, interpretation may be adversely affected Sinus tachycardia with Premature atrial complexes Non-specific intra-ventricular conduction block T wave abnormality, consider lateral ischemia Abnormal ECG When compared with ECG of 26-NOV-2020 16:00, Premature atrial complexes are now Present Confirmed by Pillo Delgadillo ([id number]) on 02/18/2021 9:38:14 AM Referred By: Kit Issa Confirmed By:John Delgadillo
[2021-02-18] MEDS: FAMOTIDINE 20 MG in SYRINGE 3 ML IV SCH ×2 (11:24→20:07)
[2021-02-18] MEDS: AZELASTINE HCL 0.1% NASAL 200 SPRAYS/27,400 MCG BTL SCH ×2 (11:29→21:55)
[2021-02-18] MEDS: NSS + 20MEQ KCL 20 MEQ/1,000 ML BAG IV SCH (15:03)
--- NOTE | 2021-02-18 16:50 | Procedure Note ---
Procedure Note Date of Service February 18, 2021 Note PIGTAIL CATHETER PLACEMENT NOTE: Procedure: Pigtail Catheter Chest Tube Placement Indication: Right hydropneumothorax Anesthesia: 10 mL lidocaine 1% Written consent was obtained and placed on the chart. Timeout was done prior to the procedure. Prior to procedure, chest x-ray films were reviewed by myself and demonstrated a large right pleural effusion with pneumothorax. A time-out was completed verifying correct patient, procedure, site, positioning, and implant(s) or special equipment if applicable. Utilizing bedside ultrasound, chest wall was evaluated for location for optimal chest tube placement. Location between the fifth and sixth and ribs were marked on the skin using gentle pressure. The right sided chest wall was prepped with chlorhexidine and draped in the typical sterile fashion. 10 mL of 1% Lidocaine without epinephrine was used to anesthetize the skin down to the dorsal surface of the sixth rib. Pleural fluid return confirmed entry into the pleural space. Lidocaine was injected into the pleural space for increased anesthetization. Introducer needle on syringe was inserted in perpendicular fashion taking care to ride just above the dorsal surface of the sixth rib. Entry into the pleural space was heralded by pleural fluid return into the syringe while under gentle aspiration. Guide wire was advanced into the pleural space without resistance and the introducer needle was subsequently removed. Scalpel was used to make small incision of the superficial tissue, parallel to the direction of the rib anatomy. Dilator was advanced uneventfully over the guide wire into the pleural space. 14 [place] Pigtail Catheter was inserted into the pleural space. Inner introducer and guide wire were removed. Drain was immediately connected to pre-prepared MARC pleur-evac system. Pigtail was sutured securely in place and sterile dressing was applied. Chest tube was placed to -20 cmH2O suction. Patient tolerated procedure well. Blood Loss: Minimal Complications: None Post procedure Chest X-ray was ordered and is pending. Coding CPT Codes Pulmonary/Thoracic - Pulmonary and Thoracic: 97692 Tube thoracostomy ([id number]) [facility] [place] Procedure Codes (Charges) Pulmonary/Thoracic Procedure 1: Pulmonary and Thoracic: 20575 Tube thoracostomy
--- NOTE | 2021-02-18 17:12 | Pulmonary Consultation ---
Date of Consultation February 18, 2021 Assessment & Plan (1) Hydropneumothorax: 85-year-old male with a history of ischemic cardiomyopathy status post CABG, metastatic prostate carcinoma and atrial flutter on anticoagulation with Eliquis who presented to the hospital due to hydropneumot horax. Right hydropneumothorax: I placed the pigtail catheter. Grade 1 airleak is seen. Pigtail catheter is currently hooked up to suction. Etiology of the pleural effusion is unclear and may be related to malignancy, CHF and/or infectious etiology. Pleural fluid studies are pending. Recommend initiating empiric antibiotics. We will repeat a chest x-ray tomorrow morning. We will discontinue pigtail catheter once output is less than 150 mL per 24 hours and once pneumothorax has resolved. There is a chance that the pneumothorax represents lung entrapment. History of atrial flutter: Can restart apixaban tomorrow. (2) Heart failure: Heart failure type: unspecified Heart failure chronicity: chronic Qualified Code(s): I50.9 - Heart failure, unspecified (3) Prostate cancer metastatic to bone: History of Present Illness Attending Physician: Chi Parada History of Present Illness 85-year-old male with a known history of CHF and metastatic prostate cancer who presented to the hospital due to several weeks of lethargy. He was encouraged to come to the ER by his primary care physician due to an abnormal chest x-ray which demonstrated pleural effusion and pneumothorax. CT chest completed yesterday demonstrated a hydropneumothorax on the right. He denies any pain at present. He is not short of breath while resting. The patient's daughter is currently in the room and notes that he has not been interested in any form of physical activity as of late. She does not think that he has any significant shortness of breath. I have seen the patient in the pulmonary clinic in the past. I placed the pigtail catheter today at bedside. At the time of my leaving, approximately 800 mL of pleural fluid was evacuated. Chest tube is currently left on suction at -20 cm H2O. Grade 1 leak is noted. Additionally, patient denies any fever. No leukocytosis is noted. Allergies Allergy/AdvReac Type Severity Reaction Status Date / Time Penicillins Allergy Severe Hives and Verified 02/17/21 18:32 shortness of breath doxycycline Allergy Mild Rash Verified 02/17/21 18:32 tetracycline Allergy Mild Rash Verified 02/17/21 18:32 Home Medications Medication Instructions Recorded Confirmed Type apixaban 5 mg PO BID 08/05/18 02/17/21 History docusate sodium 100 mg capsule 100 mg PO DAILY 01/30/20 02/17/21 History calcium carbonate-vitamin D3 600 2 tab PO DAILY tab 07/30/20 02/17/21 History mg(1,500 mg)-400 unit chewable tablet carvedilol 12.5 mg tablet See Rx Instructions .ROUTE 08/19/20 02/17/21 History .COMPLEX tab aspirin 81 mg tablet,delayed 81 mg PO DAILY 09/25/20 02/17/21 History release rosuvastatin 40 mg tablet 40 mg PO DAILY #30 tab 09/25/20 02/17/21 Rx digoxin 125 mcg (0.125 mg) tablet 125 mcg PO Q2D tab 09/26/20 02/17/21 History Xtandi 160 mg PO QAM 11/26/20 02/17/21 History ipratropium-albuterol 3 ml INHALATION BID 11/26/20 02/17/21 History ondansetron HCl 8 mg PO TID PRN 11/26/20 02/17/21 History Lupron 1 dose IM .EVERY 4 MONTHS 02/17/21 02/17/21 History azelastine 1 spray INTRANASAL DAILY 02/17/21 02/17/21 History denosumab [Xgeva] 120 mg SUBCUT MONTHLY 02/17/21 02/17/21 History losartan 12.5 mg PO DAILY 02/17/21 02/17/21 History megestrol 400 mg PO DAILY 02/17/21 02/17/21 History metoprolol succinate 25 mg PO QAM 02/17/21 02/17/21 History Patient History Medical History Aortic stenosis Atrial flutter Bilateral pleural effusion BPH w/o urinary obs/LUTS CAD (coronary artery disease) 1-vessel (LAD), complicated by internal bleeding requiring another surgery Cardiomyopathy Carotid artery stenosis Carotid stenosis Chronic cough Chronic renal disease COPD (chronic obstructive pulmonary disease) Cough Depression Diabetes mellitus, new onset (2018) Dyslipidemia Dysuria History of alcohol dependence quit early History of tobacco use Leg fracture, left s/p ORIF Mixed hyperlipidemia PAD (peripheral artery disease) PAD (peripheral artery disease) 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 Rhinitis Secondary malignant neoplasm of bone Surgical History Aortic valve replaced [facility] - 2011 H/O carotid endarterectomy left S/P aortic valve replacement with bioprosthetic valve (2010) S/P CABG (coronary artery bypass graft) (2010) Complicated postoperative course S/P CABG x 1 Family History Father , age 79 Congestive heart failure Atherosclerosis Mother , from diverticulitis age 84 Rheumatoid arthritis Other Cancer Heart disease Denies family history of Tuberculosis Allergies Emphysema, unspecified Lung disease Asthma Social History Smoking Status: Former smoker Years Smoked: 50; Cigarettes Per Day: 1-2 ppd; Hx Alcohol Use: No Hx Substance Use: No Preferred Language: Amharic Communication Ability: Effective Market Gardener Required: No Beliefs That Will Affect Care: None marital status: marital status details: spouse 2009 Current Living Situation: Family Current Living Situation Comment: lives w/ dtr 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 No tachypnea. Cardiovascular: RRR, no murmur, no edema Gastrointestinal (Abdomen): normal bowel sounds, soft, nontender, no hepatosplenomegaly Musculoskeletal: no cyanosis or clubbing, extremities motor strength 5/5 Skin: no rashes, warm and dry Neurologic: PERRL, EOMI, accommodation nl, no face palsy, no dysarthria Psychiatric: A+Ox3, euthymic affect Results & Data Results & Data ([facility]) Vital Signs (Past 12 Hours) Vital Signs Temp Pulse Pulse Resp BP Pulse Ox 02/18/21 16:00 69 02/18/21 15:28 98.1 F 73 16 133/65 96 02/18/21 11:40 97.9 F 75 16 107/62 95 02/18/21 09:02 82 02/18/21 08:00 79 02/18/21 07:15 83 16 95 02/18/21 06:58 97.9 F 84 17 127/67 95 02/18/21 05:46 83 Vital signs, labs and imaging completed. PG Care Time/CCT Total # of Minutes Spent Total Time Spent with Patient: Total time spent is greater than 50% in coordination of care (as documented) at patient's floor/unit and/or counseling patient: Coding Level of Care Code 87377 Initial Inpt Care Lvl 3 Diagnoses Hydropneumothorax J94.8 Heart failure I50.9 Heart failure type: unspecified Heart failure chronicity: chronic Prostate cancer metastatic to bone C61; C79.51
[2021-02-18 17:22] LABS: Total Protein Pleural Fluid 4.9 g/dl
[2021-02-18 17:44] LABS: Appearance Pleural Fluid CLOUDY; Basophils, Fluid 1 %; Color Pleural Fluid YELLOW; Eosinophils, Fluid 52 %; Lymphocytes, Fluid 26 %; Mono,Macrophage,Mesothelial 15 %; Neutrophils, Fluid 6 %; RBC Pleural Fluid (A) < 3000 /uL; Source Pleural Fluid RIGHT LUNG; WBC Pleural Fluid (A) 3229 /uL
--- NOTE | 2021-02-18 17:47 | XRay Report ---
SINGLE VIEW CHEST CLINICAL HISTORY: Chest tube placement. FINDINGS: An AP, portable, upright chest radiograph is compared to study dated 02/17/2021. The patient is status post midline sternotomy. The heart is enlarged noting atherosclerotic calcification of the thoracic aorta. The pulmonary vasculature is noncongested. Calcified pleural plaques are again noted . Emphysema and chronic interstitial thickening is similar to previous. A pigtail catheter has been p laced at the right lung base. There is a small residual right pleural effusion. This has decreased in size from yesterday. There is left basilar scarring/atelectasis. No airspace consolidation is seen t ypical for pneumonia. 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 No pneumothorax is seen. The skeletal structures are osteopenic. There are healed right-sided rib fractures. Osteoblastic metastatic diseas e is better assessed on recent CT scans. IMPRESSION: 1. A pigtail catheter has been placed at the right lung base. There is only a small residual right pl eural effusion, which has decreased in size from yesterday. 2. No residual pneumothorax is identified. 3. Cardiomegaly and emphysema. ACT 112: Negative or not required by law. Electronically signed by: Aydin Snyder M.D. 02/18/2021 5:45 PM
[2021-02-18] MEDS: carvediloL 12.5 MG TAB PO SCH (20:07)
--- NOTE | 2021-02-18 22:11 | Hospitalist Progress Note ---
Date of Service February 18, 2021 Assessment & Plan (1) Hydropneumothorax: Right heart pneumothorax- Admit to monitored bed Consult placed to pulmonology Dr. Lucero : had chest tube placed and removed about 1 liter. Holding apixaban and aspirin: will restart tomorrow. (2) Prostate cancer metastatic to bone: Continue usual medications Xtandi and megace Also on Xgeva and Lupron as an outpatient (3) Atrial flutter with controlled response: Atrial flutter with controlled response/cardiomyopathy/hypertension- Continue carvedilol, digoxin, losartan and Toprol succinate. Hold apixaban and aspirin preprocedure (4) Cardiomyopathy: See above (5) Dyslipidemia: Continue rosuvastatin 40 mg daily Admission and Anticipated Discharge Date Admission Date: February 17, 2021 Subjective Patient reports doing well. He tolerated the procedure and feels like he is breathing better. Review of Systems Review of Systems: All systems reviewed & are unremarkable except as noted in HPI & below Physical Exam Physical Exam: The patient is awake, alert and oriented 3, normocephalic and atraumatic, lying in bed and in no acute distress. HEENT--PERRL, EOMI, mucous membranes and oropharynx normal. Neck--supple. No JVD. No bruits. Thyroid normal, trachea midline, no adenopathy. Heart--normal S1 and S2. No murmurs, rubs or gallops. Lungs--decreased breath sounds right base. No respiratory distress, no accessory muscle use. Abdomen--normal bowel sounds and soft. Nontender. Nondistended, no hernias or masses, no organomegaly. Extremities--no cyanosis or clubbing. No edema. Dermatologic--normal skin turgor, normal color, no abnormal lymph nodes, no rash. Neurologic--cranial nerves II through XII grossly intact. Rheumatologic--normal range of motion. Psychiatric--normal affect. Results & Data Results & Data ([facility]) Vital Signs (Past 12 Hours) Vital Signs Temp Pulse Pulse Resp BP Pulse Ox 02/18/21 20:10 36.7 C 84 22 125/63 96 02/18/21 19:35 74 18 95 02/18/21 16:00 69 02/18/21 15:28 36.7 C 73 16 133/65 96 06/16/21 11:40 36.6 C 75 16 107/62 95 PG Care Time/CCT Total # of Minutes Spent Total Time Spent with Patient: Total time spent is greater than 50% in coordination of care (as documented) at patient's floor/unit and/or counseling patient: Coding Level of Care Code 77291 Subseq Hosp Care Lvl 3 Diagnoses Hydropneumothorax J94.8 Prostate cancer metastatic to bone C61; C79.51 Atrial flutter with controlled response I48.92 Cardiomyopathy I42.9 Dyslipidemia E78.5 Time Spent (min) 35
[2021-02-19] MEDS: ALBUT/IPRATROP 3MG/0.5MG NEB 3 ML VIAL INH SCH ×2 (07:09→19:51)
[2021-02-19 07:20] LABS: Basophils # (auto) 0.02 K/uL (0-0.2); Basophils % (auto) 0.3 %; Eosinophils # (auto) 0.39 K/uL (0-0.5); Eosinophils % (auto) 5.7 %; Hemoglobin 9.8 g/dL (14.0-18.0); Immature Granulocytes # (auto) 0.03 K/uL (0.00-0.02); Immature Granulocytes % (auto) 0.4 %; Lymphocytes # (auto) 0.95 K/uL (1.2-3.4); Lymphocytes % (auto) 13.8 %; Mean Corpuscular Hemoglobin 29.9 pg (25-34); Mean Corpuscular Hgb Conc 33.8 g/dL (32-36); Mean Corpuscular Volume 88.4 fL (80-100); Mean Platelet Volume 9.1 fL (7.4-10.4); Monocytes # (auto) 0.55 K/uL (0.11-0.59); Neutrophils # (auto) 4.93 K/uL (1.4-6.5); Neutrophils % (auto) 71.8 %; Platelet Count 221 K/uL (130-400); RDW Coefficient of Variation 15.7 % (11.5-14.5); RDW Standard Deviation 50.4 fL (36.4-46.3); Red Blood Count 3.28 M/uL (4.7-6.1); White Blood Count 6.87 K/uL (4.8-10.8)
[2021-02-19 07:38] LABS: Albumin Level 2.1 gm/dl (3.4-5.0); BUN Creatinine Ratio 20.8 (10-20); Bilirubin Direct 0.1 mg/dl (0-0.2); Calcium 8.5 mg/dl (8.5-10.1); Creatinine Clr Calc Pharmacy 52.4 ml/min; Est GFR (African American) 86.5 ml/min; Est GFR (Non-African American) 74.6 ml/min; Magnesium 2.2 mg/dl (1.8-2.4); Potassium 4.2 mmol/L (3.5-5.1)
[2021-02-19 07:40] LABS: Albumin Globulin Ratio 0.5 (0.9-2); Bilirubin,Total 0.5 mg/dl (0.2-1); Globulin 4.4 gm/dl (2.5-4.0); Phosphorus 1.6 mg/dl (2.5-4.9); Total Protein 6.6 gm/dl (6.4-8.2)
--- NOTE | 2021-02-19 07:46 | XRay Report ---
XR chest 1V portable CLINICAL HISTORY: follow up hydroptx COMPARISON STUDY: Chest radiograph February 18, 2021. FINDINGS: Median sternotomy wires are noted. Right basilar pleural catheter is in place. Trace right apical pneumothorax is noted. There is minimal residual right pleural fluid. Cardiomegaly is unchange d. Mild interstitial thickening is unchanged. Skeletal metastatic disease is better depicted on prior chest CT. There are calcified pleural plaques. IMPRESSION: Right basilar pleural catheter in place. Trace right apical pneumothorax with minimal ri ght pleural fluid. ACT 112: Negative or not required by law. Electronically signed by: Kentrell Richardson M.D. 02/19/2021 7:44 AM
[2021-02-19 07:49] LABS: INR 1.1 (0.9-1.1); Partial Thromboplastin Time 27.4 Seconds (21.0-31.0); Prothrombin Time 10.9 Seconds (9.0-12.0)
[2021-02-19] MEDS: NSS + 20MEQ KCL 20 MEQ/1,000 ML BAG IV SCH (09:22)
[2021-02-19] MEDS: ROSUVASTATIN CALCIUM 20 MG TAB PO SCH (09:28)
[2021-02-19] MEDS: MEGESTROL ACETATE SUSP 400 MG/10 ML UDC PO SCH (09:29)
[2021-02-19] MEDS: carvediloL 6.25 MG TAB PO SCH (09:29)
[2021-02-19] MEDS: CALCIUM 600MG + VIT D 400 IU TAB PO SCH (09:30)
[2021-02-19] MEDS: ENZALUTAMIDE PO SCH (09:30)
[2021-02-19] MEDS: FAMOTIDINE 20 MG in SYRINGE 3 ML IV SCH ×2 (09:35→20:39)
[2021-02-19] MEDS: METOPROLOL SUCC 25MG EXT REL TAB PO SCH (09:36)
[2021-02-19] MEDS: DOCUSATE SODIUM 100 MG CAP PO SCH (11:45)
[2021-02-19] MEDS: AZELASTINE HCL 0.1% NASAL 200 SPRAYS/27,400 MCG BTL SCH ×2 (11:45→20:39)
--- NOTE | 2021-02-19 16:56 | Pulmonology Progress Note ---
Date of Service February 19, 2021 Assessment & Plan (1) Hydropneumothorax: 85-year-old male with a history of ischemic cardiomyopathy status post CABG, metastatic prostate carcinoma and atrial flutter on anticoagulation with Eliquis who presented to the hospital due to hydropneumothorax. Right hydropneumothorax: Substantially improved right hydropneumothorax. Trace apical pneumo remains. Will likely discontinue the pigtail catheter tomorrow. If no apical pneumothorax noted on chest x-ray, then we will clamp the chest tube and repeat imaging. Etiology of the pleural effusion is unclear and may be related to malignancy, CHF and/or infectious etiology. Pleural fluid chemistri es are suggestive of an exudative effusion. Pleural fluid eosinophilia noted which may be related to malignancy and/or air within the pleural space. Pleural fluid cultures and cytology pending. There is a chance that the pneumothorax represents lung entrapment. (2) Heart failure: Heart failure type: unspecified Heart failure chronicity: chronic Qualified Code(s): I50.9 - Heart failure, unspecified (3) Prostate cancer metastatic to bone: (4) Exudative pleural effusion: Admission and Anticipated Discharge Date Admission Date: February 17, 2021 Subjective Patient seen and examined at bedside today. Daughters at bedside as well. Patient is sitting upright. Feeling much better and less short of breath today. Able to take full deep breaths. Denies any chest pain. No shortness of breath. No fevers or chills. Saturating 98% on room air. Review of Systems Review of Systems: All systems reviewed & are unremarkable except as noted in HPI & below Physical Exam Constitutional: WD/WN, vitals as above Respiratory: normal respiratory effort, lungs clear to auscultation Cardiovascular: RRR, no murmur, no edema Gastrointestinal (Abdomen): normal bowel sounds, soft, nontender, no hepatosplenomegaly Musculoskeletal: no cyanosis or clubbing, extremities motor strength 5/5 Skin: no rashes, warm and dry Right pigtail catheter in place Neurologic: PERRL, EOMI, accommodation nl, no face palsy, no dysarthria Psychiatric: A+Ox3, euthymic affect Results & Data Results & Data ([facility]) Vital Signs (Past 12 Hours) Vital Signs Temp Pulse Pulse Pulse Resp BP Pulse Ox 02/19/21 15:45 98.2 F 71 18 117/51 L 98 02/19/21 11:46 98.2 F 83 16 142/66 H 93 02/19/21 08:00 89 02/19/21 07:47 98.4 F 79 16 138/52 L 96 02/19/21 07:09 83 18 94 chest x-ray imaging reviewed with marked improvement in the right pleural effusion. Small apical pneumo noted. PG Care Time/CCT Total # of Minutes Spent Total Time Spent with Patient: Total time spent is greater than 50% in coordination of care (as documented) at patient's floor/unit and/or counseling patient: Coding Level of Care Code 50100 Subseq Hosp Care Lvl 3 Diagnoses Hydropneumothorax J94.8 Heart failure I50.9 Heart failure type: unspecified Heart failure chronicity: chronic Prostate cancer metastatic to bone C61; C79.51 Exudative pleural effusion J90
[2021-02-19] MEDS: carvediloL 12.5 MG TAB PO SCH (20:39)
[2021-02-19] MEDS: APIXABAN 5 MG TABLET PO SCH (20:39)
--- NOTE | 2021-02-19 22:26 | Hospitalist Progress Note ---
Date of Service February 19, 2021 Assessment & Plan (1) Hydropneumothorax: Right heart pneumothorax- Admit to monitored bed Consult placed to pulmonology Dr. Lucero : had chest tube placed and removed about 1 liter. restarted apixaban. will remove chest tube TOMORROW. (2) Prostate cancer metastatic to bone: Continue usual medications Xtandi and megace Also on Xgeva and Lupron as an outpatient (3) Atrial flutter with controlled response: Atrial flutter with controlled response/cardiomyopathy/hypertension- Continue carvedilol, digoxin, losartan and Toprol succinate. restarted anticoag. (4) Cardiomyopathy: See above (5) Dyslipidemia: Continue rosuvastatin 40 mg daily Admission and Anticipated Discharge Date Admission Date: February 17, 2021 Subjective Patient reports feeling better. He has no new complaints. Review of Systems Review of Systems: All systems reviewed & are unremarkable except as noted in HPI & below Physical Exam Physical Exam: The patient is awake, alert and oriented 3, normocephalic and atraumatic, lying in bed and in no acute distress. HEENT--PERRL, EOMI, mucous membranes and oropharynx normal. Neck--supple. No JVD. No bruits. Thyroid normal, trachea midline, no adenopathy. Heart--normal S1 and S2. No murmurs, rubs or gallops. Lungs--decreased breath sounds right base. No respiratory distress, no accessory muscle use. Abdomen--normal bowel sounds and soft. Nontender. Nondistended, no hernias or masses, no organomegaly. Extremities--no cyanosis or clubbing. No edema. Dermatologic--normal skin turgor, normal color, no abnormal lymph nodes, no rash. Neurologic--cranial nerves II through XII grossly intact. Rheumatologic--normal range of motion. Psychiatric--normal affect. Results & Data Results & Data ([facility]) Vital Signs (Past 12 Hours) Vital Signs Temp Pulse Pulse Resp BP BP Pulse Ox 02/19/21 19:51 18 95 02/19/21 19:19 36.6 C 75 20 136/73 95 02/19/21 15:45 36.8 C 71 18 117/51 L 98 02/19/21 11:46 36.8 C 83 16 142/66 H 93 PG Care Time/CCT Total # of Minutes Spent Total Time Spent with Patient: Total time spent is greater than 50% in coordination of care (as documented) at patient's floor/unit and/or counseling patient: Coding Level of Care Code 35542 Subseq Hosp Care Lvl 2 Diagnoses Hydropneumothorax J94.8 Prostate cancer metastatic to bone C61; C79.51 Atrial flutter with controlled response I48.92 Cardiomyopathy I42.9 Dyslipidemia E78.5 Time Spent (min) 25
[2021-02-20] MEDS: NSS + 20MEQ KCL 20 MEQ/1,000 ML BAG IV SCH (04:33)
[2021-02-20 06:12] LABS: Basophils # (auto) 0.02 K/uL (0-0.2); Basophils % (auto) 0.3 %; Eosinophils # (auto) 0.45 K/uL (0-0.5); Eosinophils % (auto) 7.8 %; Hematocrit (blood only) 30.3 % (42-52); Hemoglobin 9.9 g/dL (14.0-18.0); Immature Granulocytes # (auto) 0.02 K/uL (0.00-0.02); Immature Granulocytes % (auto) 0.3 %; Lymphocytes # (auto) 1.15 K/uL (1.2-3.4); Mean Corpuscular Hgb Conc 32.7 g/dL (32-36); Mean Corpuscular Volume 88.9 fL (80-100); Mean Platelet Volume 8.9 fL (7.4-10.4); Monocytes # (auto) 0.33 K/uL (0.11-0.59); Monocytes % (auto) 5.7 %; Neutrophils # (auto) 3.79 K/uL (1.4-6.5); Neutrophils % (auto) 65.9 %; Platelet Count 217 K/uL (130-400); RDW Standard Deviation 51.9 fL (36.4-46.3); Red Blood Count 3.41 M/uL (4.7-6.1); White Blood Count 5.76 K/uL (4.8-10.8)
[2021-02-20 06:34] LABS: INR 1.1 (0.9-1.1); Partial Thromboplastin Ratio 1.1; Partial Thromboplastin Time 28.7 Seconds (21.0-31.0); Prothrombin Time 11.1 Seconds (9.0-12.0)
[2021-02-20 06:42] LABS: Albumin Level 2.1 gm/dl (3.4-5.0); BUN Creatinine Ratio 17.7 (10-20); Calcium 8.3 mg/dl (8.5-10.1); Creatinine Clr Calc Pharmacy 56.7 ml/min; Est GFR (African American) 91.6 ml/min; Est GFR (Non-African American) 79.1 ml/min; Magnesium 2.2 mg/dl (1.8-2.4); Potassium 4.2 mmol/L (3.5-5.1)
[2021-02-20 06:45] LABS: Albumin Globulin Ratio 0.5 (0.9-2); Bilirubin Direct 0.1 mg/dl (0-0.2); Bilirubin,Total 0.5 mg/dl (0.2-1); Globulin 4.1 gm/dl (2.5-4.0); Phosphorus 1.9 mg/dl (2.5-4.9); Total Protein 6.2 gm/dl (6.4-8.2)
--- NOTE | 2021-02-20 06:54 | Emergency Department Note ---
Impression & Plan Hydropneumothorax, Bilateral pleural effusion, Prostate cancer metastatic to bone ED Provider Note NAME: NELSON JOSHI AGE: 85 SEX: M : 1935 ARRIVES VIA: Walk-In INFORMANT: Patient, family ED PROVIDER(S): Neal Campoverde MD CHIEF COMPLAINT: Shortness of breath HPI: This is an 85-year-old male who has a history of prostate cancer with mets to the bone who has had a known pleural effusion who has been following up with pulmonology. The patient's family reports that the patient had a CAT scan of the chest earlier today and they were called to bring the patient back to the emergency department by the patient's primary care physician. They report that the patient has a hydropneumothorax. The patient himself is in no distress denies any chest pain and only reports shortness of breath when walking. The patient reports exertion makes the shortness of breath worse however rest makes it better. He has not taken anything for the shortness of breath. The patient denies any fevers or chills and currently has no complaints. ROS: See above HPI for pertinent positives & negatives. A total of 10 systems reviewed and were otherwise negative. PAST MEDICAL HISTORY: See Below PAST SURGICAL HISTORY: See Below FAMILY HISTORY: See Below SOCIAL HISTORY: See Below HOME MEDICATIONS: See Below ALLERGIES: See Below VITALS: See Below PHYSICAL EXAMINATION: VITAL SIGNS - Vital signs and nursing notes were reviewed. GENERAL - 85-year-old male appearing stated age who is in no acute distress. Communicates well with provider and answers questions appropriately. SKIN - Without rashes. HEAD - NC/AT. EYES - PERRL with EOMI bilaterally. Sclera anicteric. Palpebral conjunctiva pink and moist with no injection noted. EARS - No deformities of external structures noted on gross examination bilaterally. NOSE - Midline and without cyanosis. No epistaxis or purulent drainage noted. Septum midline without deviation or septal hematoma noted. MOUTH/OROPHARYNX - Without perioral cyanosis. Buccal mucosa pink and moist and without leukoplakia. Tongue midline with equal elevation of palate bilaterally. No tonsillar hypertrophy, erythema, or exudates noted. NECK - Neck with FROM. Supple to palpation. No nuchal rigidity. LUNGS - Chest wall symmetric without accessory muscle use, intercostals retractions, or central cyanosis. Normal vesicular breath sounds CTA B/L. No wheezes, rales, or rhonchi appreciated. CARDIAC - RRR with S1/S2. No murmur, rubs, or gallops appreciated. ABDOMEN - Abdominal contour without pulsations or visible masses. BS normoactive all four quadrants. No tenderness, palpable masses, hepatosplenomegaly, or ascites noted. EXTREMITIES - No clubbing or peripheral cyanosis. No pretibial edema present. +3/5 radial, posterior tibial, and dorsalis pedis pulses palpated throughout. +5/5 strength noted in UE/LE bilaterally. NEUROLOGIC - Cranial nerves II through XII grossly intact. Sensory intact to light touch throughout. Patellar reflexes +2/4. PSYCH - A&Ox3 and cooperates fully with examiner. Pt is very pleasant and interacts well with examiner. MEDICAL DECISION MAKING: Patient was seen and evaluated as above in room A1. Review was performed of nursing notes and vital signs. I did review pertinent previous visits and patient history. After obtaining a thorough history and physical examination the above work up was performed. This is an 85-year-old male who presents emergency department over concerns that he has a hydropneumothorax on CAT scan of the chest. I did discuss the case with critical care who asked that the patient be admitted to the internal medicine service I will note the patient is in no distress and does not have an elevation in his white blood cell count. An order was placed for continuous cardiac monitoring. The monitor shows a rate of 78 with Normal Sinus rhythm. The patient was evaluated during a period of high volume and high acuity during the global COVID-19 pandemic, and that diagnosis was suspected/considered upon their initial presentation. Their evaluation, treatment and testing was consistent with current guidelines for patients who present with complaints or symptoms that may be related to COVID-19. Patient was seen while provider was wearing PPE. Triage Nursing notes reviewed. Prior medical records reviewed Vital Signs: reviewed and remarkable for no significant abnormalities Differential diagnosis: Reactive airway disease, pneumonia, pneumothorax, COPD, CHF, infections, cardiac ischemia, pulmonary embolism, musculoskeletal, gastrointestinal, as well as other pathologies. ER treatment provided: See below Diagnostics interpreted by me: ECG: EKG shows a sinus tachycardia with premature atrial complexes no ST elevation or depression QTC is 471 ventricular rate is 102 EKG is compared to 11/26/2020 premature atrial complexes are now present. Laboratory studies: As stated above and show below. Imaging studies: See below Consultation(s): Critical Care Internal Medicine Past Med/Surg History Medical History (Updated 02/20/21 @ 06:53 by Neal Campoverde MD) Aortic stenosis Atrial flutter Bilateral pleural effusion BPH w/o urinary obs/LUTS CAD (coronary artery disease) 1-vessel (LAD), complicated by internal bleeding requiring another surgery Cardiomyopathy Carotid artery stenosis Carotid stenosis Chronic cough Chronic renal disease COPD (chronic obstructive pulmonary disease) Cough Depression Diabetes mellitus, new onset (2018) Dyslipidemia Dysuria Exudative pleural effusion History of alcohol dependence quit early History of tobacco use Leg fracture, left s/p ORIF Mixed hyperlipidemia PAD (peripheral artery disease) PAD (peripheral artery disease) 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 - 2011 H/O carotid endarterectomy left S/P aortic valve replacement with bioprosthetic valve (2010) S/P CABG (coronary artery bypass graft) (2010) Complicated postoperative course S/P CABG x 1 Family History Father , age 79 Congestive heart failure Atherosclerosis Mother , from diverticulitis age 84 Rheumatoid arthritis Other Cancer Heart disease Denies family history of Tuberculosis Allergies Emphysema, unspecified Lung disease Asthma Social History Smoking Status: Former smoker Years Smoked: 50; Cigarettes Per Day: 1-2 ppd; Hx Alcohol Use: No Hx Substance Use: No Preferred Language: [place] Communication Ability: Effective 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 Of 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 Required: No Beliefs That Will Affect Care: None marital status: marital status details: spouse 2009 Current Living Situation: Family Current Living Situation Comment: lives w/ dtr 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 Other Information That Helps Us Care for You: No other: 3 children one of whom is Feels Safe at Home: Yes Safety Concerns: Feels Safe At This Time Assistive Devices: Cane, Denture - Upper, Denture - Lower, Glasses and Hearing Aid - Bilateral Allergies Allergies Allergy/AdvReac Type Severity Reaction Status Date / Time Penicillins Allergy Severe Hives and Verified 02/17/21 18:32 shortness of breath doxycycline Allergy Mild Rash Verified 02/17/21 18:32 tetracycline Allergy Mild Rash Verified 02/17/21 18:32 Home Meds Home Medications Medication Instructions Recorded Confirmed apixaban 5 mg PO BID 08/05/18 02/17/21 docusate sodium 100 mg capsule 100 mg PO DAILY 01/30/20 02/17/21 calcium carbonate-vitamin D3 600 2 tab PO DAILY tab 07/30/20 02/17/21 mg(1,500 mg)-400 unit chewable tablet carvedilol 12.5 mg tablet See Rx Instructions .ROUTE 08/19/20 02/17/21 .COMPLEX tab aspirin 81 mg tablet,delayed 81 mg PO DAILY 09/25/20 02/17/21 release digoxin 125 mcg (0.125 mg) tablet 125 mcg PO Q2D tab 09/26/20 02/17/21 Xtandi 160 mg PO QAM 11/26/20 02/17/21 ipratropium-albuterol 3 ml INHALATION BID 11/26/20 02/17/21 ondansetron HCl 8 mg PO TID PRN 11/26/20 02/17/21 Lupron 1 dose IM .EVERY 4 MONTHS 02/17/21 02/17/21 azelastine 1 spray INTRANASAL DAILY 02/17/21 02/17/21 denosumab [Xgeva] 120 mg SUBCUT MONTHLY 02/17/21 02/17/21 losartan 12.5 mg PO DAILY 02/17/21 02/17/21 megestrol 400 mg PO DAILY 02/17/21 02/17/21 metoprolol succinate 25 mg PO QAM 02/17/21 02/17/21 Previous Rx's Medication Instructions Recorded rosuvastatin 40 mg tablet 40 mg PO DAILY #30 tab 09/25/20 Results & Data (ED) Home Medications Current Medication List: was personally reviewed by me Laboratory Data Attestation: I reviewed the patient's lab results. Result diagrams: 02/20/21 05:50 02/20/21 05:50 Lab Results 02/17/21 02/17/21 02/17/21 Range/Units 17:50 17:50 17:50 WBC 7.38 (4.8-10.8) K/uL RBC 4.01 L (4.7-6.1) M/uL Hgb 11.9 L (14.0-18.0) g/dL Hct 35.5 L (42-52) % MCV 88.5 (80-100) fL MCH 29.7 (25-34) pg MCHC 33.5 (32-36) g/dL RDW Std Deviation 51.2 H (36.4-46.3) fL RDW Coeff of Godfrey 15.9 H (11.5-14.5) % Plt Count 289 (130-400) K/uL MPV 9.3 (7.4-10.4) fL Immature Gran % (Auto) 0.4 % Neut % (Auto) 66.5 % Lymph % (Auto) 18.8 % Hidalgo % (Auto) 6.0 % Eos % (Auto) 8.0 % Baso % (Auto) 0.3 % Neut # (Auto) 4.91 (1.4-6.5) K/uL Lymph # (Auto) 1.39 (1.2-3.4) K/uL Hidalgo # (Auto) 0.44 (0.11-0.59) K/uL Eos # (Auto) 0.59 H (0-0.5) K/uL Baso # (Auto) 0.02 (0-0.2) K/uL Immature Gran # (Auto) 0.03 H (0.00-0.02) K/uL APTT 26.8 (21.0-31.0) Seconds PTT Ratio 1.0 Sodium 141 (136-145) mmol/L Potassium 4.0 (3.5-5.1) mmol/L Chloride 111 H (98-107) mmol/L Carbon Dioxide 21 (21-32) mmol/L Anion Gap 9.0 (3-11) BUN 23 H (7-18) mg/dl Creatinine 1.24 (0.6-1.4) mg/dl Est Cr Clr Drug Dosing Not Reportable Est GFR ( Amer) 61.1 ml/min Est GFR (Non-Af Amer) 52.7 ml/min BUN/Creatinine Ratio 18.8 (10-20) Glucose 154 H (70-99) mg/dl Calcium 9.5 (8.5-10.1) mg/dl Total Bilirubin 0.4 (0.2-1) mg/dl AST 14 L (15-37) U/L ALT 10 L (12-78) U/L Alkaline Phosphatase 91 (45-117) U/L Total Creatine Kinase 29 L (39-308) U/L CK-MB (CK-2) 1.5 (0.5-3.6) ng/ml CK/CKMB % Calc 5.2 H (0-3.0) Troponin I 0.017 (0-0.045) ng/ml Total Protein 7.8 (6.4-8.2) gm/dl Albumin 2.6 L (3.4-5.0) gm/dl Globulin 5.2 H (2.5-4.0) gm/dl Albumin/Globulin Ratio 0.5 L (0.9-2) Lipase 91 (73-393) U/L Digoxin (0.8-2.0) ng/ml COVID-19 Eval Order SARS-CoV-2 (PCR) (Negative) 02/17/21 02/17/21 02/17/21 Range/Units 17:50 17:59 17:59 WBC (4.8-10.8) K/uL RBC (4.7-6.1) M/uL Hgb (14.0-18.0) g/dL Hct (42-52) % MCV (80-100) fL MCH (25-34) pg MCHC (32-36) g/dL RDW Std Deviation (36.4-46.3) fL RDW Coeff of Godfrey (11.5-14.5) % Plt Count (130-400) K/uL MPV (7.4-10.4) fL Immature Gran % (Auto) % Neut % (Auto) % Lymph % (Auto) % Hidalgo % (Auto) % Eos % (Auto) % Baso % (Auto) % Neut # (Auto) (1.4-6.5) K/uL Lymph # (Auto) (1.2-3.4) K/uL Hidalgo # (Auto) (0.11-0.59) K/uL Eos # (Auto) (0-0.5) K/uL Baso # (Auto) (0-0.2) K/uL Immature Gran # (Auto) (0.00-0.02) K/uL APTT (21.0-31.0) Seconds PTT Ratio Sodium (136-145) mmol/L Potassium (3.5-5.1) mmol/L Chloride (98-107) mmol/L Carbon Dioxide (21-32) mmol/L Anion Gap (3-11) BUN (7-18) mg/dl Creatinine (0.6-1.4) mg/dl Est Cr Clr Drug Dosing Est GFR ( Amer) ml/min Est GFR (Non-Af Amer) ml/min BUN/Creatinine Ratio (10-20) Glucose (70-99) mg/dl Calcium (8.5-10.1) mg/dl Total Bilirubin (0.2-1) mg/dl AST (15-37) U/L ALT (12-78) U/L Alkaline Phosphatase (45-117) U/L Total Creatine Kinase (39-308) U/L CK-MB (CK-2) (0.5-3.6) ng/ml CK/CKMB % Calc (0-3.0) Troponin I (0-0.045) ng/ml Total Protein (6.4-8.2) gm/dl Albumin (3.4-5.0) gm/dl Globulin (2.5-4.0) gm/dl Albumin/Globulin Ratio (0.9-2) Lipase (73-393) U/L Digoxin 0.7 L (0.8-2.0) ng/ml COVID-19 Eval Order Covid19 at [facility] SARS-CoV-2 (PCR) NEGATIVE (Negative) Administered Medications Albuterol (Albut/Ipratrop 3mg/0.5mg Neb 3 Ml Vial) 3 ml INH BIDR DOMO Stop: 03/19/21 21:32 Last Admin: 02/19/21 19:51 Dose: 3 ml Documented by: [id number] Admin: 02/19/21 07:09 Dose: 3 ml Documented by: [id number] Admin: 02/18/21 19:35 Dose: 3 ml Documented by: [id number] Admin: 02/18/21 07:15 Dose: 3 ml Documented by: [id number] Admin: 02/17/21 23:16 Dose: 3 ml Documented by: [id number] Apixaban (Apixaban 5 Mg Tablet) 5 mg PO BID DOMO Stop: 03/21/21 20:59 Last Admin: 02/19/21 20:39 Dose: 5 mg Documented by: [id number] Azelastine HCl (Azelastine Hcl 0.1% Nasal 200 Sprays/27,400 Mcg Btl) 1 sprays NA BID DOMO Stop: 03/20/21 08:59 Last Admin: 02/19/21 20:39 Dose: Not Given Documented by: [id number] Admin: 02/19/21 11:45 Dose: Not Given Documented by: [id number] Admin: 02/18/21 21:55 Dose: Not Given Documented by: [id number] Admin: 02/18/21 11:29 Dose: Not Given Documented by: [id number] Carvedilol (Carvedilol 6.25 Mg Tab) 6.25 mg PO QAM [facility] Stop: 03/21/21 08:59 Last Admin: 02/19/21 09:29 Dose: 6.25 mg Documented by: [id number] Carvedilol (Carvedilol 12.5 Mg Tab) 12.5 mg PO HS DOMO Stop: 03/20/21 20:59 Last Admin: 02/19/21 20:39 Dose: 12.5 mg Documented by: [id number] Admin: 02/18/21 20:07 Dose: 12.5 mg Documented by: [id number] Digoxin (Digoxin 0.125 Mg Tab) 0.125 mg PO Q2D DOMO Stop: 03/20/21 08:59 Last Admin: 02/18/21 09:02 Dose: 0.125 mg Documented by: [id number] Docusate Sodium (Docusate Sodium 100 Mg Cap) 100 mg PO DAILY DOMO Stop: 03/20/21 08:59 Last Admin: 02/19/21 11:45 Dose: Not Given Documented by: [id number] Admin: 02/18/21 09:03 Dose: 100 mg Documented by: [id number] Enzalutamide (Enzalutamide) 4 ea PO DAILY [facility]; Protocol Stop: 03/20/21 08:59 Last Admin: 02/19/21 09:30 Dose: 4 ea Documented by: [id number] Cosigned by: [id number] Admin: 02/18/21 09:04 Dose: 4 ea Documented by: [id number] Cosigned by: [id number] Potassium Chloride/Sodium Chloride (Normal Saline W/20 Meq Kcl) 20 meq in 1,000 mls @ 60 mls/hr IV .[id number] DOMO Stop: 03/19/21 21:32 Last Admin: 02/20/21 04:33 Dose: 60 mls/hr Documented by: [id number] Infusion: 02/20/21 02:03 Dose: 60 mls/hr Documented by: [id number] Admin: 02/19/21 09:22 Dose: 60 mls/hr Documented by: [id number] Infusion: 02/19/21 07:44 Dose: 60 mls/hr Documented by: [id number] Admin: 02/18/21 15:03 Dose: 60 mls/hr Documented by: [id number] Infusion: 02/18/21 15:00 Dose: 60 mls/hr Documented by: [id number] Admin: 02/17/21 22:19 Dose: 60 mls/hr Documented by: [id number] Famotidine 20 mg/ Syringe 5 mls @ 2.5 mls/min IV Q12H DOMO Stop: 03/19/21 21:32 Last Admin: 02/19/21 20:39 Dose: 2.5 mls/min Documented by: [id number] Admin: 02/19/21 09:35 Dose: 2.5 mls/min Documented by: [id number] Admin: 02/18/21 20:07 Dose: 2.5 mls/min Documented by: [id number] Admin: 02/18/21 11:24 Dose: 2.5 mls/min Documented by: [id number] Admin: 02/17/21 22:20 Dose: 2.5 mls/min Documented by: [id number] Megestrol Acetate (Megestrol Acetate Susp 400 Mg/10 Ml Udc) 400 mg PO DAILY DOMO Stop: 03/20/21 08:59 Last Admin: 02/19/21 09:29 Dose: 400 mg Documented by: [id number] Admin: 02/18/21 09:03 Dose: 400 mg Documented by: [id number] Metoprolol Succinate (Metoprolol Succ 25mg Ext Rel Tab) 25 mg PO QAM DOMO Stop: 03/20/21 08:59 Last Admin: 02/19/21 09:36 Dose: 25 mg Documented by: [id number] Admin: 02/18/21 09:03 Dose: 25 mg Documented by: [id number] Multivitamins/Minerals (Calcium 600mg + Vit D 400 Iu Tab) 2 tab PO DAILY DOMO Stop: 03/20/21 08:59 Last Admin: 02/19/21 09:30 Dose: 2 tab Documented by: [id number] Admin: 02/18/21 09:03 Dose: 2 tab Documented by: [id number] Rosuvastatin Calcium (Rosuvastatin Calcium 20 Mg Tab) 40 mg PO DAILY DOMO Stop: 03/20/21 08:59 Last Admin: 02/19/21 09:28 Dose: 40 mg Documented by: [id number] Admin: 02/18/21 09:03 Dose: 40 mg Documented by: [id number] Discontinued Medications Miscellaneous (Carvedilol 12.5 Mg: Order Awaiting Action) 1 ea N/A QS [facility] Stop: 03/20/21 00:00 Last Admin: 02/18/21 09:01 Dose: Not Given Documented by: [id number] Admin: 02/17/21 23:57 Dose: Not Given Documented by: [id number] Discharge Plan Visit Data Chief Complaint: Respiratory Problems Stated Complaint: PNEUMOTHORAX, DOC REF'D ED Provider: Neal Campoverde Discharge Problem: Hydropneumothorax, Bilateral pleural effusion, Prostate cancer metastatic to bone Patient Disposition: Admitted As Inpatient Discharge Instructions Interventions: ED Discharge Assessment Last Done: 02/17/21 21:14
[2021-02-20] MEDS: ALBUT/IPRATROP 3MG/0.5MG NEB 3 ML VIAL INH SCH ×2 (07:02→19:40)
[2021-02-20] MEDS: APIXABAN 5 MG TABLET PO SCH ×2 (09:22→20:00)
[2021-02-20] MEDS: ASPIRIN 81 MG ECTAB PO SCH (09:22)
[2021-02-20] MEDS: CALCIUM 600MG + VIT D 400 IU TAB PO SCH (09:23)
[2021-02-20] MEDS: carvediloL 6.25 MG TAB PO SCH (09:32)
[2021-02-20] MEDS: DIGOXIN 0.125 MG TAB PO SCH (09:33)
[2021-02-20] MEDS: MEGESTROL ACETATE SUSP 400 MG/10 ML UDC PO SCH (09:34)
[2021-02-20] MEDS: ENZALUTAMIDE PO SCH (09:34)
[2021-02-20] MEDS: METOPROLOL SUCC 25MG EXT REL TAB PO SCH (09:35)
[2021-02-20] MEDS: ROSUVASTATIN CALCIUM 20 MG TAB PO SCH (09:35)
--- NOTE | 2021-02-20 09:52 | XRay Report ---
SINGLE VIEW CHEST CLINICAL HISTORY: Hydropneumothorax. FINDINGS: An AP, portable, upright chest radiograph is compared to study dated 02/19/2021. Correlation is made with chest CT dated 02/17/2021. The patient is status post midline sternotomy. The heart is e nlarged noting atherosclerotic calcification of the thoracic aorta. The pulmonary vasculature is nonc ongested. Calcified pleural plaques are again noted. Emphysema and chronic interstitial thickening is similar to previous. A pigtail catheter at the right lung base is unchanged, with a small residual r ight pleural effusion. There is left basilar scarring/atelectasis. No airspace consolidation is seen typical for pneumonia. 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 No pneumothorax is clearly seen. The skeletal structures are osteopenic. There are healed right-sided rib fractures. Osteoblastic metastat ic disease is better assessed on recent CT scans. IMPRESSION: 1. A pigtail catheter at the right lung base is unchanged in position with a small residual right ple ural effusion. 2. No residual pneumothorax is clearly identified. 3. Cardiomegaly and emphysema. ACT 112: Negative or not required by law. Electronically signed by: Aydin Snyder M.D. 02/20/2021 9:51 AM
[2021-02-20] MEDS: FAMOTIDINE 20 MG in SYRINGE 3 ML IV SCH ×2 (10:10→20:02)
[2021-02-20] MEDS: DOCUSATE SODIUM 100 MG CAP PO SCH (10:11)
[2021-02-20] MEDS ORDERED: LIDOCAINE 2% JELLY 5 ML TUBE EXT ONE (10:15)
--- NOTE | 2021-02-20 11:09 | Pulmonology Progress Note ---
Date of Service February 20, 2021 Assessment & Plan (1) Hydropneumothorax: 85-year-old male with a history of ischemic cardiomyopathy status post CABG, metastatic prostate carcinoma and atrial flutter on anticoagulation with Eliquis who presented to the hospital due to hydropneumothorax. Right hydropneumothorax: Substantially improved right hydropneumothorax. Pigtail catheter is currently closed off. Repeat chest x-ray pending at noon. If no expansion of pneumothorax, then we will discontinue the pigtail catheter. Etiology of the pleural effusion is unclear and may be related to malignancy, CHF and/or infectious etiology. Pleural fluid chemistries are suggestive of an exudative effusion. Pleural fluid eosinophilia noted which may be related to malignancy and/or air within the pleural space. Pleural fluid cultures and cytology pending. (2) Heart failure: Heart failure type: unspecified Heart failure chronicity: chronic Qualified Code(s): I50.9 - Heart failure, unspecified (3) Prostate cancer metastatic to bone: (4) Exudative pleural effusion: Admission and Anticipated Discharge Date Admission Date: February 17, 2021 Subjective Patient seen and examined this morning. He is doing very well. Denies any chest pain. No increasing shortness of breath. No fevers or chills. Approximately 100 mL of pleural fluid evacuated from the pigtail catheter overnight. Review of Systems Review of Systems: All systems reviewed & are unremarkable except as noted in HPI & below Physical Exam Constitutional: WD/WN, vitals as above Respiratory: normal respiratory effort, lungs clear to auscultation Cardiovascular: RRR, no murmur, no edema Gastrointestinal (Abdomen): normal bowel sounds, soft, nontender, no hepatosplenomegaly Musculoskeletal: no cyanosis or clubbing, extremities motor strength 5/5 Skin: no rashes, warm and dry Right pigtail catheter in place Neurologic: PERRL, EOMI, accommodation nl, no face palsy, no dysarthria Psychiatric: A+Ox3, euthymic affect Results & Data Results & Data ([facility]) Vital Signs (Past 12 Hours) Vital Signs Temp Pulse Pulse Resp BP Pulse Ox 02/20/21 09:33 78 02/20/21 07:49 98.4 F 88 18 95 02/20/21 07:03 77 20 95 02/20/21 03:56 97.9 F 78 20 117/54 L 96 02/19/21 23:12 97.5 F L 71 18 131/69 97 vital signs, labs and imaging reviewed PG Care Time/CCT Total # of Minutes Spent Total Time Spent with Patient: Total time spent is greater than 50% in coordination of care (as documented) at patient's floor/unit and/or counseling patient: Coding Level of Care Code 66405 Subseq Hosp Care Lvl 3 Diagnoses Hydropneumothorax J94.8 Heart failure I50.9 Heart failure type: unspecified Heart failure chronicity: chronic Prostate cancer metastatic to bone C61; C79.51 Exudative pleural effusion J90
--- NOTE | 2021-02-20 13:02 | XRay Report ---
XR chest 1V portable CLINICAL HISTORY: chest tube clamped COMPARISON STUDY: Chest radiograph February 20, 2021 at 6:35 AM. FINDINGS: Right basilar pleural catheter is noted. A small right lateral basilar pneumothorax is pres ent. There is a small residual right pleural effusion. Trace left effusion is noted. Median sternotom y wires and mediastinal surgical clips are noted. Calcified pleural plaques are incidentally noted. IMPRESSION: Right basilar pleural pigtail catheter in place. Small right hydropneumothorax, as above . ACT 112: Negative or not required by law. Electronically signed by: Kentrell Richardson M.D. 02/20/2021 1:01 PM
--- NOTE | 2021-02-20 14:08 | Procedure Note ---
Procedure Note Date of Service February 20, 2021 Note The gauze overlying the site of the pigtail catheter was removed. The locking mechanism of the pigtail catheter was undone. The pigtail catheter was slowly withdrawn upon the patient exhaling. Gauze was placed over the incision site. The gauze was taped to the skin. Patient tolerated the removal of the pigtail catheter well. Coding CPT Codes Pulmonary/Thoracic - Pulmonary and Thoracic: 37405 Remove lung catheter ([id number]) [facility] Procedure Codes (Charges) Pulmonary/Thoracic Procedure 2: Pulmonary and Thoracic: 52074 Remove lung catheter
[2021-02-20] MEDS: AZELASTINE HCL 0.1% NASAL 200 SPRAYS/27,400 MCG BTL SCH (15:02)
[2021-02-20] MEDS: carvediloL 12.5 MG TAB PO SCH (20:00)
--- NOTE | 2021-02-20 22:03 | Hospitalist Progress Note ---
Date of Service February 20, 2021 Assessment & Plan (1) Hydropneumothorax: Right heart pneumothorax- Admit to monitored bed Consult placed to pulmonology Dr. Lucero : had chest tube placed and removed about 1 liter. restarted apixaban. Removed chest tube today. Patient was having leakage around his chest tube. will monitor overnight. (2) Prostate cancer metastatic to bone: Continue usual medications Xtandi and megace Also on Xgeva and Lupron as an outpatient (3) Atrial flutter with controlled response: Atrial flutter with controlled response/cardiomyopathy/hypertension- Continue carvedilol, digoxin, losartan and Toprol succinate. restarted anticoag. (4) Cardiomyopathy: See above (5) Dyslipidemia: Continue rosuvastatin 40 mg daily Admission and Anticipated Discharge Date Admission Date: February 17, 2021 Subjective 85 yo male reports no new complaints. Review of Systems Review of Systems: All systems reviewed & are unremarkable except as noted in HPI & below Physical Exam Physical Exam: The patient is awake, alert and oriented 3, normocephalic and atraumatic, lying in bed and in no acute distress. HEENT--PERRL, EOMI, mucous membranes and oropharynx normal. Neck--supple. No JVD. No bruits. Thyroid normal, trachea midline, no adenopathy. Heart--normal S1 and S2. No murmurs, rubs or gallops. Lungs--decreased breath sounds right base. No respiratory distress, no accessory muscle use. Abdomen--normal bowel sounds and soft. Nontender. Nondistended, no hernias or masses, no organomegaly. Extremities--no cyanosis or clubbing. No edema. Dermatologic--normal skin turgor, normal color, no abnormal lymph nodes, no rash. Neurologic--cranial nerves II through XII grossly intact. Rheumatologic--normal range of motion. Psychiatric--normal affect. Results & Data Results & Data ([facility]) Vital Signs (Past 12 Hours) Vital Signs Temp Pulse Resp BP Pulse Ox 02/20/21 19:41 80 20 97 02/20/21 18:59 36.6 C 80 22 104/52 L 95 02/20/21 14:56 36.4 C L 77 18 115/58 L 95 02/20/21 11:00 37.0 C 72 18 130/69 99 PG Care Time/CCT Total # of Minutes Spent Total Time Spent with Patient: Total time spent is greater than 50% in coordination of care (as documented) at patient's floor/unit and/or counseling patient: Coding Level of Care Code 74843 Subseq Hosp Care Lvl 2 Diagnoses Hydropneumothorax J94.8 Prostate cancer metastatic to bone C61; C79.51 Atrial flutter with controlled response I48.92 Cardiomyopathy I42.9 Dyslipidemia E78.5 Time Spent (min) 25
[2021-02-21] MEDS: ALBUT/IPRATROP 3MG/0.5MG NEB 3 ML VIAL INH SCH ×2 (06:46→19:26)
[2021-02-21] MEDS: APIXABAN 5 MG TABLET PO SCH ×2 (08:46→20:01)
[2021-02-21] MEDS: ASPIRIN 81 MG ECTAB PO SCH (08:46)
[2021-02-21] MEDS: carvediloL 6.25 MG TAB PO SCH (08:47)
[2021-02-21] MEDS: CALCIUM 600MG + VIT D 400 IU TAB PO SCH (08:47)
[2021-02-21] MEDS: METOPROLOL SUCC 25MG EXT REL TAB PO SCH (08:48)
[2021-02-21] MEDS: DOCUSATE SODIUM 100 MG CAP PO SCH (08:48)
[2021-02-21] MEDS: MEGESTROL ACETATE SUSP 400 MG/10 ML UDC PO SCH (08:48)
[2021-02-21] MEDS: FAMOTIDINE 20 MG in SYRINGE 3 ML IV SCH ×2 (08:48→20:01)
[2021-02-21] MEDS: ENZALUTAMIDE PO SCH (08:49)
[2021-02-21] MEDS: ROSUVASTATIN CALCIUM 20 MG TAB PO SCH (08:49)
--- NOTE | 2021-02-21 13:33 | Pulmonology Progress Note ---
Date of Service February 21, 2021 Assessment & Plan (1) Hydropneumothorax: 85-year-old male with a history of ischemic cardiomyopathy status post CABG, metastatic prostate carcinoma and atrial flutter on anticoagulation with Eliquis who presented to the hospital due to hydropneumothorax. Right hydropneumothorax: Pigtail catheter removed 02/20/2021. Patient symptoms have improved significantly. 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 He has had a pleural effusion for several months. Suspect that the eosinophilic component may be related to the entrainment of air into the pleural space from the pneumothorax. If fluid reaccumulates, we can perform a thoracentesis on an outpatient basis and repeat cytology especially in light of his history of metastatic prostate cancer. Okay to discharge home from pulmonary perspective. (2) Heart failure: Heart failure type: unspecified Heart failure chronicity: chronic Qualified Code(s): I50.9 - Heart failure, unspecified (3) Prostate cancer metastatic to bone: (4) Exudative pleural effusion: Admission and Anticipated Discharge Date Admission Date: February 17, 2021 Subjective Patient seen and examined this morning. He is feeling very well. He notes that he feels "100% better" since hospital admission. He denies any shortness of breath. He is able to sleep well without any significant orthopnea, however, he is sleeping on a 30 degree incline. He denies chest pain. No nausea or vomiting. Review of Systems Review of Systems: All systems reviewed & are unremarkable except as noted in HPI & below Physical Exam Constitutional: WD/WN, vitals as above Respiratory: normal respiratory effort, lungs clear to auscultation Cardiovascular: RRR, no murmur, no edema Gastrointestinal (Abdomen): normal bowel sounds, soft, nontender, no hepatos plenomegaly Musculoskeletal: no cyanosis or clubbing, extremities motor strength 5/5 Skin: no rashes, warm and dry Dressing noted over the right lateral chest wall where the previous pigtail was placed. Neurologic: PERRL, EOMI, accommodation nl, no face palsy, no dysarthria Psychiatric: A+Ox3, euthymic affect Results & Data Results & Data ([facility]) Vital Signs (Past 12 Hours) Vital Signs Temp Pulse Pulse Resp BP Pulse Ox 02/21/21 10:48 98.2 F 80 17 102/51 L 95 06/19/21 07:14 80 02/21/21 07:07 99.1 F 89 18 123/61 98 02/21/21 06:46 80 20 94 02/21/21 03:45 97.5 F L 80 18 126/54 L 95 vital signs, labs and imaging personally reviewed PG Care Time/CCT Total # of Minutes Spent Total Time Spent with Patient: Total time spent is greater than 50% in coordination of care (as documented) at patient's floor/unit and/or counseling patient: Coding Level of Care Code 66687 Subseq Hosp Care Lvl 2 Diagnoses Hydropneumothorax J94.8 Heart failure I50.9 Heart failure type: unspecified Heart failure chronicity: chronic Prostate cancer metastatic to bone C61; C79.51 Exudative pleural effusion J90
[2021-02-21] MEDS: carvediloL 12.5 MG TAB PO SCH (20:01)
--- NOTE | 2021-02-21 22:49 | Hospitalist Progress Note ---
Date of Service February 21, 2021 Assessment & Plan (1) Hydropneumothorax: Right heart pneumothorax- Admit to monitored bed Consult placed to pulmonology Dr. Lucero : had chest tube placed and removed about 1 liter. restarted apixaban. Removed chest tube yesterday Patient no longer having drainage. Patient requires placement. will keep patient home. (2) Prostate cancer metastatic to bone: Continue usual medications Xtandi and megace Also on Xgeva and Lupron as an outpatient (3) Atrial flutter with controlled response: Atrial flutter with controlled response/cardiomyopathy/hypertension- Continue carvedilol, digoxin, losartan and Toprol succinate. restarted anticoag. (4) Cardiomyopathy: See above (5) Dyslipidemia: Continue rosuvastatin 40 mg daily Admission and Anticipated Discharge Date Admission Date: February 17, 2021 Subjective Patient reports feeling well. He is breathing well, has no SOB. However he has generalized breathing. Review of Systems Review of Systems: All systems reviewed & are unremarkable except as noted in HPI & below Physical Exam Physical Exam: The patient is awake, alert and oriented 3, normocephalic and atraumatic, lying in bed and in no acute distress. HEENT--PERRL, EOMI, mucous membranes and oropharynx normal. Neck--supple. No JVD. No bruits. Thyroid normal, trachea midline, no adenopathy. Heart--normal S1 and S2. No murmurs, rubs or gallops. Lungs--improved breath sounds right base. No respiratory distress, no accessory muscle use. Abdomen--normal bowel sounds and soft. Nontender. Nondistended, no hernias or masses, no organomegaly. Extremities--no cyanosis or clubbing. No edema. Dermatologic--normal skin turgor, normal color, no abnormal lymph nodes, no rash. Neurologic--cranial nerves II through XII grossly intact. Rheumatologic--normal range of motion. Psychiatric--normal affect. Results & Data Results & Data ([facility]) Vital Signs (Past 12 Hours) Vital Signs Temp Pulse Pulse Resp BP Pulse Ox 02/21/21 19:54 36.5 C 82 16 143/74 H 95 02/21/21 19:26 75 18 95 02/21/21 14:46 36.7 C 71 18 110/51 L 94 PG Care Time/CCT Total # of Minutes Spent Total Time Spent with Patient: Total time spent is greater than 50% in coordination of care (as documented) at patient's floor/unit and/or counseling patient: Coding Level of Care Code 22363 Subseq Hosp Care Lvl 2 Diagnoses Hydropneumothorax J94.8 Prostate cancer metastatic to bone C61; C79.51 Atrial flutter with controlled response I48.92 Cardiomyopathy I42.9 Dyslipidemia E78.5 Time Spent (min) 25
[2021-02-22] MEDS: ALBUT/IPRATROP 3MG/0.5MG NEB 3 ML VIAL INH SCH ×2 (07:13→20:39)
[2021-02-22] MEDS: ASPIRIN 81 MG ECTAB PO SCH (09:09)
[2021-02-22] MEDS: APIXABAN 5 MG TABLET PO SCH (09:09)
[2021-02-22] MEDS: carvediloL 6.25 MG TAB PO SCH (09:10)
[2021-02-22] MEDS: CALCIUM 600MG + VIT D 400 IU TAB PO SCH (09:10)
[2021-02-22] MEDS: DIGOXIN 0.125 MG TAB PO SCH (09:10)
[2021-02-22] MEDS: MEGESTROL ACETATE SUSP 400 MG/10 ML UDC PO SCH (09:11)
[2021-02-22] MEDS: ROSUVASTATIN CALCIUM 20 MG TAB PO SCH (09:11)
[2021-02-22] MEDS: FAMOTIDINE 20 MG in SYRINGE 3 ML IV SCH ×2 (09:11→20:16)
[2021-02-22] MEDS: DOCUSATE SODIUM 100 MG CAP PO SCH (09:11)
[2021-02-22] MEDS: ENZALUTAMIDE PO SCH (09:12)
[2021-02-22] MEDS: METOPROLOL SUCC 25MG EXT REL TAB PO SCH (09:12)
[2021-02-22 17:39] LABS: Basophils # (auto) 0.01 K/uL (0-0.2); Basophils % (auto) 0.1 %; Eosinophils # (auto) 0.45 K/uL (0-0.5); Eosinophils % (auto) 3.7 %; Hematocrit (blood only) 33.1 % (42-52); Hemoglobin 11.3 g/dL (14.0-18.0); Immature Granulocytes # (auto) 0.03 K/uL (0.00-0.02); Immature Granulocytes % (auto) 0.2 %; Lymphocytes # (auto) 1.11 K/uL (1.2-3.4); Lymphocytes % (auto) 9.2 %; Mean Corpuscular Hemoglobin 29.4 pg (25-34); Mean Platelet Volume 9.3 fL (7.4-10.4); Monocytes # (auto) 0.56 K/uL (0.11-0.59); Monocytes % (auto) 4.6 %; Neutrophils # (auto) 9.89 K/uL (1.4-6.5); Neutrophils % (auto) 82.2 %; Platelet Count 261 K/uL (130-400); Red Blood Count 3.85 M/uL (4.7-6.1); White Blood Count 12.05 K/uL (4.8-10.8)
--- NOTE | 2021-02-22 17:39 | XRay Report ---
XR chest 1V portable HISTORY: Shortness of breath. pursed lip breathing COMPARISON: Chest 02/20/2021. FINDINGS: No pneumothorax. There are small bilateral pleural effusions, right greater than left. Diff use interstitial/vascular thickening has progressed. This suggests mild interstitial pulmonary edema. The heart is mildly enlarged. There are poststernotomy changes. Old, healed bilateral rib fractures are noted. Calcified pleural plaques are again suggested. There are patchy bibasilar densities which have also progressed. IMPRESSION: 1. Interval progression of the mild interstitial pulmonary edema and small bilateral pleural effusion s. 2. Bibasilar densities have also progressed and may represent atelectasis from the pleural effusions or a superimposed pneumonia. ACT 112: Negative or not required by law. Electronically signed by: Hima Cuellar M.D. 02/22/2021 5:38 PM
[2021-02-22] MEDS ORDERED: FUROSEMIDE 40 MG/4 ML VIAL IV ONE (17:53)
[2021-02-22 17:58] LABS: Mean Corpuscular Hgb Conc 34.1 g/dL (32-36)
--- NOTE | 2021-02-22 18:07 | Pulmonology Progress Note ---
Date of Service February 22, 2021 Assessment & Plan (1) Shortness of breath: 85-year-old male with a past medical history of metastatic prostate cancer presenting to the hospital due to increasing shortness of breath. Shortness of breath: Chest x-ray reviewed which looks like possible pulmonary edema. Will give 40 mg of IV Lasix. His blood pressure is elevated and I suspect there is an element of flash pulmonary edema. Notably, there are increased pleural effusions noted bilaterally. Recommend controlling his hypertension. We will check a proBNP, procalcitonin level, troponin and EKG. If procalcitonin level is elevated, will initiate antibiotics. Procalcitonin level was within normal limits on admission. Right hydropneumothorax: It appears that the pleural fluid has reaccumulated some on the right side. The pleural fluid cytology was suggestive of eosinophilic pleuritis and the pleural fluid eosinophil counts were elevated. Question the possibility of this being related to one of his medications including Xtandi. We will need to discuss further with oncology. We will give a dose of IV Solu-Medrol. He does have mild peripheral eosinophilia. Pleural fluid eosinophilia can also be seen with malignancy and with entrainment of air into the pleural space. He did have a hydropneumothorax. We will need to consider repeat thoracentesis and/or Pleurx catheter placement. Please hold Eliquis today and tomorrow morning for the possibility of further pleural procedures tomorrow. Overall, suspect that his prognosis is going to be somewhat poor in this elderly gentleman with metastatic prostate cancer. Notably, his albumin is 2.1 which confers a poor prognosis. The patient's daughter was updated extensively. (2) Pulmonary edema: (3) Hydropneumothorax: (4) Exudative pleural effusion: Admission and Anticipated Discharge Date Admission Date: February 17, 2021 Subjective I came up to evaluate the patient as the hospitalist requested me to see the patient again due to worsening shortness of breath. Patient's daughter was present in the room. Patient appears more tachypneic today. He is requiring 2 L of oxygen. Patient denies any sensation of shortness of breath, but clearly does appear to be more short of breath. No significant cough. No fevers or chills overnight. Denies chest pain. Review of Systems Review of Systems: All systems reviewed & are unremarkable except as noted in HPI & below Physical Exam Constitutional: + ill appearing and + thin ENMT: external ear and nose normal, oropharynx normal Respiratory: + tachypneic Auscultation: + diminished lung sounds and + rales Cardiovascular: RRR, no murmur, no edema Gastrointestinal (Abdomen): normal bowel sounds, soft, nontender, no hepatosplenomegaly Musculoskeletal: no cyanosis or clubbing, extremities motor strength 5/5 Skin: no rashes, warm and dry Dressing noted over the right lateral chest wall where the previous pigtail was placed. Neurologic: PERRL, EOMI, accommodation nl, no face palsy, no dysarthria Psychiatric: A+Ox3, euthymic affect Results & Data Results & Data ([facility]) Vital Signs (Past 12 Hours) Vital Signs Temp Pulse Pulse Resp BP Pulse Ox 02/22/21 17:06 98.1 F 119 H 24 174/76 H 95 02/22/21 15:31 97.7 F 83 19 143/64 H 95 02/22/21 10:43 97.9 F 74 17 114/48 L 94 02/22/21 09:10 77 02/22/21 07:45 98.1 F 72 19 119/55 L 94 02/22/21 07:13 78 16 95 Vital signs, labs and imaging reviewed. Chest x-ray with increased perihilar infiltrates. Bilateral effusions noted. Right greater than left. Suspect CHF. PG Care Time/CCT Total # of Minutes Spent Total Time Spent with Patient: Total time spent is greater than 50% in coordination of care (as documented) at patient's floor/unit and/or counseling patient: Coding Level of Care Code 93473 Subseq Hosp Care Lvl 3 Diagnoses Shortness of breath R06.02 Pulmonary edema J81.1 Hydropneumothorax J94.8 Exudative pleural effusion J90
[2021-02-22 18:13] LABS: BUN Creatinine Ratio 15.6 (10-20); Calcium 9.6 mg/dl (8.5-10.1); Creatinine Clr Calc Pharmacy 47.8 ml/min; Est GFR (African American) 77.3 ml/min; Est GFR (Non-African American) 66.7 ml/min; Potassium 4.8 mmol/L (3.5-5.1)
[2021-02-22] MEDS ORDERED: methylPREDNISolone 40 MG in SYRINGE 0 ML IV ONE (18:15)
[2021-02-22] MEDS ORDERED: FUROSEMIDE 40 MG in SYRINGE 0 ML IV ONE (18:15)
[2021-02-22 18:38] LABS: Base Excess VBG -2.7 mEq/L; HCO3 VBG 21 mmol/L; PCO2 VBG 31 mmHg (38-50); PO2 VBG 22 mmHg; pH VBG 7.44 (7.36-7.41)
[2021-02-22 18:43] LABS: Oxygen Saturation VBG < 60.0 %
[2021-02-22] MEDS: POT PHOSPHATE MONOBASIC W/ SOD TAB PO SCH (20:15)
[2021-02-22] MEDS: carvediloL 12.5 MG TAB PO SCH (20:16)
--- NOTE | 2021-02-22 23:33 | Hospitalist Progress Note ---
Date of Service February 22, 2021 Assessment & Plan (1) Hydropneumothorax: Right heart pneumothorax- Admit to monitored bed Consult placed to pulmonology Dr. Lucero : had chest tube placed and removed about 1 liter. restarted apixaban. Removed chest tube yesterday Patient no longer having drainage. Patient requires placement. will keep patient here. On 02/22, patient was having more SOB. Ordered IV lasix and had discussion with pulmonary/lens cementer. They ordered steroids as well due to: Pleural fluid eosinophili Pumonary tomorrow will re-eval patient. Held evening apixaban dose (02/22) for possibility of repeat thoracocenthesis in the future. (2) Prostate cancer metastatic to bone: Continue usual medications Xtandi and megace Also on Xgeva and Lupron as an outpatient (3) Atrial flutter with controlled response: Atrial flutter with controlled response/cardiomyopathy/hypertension- Continue carvedilol, digoxin, losartan and Toprol succinate. (4) Cardiomyopathy: See above (5) Dyslipidemia: Continue rosuvastatin 40 mg daily Admission and Anticipated Discharge Date Admission Date: February 17, 2021 Subjective Patient was having SOB in the afternoon with pursed lip breathing. Daughter at bedside and nurse called. Obtained x-ray which showed possible fluid congestion. Ordered IV lasix. Had discussion with lens cementer, whoo ordered steroids. Review of Systems Review of Systems: All systems reviewed & are unremarkable except as noted in HPI & below Physical Exam Physical Exam: The patient is awake, alert and oriented 3, normocephalic and atraumatic, lying in bed and imoderate distress.. HEENT--PERRL, EOMI, mucous membranes and oropharynx normal. Neck--supple. No JVD. No bruits. Thyroid normal, trachea midline, no adenopathy. Heart--normal S1 and S2. No murmurs, rubs or gallops. Lungs--ibilateral rales No respiratory distress, no accessory muscle use. Abdomen--normal bowel sounds and soft. Nontender. Nondistended, no hernias or masses, no organomegaly. Extremities--no cyanosis or clubbing. No edema. Dermatologic--normal skin turgor, normal color, no abnormal lymph nodes, no rash. Neurologic--cranial nerves II through XII grossly intact. Rheumatologic--normal range of motion. Psychiatric--normal affect. Results & Data Results & Data ([facility]) Vital Signs (Past 12 Hours) Vital Signs Temp Pulse Resp BP Pulse Ox 02/22/21 22:56 36.8 C 95 H 19 107/55 L 97 02/22/21 20:39 108 H 26 H 97 02/22/21 19:17 36.8 C 114 H 20 149/77 H 94 02/22/21 18:43 37.7 C H 112 H 19 143/72 H 95 02/22/21 17:59 37.1 C 108 H 21 141/62 H 95 02/22/21 17:06 36.7 C 119 H 24 174/76 H 95 02/22/21 15:31 36.5 C 83 19 143/64 H 95 PG Care Time/CCT Total # of Minutes Spent Total Time Spent with Patient: Total time spent is greater than 50% in coordination of care (as documented) at patient's floor/unit and/or counseling patient: Coding Level of Care Code 23619 Subseq Hosp Care Lvl 3 Diagnoses Hydropneumothorax J94.8 Prostate cancer metastatic to bone C61; C79.51 Atrial flutter with controlled response I48.92 Cardiomyopathy I42.9 Dyslipidemia E78.5 Time Spent (min) 35
[2021-02-23 05:55] LABS: Hematocrit (blood only) 28.5 % (42-52); Hemoglobin 9.6 g/dL (14.0-18.0); Mean Corpuscular Hemoglobin 29.1 pg (25-34); Mean Corpuscular Hgb Conc 33.7 g/dL (32-36); Mean Corpuscular Volume 86.4 fL (80-100); Mean Platelet Volume 8.7 fL (7.4-10.4); Platelet Count 205 K/uL (130-400); RDW Coefficient of Variation 15.6 % (11.5-14.5); RDW Standard Deviation 49.9 fL (36.4-46.3); White Blood Count 10.29 K/uL (4.8-10.8)
[2021-02-23] MEDS: CALCIUM 600MG + VIT D 400 IU TAB PO SCH (05:55)
[2021-02-23 06:26] LABS: BUN Creatinine Ratio 17.8 (10-20); Calcium 8.3 mg/dl (8.5-10.1); Est GFR (African American) 73.8 ml/min; Est GFR (Non-African American) 63.7 ml/min; Potassium 4.1 mmol/L (3.5-5.1)
[2021-02-23] MEDS: ALBUT/IPRATROP 3MG/0.5MG NEB 3 ML VIAL INH SCH ×2 (07:18→19:23)
[2021-02-23] MEDS: ASPIRIN 81 MG ECTAB PO SCH (08:16)
[2021-02-23] MEDS: POT PHOSPHATE MONOBASIC W/ SOD TAB PO SCH ×3 (08:16→18:52)
[2021-02-23] MEDS: carvediloL 6.25 MG TAB PO SCH (08:16)
[2021-02-23] MEDS: ROSUVASTATIN CALCIUM 20 MG TAB PO SCH (08:16)
[2021-02-23] MEDS: METOPROLOL SUCC 25MG EXT REL TAB PO SCH (08:16)
[2021-02-23] MEDS: ENZALUTAMIDE PO SCH (08:17)
--- NOTE | 2021-02-23 08:43 | XRay Report ---
XR chest 1V portable CLINICAL HISTORY: Shortness of breath COMPARISON STUDY: 02/22/2021 FINDINGS: There are postsurgical changes of a midline sternotomy. The cardiac and mediastinal contour s remain stable. There is improving pulmonary edema. There are small bilateral pleural effusions righ t greater than left with associated right basilar opacities, likely atelectatic. There are old rib de formities. IMPRESSION: 1. Improving pulmonary edema 2. Slight decrease in size of small bilateral pleural effusions right greater than left. 3. Slight improvement in the aeration of the lung bases ACT 112: Negative or not required by law. Electronically signed by: Miguel A Cantu M.D. 02/23/2021 8:42 AM
[2021-02-23] MEDS: MEGESTROL ACETATE SUSP 400 MG/10 ML UDC PO SCH (09:00)
--- NOTE | 2021-02-23 09:11 | Pulmonology Progress Note ---
Date of Service February 23, 2021 Assessment & Plan (1) Shortness of breath: 85-year-old male with a past medical history of metastatic prostate cancer presenting to the hospital due to increasing shortness of breath. --Right-sided hydropneumothorax S/p pigtail catheter placement Pigtail catheter was removed 02/20/2021 Pleural fluid was 52% eosinophilic, exudative as per lights criteria Cytology fluid negative for malignancy. Pleural fluid: LDH 454, protein 4.9, pH 7.36, glucose 87 Etiology of eosinophilic pleural effusion could be pneumothorax, medication like Xtandi. Malignancy can also give eosinophilic along with parasitic pneumonia. --Shortness of breath Significantly improved after patient was given 40 mg of Lasix on 02/22/2021 Plan: Chest x-ray from today shows improvement in aeration compared to yesterday. Bedside ultrasound: Patient has small right-sided pleural effusion with loculations. No left-sided pleural effusion Patient was saturating 95-96% on room air at the time of examination with no distress. Recommend starting the patient on Lasix 20 mg on a daily basis. I do not plan to do thoracentesis given the patient has significant improved after dose of Lasix. If the patient develops significant pleural effusion on the right side again then a repeat thoracentesis versus Pleurx catheter could be thought of as outpatient. Case was discussed with RN and Dr. Lino Please note the above document was generated using voice recognition software. It may contain grammatical, syntax or spelling errors.Any formal questions or concerns about the content, text or information contained within the body of this dictation should be directly addressed to the provider for clarification. (2) Pulmonary edema: (3) Hydropneumothorax: (4) Exudative pleural effusion: Admission and Anticipated Discharge Date Admission Date: February 17, 2021 Subjective Patient seen and examined at bedside. No acute distress, noted with symptoms overnight. Denies any chest pain, no shortness of breath. His breathing is significantly improved since yesterday. Denies any fever or chills. Good appetite. Denies any cough Review of Systems Review of Systems: All systems reviewed & are unremarkable except as noted in Subjective Physical Exam Physical Exam: Constitutional: No acute distress HEENT: EOMI, PERRLA Respiratory system: Decreased air entry on the right lower side, no wheeze, no rhonchi, no crackles CVS: S1-S2 positive, no murmurs or gallops Abdomen: Soft, nontender, nondistended, positive bowel sounds x4 Extremities: +2 pulses bilaterally radialis/ dorsalis pedis, no cyanosis, no edema Neuro: Awake alert oriented x3 Psych: Normal mood and affect G/U: No Garcia Skin: no rashes, warm and dry Lymphatic: no cervical or axillary lymphadenopathy Results & Data Results & Data ([facility]) Vital Signs (Past 12 Hours) Vital Signs Temp Pulse Pulse Resp BP BP Pulse Ox 02/23/21 07:27 36.7 C 60 19 104/52 L 95 02/23/21 07:18 77 18 95 02/23/21 03:10 36.8 C 78 20 105/56 L 98 02/23/21 00:11 96 H 02/22/21 22:56 36.8 C 95 H 19 107/55 L 97 02/23/21 05:40 02/23/21 05:40 PG Care Time/CCT Total # of Minutes Spent Total Time Spent with Patient: Total time spent is greater than 50% in coordination of care (as documented) at patient's floor/unit and/or counseling patient: Coding Level of Care Code 43016 Subseq Hosp Care Lvl 3 Diagnoses Shortness of breath R06.02 Pulmonary edema J81.1 Hydropneumothorax J94.8 Exudative pleural effusion J90
[2021-02-23] MEDS: FAMOTIDINE 20 MG in SYRINGE 3 ML IV SCH (11:43)
[2021-02-23] MEDS: DOCUSATE SODIUM 100 MG CAP PO SCH (11:44)
--- NOTE | 2021-02-23 12:39 | Procedure Note ---
Procedure Note Date of Service February 23, 2021 Bedside Ultrasound: Lung: Right: Small right-sided pleural effusion, multiple loculations appreciated, no B-lines anteriorly Left: No pleural effusion appreciated, no B-lines anteriorly Please note the above document was generated using voice recognition software. It may contain grammatical, syntax or spelling errors.Any formal questions or concerns about the content, text or information contained within the body of this dictation should be directly addressed to the provider for clarification. Coding CPT Codes Pulmonary/Thoracic - Pulmonary and Thoracic: 17832 US, Chest, real time with imaging documentation ([id number]) [facility] Procedure Codes (Charges) Pulmonary/Thoracic Procedure 1: Pulmonary and Thoracic: 72123 US, Chest, real time with imaging documentation
--- NOTE | 2021-02-23 14:00 | Electrocardiogram Report ---
Test Reason : Blood Pressure : / mmHG Vent. Rate : 109 BPM Atrial Rate : 109 BPM P-R Int : 188 ms QRS Dur : 132 ms QT Int : 340 ms P-R-T Axes : 100 011 120 degrees QTc Int : 457 ms Sinus tachycardia Non-specific intra-ventricular conduction block Abnormal ECG When compared with ECG of 17-FEB-2021 17:43, Premature atrial complexes are no longer Present Confirmed by Adiel Dunn [id number]) on 02/23/2021 2:00:00 PM Referred By: Kit Issa Confirmed By:Adiel Dunn
--- NOTE | 2021-02-23 14:59 | Hospitalist Progress Note ---
Date of Service February 23, 2021 Assessment & Plan (1) Hydropneumothorax: Right-sided hydropneumothorax. Ddx includes Xtandi vs. malginancy as this was an eosinophilic pleural effusion. - Chest tube placed by Dr. Lucero - Removed on 02/21. - Required Lasix on 02/22 for shortness of breath. - Seen by Dr. Vance and discussed with him. For now, continue conservative measures. (2) Prostate cancer metastatic to bone: - Continue usual medications Xtandi and Megace - Also on denosumab and Lupron as an outpatient - Will discuss with oncology today or tomorrow AM (3) Atrial flutter with controlled response: Atrial flutter with controlled response/cardiomyopathy/hypertension. - BP today is 115/50. - Continue digoxin, losartan and metoprolol succinate. - Also on carvedilol AM which is both duplicate therapy (two beta-blockers) and also just daily. STOP this. (4) Cardiomyopathy: Per report, though I see no echo to indicate what is EF is. Presently appears euvolemic after Lasix yesterday. Do NOT think this was CHF exacerbation as we are worried about either his cancer or chemotherapy as the cause for the pleural effusion. Volume overload after that was likely iatrogenic. - See above (5) Dyslipidemia: - Continue rosuvastatin 40 mg daily (6) DVT prophylaxis: Apixaban Admission and Anticipated Discharge Date Admission Date: February 17, 2021 Subjective Feels quite well today. Reports no fevers/chills, chest pain, shortness of breath, abdominal pain, nausea, or vomiting. Physical Exam Constitutional: WD/WN, vitals as above Eyes: EOM intact bilaterally; no conjunctival abnormality ENMT: external ear and nose normal, oropharynx normal Neck: trachea midline, no thyromegaly normal visual inspection Respiratory: normal respiratory effort, lungs clear to auscultation no respiratory distress Cardiovascular: RRR, no murmur, no edema Gastrointestinal (Abdomen): Inspection/Auscultation: abdomen normal to inspection; abdomen not distended Musculoskeletal: no cyanosis or clubbing, extremities motor strength 5/5 Skin: no rashes, warm and dry Neurologic: moves all extremities and awake Psychiatric: Orientation: alert, oriented to person and cooperative Results & Data Results & Data ([facility]) Vital Signs (Past 12 Hours) Vital Signs Temp Pulse Resp BP BP Pulse Ox 02/23/21 12:30 82 20 112/50 L 103/47 L 96 02/23/21 11:34 36.6 C 82 19 87/50 L 96 02/23/21 07:27 36.7 C 60 19 104/52 L 95 02/23/21 07:18 77 18 95 02/23/21 03:10 36.8 C 78 20 105/56 L 98 PG Care Time/CCT Total # of Minutes Spent Total Time Spent with Patient: Total time spent is greater than 50% in coordination of care (as documented) at patient's floor/unit and/or counseling patient: Coding Level of Care Code 95815 Subseq Hosp Care Lvl 3 Diagnoses Hydropneumothorax J94.8 Prostate cancer metastatic to bone C61; C79.51 Atrial flutter with controlled response I48.92 Cardiomyopathy I42.9 Dyslipidemia E78.5 DVT prophylaxis Z29.9
[2021-02-23] MEDS: APIXABAN 5 MG TABLET PO SCH (19:51)
[2021-02-24] MEDS: CALCIUM 600MG + VIT D 400 IU TAB PO SCH (06:02)
[2021-02-24 06:55] LABS: Hematocrit (blood only) 29.7 % (42-52); Hemoglobin 9.8 g/dL (14.0-18.0); Mean Corpuscular Hemoglobin 28.7 pg (25-34); Mean Corpuscular Volume 87.1 fL (80-100); Mean Platelet Volume 9.2 fL (7.4-10.4); Platelet Count 233 K/uL (130-400); RDW Coefficient of Variation 15.9 % (11.5-14.5); RDW Standard Deviation 51.2 fL (36.4-46.3); Red Blood Count 3.41 M/uL (4.7-6.1); White Blood Count 6.82 K/uL (4.8-10.8)
[2021-02-24] MEDS: ALBUT/IPRATROP 3MG/0.5MG NEB 3 ML VIAL INH SCH (06:56)
[2021-02-24 06:57] VITALS: O2SAT 94
[2021-02-24 07:30] LABS: BUN Creatinine Ratio 22.9 (10-20); Calcium 8.3 mg/dl (8.5-10.1); Creatinine Clr Calc Pharmacy 49.7 ml/min; Est GFR (African American) 81.2 ml/min; Magnesium 2.3 mg/dl (1.8-2.4); Potassium 3.7 mmol/L (3.5-5.1)
[2021-02-24] MEDS: APIXABAN 5 MG TABLET PO SCH (08:43)
[2021-02-24] MEDS: MEGESTROL ACETATE SUSP 400 MG/10 ML UDC PO SCH (08:43)
[2021-02-24] MEDS: METOPROLOL SUCC 25MG EXT REL TAB PO SCH (08:43)
[2021-02-24] MEDS: DIGOXIN 0.125 MG TAB PO SCH (08:44)
[2021-02-24] MEDS: ASPIRIN 81 MG ECTAB PO SCH (08:44)
[2021-02-24] MEDS: ROSUVASTATIN CALCIUM 20 MG TAB PO SCH (08:44)
[2021-02-24] MEDS: DOCUSATE SODIUM 100 MG CAP PO SCH (08:45)
[2021-02-24] MEDS: ENZALUTAMIDE PO SCH (08:45)
[2021-02-24] MEDS ORDERED: FUROSEMIDE 20 MG TAB PO SCH (09:00)
--- NOTE | 2021-02-24 12:03 | Pulmonology Progress Note ---
Date of Service February 24, 2021 Assessment & Plan (1) Shortness of breath: 85-year-old male with a past medical history of metastatic prostate cancer presenting to the hospital due to increasing shortness of breath. --Right-sided hydropneumothorax S/p pigtail catheter placement Pigtail catheter was removed 02/20/2021 Pleural fluid was 52% eosinophilic, exudative as per lights criteria Cytology fluid negative for malignancy. Pleural fluid: LDH 454, protein 4.9, pH 7.36, glucose 87 Etiology of eosinophilic pleural effusion could be pneumothorax, medication like Xtandi. Malignancy can also give eosinophilic along with parasitic pneumonia. --Shortness of breath Significantly improved after patient was given 40 mg of Lasix on 02/22/2021 Plan: Add incentive spirometry. Continue with diuresis on a daily basis If the patient develops significant pleural effusion on the right side again then a repeat thoracentesis versus Pleurx catheter could be thought of as outpatient. No further recommendations from pulmonary perspective. Please call directly with any questions. Case was discussed with Dr. Lino Please note the above document was generated using voice recognition software. It may contain grammatical, syntax or spelling errors.Any formal questions or concerns about the content, text or information contained within the body of this dictation should be directly addressed to the provider for clarification. (2) Pulmonary edema: (3) Hydropneumothorax: (4) Exudative pleural effusion: Admission and Anticipated Discharge Date Admission Date: February 17, 2021 Subjective Patient seen and examined at bedside. No acute distress, no adverse events overnight. Dr. Lino was also in the room at the time of examination. He says that he is feeling better. Shortness of breath is getting better. Denies any chest pain, does complain of cough which he is able to bring up. Is mostly clear. Denies any fever or chills. No dysuria. Fair appetite. Asking to go home Review of Systems Review of Systems: All systems reviewed & are unremarkable except as noted in Subjective Physical Exam Physical Exam: Constitutional: No acute distress HEENT: EOMI, PERRLA Respiratory system: Decreased air entry on the right lower side, no wheeze, no rhonchi, no crackles CVS: S1-S2 positive, no murmurs or gallops Abdomen: Soft, nontender, nondistended, positive bowel sounds x4 Extremities: +2 pulses bilaterally radialis/ dorsalis pedis, no cyanosis, no edema Neuro: Awake alert oriented x3 Psych: Normal mood and affect G/U: No Garcia Skin: no rashes, warm and dry Lymphatic: no cervical or axillary lymphadenopathy Results & Data Results & Data ([facility]) Vital Signs (Past 12 Hours) Vital Signs Temp Pulse Pulse Resp BP Pulse Ox 02/24/21 10:41 36.7 C 78 18 109/53 L 94 02/24/21 09:43 75 02/24/21 08:44 75 02/24/21 06:56 88 20 94 02/24/21 06:45 36.8 C 88 18 118/60 93 02/24/21 04:23 37.2 C 87 18 106/50 L 94 02/24/21 06:30 02/24/21 06:30 PG Care Time/CCT Total # of Minutes Spent Total Time Spent with Patient: Total time spent is greater than 50% in coordination of care (as documented) at patient's floor/unit and/or counseling patient: Coding Level of Care Code 80603 Subseq Hosp Care Lvl 2 Diagnoses Shortness of breath R06.02 Pulmonary edema J81.1 Hydropneumothorax J94.8 Exudative pleural effusion J90
[2021-02-24 15:34] VITALS: TEMP 97.3
--- NOTE | 2021-02-24 15:58 | Discharge Summary ---
Date of Service February 24, 2021 Admission HPI Per Admitting Provider The patient is an 85-year-old male with a past med history Wood[place] CHF, prostate cancer metastatic to bone, encephalopathy due to infection, bilateral pleural effusion, sepsis, UTI, aspiration pneumonia, chronic anticoagulation, atrial flutter with controlled response, status post CABG, status post CEA, cardiomyopathy, carotid artery stenosis, depression, dyslipidemia, PAD, status post bioprosthetic AVR, BPH without LUTS, COPD, diabetes mellitus, hypertension, and CKD. The patient was referred to the emergency department by his PCP, after presenting there with chest discomfort and shortness of breath. Chest x-ray performed showed a right hydropneumothorax, and patient was referred for admission. Principal Diagnosis Right hydropneumothorax -> Possibly malignant vs. medication-related Discharge Exam Constitutional WD/WN, vitals as above Eyes EOM intact bilaterally; no conjunctival abnormality ENMT external ear and nose normal, oropharynx normal Neck trachea midline, no thyromegaly normal visual inspection Respiratory normal respiratory effort, lungs clear to auscultation no respiratory distress Cardiovascular RRR, no murmur, no edema Gastrointestinal (Abdomen) Inspection/Auscultation: abdomen normal to inspection; abdomen not distended Musculoskeletal no cyanosis or clubbing, extremities motor strength 5/5 Skin no rashes, warm and dry Neurologic moves all extremities and awake Psychiatric Orientation: alert, oriented to person and cooperative Discharge Data Allergies Allergy/AdvReac Type Severity Reaction Status Date / Time Penicillins Allergy Severe Hives and Verified 02/17/21 18:32 shortness of breath doxycycline Allergy Mild Rash Verified 02/17/21 18:32 tetracycline Allergy Mild Rash Verified 02/17/21 18:32 Consultations 02/17/21 18:10 ED Decision to Admit Stat 02/17/21 21:33 Consult Manager Of Disaster Recovery Routine Ordered Studies 02/18/21 15:24 US point of care ultrasound Stat 02/23/21 08:19 US point of care ultrasound Urgent Hospital Course (1) Hydropneumothorax: Right-sided hydropneumothorax. Ddx includes Xtandi vs. malginancy as this was an eosinophilic pleural effusion. - Chest tube placed by Dr. Lucero - Removed on 02/21. - Required Lasix on 02/22 for shortness of breath. - Seen by Dr. Fisher and discussed with him. Ultrasound of pleural effusion on 02/23 showed small, loculated effusion which Dr. Fisher did not think was amenable to further drainage. - Discharged on furosemide 20 mg PO daily. Discussed with Dr. Reed as well with no plan for medication changes. (2) Prostate cancer metastatic to bone: Follows with Jose Ramon Reed. - Continue usual medications Xtandi and Megace - Also on denosumab and Lupron as an outpatient - Discussed with oncology -> No changes. (3) Atrial flutter with controlled response: Atrial flutter with controlled response/cardiomyopathy/hypertension. - BP today is 115/50. - Continue digoxin, losartan, carvedilol, and metoprolol succinate. - Discussed with daughter the [id number]. Confirmed this is per Dr. Park. (4) Cardiomyopathy: Per report, though I see no echo to indicate what is EF is. Appeared euvolemic after Lasix on 02/22. Do NOT think this was CHF exacerbation as we are worried about either his cancer or chemotherapy as the cause for the pleural effusion. Volume overload after that was likely iatrogenic. - See above (5) Dyslipidemia: - Continue rosuvastatin 40 mg daily (6) DVT prophylaxis: Apixaban Total Time Total Time Spent Total Time Spent (In Minutes): 35 Discharge Plan Discharge Items Patient Disposition: Home - Home Health Services Reason For Visit: RIGHT HYDROPNEUMOTHORAX Discharge Diagnosis: Right hydropneumothorax Activity: Resume your previous activity Non-emergency contact: Primary Care Provider and Oncologist Call non-emergency contact if: your symptoms worsen Follow-up/Referrals: Kit Issa MD [Primary Care Provider] - 03/02/21 2:45 pm Diet: Heart Healthy Addtl Attending Provider Instructions: Mr. Turk, You were admitted to the hospital with a hydropneumothorax which means fluid and some air in between the lung and the rib cage. The medical clinic manager drained this fluid. This may have been due to your cancer, or possibly your chemotherapy. I did speak with Dr. Reed who will speak with you about any adjustments. For now, we would like to keep your medications the same. We are only adding a low dose of Lasix (furosemide) to help drain the last part of the fluid and help prevent further recurrences. Pending Studies at Discharge: No Stand-Alone Forms: My [facility], Smoking Cessation Medications and DC Order Prescriptions: New furosemide 20 mg Tablet 20 mg PO QAM Qty: 30 RF: 0 Continued docusate sodium [Colace] 100 mg capsule 100 mg PO DAILY RF: 0 Calcium 600 with Vitamin D3 600 mg(1,500mg) -400 unit tablet,chewable 2 tab PO DAILY RF: 0 rosuvastatin [Crestor] 40 mg tablet 40 mg PO DAILY Qty: 30 RF: 2 digoxin 125 mcg (0.125 mg) tablet 125 mcg PO Q2D RF: 0 aspirin [Aspirin Low Dose] 81 mg tablet,delayed release (DR/EC) 81 mg PO DAILY RF: 0 apixaban 5 mg tablet 5 mg PO BID RF: 0 carvedilol 12.5 mg tablet See Rx Instructions .ROUTE .COMPLEX RF: 0 ondansetron HCl 8 mg tablet 8 mg PO TID PRN (Reason: Nausea) RF: 0 Xtandi 40 mg capsule 160 mg PO QAM RF: 0 ipratropium-albuterol 0.5 mg-3 mg(2.5 mg base)/3 mL solution for nebulization 3 ml inhalation BID RF: 0 megestrol 400 mg/10 mL (40 mg/mL) suspension 400 mg PO DAILY RF: 0 losartan 25 mg tablet 12.5 mg PO DAILY RF: 0 metoprolol succinate 50 mg tablet extended release 24 hr 25 mg PO QAM RF: 0 azelastine 0.15 % (205.5 mcg) spray,non-aerosol 1 spray intranasal DAILY RF: 0 Xgeva 120 mg/1.7 mL (70 mg/mL) Solution 120 mg SUBCUT MONTHLY RF: 0 Lupron 1 dose IM .EVERY 4 MONTHS RF: 0 Discharge Orders: Discharge Order (Routine); Ordered 02/24/21 Ordered By: Ruben Lino Admission Data Admit Date/Time: 02/17/21 21:12 Attending Provider: Ruben Lino Admit Provider: Fredy Tam Primary Care Provider: Kit Issa Other Providers: Eduardo Lucero ; [facility] ; [facility] ; Ruben Lino ; [facility] Coding Level of Care Code D/C Day Management >30 mins Diagnoses Hydropneumothorax J94.8 Prostate cancer metastatic to bone C61; C79.51 Atrial flutter with controlled response I48.92 Cardiomyopathy I42.9 Dyslipidemia E78.5 DVT prophylaxis Z29.9
[2021-02-24 16:14] VITALS: BP 103/47; PULSE 82
== END 2021-02-24 16:48 | disposition home health service (06) | DRG 186 ==
LOC: ED 17:26 → 1E 19:57 → SUATTDRO 19:57 → 1E 21:14 → 2S 02-18 03:57

== ENCOUNTER 2021-08-29 03:19 | Inpatient (IN) ==
[~2021-08-29 03:19] MED LIST changes: -ASPEC81 PO; -CLC150 PO; -FLM4 PO; -HYDR-5688 PO; -LRT5 PO; -MULT-506 PO; +RAPID SEQUENCE INDUCTION BAG ONE; -REVEIWED; -SIMV80TA2 PO
--- NOTE | 2021-08-29 03:34 | Emergency Department Note ---
Impression & Plan Acute hypoxemic respiratory failure, Acute renal failure, Pneumonia involving right lung ED Provider Note Name: NELSON JOSHI Age: 86 Sex: M Arrives Via: Ambulance Informant: Patient (Poor historian), Daughter, EMS ED Provider: Damien Blackmon MD Chief Complaint: Shortness of breath Impression: As per impressions above Medical Decision Makin-year-old chronically unwell male with a history of prostate cancer, COPD, CAD, depression, type 2 diabetes, hypertension arrives for evaluation of rapidly worsening shortness of breath this evening. On arrival patient is on CPAP satting in the seventies and in significant distress. Lung sounds with decre ased lung sounds throughout the right and crackles/mild wheezing all quan. He is not in heart failure by exam and rather is severely dehydrated by exam. This is consistent with having not been eating or drinking very well for the last 1 to 2 weeks. He was placed on BiPAP with rapid improvement in his breathing, calming down, oxygen saturations in the mid to upper nineties. Able to titrate down the FiO2 relatively rapidly. He was sent to CT scan as to rule out underlying pneumothorax which she has had in the past. Fortunately CT without pneumothorax but does show evidence of bilateral infiltrates. furthermore patient was treated for sepsis with 2 L normal saline bolus consistent with his 30/kg dosing, cefepime 2 g IV as well as vancomycin IV. Labs started to return with mild elevation of his WBC beyond his baseline as well as acute renal failure with a creatinine of 3 though fortunately his potassium is okay at this time. VBG is consistent with his respiratory failure and his pH is 7.2. Lactic acid is 3.9 consistent with severe hypoxia prior to arrival and may also indicat e underlying sepsis. I will note his D-dimer came back elevated 1999 but with him being on Coumadin I think PE is less likely. In addition to the above meds he was also given Decadron for management of likely COPD exacerbation from infectious etiology. Bio fire Covid testing was sent which revealed no acute viral. Prior Medical Record and Triage/Nursing Notes reviewed by Me Additional history obtained from chart and daughter and EMS Differentials:Reactive airway disease, pneumonia, pneumothorax, COPD, CHF, infections, cardiac ischemia, pulmonary embolism, musculoskeletal, gastrointestinal, as well as other pathologies. . Vital Signs: reviewed and remarkable for tachy, hypoxia, tachypnea, hypotension Interventions: Normal saline bolus 2 L IV, cefepime 2 g IV, Decadron 10 mg IV, Xopenex nebulizer, BiPAP, vancomycin IV Labs:Reviewed and remarkable for extensive abnormalities see below Imagin view chest x-ray extensive infiltrates versus scarring with questionable fluid in right fissure versus possible underlying pneumothorax. Chest x-ray is worse from previous chest x-ray As per stat rad CT chest with read as below however I will note there is concern for pneumonia versus aspiration with postobstructive findings. EKG:Per My Interpretation: Indication : Sinus Tach 119 bpm, qtc 585. No Ectopy. No Ischemia. LBBB with wide complex similar to previous though faster rate from 07/11/21 Cardiac/Tele Monitoring: Cardiac Monitoring: An Order was placed for continuous cardiac monitoring. The monitor shows a rate of 110 with a sinus tach rhythm. Consults:Dr Anel SHANNON Hospitalist Plan: Disposition:Hospitalization. Condition: Poor History of Present Illness:Shortness of breath and 86-year-old brought in by ambulance. Patient notes he has had a mild cough for the last few days worse than his baseline. Then this evening sudden onset worsening shortness of breath. EMS called and placed him on CPAP with minimal improvement per your EMS his oxygen was in the 50s to 70s. No medications in route. Patient denies chest pain, syncope, fevers, other symptoms. Patient with no recent falls nor trauma. Patient with a history of metastatic prostate cancer and recurrent pleural effusion on the right. Per his daughter he has had a pneumothorax on the right previously for which she was admitted over the summer. In addition this he is on Eliquis for A. fib. Patient without any falls, trauma, injuries. And exertion makes symptoms worse even rest does not make symptoms better. ROS: See above HPI for pertinent positives & negatives. A total of 10 systems reviewed and were otherwise negative. Past Medical History:See Below Past Surgical History:See Below Family History:See Below Social History:See Below Home Medications:See Below Allergies:See Below Vitals:Blood Pressure: 90/50, Pulse 120, RR 30, T 36.5C, O2 85% on CPAP Physical Exam: GENERAL: Patient is chronically unwell appearing and in severe distress. EYES: No scleral icterus, unremarkable pupils. ENT: Mucous membranes dry, no nasal congestion. NECK: No masses appreciated, nomeningismus, trachea is midline. RESPIRATORY: severe dyspnea, tachypnea, decreased breath sounds through right. CARDIOVASCULAR: Tachycardic.No murmurs, rubs, gallops appreciated. GASTROINTESTINAL: Abdomen soft, non-tender, no peritonitis.Bowel sounds positive.No masses appreciated. BACK: No midline tenderness, no CVA tenderness EXTREMITIES: Normal motion all extremities, no cyanosis, no edema. NEUROLOGIC: Alert and oriented, no acute motor or sensory deficits, no focal weakness, cranial nerves grossly intact. SKIN: Pale, mottled, no rash PSYCH: Appropriate GCS: 15 ED Course: Times/Reassessments: Multiple bedside evaluations and managements of patient he is rapidly improving and with IV fluids and BiPAP Critical Care: I have personally spent 40 minutes of critical care time in the direct management of this patient. Acute respiratory failure secondary to pneumonia and COPD exacerbation requiring fluid resuscitation and BiPAP. This was a life/limb threatening event. This 40 minutes is in excess of all separately billable procedures. Damien Blackmon MD Past Med/Surg History Medical History Acute confusion (05/2020) Acute UTI (05/2020) Aortic stenosis Atrial flutter Bilateral pleural effusion BPH w/o urinary obs/LUTS CAD (coronary artery disease) 1-vessel (LAD), complicated by internal bleeding requiring another surgery Cardiomyopathy Carotid artery stenosis Carotid stenosis Chronic cough Chronic renal disease COPD (chronic obstructive pulmonary disease) Depression Diabetes mellitus, new onset (2017) Dyslipidemia Dysuria Encephalopathy due to infection (05/2020) Exudative pleural effusion (02/2021) History of alcohol dependence quit early 1970s History of tobacco use Leg fracture, left s/p ORIF Mixed hyperlipidemia PAD (peripheral artery disease) PAD (peripheral artery disease) 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 - 2011 H/O carotid endarterectomy left S/P aortic valve replacement with bioprosthetic valve (2010) S/P CABG (coronary artery bypass graft) (2010) Complicated postoperative course S/P CABG x 1 Family History Father , age 79 Congestive heart failure Atherosclerosis Mother , from diverticulitis age 84 Rheumatoid arthritis Other Cancer Heart disease Denies family history of Tuberculosis Allergies Emphysema, unspecified Lung disease Asthma Social History Smoking Status: Former smoker Tobacco Type: Cigarettes Years Smoked: 50; Cigarettes Per Day: 1-2 ppd; Hx Alcohol Use: No Hx Substance Use: No Preferred Language: Montserratian Communication Ability: Effective Marine Underwriter Required: No Beliefs That Will Affect Care: None marital status: marital status details: spouse 2009 Current Living Situation: Family Current Living Situation Comment: lives w/ dtr 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 other: 3 children one of whom is Feels Safe at Home: Yes Assistive Devices: Denture - Upper, Denture - Lower and Hearing Aid - Bilateral Allergies Allergies Allergy/AdvReac Type Severity Reaction Status Date / Time Penicillins Allergy Severe Hives and Verified 08/29/21 14:56 shortness of breath doxycycline Allergy Mild Rash Verified 08/29/21 14:56 tetracycline Allergy Mild Rash Verified 08/29/21 14:56 Home Meds Home Medications Medication Instructions Recorded Confirmed apixaban 5 mg tablet 5 mg PO BID 08/05/18 08/29/21 docusate sodium 100 mg capsule 100 mg PO DAILY 01/30/20 08/29/21 (Colace) calcium carbonate 600 mg-vitamin 2 tab PO DAILY tab 07/30/20 08/29/21 D3 10 mcg (400 unit) chewable tablet (Calcium 600 with Vitamin D3) aspirin 81 mg tablet,delayed 81 mg PO DAILY 09/25/20 08/29/21 release (Aspirin Low Dose) digoxin 125 mcg (0.125 mg) tablet 125 mcg PO Q2D tab 09/26/20 08/29/21 enzalutamide 40 mg capsule (Xtandi) 160 mg PO QAM 11/26/20 08/29/21 ondansetron HCl 8 mg tablet 8 mg PO TID PRN 11/26/20 08/29/21 Lupron 1 dose IM .EVERY 4 MONTHS 02/17/21 08/29/21 denosumab 120 mg/1.7 mL (70 mg/mL) 120 mg SUBCUT MONTHLY 02/17/21 08/29/21 subcutaneous solution (Xgeva) megestrol 400 mg/10 mL (40 mg/mL) 400 mg PO DAILY 02/17/21 08/29/21 oral suspension metoprolol succinate 50 mg 25 mg PO QAM 02/17/21 08/29/21 tablet,extended release 24 hr furosemide 20 mg tablet 20 mg PO QAM PRN 05/13/21 08/29/21 mirtazapine 15 mg tablet 15 mg PO HS 07/10/21 08/29/21 Previous Rx's Medication Instructions Recorded rosuvastatin 40 mg tablet (Crestor) 40 mg PO DAILY #30 tab 09/25/20 ipratropium 0.5 mg-albuterol 3 mg 3 ml INHALATION BID #180 ml 08/17/21 (2.5 mg base)/3 mL nebulization soln Results & Data (ED) Vital Signs Vital Signs - 24 hr 08/29/21 03:23 08/29/21 03:25 08/29/21 03:29 Temperature Temperature Source Pulse Rate 115 H Pulse Rate [Apical] 119 H Respiratory Rate 36 H 33 H Respiratory Effort / Characteristics Respiratory Pattern Blood Pressure [Left Arm] 115/70 Blood Pressure Mean [Left Arm] 85 Blood Pressure Position Pulse Oximetry 72 L 87 L 97 Oxygen Delivery Method CPAP CPAP Fraction of Inspired Oxygen 45 Sepsis Recent Fever Within 48 Hours Sepsis New/Unexplained Change in Mental Status Sepsis Action Taken by Nursing 08/29/21 03:30 08/29/21 03:35 08/29/21 03:40 Temperature 36.5 C Temperature Source Axillary Pulse Rate 114 H Pulse Rate [Apical] 117 H 116 H 114 H Respiratory Rate 30 H 30 H 32 H Respiratory Effort / Characteristics Spontaneous Accessory Muscle Use Short of Breath Respiratory Pattern Tachypnea Blood Pressure [Left Arm] 129/64 Blood Pressure Mean [Left Arm] 85 Blood Pressure Position Lying Pulse Oximetry 100 92 98 Oxygen Delivery Method BiPAP BiPAP BiPAP Fraction of Inspired Oxygen Sepsis Recent Fever Within 48 Hours No Sepsis New/Unexplained Change in Mental Status No Sepsis Action Taken by Nursing Physician Notified 08/29/21 03:47 08/29/21 04:09 08/29/21 04:18 Temperature Temperature Source Pulse Rate Pulse Rate [Apical] 118 H 113 H 102 H Respiratory Rate 32 H 24 32 H Respiratory Effort / Characteristics Respiratory Pattern Blood Pressure [Left Arm] 97/55 L 93/48 L Blood Pressure Mean [Left Arm] 69 63 Blood Pressure Position Pulse Oximetry 93 100 96 Oxygen Delivery Method BiPAP BiPAP BiPAP Fraction of Inspired Oxygen Sepsis Recent Fever Within 48 Hours Sepsis New/Unexplained Change in Mental Status Sepsis Action Taken by Nursing 08/29/21 04:20 08/29/21 04:45 08/29/21 05:00 Temperature Temperature Source Pulse Rate Pulse Rate [Apical] 114 H 109 H 104 H Respiratory Rate 22 28 H 26 H Respiratory Effort / Characteristics Spontaneous Respiratory Pattern Blood Pressure [Left Arm] 123/51 L 114/68 Blood Pressure Mean [Left Arm] 75 83 Blood Pressure Position Pulse Oximetry 95 97 98 Oxygen Delivery Method BiPAP BiPAP Fraction of Inspired Oxygen 45 Sepsis Recent Fever Within 48 Hours Sepsis New/Unexplained Change in Mental Status Sepsis Action Taken by Nursing 08/29/21 05:48 08/29/21 06:03 Temperature Temperature Source Pulse Rate Pulse Rate [Apical] 104 H Respiratory Rate 24 30 H Respiratory Effort / Characteristics Respiratory Pattern Blood Pressure [Left Arm] 120/58 L Blood Pressure Mean [Left Arm] 78 Blood Pressure Position Pulse Oximetry 99 100 Oxygen Delivery Method BiPAP Fraction of Inspired Oxygen 40 Sepsis Recent Fever Within 48 Hours Sepsis New/Unexplained Change in Mental Status Sepsis Action Taken by Nursing Laboratory Data Result diagrams: 08/30/21 05:51 08/30/21 05:51 Lab Results 08/29/21 08/29/21 08/29/21 Range/Units 03:30 03:53 03:53 WBC (4.8-10.8) K/uL RBC (4.7-6.1) M/uL Hgb (14.0-18.0) g/dL Hct (42-52) % MCV (80-100) fL MCH (25-34) pg MCHC (32-36) g/dL RDW Std Deviation (36.4-46.3) fL RDW Coeff of Godfrey (11.5-14.5) % Plt Count (130-400) K/uL MPV (7.4-10.4) fL Immature Gran % (Auto) % Neut % (Auto) % Lymph % (Auto) % Ferry % (Auto) % Eos % (Auto) % Baso % (Auto) % Neut # (Auto) (1.4-6.5) K/uL Lymph # (Auto) (1.2-3.4) K/uL Ferry # (Auto) (0.11-0.59) K/uL Eos # (Auto) (0-0.5) K/uL Baso # (Auto) (0-0.2) K/uL Immature Gran # (Auto) (0.00-0.02) K/uL PT 14.3 H (9.0-12.0) Seconds INR 1.5 H (0.9-1.1) D-Dimer 2000 H* (0-500) ug/L FEU VBG pH 7.25 L (7.36-7.41) VBG pCO2 33 L (38-50) mmHg VBG pO2 22 mmHg VBG HCO3 14 mmol/L VBG O2 Saturation < 60.0 % VBG Base Excess -11.7 mEq/L Barometric Pressure 722.9 mm/Hg Sodium (136-145) mmol/L Potassium (3.5-5.1) mmol/L Chloride (98-107) mmol/L Carbon Dioxide (21-32) mmol/L Anion Gap (3-11) BUN (7-18) mg/dl Creatinine (0.6-1.4) mg/dl Est Cr Clr Drug Dosing ml/min Est GFR ( Amer) ml/min Est GFR (Non-Af Amer) ml/min BUN/Creatinine Ratio (10-20) Glucose (70-99) mg/dl Lactate (0.4-2.0) mmol/L Calcium (8.5-10.1) mg/dl Magnesium (1.8-2.4) mg/dl Total Bilirubin (0.2-1) mg/dl Direct Bilirubin (0-0.2) mg/dl AST (15-37) U/L ALT (12-78) Alkaline Phosphatase (45-117) U/L Troponin I (0-0.045) ng/ml Total Protein (6.4-8.2) gm/dl Albumin (3.4-5.0) gm/dl Lipase (73-393) U/L Urine Color Urine Appearance (Clear) Urine pH (4.5-7.5) Ur Specific Buckhorn (1.000-1.030) Urine Protein (Negative) Urine Glucose (UA) (Negative) Urine Ketones (Negative) Urine Blood (Negative) Urine Nitrite (Negative) Urine Bilirubin (Negative) Urine Urobilinogen (Negative) Ur Leukocyte Esterase (Negative) Urine WBC (Auto) (0-5) /hpf Urine RBC (Auto) (0-4) /hpf U Hyaline Cast (Auto) (0-5) /lpf U Epithel Cells (Auto) (0-5) /lpf Urine Bacteria (Auto) (Negative) Urine Yeast Adenovirus (PCR) Not Detected (NotDetected) B. pertussis DNA (PCR) Not Detected (NotDetected) B.parapertussis DNA PCR Not Detected (NotDetected) C. pneumoniae DNA (PCR) Not Detected (NotDetected) Coronavirus OC43 (PCR) Not Detected (NotDetected) Coronavirus HKU1 (PCR) Not Detected (NotDetected) Coronavirus 229E (PCR) Not Detected (NotDetected) SARS-CoV-2 (PCR) Not Detected (NotDetected) Coronavirus NL63 (PCR) Not Detected (NotDetected) Human Metapneumovir PCR Not Detected (NotDetected) Influenza Type A (PCR) Not Detected (NotDetected) Influenza Type B (PCR) Not Detected (NotDetected) M. pneumoniae (PCR) Not Detected (NotDetected) Parainfluenza 1 (PCR) Not Detected (NotDetected) Parainfluenza 2 (PCR) Not Detected (NotDetected) Parainfluenza 3 (PCR) Not Detected (NotDetected) Parainfluenza 4 (PCR) Not Detected (NotDetected) RSV (PCR) Not Detected (NotDetected) Entero/Rhino (PCR) Not Detected (NotDetected) 08/29/21 08/29/21 08/29/21 Range/Units 03:53 03:53 03:53 WBC 13.26 H (4.8-10.8) K/uL RBC 3.61 L (4.7-6.1) M/uL Hgb 10.8 L (14.0-18.0) g/dL Hct 32.5 L (42-52) % MCV 90.0 (80-100) fL MCH 29.9 (25-34) pg MCHC 33.2 (32-36) g/dL RDW Std Deviation 55.8 H (36.4-46.3) fL RDW Coeff of Godfrey 17.5 H (11.5-14.5) % Plt Count 327 (130-400) K/uL MPV 9.5 (7.4-10.4) fL Immature Gran % (Auto) 0.7 % Neut % (Auto) 82.7 % Lymph % (Auto) 10.0 % Ferry % (Auto) 6.1 % Eos % (Auto) 0.3 % Baso % (Auto) 0.2 % Neut # (Auto) 10.97 H (1.4-6.5) K/uL Lymph # (Auto) 1.33 (1.2-3.4) K/uL Ferry # (Auto) 0.81 H (0.11-0.59) K/uL Eos # (Auto) 0.04 (0-0.5) K/uL Baso # (Auto) 0.02 (0-0.2) K/uL Immature Gran # (Auto) 0.09 H (0.00-0.02) K/uL PT (9.0-12.0) Seconds INR (0.9-1.1) D-Dimer (0-500) ug/L FEU VBG pH (7.36-7.41) VBG pCO2 (38-50) mmHg VBG pO2 mmHg VBG HCO3 mmol/L VBG O2 Saturation % VBG Base Excess mEq/L Barometric Pressure mm/Hg Sodium 138 (136-145) mmol/L Potassium 3.4 L (3.5-5.1) mmol/L Chloride 110 H (98-107) mmol/L Carbon Dioxide 15 L (21-32) mmol/L Anion Gap 13.0 H (3-11) BUN 57 H (7-18) mg/dl Creatinine 3.35 H (0.6-1.4) mg/dl Est Cr Clr Drug Dosing 13.4 ml/min Est GFR ( Amer) 18.2 ml/min Est GFR (Non-Af Amer) 15.7 ml/min BUN/Creatinine Ratio 16.9 (10-20) Glucose 190 H (70-99) mg/dl Lactate 3.9 H* (0.4-2.0) mmol/L Calcium 8.5 (8.5-10.1) mg/dl Magnesium 2.1 (1.8-2.4) mg/dl Total Bilirubin 0.4 (0.2-1) mg/dl Direct Bilirubin 0.2 (0-0.2) mg/dl AST 93 H (15-37) U/L ALT 31 (12-78) Alkaline Phosphatase 152 H D (45-117) U/L Troponin I 0.152 H* (0-0.045) ng/ml Total Protein 7.2 (6.4-8.2) gm/dl Albumin 1.6 L (3.4-5.0) gm/dl Lipase 117 (73-393) U/L Urine Color Urine Appearance (Clear) Urine pH (4.5-7.5) Ur Specific Buckhorn (1.000-1.030) Urine Protein (Negative) Urine Glucose (UA) (Negative) Urine Ketones (Negative) Urine Blood (Negative) Urine Nitrite (Negative) Urine Bilirubin (Negative) Urine Urobilinogen (Negative) Ur Leukocyte Esterase (Negative) Urine WBC (Auto) (0-5) /hpf Urine RBC (Auto) (0-4) /hpf U Hyaline Cast (Auto) (0-5) /lpf U Epithel Cells (Auto) (0-5) /lpf Urine Bacteria (Auto) (Negative) Urine Yeast Adenovirus (PCR) (NotDetected) B. pertussis DNA (PCR) (NotDetected) B.parapertussis DNA PCR (NotDetected) C. pneumoniae DNA (PCR) (NotDetected) Coronavirus OC43 (PCR) (NotDetected) Coronavirus HKU1 (PCR) (NotDetected) Coronavirus 229E (PCR) (NotDetected) SARS-CoV-2 (PCR) (NotDetected) Coronavirus NL63 (PCR) (NotDetected) Human Metapneumovir PCR (NotDetected) Influenza Type A (PCR) (NotDetected) Influenza Type B (PCR) (NotDetected) M. pneumoniae (PCR) (NotDetected) Parainfluenza 1 (PCR) (NotDetected) Parainfluenza 2 (PCR) (NotDetected) Parainfluenza 3 (PCR) (NotDetected) Parainfluenza 4 (PCR) (NotDetected) RSV (PCR) (NotDetected) Entero/Rhino (PCR) (NotDetected) 08/29/21 Range/Units 05:46 WBC (4.8-10.8) K/uL RBC (4.7-6.1) M/uL Hgb (14.0-18.0) g/dL Hct (42-52) % MCV (80-100) fL MCH (25-34) pg MCHC (32-36) g/dL RDW Std Deviation (36.4-46.3) fL RDW Coeff of Godfrey (11.5-14.5) % Plt Count (130-400) K/uL MPV (7.4-10.4) fL Immature Gran % (Auto) % Neut % (Auto) % Lymph % (Auto) % Ferry % (Auto) % Eos % (Auto) % Baso % (Auto) % Neut # (Auto) (1.4-6.5) K/uL Lymph # (Auto) (1.2-3.4) K/uL Ferry # (Auto) (0.11-0.59) K/uL Eos # (Auto) (0-0.5) K/uL Baso # (Auto) (0-0.2) K/uL Immature Gran # (Auto) (0.00-0.02) K/uL PT (9.0-12.0) Seconds INR (0.9-1.1) D-Dimer (0-500) ug/L FEU VBG pH (7.36-7.41) VBG pCO2 (38-50) mmHg VBG pO2 mmHg VBG HCO3 mmol/L VBG O2 Saturation % VBG Base Excess mEq/L Barometric Pressure mm/Hg Sodium (136-145) mmol/L Potassium (3.5-5.1) mmol/L Chloride (98-107) mmol/L Carbon Dioxide (21-32) mmol/L Anion Gap (3-11) BUN (7-18) mg/dl Creatinine (0.6-1.4) mg/dl Est Cr Clr Drug Dosing ml/min Est GFR ( Amer) ml/min Est GFR (Non-Af Amer) ml/min BUN/Creatinine Ratio (10-20) Glucose (70-99) mg/dl Lactate (0.4-2.0) mmol/L Calcium (8.5-10.1) mg/dl Magnesium (1.8-2.4) mg/dl Total Bilirubin (0.2-1) mg/dl Direct Bilirubin (0-0.2) mg/dl AST (15-37) U/L ALT (12-78) Alkaline Phosphatase (45-117) U/L Troponin I (0-0.045) ng/ml Total Protein (6.4-8.2) gm/dl Albumin (3.4-5.0) gm/dl Lipase (73-393) U/L Urine Color Yellow Urine Appearance Turbid A (Clear) Urine pH 5.5 (4.5-7.5) Ur Specific Buckhorn 1.011 (1.000-1.030) Urine Protein 2+ H (Negative) Urine Glucose (UA) Negative (Negative) Urine Ketones Negative (Negative) Urine Blood 3+ H (Negative) Urine Nitrite Negative (Negative) Urine Bilirubin Negative (Negative) Urine Urobilinogen Negative (Negative) Ur Leukocyte Esterase 3+ H (Negative) Urine WBC (Auto) >30 H (0-5) /hpf Urine RBC (Auto) 10-30 H (0-4) /hpf U Hyaline Cast (Auto) 1-5 (0-5) /lpf U Epithel Cells (Auto) >30 H (0-5) /lpf Urine Bacteria (Auto) 2+ H (Negative) Urine Yeast Not Reportable Adenovirus (PCR) (NotDetected) B. pertussis DNA (PCR) (NotDetected) B.parapertussis DNA PCR (NotDetected) C. pneumoniae DNA (PCR) (NotDetected) Coronavirus OC43 (PCR) (NotDetected) Coronavirus HKU1 (PCR) (NotDetected) Coronavirus 229E (PCR) (NotDetected) SARS-CoV-2 (PCR) (NotDetected) Coronavirus NL63 (PCR) (NotDetected) Human Metapneumovir PCR (NotDetected) Influenza Type A (PCR) (NotDetected) Influenza Type B (PCR) (NotDetected) M. pneumoniae (PCR) (NotDetected) Parainfluenza 1 (PCR) (NotDetected) Parainfluenza 2 (PCR) (NotDetected) Parainfluenza 3 (PCR) (NotDetected) Parainfluenza 4 (PCR) (NotDetected) RSV (PCR) (NotDetected) Entero/Rhino (PCR) (NotDetected) Administered Medications Acetaminophen (Acetaminophen 500 Mg Tab) 1,000 mg PO TID PRN PRN Reason: Pain or Fever Stop: 09/28/21 20:59 Last Admin: 08/30/21 00:51 Dose: 1,000 mg Documented by: [id number] Admin: 08/29/21 17:27 Dose: 1,000 mg Documented by: [id number] Albuterol (Albut/Ipratrop 3mg/0.5mg Neb 3 Ml Vial) 3 ml NEB QIDR [facility]; Protocol Stop: 09/28/21 06:59 Last Admin: 08/29/21 19:41 Dose: 3 ml Documented by: [id number] Admin: 08/29/21 15:05 Dose: 3 ml Documented by: [id number] Admin: 08/29/21 11:57 Dose: 3 ml Documented by: [id number] Admin: 08/29/21 07:37 Dose: 3 ml Documented by: [id number] Apixaban (Apixaban 2.5 Mg Tab) 2.5 mg PO BID [facility] Stop: 09/28/21 08:59 Last Admin: 08/29/21 21:59 Dose: 2.5 mg Documented by: [id number] Admin: 08/29/21 10:35 Dose: 2.5 mg Documented by: [id number] Aspirin (Aspirin 81 Mg Ectab) 81 mg PO DAILY [facility] Stop: 09/28/21 08:59 Last Admin: 08/29/21 10:35 Dose: 81 mg Documented by: [id number] Carvedilol (Carvedilol 3.125 Mg Tab) 3.125 mg PO BID [facility] Stop: 09/28/21 20:59 Last Admin: 08/29/21 21:59 Dose: 3.125 mg Documented by: [id number] Digoxin (Digoxin 0.125 Mg Tab) 0.125 mg PO Q2D@1600 [facility] Stop: 09/28/21 17:29 Last Admin: 08/29/21 19:09 Dose: 0.125 mg Documented by: [id number] Docusate Sodium (Docusate Sodium 100 Mg Cap) 100 mg PO DAILY [facility] Stop: 09/28/21 08:59 Last Admin: 08/29/21 10:36 Dose: 100 mg Documented by: [id number] Donepezil HCl (Donepezil Hcl 5 Mg Tab) 5 mg PO QAM [facility] Stop: 09/28/21 10:29 Last Admin: 08/29/21 11:36 Dose: 5 mg Documented by: [id number] Methylprednisolone 40 mg/ (Syringe) 0.64 mls @ 1.5 mls/min IV Q8H [facility] Stop: 09/28/21 09:59 Last Admin: 08/30/21 02:13 Dose: 1.5 mls/min Documented by: [id number] Admin: 08/29/21 19:06 Dose: 1.5 mls/min Documented by: [id number] Admin: 08/29/21 09:40 Dose: 1.5 mls/min Documented by: [id number] Sodium Bicarbonate 100 meq/ (Sodium Chloride) 1,100 mls @ 80 mls/hr IV .[id number] [facility] Stop: 09/28/21 10:29 Last Admin: 08/30/21 02:10 Dose: 80 mls/hr Documented by: [id number] Infusion: 08/30/21 02:09 Dose: 0 mls/hr Documented by: [id number] Admin: 08/29/21 11:30 Dose: 80 mls/hr Documented by: [id number] Levofloxacin/Dextrose (Levaquin/D5w) 750 mg in 150 mls @ 100 mls/hr IV Q48H [facility] Stop: 09/05/21 17:59 Last Infusion: 08/30/21 01:23 Dose: 0 mls/hr Documented by: [id number] Admin: 08/29/21 19:08 Dose: 100 mls/hr Documented by: [id number] Megestrol Acetate (Megestrol Acetate Susp 400 Mg/10 Ml Udc) 400 mg PO DAILY [facility] Stop: 09/28/21 08:59 Last Admin: 08/29/21 10:43 Dose: 400 mg Documented by: [id number] Mirtazapine (Mirtazapine Tab 15 Mg Tab) 15 mg PO HS [facility] Stop: 09/28/21 20:59 Last Admin: 08/29/21 21:59 Dose: 15 mg Documented by: [id number] Miscellaneous (Xtandi: Order Awaiting Action) 1 ea N/A QS [facility] Stop: 09/28/21 07:59 Last Admin: 08/30/21 01:23 Dose: Not Given Documented by: [id number] Admin: 08/30/21 01:23 Dose: Not Given Documented by: [id number] Admin: 08/30/21 00:50 Dose: Not Given Documented by: [id number] Multivitamins/Minerals (Calcium 600mg + Vit D 400 Iu Tab) 1 tab PO DAILY [facility] Stop: 09/28/21 08:59 Last Admin: 08/29/21 10:43 Dose: 1 tab Documented by: [id number] Rosuvastatin Calcium (Rosuvastatin Calcium 20 Mg Tab) 40 mg PO DAILY [facility] Stop: 09/28/21 08:59 Last Admin: 08/29/21 10:43 Dose: 40 mg Documented by: [id number] Discontinued Medications Dexamethasone Sodium Phosphate (DexamethasonePf 10 Mg/Ml Vial) 10 mg IV NOW ONE Stop: 08/29/21 04:09 Last Admin: 08/29/21 04:24 Dose: 10 mg Documented by: [id number] Sodium Chloride (Nss 1000ml) 1,000 mls @ 999 mls/hr IV .Q1H1M ONE Stop: 08/29/21 05:07 Last Infusion: 08/29/21 05:18 Dose: 0 mls/hr Documented by: [id number] Admin: 08/29/21 04:17 Dose: 999 mls/hr Documented by: [id number] Cefepime HCl (Maxipime) 2,000 mg in 20 mls @ 5 mls/min IV NOW STA; Protocol Stop: 08/29/21 04:12 Last Admin: 08/29/21 04:24 Dose: 5 mls/min Documented by: [id number] Vancomycin HCl 1,250 mg/ (Sodium Chloride) 525 mls @ 200 mls/hr IV NOW ONE Stop: 08/29/21 06:46 Last Infusion: 08/29/21 07:30 Dose: 0 mls/hr Documented by: [id number] Admin: 08/29/21 04:43 Dose: 200 mls/hr Documented by: [id number] Sodium Chloride (Nss 1000ml) 1,000 mls @ 999 mls/hr IV .Q1H1M ONE Stop: 08/29/21 05:27 Last Infusion: 08/29/21 05:49 Dose: 0 mls/hr Documented by: [id number] Admin: 08/29/21 04:38 Dose: 999 mls/hr Documented by: [id number] Azithromycin 500 mg/ Dextrose 255 mls @ 125 mls/hr IV DAILY DOMO; Protocol Stop: 09/05/21 08:59 Last Infusion: 08/29/21 11:47 Dose: 0 mls/hr Documented by: [id number] Admin: 08/29/21 09:30 Dose: 125 mls/hr Documented by: [id number] Levalbuterol HCl (Levalbuterol Hcl 1.25 Mg/3 Ml Neb) 1.25 mg NEB NOW STA; Protocol Stop: 08/29/21 04:13 Last Admin: 08/29/21 04:19 Dose: 1.25 mg Documented by: [id number] Miscellaneous (Rapid Sequence Induction Bag) Confirm Administered Dose 1 ea .ROUTE .STK-MED ONE Stop: 08/29/21 03:16 Last Admin: 08/29/21 06:18 Dose: Not Given Documented by: [id number] Discharge Plan Visit Data Chief Complaint: Respiratory Distress Stated Complaint: RESPIRATORY DISTRESS ED Provider: Damien Blackmon Discharge Problem: Acute hypoxemic respiratory failure, Acute renal failure, Pneumonia involving right lung Patient Disposition: Admitted As Inpatient Discharge Instructions Interventions: ED Discharge Assessment Last Done: 08/29/21 06:56 Discharge Problem: Acute renal failure Qualifiers: Acute renal failure type: unspecified Qualified Code(s): N17.9 - Acute kidney failure, unspecified Pneumonia involving right lung Qualifiers: Pneumonia type: due to unspecified organism Lung location: unspecified part of lung Qualified Code(s): J18.9 - Pneumonia, unspecified organism
[2021-08-29 04:07] LABS: Basophils # (auto) 0.02 K/uL (0-0.2); Basophils % (auto) 0.2 %; Eosinophils # (auto) 0.04 K/uL (0-0.5); Eosinophils % (auto) 0.3 %; Hematocrit (blood only) 32.5 % (42-52); Hemoglobin 10.8 g/dL (14.0-18.0); Immature Granulocytes # (auto) 0.09 K/uL (0.00-0.02); Immature Granulocytes % (auto) 0.7 %; Lymphocytes # (auto) 1.33 K/uL (1.2-3.4); Mean Corpuscular Hemoglobin 29.9 pg (25-34); Mean Corpuscular Hgb Conc 33.2 g/dL (32-36); Mean Platelet Volume 9.5 fL (7.4-10.4); Monocytes # (auto) 0.81 K/uL (0.11-0.59); Monocytes % (auto) 6.1 %; Neutrophils # (auto) 10.97 K/uL (1.4-6.5); Neutrophils % (auto) 82.7 %; Platelet Count 327 K/uL (130-400); RDW Coefficient of Variation 17.5 % (11.5-14.5); RDW Standard Deviation 55.8 fL (36.4-46.3); Red Blood Count 3.61 M/uL (4.7-6.1); White Blood Count 13.26 K/uL (4.8-10.8)
[2021-08-29] MEDS ORDERED: SODIUM CHLORIDE 0.9% 1000ML 1,000 ML IV ONE ×2 (04:07→04:27)
[2021-08-29] MEDS ORDERED: dexAMETHasone**PF** 10 MG/ML VIAL IV ONE (04:08)
[2021-08-29] MEDS ORDERED: CEFEPIME 2,000 MG/20 ML VIAL IV STA (04:09)
[2021-08-29] MEDS ORDERED: VANCOMYCIN HCL 1,250 MG in SODIUM CHLORIDE 0.9% 500 ML IV ONE (04:09)
[2021-08-29] MEDS ORDERED: VANCOMYCIN CONSULT ACTIVE PRN (04:09)
[2021-08-29 04:11] LABS: Base Excess VBG -11.7 mEq/L; HCO3 VBG 14 mmol/L; Oxygen Saturation VBG < 60.0 %; PCO2 VBG 33 mmHg (38-50); PO2 VBG 22 mmHg; pH VBG 7.25 (7.36-7.41)
[2021-08-29] MEDS ORDERED: LEVALBUTEROL HCL 1.25 MG/3 ML NEB NEB STA (04:12)
[2021-08-29 04:22] LABS: INR 1.5 (0.9-1.1); Prothrombin Time 14.3 Seconds (9.0-12.0)
[2021-08-29 04:26] LABS: Albumin Level 1.6 gm/dl (3.4-5.0); BUN Creatinine Ratio 16.9 (10-20); Bilirubin Direct 0.2 mg/dl (0-0.2); Calcium 8.5 mg/dl (8.5-10.1); Creatinine Clr Calc Pharmacy 13.4 ml/min; Est GFR (African American) 18.2 ml/min; Est GFR (Non-African American) 15.7 ml/min; Magnesium 2.1 mg/dl (1.8-2.4); Potassium 3.4 mmol/L (3.5-5.1)
[2021-08-29 04:35] LABS: Bilirubin,Total 0.4 mg/dl (0.2-1); Total Protein 7.2 gm/dl (6.4-8.2); Troponin I 0.152 ng/ml (0-0.045)
[2021-08-29 04:38] LABS: D Dimer 2000 ug/L FEU (0-500)
[2021-08-29 05:08] LABS: Adenovirus PCR Not Detected (NotDetected); Bordetella parapertussis PCR Not Detected (NotDetected); Bordetella pertussis PCR Not Detected (NotDetected); Chlamydia pneumoniae PCR Not Detected (NotDetected); Coronavirus 229E PCR Not Detected (NotDetected); Coronavirus CoV-2 (COVID19)PCR Not Detected (NotDetected); Coronavirus HKU1 PCR Not Detected (NotDetected); Coronavirus NL63 PCR Not Detected (NotDetected); Coronavirus OC43PCR Not Detected (NotDetected); Human Metapneumovirus PCR Not Detected (NotDetected); Influenza A PCR Not Detected (NotDetected); Influenza B PCR Not Detected (NotDetected); Mycoplasma pneumoniae PCR Not Detected (NotDetected); Parainfluenza Virus 1 PCR Not Detected (NotDetected); Parainfluenza Virus 2 PCR Not Detected (NotDetected); Parainfluenza Virus 3 PCR Not Detected (NotDetected); Parainfluenza Virus 4 PCR Not Detected (NotDetected); Respiratory Syncytial VirusPCR Not Detected (NotDetected); Rhinovirus/Enterovirus PCR Not Detected (NotDetected)
--- NOTE | 2021-08-29 06:01 | History & Physical Report ---
Date of Service August 29, 2021 Assessment & Plan (1) Acute hypoxemic respiratory failure: Plan: Acute hypoxemic respiratory failure/multifocal pneumonia- Admit to monitored bed Bio fire testing negative in ED including COVID-19 test negative Given dexamethasone 10 mg IV, vancomycin IV and cefepime IV from the ED Hold on any further vancomycin IV due to current acute renal failure and reassess Continue cefepime 1000 mg IV every 8 hours Duonebs every 4 hours while awake and every 2 hours when necessary. Methylprednisolone 40 mg IV every 8 hours Continue BiPAP, titrate downward as symptoms improve (2) Multifocal pneumonia: Plan: See above (3) Acute renal failure: Plan: See above creatinine 3.35 upon admission. Recent creatinines 1.14-1.36-1.52, the daughter reports is secondary to bleeding associated with Garcia catheter changes Continue IV fluid rehydration, recheck laboratories in the morning (4) Elevated troponin I level: Plan: Elevated troponin/paroxysmal atrial flutter/cardiomyopathy/status post AVR with bioprosthetic valve- Continue apixaban, aspirin, carvedilol Hold furosemide Hold digoxin until dig level assessed (5) Paroxysmal atrial flutter: Plan: See above (6) Prostate cancer metastatic to bone: Plan: Continue all associated medications (7) Depression: Plan: Continue mirtazapine (8) Dyslipidemia: Plan: Continue rosuvastatin History of Present Illness Chief Complaint: The patient is brought to the emergency department with complaint of 5 days of worsening shortness of breath and productive cough, in particular worsening over the past 24 hours Primary Care Provider: Kit Issa MD The patient is a 86-year-old male with a past medical history including catheter associated UTI, prostate cancer metastatic to bone, paroxysmal atrial flutter, hydropneumothorax, ex exudative pleural effusion, aspiration pneumonia, chronic anticoagulation, status post CABG, PAD, dyslipidemia, depression, status post AVR with bioprosthetic valve, BPH with LUTS, COPD, hypertension and chronic kidney disease. Patient presents his daughter to the emergency department, and her daughter provides the majority of patient information. The patient reportedly had a pulse ox in the 50s to 70s when seen by EMS, and had improvement with CPAP in route to the hospital. In emergency department patient was placed on BiPAP, and after the , was breathing more comfortably. Allergies Allergy/AdvReac Type Severity Reaction Status Date / Time Penicillins Allergy Severe Hives and Verified 07/11/21 19:17 shortness of breath doxycycline Allergy Mild Rash Verified 07/11/21 19:17 tetracycline Allergy Mild Rash Verified 07/11/21 19:17 Home Medications Medication Instructions Recorded Confirmed Type apixaban 5 mg tablet 5 mg PO BID 08/05/18 07/11/21 History docusate sodium 100 mg capsule 100 mg PO DAILY 01/30/20 07/11/21 History (Colace) calcium carbonate 600 mg-vitamin 2 tab PO DAILY tab 07/30/20 07/11/21 History D3 10 mcg (400 unit) chewable tablet (Calcium 600 with Vitamin D3) aspirin 81 mg tablet,delayed 81 mg PO DAILY 09/25/20 07/11/21 History release (Aspirin Low Dose) rosuvastatin 40 mg tablet (Crestor) 40 mg PO DAILY #30 tab 09/25/20 07/11/21 Rx digoxin 125 mcg (0.125 mg) tablet 125 mcg PO Q2D tab 09/26/20 07/11/21 History enzalutamide 40 mg capsule (Xtandi) 160 mg PO QAM 11/26/20 07/11/21 History ondansetron HCl 8 mg tablet 8 mg PO TID PRN 11/26/20 07/11/21 History Lupron 1 dose IM .EVERY 4 MONTHS 02/17/21 07/11/21 History denosumab 120 mg/1.7 mL (70 mg/mL) 120 mg SUBCUT MONTHLY 02/17/21 07/11/21 History subcutaneous solution (Xgeva) megestrol 400 mg/10 mL (40 mg/mL) 400 mg PO DAILY 02/17/21 07/11/21 History oral suspension metoprolol succinate 50 mg 25 mg PO QAM 02/17/21 07/11/21 History tablet,extended release 24 hr furosemide 20 mg tablet 20 mg PO QAM PRN 05/13/21 07/11/21 History mirtazapine 15 mg tablet 15 mg PO HS 07/10/21 07/11/21 History carvedilol 3.125 mg tablet 3.125 mg PO BID 07/11/21 07/11/21 History ipratropium 0.5 mg-albuterol 3 mg 3 ml INHALATION BID #180 ml 08/17/21 Rx (2.5 mg base)/3 mL nebulization soln Past Med/Surg History Medical History Acute confusion (05/2020) Acute UTI (05/2020) Aortic stenosis Atrial flutter Bilateral pleural effusion BPH w/o urinary obs/LUTS CAD (coronary artery disease) 1-vessel (LAD), complicated by internal bleeding requiring another surgery Cardiomyopathy Carotid artery stenosis Carotid stenosis Chronic cough Chronic renal disease COPD (chronic obstructive pulmonary disease) Depression Diabetes mellitus, new onset (2017) Dyslipidemia Dysuria Encephalopathy due to infection (05/2020) Exudative pleural effusion (02/2021) History of alcohol dependence quit early History of tobacco use Leg fracture, left s/p ORIF Mixed hyperlipidemia PAD (peripheral artery disease) PAD (peripheral artery disease) 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 - 2011 H/O carotid endarterectomy left S/P aortic valve replacement with bioprosthetic valve (2010) S/P CABG (coronary artery bypass graft) (2010) Complicated postoperative course S/P CABG x 1 Family History Father , age 79 Congestive heart failure Atherosclerosis Mother , from diverticulitis age 84 Rheumatoid arthritis Other Cancer Heart disease Denies family history of Tuberculosis Allergies Emphysema, unspecified Lung disease Asthma Social History Smoking Status: Former smoker Tobacco Type: Cigarettes Years Smoked: 50; Cigarettes Per Day: 1-2 ppd; Hx Alcohol Use: No Hx Substance Use: No Preferred Language: Croatian Communication Ability: Effective Grades 6 Through 8 Teacher Required: No Beliefs That Will Affect Care: None marital status: marital status details: spouse 2009 Current Living Situation: Family Current Living Situation Comment: lives w/ dtr 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 Physical Exam Physical Exam: The patient is awake, alert and oriented 3, normocephalic and atraumatic, on BiPAP, sitting upright in bed and in mild acute distress. HEENT--PERRL, EOMI, mucous membranes and oropharynx dry. Neck--supple. No JVD. No bruits. Thyroid normal, trachea midline, no adenopathy. Heart--normal S1 and S2. No murmurs, rubs or gallops. Lungs--coarse breath sounds bilaterally, right greater than left. Mild respiratory distress, no accessory muscle use. Abdomen--normal bowel sounds and soft. Nontender. Nondistended, no hernias or masses, no organomegaly. Extremities--no cyanosis or clubbing. No edema. Dermatologic--skin is mildly dry Neurologic--cranial nerves II through XII grossly intact. Rheumatologic--limited exam due to respiratory status Psychiatric--normal affect. Results & Data Results & Data ([facility]) Vital Signs (Past 12 Hours) Vital Signs Temp Pulse Pulse Resp BP Pulse Ox 08/29/21 05:00 104 H 26 H 114/68 98 08/29/21 04:45 109 H 28 H 123/51 L 97 08/29/21 04:20 114 H 22 95 08/29/21 04:18 102 H 32 H 93/48 L 96 08/29/21 04:09 113 H 24 97/55 L 100 08/29/21 03:47 118 H 32 H 93 08/29/21 03:40 114 H 32 H 98 08/29/21 03:35 116 H 30 H 92 08/29/21 03:30 36.5 C 114 H 117 H 30 H 129/64 100 08/29/21 03:29 115 H 33 H 97 08/29/21 03:25 119 H 36 H 87 L 08/29/21 03:23 115/70 72 L Laboratory Results Laboratory Results WBC 13.26 K/uL (4.8-10.8) H 08/29/21 03:53 RBC 3.61 M/uL (4.7-6.1) L 08/29/21 03:53 Hgb 10.8 g/dL (14.0-18.0) L 08/29/21 03:53 Hct 32.5 % (42-52) L 08/29/21 03:53 MCV 90.0 fL (80-100) 08/29/21 03:53 MCH 29.9 pg (25-34) 08/29/21 03:53 MCHC 33.2 g/dL (32-36) 08/29/21 03:53 RDW Std Deviation 55.8 fL (36.4-46.3) H 08/29/21 03:53 RDW Coeff of Godfrey 17.5 % (11.5-14.5) H 08/29/21 03:53 Plt Count 327 K/uL (130-400) 08/29/21 03:53 MPV 9.5 fL (7.4-10.4) 08/29/21 03:53 Immature Gran % (Auto) 0.7 % 08/29/21 03:53 Neut % (Auto) 82.7 % 08/29/21 03:53 Lymph % (Auto) 10.0 % 08/29/21 03:53 [place] % (Auto) 6.1 % 08/29/21 03:53 Eos % (Auto) 0.3 % 08/29/21 03:53 Baso % (Auto) 0.2 % 08/29/21 03:53 Neut # (Auto) 10.97 K/uL (1.4-6.5) H 08/29/21 03:53 Lymph # (Auto) 1.33 K/uL (1.2-3.4) 08/29/21 03:53 [place] # (Auto) 0.81 K/uL (0.11-0.59) H 08/29/21 03:53 Eos # (Auto) 0.04 K/uL (0-0.5) 08/29/21 03:53 Baso # (Auto) 0.02 K/uL (0-0.2) 08/29/21 03:53 Immature Gran # (Auto) 0.09 K/uL (0.00-0.02) H 08/29/21 03:53 PT 14.3 Seconds (9.0-12.0) H 08/29/21 03:53 INR 1.5 (0.9-1.1) H 08/29/21 03:53 D-Dimer 2000 ug/L FEU (0-500) H* 08/29/21 03:53 VBG pH 7.25 (7.36-7.41) L 08/29/21 03:53 VBG pCO2 33 mmHg (38-50) L 08/29/21 03:53 VBG pO2 22 mmHg 08/29/21 03:53 VBG HCO3 14 mmol/L 08/29/21 03:53 VBG O2 Saturation < 60.0 % 08/29/21 03:53 VBG Base Excess -11.7 mEq/L 08/29/21 03:53 Barometric Pressure 722.9 mm/Hg 08/29/21 03:53 Sodium 138 mmol/L (136-145) 08/29/21 03:53 Potassium 3.4 mmol/L (3.5-5.1) L 08/29/21 03:53 Chloride 110 mmol/L (98-107) H 08/29/21 03:53 Carbon Dioxide 15 mmol/L (21-32) L 08/29/21 03:53 Anion Gap 13.0 (3-11) H 08/29/21 03:53 BUN 57 mg/dl (7-18) H 08/29/21 03:53 Creatinine 3.35 mg/dl (0.6-1.4) H 08/29/21 03:53 Est Cr Clr Drug Dosing 13.4 ml/min 08/29/21 03:53 Est GFR ( Amer) 18.2 ml/min 08/29/21 03:53 Est GFR (Non-Af Amer) 15.7 ml/min 08/29/21 03:53 BUN/Creatinine Ratio 16.9 (10-20) 08/29/21 03:53 Glucose 190 mg/dl (70-99) H 08/29/21 03:53 Lactate 3.9 mmol/L (0.4-2.0) H* 08/29/21 03:53 Calcium 8.5 mg/dl (8.5-10.1) 08/29/21 03:53 Magnesium 2.1 mg/dl (1.8-2.4) 08/29/21 03:53 Total Bilirubin 0.4 mg/dl (0.2-1) 08/29/21 03:53 Direct Bilirubin 0.2 mg/dl (0-0.2) 08/29/21 03:53 AST 93 U/L (15-37) H 08/29/21 03:53 ALT 31 (12-78) 08/29/21 03:53 Alkaline Phosphatase 152 U/L (45-117) H D 08/29/21 03:53 Troponin I 0.152 ng/ml (0-0.045) H* 08/29/21 03:53 Total Protein 7.2 gm/dl (6.4-8.2) 08/29/21 03:53 Albumin 1.6 gm/dl (3.4-5.0) L 08/29/21 03:53 Lipase 117 U/L (73-393) 08/29/21 03:53 Adenovirus (PCR) Not Detected (NotDetected) 08/29/21 03:30 B. pertussis DNA (PCR) Not Detected (NotDetected) 08/29/21 03:30 B.parapertussis DNA PCR Not Detected (NotDetected) 08/29/21 03:30 C. pneumoniae DNA (PCR) Not Detected (NotDetected) 08/29/21 03:30 Coronavirus OC43 (PCR) Not Detected (NotDetected) 08/29/21 03:30 Coronavirus HKU1 (PCR) Not Detected (NotDetected) 08/29/21 03:30 Coronavirus 229E (PCR) Not Detected (NotDetected) 08/29/21 03:30 SARS-CoV-2 (PCR) Not Detected (NotDetected) 08/29/21 03:30 Coronavirus NL63 (PCR) Not Detected (NotDetected) 08/29/21 03:30 Human Metapneumovir PCR Not Detected (NotDetected) 08/29/21 03:30 Influenza Type A (PCR) Not Detected (NotDetected) 08/29/21 03:30 Influenza Type B (PCR) Not Detected (NotDetected) 08/29/21 03:30 M. pneumoniae (PCR) Not Detected (NotDetected) 08/29/21 03:30 Parainfluenza 1 (PCR) Not Detected (NotDetected) 08/29/21 03:30 Parainfluenza 2 (PCR) Not Detected (NotDetected) 08/29/21 03:30 Parainfluenza 3 (PCR) Not Detected (NotDetected) 08/29/21 03:30 Parainfluenza 4 (PCR) Not Detected (NotDetected) 08/29/21 03:30 RSV (PCR) Not Detected (NotDetected) 08/29/21 03:30 Entero/Rhino (PCR) Not Detected (NotDetected) 08/29/21 03:30 Code Status & VTE Plan Code Status Full code VTE Prophylaxis Plan VTE Prophylaxis will be ordered: Yes PG Care Time/CCT Total # of Minutes Spent Total Time Spent with Patient: Total time spent is greater than 50% in coordination of care (as documented) at patient's floor/unit and/or counseling patient: Coding Level of Care Code 67566 Initial Inpt Care Lvl 3 Diagnoses Multifocal pneumonia J18.9 Acute hypoxemic respiratory failure J96.01 Acute renal failure N17.9 Acute renal failure type: unspecified Paroxysmal atrial flutter I48.92 Prostate cancer metastatic to bone C61; C79.51 Depression F32.9 Dyslipidemia E78.5 Elevated troponin I level R77.8 (1) Acute renal failure Acute renal failure type: unspecified Qualified Code(s): N17.9 - Acute kidney failure, unspecified
[2021-08-29 06:06] LABS: Appearance Urine Turbid (Clear); Bacteria Urine Automated 2+ (Negative); Bilirubin Urine Negative (Negative); Blood Urine 3+ (Negative); Color Urine Yellow; Epithelial Cell Urine Auto >30 /lpf (0-5); Glucose Urine UA Negative (Negative); Ketones Urine Negative (Negative); Leukocyte Esterase Urine 3+ (Negative); Nitrite Urine Negative (Negative); Protein Urine 2+ (Negative); Specific Gravity Urine 1.011 (1.000-1.030); Urobilinogen Urine Negative (Negative); WBC Urine Automated >30 /hpf (0-5); pH Urine 5.5 (4.5-7.5)
[2021-08-29] MEDS ORDERED: ONDANSETRON 4 MG OD TAB PO PRN (06:56)
[2021-08-29] MEDS ORDERED: CEFEPIME 1,000 MG in SYRINGE 0 ML IV SCH (06:56)
[2021-08-29] MEDS: ALBUT/IPRATROP 3MG/0.5MG NEB 3 ML VIAL NEB SCH ×4 (07:37→19:41)
--- NOTE | 2021-08-29 08:09 | XRay Report ---
XR chest 1V portable CLINICAL HISTORY: shob. COMPARISON STUDY: 07/11/2021 TECHNIQUE: 1 view of the chest FINDINGS: Single frontal view of the chest demonstrates the cardiomediastinal silhouette to be within normal li mits. Patchy interstitial and alveolar opacities are now present bilaterally. The findings are most c haracteristic of a viral type pneumonitis. Covid 19 pneumonia should be excluded. There is evidence f or underlying COPD. There is no evidence for pleural effusion. There is no evidence for vascular navin estion. There is no acute osseous pathology. IMPRESSION: COPD with interval development of patchy interstitial and alveolar opacities characterist ic of a viral type pneumonitis and early Covid pneumonia. ACT 112: Negative or not required by law. Electronically signed by: Jam Shanks M.D. 08/29/2021 8:08 AM
--- NOTE | 2021-08-29 08:43 | CT Scan Report ---
CT chest diagnostic wo con CLINICAL HISTORY: shob, hypoxia COMPARISON STUDY: Portable chest from 08/29/[address] chest from 02/17/2021 CT DOSE: 252.24 mGy.cm TECHNIQUE: Standard CT of the Chest was performed without IV contrast. A dose lowering technique was utilized adhering to the principles of ALARA. FINDINGS: Airway: The airway is clear. No endobronchial lesion is identified. Lungs and pleural: Compared to the previous examination and portable chest radiograph, there are conf luent alveolar opacities within the posterior segment of the right upper lobe and the basilar segment s of the right lower lobe posteriorly. No groundglass opacities are seen as suggested radiographicall y. The diffuse increased density present radiographically relates to calcified and noncalcified pleural plaques bilaterally. There has been resolution of previous right pleural effusion with no pleural eff usion identified. The left hemithorax is essentially clear. Mediastinum: There is again extensive mediastinal and AP window adenopathy. This is not significantly changed on this limited noncontrast study. The patient is status post previous cardiothoracic surger y and aortic valve replacement.. The heart size is within normal limits. Extensive coronary artery ca lcifications present. The thoracic aorta is within normal limits. Extensive atherosclerotic calcifica tion is present involving the aortic arch and origin of great vessels. There is no evidence for peric ardial effusion. Upper abdomen: There is no change compared to the adrenal glands. Osseous structures: Diffuse skeletal metastases are again seen. IMPRESSION: 1. Compared to the previous CT and chest radiograph, there are no groundglass opacities as suspected. The finding seen radiographically relate to bilateral calcified and noncalcified pleural plaques. 2. There are confluent alveolar opacities within the posterior segment of the right upper lobe and th e posterior basilar segments of the right lower lobe most characteristic of pneumonia. 3. There is been interval resolution of previous right pleural effusion. 4. Additional nonacute findings are delineated above. ACT 112: Negative or not required by law. Electronically signed by: Jam Shanks M.D. 08/29/2021 8:42 AM
--- NOTE | 2021-08-29 08:59 | Hospitalist Progress Note ---
Date of Service August 29, 2021 Assessment & Plan (1) Acute hypoxemic respiratory failure: Plan: Acute hypoxemic respiratory failure/multifocal pneumonia- probably exacerbation of copd with described wheezing and sob on arrival Bio fire testing negative in ED including COVID-19 test negative Given dexamethasone 10 mg IV, vancomycin IV and cefepime IV from the ED Hold on any further vancomycin IV due to current acute renal failure Given concerns for pulmonary and renal issues and multifocal process seen, change to renal dosed levaquin to cover gram negative and atypical lung and urine Duonebs every 4 hours while awake and every 2 hours when necessary. Methylprednisolone 40 mg IV every 8 hours Continue BiPAP, titrate downward as symptoms improve (2) Multifocal pneumonia: Plan: See above (3) Acute renal failure: Plan: See above creatinine 3.35 upon admission. Recent creatinines 1.14-1.36-1.52, the daughter reports is secondary to bleeding associated with Garcia catheter changes Continue IV fluid rehydration, recheck laboratories in the morning (4) Elevated troponin I level: Plan: Elevated troponin/paroxysmal atrial flutter/cardiomyopathy/status post AVR with bioprosthetic valve-consider demand ischemia or type 2 mi Continue apixaban, aspirin, carvedilol Hold furosemide Hold digoxin until dig level assessed (5) Paroxysmal atrial flutter: Plan: rate controlled at this time (6) Prostate cancer metastatic to bone: Plan: Continue all associated medications (7) Depression: Plan: Continue mirtazapine (8) Dyslipidemia: Plan: Continue rosuvastatin Admission and Anticipated Discharge Date Admission Date: August 29, 2021 Subjective pt seems to be improved over what is described on admission, no wheezing but does have some bronchial breath sounds which brings aspiration to mind Review of Systems Review of Systems: Mild respiratory distress and fatigue no headache, no visual changes no speech or swallowing issues no chest pain, pressure or palpitations persistent shortness of breath, loose cough resolved wheezes no abdominal pain, nausea or vomiting, diarrhea or constipation no dysuria, hematuria or frequency some wrist pain that the family says is chronic no back pain, CVA tenderness or radicular pain no bruising, bleeding or rashes no focal signs of weakness or numbness or altered sensation no complaints of anxiety or depression.. Physical Exam Physical Exam: The patient appeared chronically ill and mildly dependent Vital signs as documented. Head exam is normocephalic atraumatic Neck is without JVD, thyromegaly, or carotid bruits. Lungs are coarse with some upper airway breath sounds Cardiac exam, Rhythm is regular.. No murmurs, rubs or gallops. Abdominal exam reveals normal bowel sounds, soft non tender, no masses Extremities are nonedematous and both pedal pulses are present Neurologic exam is alert and orientedx2, no focal loss of strength or sensation Skin is without bruises or rashes Psychologically is without concerns for anxiety or depression.. Results & Data Results & Data ([facility]) Vital Signs (Past 12 Hours) Vital Signs Temp Pulse Pulse Resp BP Pulse Ox 08/29/21 08:00 102 H 26 H 104/59 L 97 08/29/21 07:39 100 H 100 H 28 H 97 08/29/21 06:03 30 H 100 08/29/21 05:52 99 H 24 107/54 L 93 08/29/21 05:48 104 H 24 120/58 L 99 08/29/21 05:00 104 H 26 H 114/68 98 08/29/21 04:45 109 H 28 H 123/51 L 97 08/29/21 04:20 114 H 22 95 08/29/21 04:18 102 H 32 H 93/48 L 96 08/29/21 04:09 113 H 24 97/55 L 100 08/29/21 03:47 118 H 32 H 93 08/29/21 03:40 114 H 32 H 98 08/29/21 03:35 116 H 30 H 92 08/29/21 03:30 97.7 F 114 H 117 H 30 H 129/64 100 08/29/21 03:29 115 H 33 H 97 08/29/21 03:25 119 H 36 H 87 L 08/29/21 03:23 115/70 72 L PG Care Time/CCT Total # of Minutes Spent Total Time Spent with Patient: Total time spent is greater than 50% in coordination of care (as documented) at patient's floor/unit and/or counseling patient: Coding Level of Care Code None Diagnoses Acute hypoxemic respiratory failure J96.01 Multifocal pneumonia J18.9 Acute renal failure N17.9 Acute renal failure type: unspecified Elevated troponin I level R77.8 Paroxysmal atrial flutter I48.92 Prostate cancer metastatic to bone C61; C79.51 Depression F32.9 Dyslipidemia E78.5 (1) Acute renal failure Acute renal failure type: unspecified Qualified Code(s): N17.9 - Acute kidney failure, unspecified
[2021-08-29] MEDS ORDERED: AZITHROMYCIN 500 MG in DEXTROSE 5% 250 ML IV SCH (09:00)
[2021-08-29] MEDS ORDERED: ASPIRIN 81 MG ECTAB PO SCH (09:00)
[2021-08-29] MEDS ORDERED: carvediloL 3.125 MG TAB PO SCH (09:00)
[2021-08-29] MEDS: methylPREDNISolone 40 MG in SYRINGE 0 ML IV SCH ×2 (09:40→19:06)
[2021-08-29] MEDS: APIXABAN 2.5 MG TAB PO SCH ×2 (10:35→21:59)
[2021-08-29] MEDS: DOCUSATE SODIUM 100 MG CAP PO SCH (10:36)
--- NOTE | 2021-08-29 10:42 | Electrocardiogram Report ---
Test Reason : Blood Pressure : / mmHG Vent. Rate : 119 BPM Atrial Rate : 119 BPM P-R Int : 000 ms QRS Dur : 144 ms QT Int : 416 ms P-R-T Axes : 000 051 144 degrees QTc Int : 585 ms Sinus tachycardia Left bundle branch block Abnormal ECG When compared with ECG of 11-JUL-2021 20:11, No significant change Confirmed by Adiel Dunn ([id number]) on 08/29/2021 10:41:55 AM Referred By: REFERRED SELF Confirmed By:Adiel Dunn
[2021-08-29] MEDS: ROSUVASTATIN CALCIUM 20 MG TAB PO SCH (10:43)
[2021-08-29] MEDS: CALCIUM 600MG + VIT D 400 IU TAB PO SCH (10:43)
[2021-08-29] MEDS: MEGESTROL ACETATE SUSP 400 MG/10 ML UDC PO SCH (10:43)
[2021-08-29] MEDS: SODIUM BICARBONATE 8.4% 100 MEQ in SODIUM CHLORIDE 0.45 % 1,000 ML IV SCH (11:30)
[2021-08-29] MEDS: DONEPEZIL HCL 5 MG TAB PO SCH (11:36)
[2021-08-29] MEDS: ACETAMINOPHEN 500 MG TAB PO PRN (17:27)
[2021-08-29] MEDS ORDERED: DIGOXIN 0.125 MG TAB PO SCH (17:30)
[2021-08-29] MEDS ORDERED: levoFLOXacin/D5W 750 MG/150 ML BAG IV SCH (18:00)
[2021-08-29] MEDS: MIRTAZAPINE TAB 15 MG TAB PO SCH (21:59)
[2021-08-29] MEDS: carvediloL 3.125 MG TAB PO SCH (21:59)
[2021-08-30] MEDS: XTANDI: ORDER AWAITING ACTION SCH ×4 (00:50→16:59)
[2021-08-30] MEDS: ACETAMINOPHEN 500 MG TAB PO PRN ×2 (00:51→11:00)
[2021-08-30] MEDS: SODIUM BICARBONATE 8.4% 100 MEQ in SODIUM CHLORIDE 0.45 % 1,000 ML IV SCH ×2 (02:10→16:54)
[2021-08-30] MEDS: methylPREDNISolone 40 MG in SYRINGE 0 ML IV SCH ×3 (02:13→17:53)
[2021-08-30] MEDS ORDERED: CEFEPIME 2,000 MG in SYRINGE 0 ML IV SCH (04:00)
[2021-08-30 06:49] LABS: Albumin Level 1.4 gm/dl (3.4-5.0); BUN Creatinine Ratio 19.6 (10-20); Calcium 7.8 mg/dl (8.5-10.1); Creatinine Clr Calc Pharmacy 12.6 ml/min; Est GFR (African American) 17.4 ml/min; Potassium 3.2 mmol/L (3.5-5.1)
[2021-08-30 07:10] LABS: Albumin Globulin Ratio 0.3 (0.9-2); Bilirubin,Total 0.3 mg/dl (0.2-1); Globulin 4.6 gm/dl (2.5-4.0)
[2021-08-30 07:17] LABS: Hematocrit (blood only) 18.2 % (42-52); Hemoglobin 6.1 g/dL (14.0-18.0); Mean Corpuscular Hemoglobin 29.5 pg (25-34); Mean Corpuscular Hgb Conc 33.5 g/dL (32-36); Mean Corpuscular Volume 87.9 fL (80-100); Mean Platelet Volume 9.2 fL (7.4-10.4); Platelet Count 260 K/uL (130-400); RDW Coefficient of Variation 17.5 % (11.5-14.5); RDW Standard Deviation 56.2 fL (36.4-46.3); Red Blood Count 2.07 M/uL (4.7-6.1); White Blood Count 12.35 K/uL (4.8-10.8)
[2021-08-30 07:32] LABS: Basophils # (auto) 0.01 K/uL (0-0.2); Basophils % (auto) 0.1 %; Immature Granulocytes # (auto) 0.06 K/uL (0.00-0.02); Immature Granulocytes % (auto) 0.5 %; Lymphocytes # (auto) 0.63 K/uL (1.2-3.4); Lymphocytes % (auto) 5.1 %; Monocytes # (auto) 0.59 K/uL (0.11-0.59); Monocytes % (auto) 4.8 %; Neutrophils # (auto) 11.06 K/uL (1.4-6.5); Neutrophils % (auto) 89.5 %; Polychromasia 1+
[2021-08-30] MEDS ORDERED: SODIUM CHLORIDE 0.9% 250 ML IV PRN ×2 (07:55→12:06)
--- NOTE | 2021-08-30 08:05 | Hospitalist Progress Note ---
Date of Service August 30, 2021 Assessment & Plan (1) Acute hypoxemic respiratory failure: Plan: Acute hypoxemic respiratory failure/multifocal pneumonia- probably exacerbation of copd with described wheezing and sob on arrival Bio fire testing negative in ED including COVID-19 test negative Given dexamethasone 10 mg IV, vancomycin IV and cefepime IV from the ED Hold on any further vancomycin IV due to current acute renal failure Given concerns for pulmonary and renal issues and multifocal process seen, change to renal dosed levaquin to cover gram negative and atypical lung and urine Duonebs every 4 hours while awake and every 2 hours when necessary. Methylprednisolone tapering dose Continue BiPAP, titrate downward as symptoms improve (2) Anemia: Plan: Pt now with acute anemia, suspect blood loss with illness and being on apixiban and asa, these are held, protonix restarted repeat hgb confirms low, transfusion permission from daughter over phone no active signs of bleeding could be from GI source not yet declared or from gross hematuria from previous urinary cath change (3) Acute renal failure: Plan: See above creatinine 3.35 upon admission. has not improved with ivf checked renal u/s normal anatomy and consult Nephrology (4) Multifocal pneumonia: Plan: continues on levaquin renal dose (5) Elevated troponin I level: Plan: Elevated troponin with slightl rise h/oparoxysmal atrial flutter/cardiomyopathy/status post AVR with bioprosthetic valve-consider demand ischemia or type 2 mi Continue , carvedilol and metoprolol Hold furosemide check echo for change in EF and RWMA (6) Paroxysmal atrial flutter: Plan: rate controlled at this time, B Blockers and digoxin (7) Prostate cancer metastatic to bone: Plan: Continue all associated medications (8) Depression: Plan: Continue mirtazapine (9) Dyslipidemia: Plan: Continue rosuvastatin Admission and Anticipated Discharge Date Admission Date: August 29, 2021 Subjective pt seems to be improved but remains a fairly ill gentleman, lung exam still supports RLL changes, acute kidney injury persists Review of Systems Review of Systems: Mild respiratory distress and fatigue no headache, no visual changes no speech or swallowing issues no chest pain, pressure or palpitations persistent shortness of breath, loose cough mild suprapubic abdominal pain, nausea or vomiting, no melena tafoya cath is draining without obvious bleeding some wrist pain that the family says is chronic no back pain, CVA tenderness or radicular pain no bruising, bleeding or rashes no focal signs of weakness or numbness or altered sensation no complaints of anxiety or depression.. Physical Exam Physical Exam: The patient appeared chronically ill and mildly dependent Vital signs as documented. Head exam is normocephalic atraumatic Neck is without JVD, thyromegaly, or carotid bruits. Lungs are coarse with RLL crackles Cardiac exam, Rhythm is regular.. No murmurs, rubs or gallops. Abdominal exam reveals normal bowel sounds, soft mild suprapubic tenderness Extremities are nonedematous and both pedal pulses are present Neurologic exam is alert and orientedx2, no focal loss of strength or sensation Skin is without bruises or rashes, seems pale Psychologically is without concerns for anxiety or depression.. Results & Data Results & Data ([facility]) Vital Signs (Past 12 Hours) Vital Signs Temp Pulse Pulse Resp BP BP BP 08/30/21 04:12 97.5 F L 103 H 22 118/65 08/29/21 23:00 103 H 08/29/21 22:49 98.4 F 105 H 20 93/60 L 08/29/21 21:30 107 H 24 103/51 L 08/29/21 21:00 104 H 21 101/61 08/29/21 20:30 103 H 24 99/52 L Pulse Ox 08/30/21 04:12 97 08/29/21 23:00 08/29/21 22:49 92 08/29/21 21:30 95 08/29/21 21:00 97 08/29/21 20:30 96 PG Care Time/CCT Total # of Minutes Spent Total Time Spent with Patient: Total time spent is greater than 50% in coordination of care (as documented) at patient's floor/unit and/or counseling patient: Coding Level of Care Code 29917 Subseq Hosp Care Lvl 3 Diagnoses Acute hypoxemic respiratory failure J96.01 Multifocal pneumonia J18.9 Acute renal failure N17.9 Acute renal failure type: unspecified Elevated troponin I level R77.8 Paroxysmal atrial flutter I48.92 Prostate cancer metastatic to bone C61; C79.51 Depression F32.9 Dyslipidemia E78.5 Anemia D64.9 (1) Acute renal failure Acute renal failure type: unspecified Qualified Code(s): N17.9 - Acute kidney failure, unspecified
[2021-08-30] MEDS ORDERED: POTASSIUM CHLORIDE CRTAB 20 MEQ TABCR PO STA ×2 (08:07→10:52)
[2021-08-30] MEDS: ALBUT/IPRATROP 3MG/0.5MG NEB 3 ML VIAL NEB SCH ×4 (09:05→18:04)
[2021-08-30] MEDS: PANTOprazole 40 MG in SYRINGE 0 ML IV SCH ×2 (09:51→20:49)
[2021-08-30] MEDS: carvediloL 3.125 MG TAB PO SCH ×2 (09:51→20:49)
[2021-08-30] MEDS: CALCIUM 600MG + VIT D 400 IU TAB PO SCH (09:52)
[2021-08-30] MEDS: ROSUVASTATIN CALCIUM 20 MG TAB PO SCH (09:52)
[2021-08-30] MEDS: METOPROLOL SUCC 25MG EXT REL TAB PO SCH (09:52)
[2021-08-30] MEDS: MEGESTROL ACETATE SUSP 400 MG/10 ML UDC PO SCH (09:52)
[2021-08-30] MEDS: DONEPEZIL HCL 5 MG TAB PO SCH (09:53)
[2021-08-30] MEDS: DOCUSATE SODIUM 100 MG CAP PO SCH (09:53)
--- NOTE | 2021-08-30 11:31 | XCELERA ---
[id number]
--- NOTE | 2021-08-30 12:00 | Electrocardiogram Report ---
Test Reason : Blood Pressure : / mmHG Vent. Rate : 100 BPM Atrial Rate : 105 BPM P-R Int : 000 ms QRS Dur : 140 ms QT Int : 400 ms P-R-T Axes : 000 -07 121 degrees QTc Int : 516 ms Atrial fibrillation Non-specific intra-ventricular conduction block Abnormal ECG When compared with ECG of 29-AUG-2021 03:24, Atrial fibrillation has replaced Sinus rhythm Questionable change in QRS axis T wave inversion no longer evident in Inferior leads Confirmed by Adiel Dunn ([id number]) on 08/30/2021 11:59:46 AM Referred By: REFERRED SELF Confirmed By:Adiel Dunn
--- NOTE | 2021-08-30 12:54 | Ultrasound Report ---
US renal/blad retro comp CLINICAL HISTORY: Acute kidney insufficiency, h/o prostate ca. COMPARISON: None. TECHNIQUE: Multiple grayscale and color images of the kidneys and bladder. FINDINGS: This is a limited examination as patient was unable to hold his breath. Right kidney: The kidney is normal in size and echogenicity. There is no evidence for renal calculus or hydronephrosis. There is no evidence for solid renal mass. There is no evidence for medical renal disease. The kidney measures 10.1 cm in greatest length Left kidney: The kidney is normal in size and echogenicity. There is no evidence for renal calculus o r hydronephrosis. There is no evidence for solid renal mass. There is no evidence for medical renal d isease. The kidney measures 10.2 cm in greatest length Bladder: Garcia catheter is present within the bladder IMPRESSION: Negative renal ultrasound. ACT 112: Negative or not required by law. Electronically signed by: Jam Shanks M.D. 08/30/2021 12:52 PM
--- NOTE | 2021-08-30 14:17 | Nephrology Consultation ---
Date of Consultation August 30, 2021 Assessment & Plan (1) Acute renal failure: Multifactorial. Non-oliguric. Clinically consistent with underlying ATN. UA demonstrating possible G negative UTI. US unobstructed. Garcia intact. Medications appropriate for kidney dysfunction. Rosuvastatin held; dose excessive for kidney dysfunction. CK >1000. Diuretics held. IVF with NaHCO3 replacement is being provided to encourage a positive fluid balance. Suggest isotonic mixture, 1/2 NS + 75 mEq NaHCO3. 20 mEq KCL replacement provided this AM. Repeat metabolic profile this afternoon. No emergent indication for dialysis. Given multiple medical comorbidities including dementia, metastatic prostate cancer, cardiovascular disease, Mr. Turk is unfortunately a very poor candidate for dialysis, if kidney dysfunction progresses. (2) Multifocal pneumonia: Antibiotic therapy appropriate for kidney function. If planning to continue vancomycin, please check a level prior to next dose. (3) Anemia: Eliquis held due to acute blood loss anemia. PRBC transfusion support is being provided. History of Present Illness Attending Physician: Jose J Cao MD History of Present Illness Mr. Jayy Turk is an 86-year-old male with dementia, prostate cancer metastatic to bone, coronary artery disease with a history of CABG, history of CEA, paroxysmal atrial flutter, COPD with a former smoking history, BPH, hypertension, DM, cirrhosis by imaging, severe thoracic central stenosis, and CKD. The patient is maintained on Xgeva, Xtandi, and Lupron for his malignancy. Baseline creatinine ~1.5 mg/dL. Mr. Manzanares has a bioprosthetic aortic valve placed at [facility] in [place]. In February, he was admitted to [facility] with a right hydropneumothorax. Fluid was exudative with predominance of eosinophils suggestive of malignancy versus related to Xtandi. He was admitted to [facility] yesterday with multifocal pneumonia. Concern for possible aspiration noted. Mr. Turk presented to the hospital with shortness of breath. Treatment has included methylprednisolone and IV antibiotics. Cefepime and vancomycin started in the ER. Levaquin subsequently added. Creatinine in July 1.5 mg/dL. Creatinine on admission 3.35 mg/dL and 3.48 mg/dL now. Renal US was reviewed personally. Mild symmetric cortical atrophy. Kidneys are otherwise normal in appearance. There is no evidence of obstruction. The patient has been non- oliguric. Urine studies demonstrating 2+ protein, 3+ blood. microscopy with >30 WBC, 10-30 RBC, >30 epithelial cells, and 2+ bacteria. Urine culture >100,000 gram negative rods. IV 1/2 NS + 100 mEq NaHCO3 including at 80 ml/hr. Hemoglobin dropped overnight from 10.8 to 6. PRBC transfusion being provided at the time of my assessment this afternoon. Mr. Turk is a poor historian and not able to provide much background information. He was oriented to person and place. He repeatedly asked about going home. He does not want to be in the hospital and was not clear on why he was admitted. He denied any dyspnea. He denied any pain. He denied shortness of breath. Allergies Allergy/AdvReac Type Severity Reaction Status Date / Time Penicillins Allergy Severe Hives and Verified 08/29/21 14:56 shortness of breath doxycycline Allergy Mild Rash Verified 08/29/21 14:56 tetracycline Allergy Mild Rash Verified 08/29/21 14:56 Home Medications Medication Instructions Recorded Confirmed Type apixaban 5 mg tablet 5 mg PO BID 08/05/18 08/29/21 History docusate sodium 100 mg capsule 100 mg PO DAILY 01/30/20 08/29/21 History (Colace) calcium carbonate 600 mg-vitamin 2 tab PO DAILY tab 07/30/20 08/29/21 History D3 10 mcg (400 unit) chewable tablet (Calcium 600 with Vitamin D3) aspirin 81 mg tablet,delayed 81 mg PO DAILY 09/25/20 08/29/21 History release (Aspirin Low Dose) rosuvastatin 40 mg tablet (Crestor) 40 mg PO DAILY #30 tab 09/25/20 08/29/21 Rx digoxin 125 mcg (0.125 mg) tablet 125 mcg PO Q2D tab 09/26/20 08/29/21 History enzalutamide 40 mg capsule (Xtandi) 160 mg PO QAM 11/26/20 08/29/21 History ondansetron HCl 8 mg tablet 8 mg PO TID PRN 11/26/20 08/29/21 History Lupron 1 dose IM .EVERY 4 MONTHS 02/17/21 08/29/21 History denosumab 120 mg/1.7 mL (70 mg/mL) 120 mg SUBCUT MONTHLY 02/17/21 08/29/21 History subcutaneous solution (Xgeva) megestrol 400 mg/10 mL (40 mg/mL) 400 mg PO DAILY 02/17/21 08/29/21 History oral suspension metoprolol succinate 50 mg 25 mg PO QAM 02/17/21 08/29/21 History tablet,extended release 24 hr furosemide 20 mg tablet 20 mg PO QAM PRN 05/13/21 08/29/21 History mirtazapine 15 mg tablet 15 mg PO HS 07/10/21 08/29/21 History ipratropium 0.5 mg-albuterol 3 mg 3 ml INHALATION BID #180 ml 08/17/21 08/29/21 Rx (2.5 mg base)/3 mL nebulization soln Patient History Medical History Acute confusion (05/2020) Acute UTI (05/2020) Aortic stenosis Atrial flutter Bilateral pleural effusion BPH w/o urinary obs/LUTS CAD (coronary artery disease) 1-vessel (LAD), complicated by internal bleeding requiring another surgery Cardiomyopathy Carotid artery stenosis Carotid stenosis Chronic cough Chronic renal disease COPD (chronic obstructive pulmonary disease) Depression Diabetes mellitus, new onset (2017) Dyslipidemia Dysuria Encephalopathy due to infection (05/2020) Exudative pleural effusion (02/2021) History of alcohol dependence quit early 1970s History of tobacco use Leg fracture, left s/p ORIF Mixed hyperlipidemia PAD (peripheral artery disease) PAD (peripheral artery disease) 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 Sepsis (05/2020) Shortness of breath Shortness of breath Surgical History Aortic valve replaced [facility] - 2011 H/O carotid endarterectomy left S/P aortic valve replacement with bioprosthetic valve (2010) S/P CABG (coronary artery bypass graft) (2010) Complicated postoperative course S/P CABG x 1 Family History Father , age 79 Congestive heart failure Atherosclerosis Mother , from diverticulitis age 84 Rheumatoid arthritis Other Cancer Heart disease Denies family history of Tuberculosis Allergies Emphysema, unspecified Lung disease Asthma Social History Smoking Status: Former smoker Tobacco Type: Cigarettes Years Smoked: 50; Cigarettes Per Day: 1-2 ppd; Hx Alcohol Use: No Hx Substance Use: No Preferred Language: Danish Communication Ability: Impaired Wood Patternmaker Required: No Beliefs That Will Affect Care: None marital status: marital status details: spouse 2009 Current Living Situation: Family Current Living Situation Comment: lives w/ dtr 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 other: 3 children one of whom is Feels Safe at Home: Yes Assistive Devices: Glasses, Hearing Aid - Bilateral and Walker Review of Systems Review of Systems: All systems reviewed & are unremarkable except as noted in HPI & below Physical Exam Constitutional: well developed; no acute distress Eyes: + anicteric sclerae; no corneal abnormality ENMT: Mouth: no oral mucosal abnormality and oral mucous membranes not dry Neck: normal visual inspection and trachea midline Respiratory: normal respiratory effort Auscultation: + rhonchi Cardiovascular: Rate/Rhythm: + tachycardic Heart Sounds: normal S1, normal S2 and + murmur Extremities: no edema Musculoskeletal: Extremities: no cyanosis and no clubbing Skin: + turgor decreased and + scar (sterotomy ) Neurologic: Motor/Sensory: no tremor and no asterixis Psychiatric: Orientation: alert, oriented to person and oriented to place Genitourinary: Garcia with clear yellow urine in bag Results & Data ([facility]) Vital Signs (Past 12 Hours) Vital Signs Temp Pulse Pulse Resp BP BP BP 08/30/21 12:58 36.7 C 103 H 18 107/64 08/30/21 12:20 108 H 08/30/21 11:23 36.5 C 18 L 18 110/67 08/30/21 10:00 08/30/21 09:07 105 H 18 08/30/21 08:01 37.0 C 100 H 23 110/61 08/30/21 04:12 36.4 C L 103 H 22 118/65 Pulse Ox Pulse Ox 08/30/21 12:58 94 08/30/21 12:20 08/30/21 11:23 96 08/30/21 10:00 92 08/30/21 09:07 95 08/30/21 08:01 95 08/30/21 04:12 97 Laboratory Results Laboratory Results - last 24 hr 1208/30/21 08/30/21 17:44 05:51 05:51 WBC 12.35 H RBC 2.07 L Hgb 6.1 L* D Hct 18.2 L* MCV 87.9 MCH 29.5 MCHC 33.5 RDW Std Deviation 56.2 H RDW Coeff of Godfrey 17.5 H Plt Count 260 MPV 9.2 Immature Gran % (Auto) 0.5 Neut % (Auto) 89.5 Lymph % (Auto) 5.1 [place] % (Auto) 4.8 Eos % (Auto) 0.0 Baso % (Auto) 0.1 Neut # (Auto) 11.06 H Lymph # (Auto) 0.63 L [place] # (Auto) 0.59 Eos # (Auto) 0.00 Baso # (Auto) 0.01 Immature Gran # (Auto) 0.06 H Polychromasia 1+ Sodium 141 Potassium 3.2 L Chloride 112 H Carbon Dioxide 19 L Anion Gap 10.0 BUN 68 H Creatinine 3.48 H Est Cr Clr Drug Dosing 12.6 Est GFR ( Amer) 17.4 Est GFR (Non-Af Amer) 15.0 BUN/Creatinine Ratio 19.6 Glucose 149 H Calcium 7.8 L Total Bilirubin 0.3 AST 69 H ALT 28 Alkaline Phosphatase 109 Total Creatine Kinase Troponin I 0.460 H* Total Protein 6.0 L Albumin 1.4 L Globulin 4.6 H Albumin/Globulin Ratio 0.3 L Blood Type Blood Type Recheck Antibody Screen Crossmatch 08/30/21 08/30/21 08/30/21 05:51 11:04 11:04 WBC RBC Hgb 5.8 L* Hct MCV MCH MCHC RDW Std Deviation RDW Coeff of Godfrey Plt Count MPV Immature Gran % (Auto) Neut % (Auto) Lymph % (Auto) [place] % (Auto) Eos % (Auto) Baso % (Auto) Neut # (Auto) Lymph # (Auto) [place] # (Auto) Eos # (Auto) Baso # (Auto) Immature Gran # (Auto) Polychromasia Sodium Potassium Chloride Carbon Dioxide Anion Gap BUN Creatinine Est Cr Clr Drug Dosing Est GFR ( Amer) Est GFR (Non-Af Amer) BUN/Creatinine Ratio Glucose Calcium Total Bilirubin AST ALT Alkaline Phosphatase Total Creatine Kinase Troponin I Total Protein Albumin Globulin Albumin/Globulin Ratio Blood Type A Positive Blood Type Recheck A Positive Antibody Screen NEGATIVE Crossmatch See Detail 08/30/21 11:04 WBC RBC Hgb Hct MCV MCH MCHC RDW Std Deviation RDW Coeff of Godfrey Plt Count MPV Immature Gran % (Auto) Neut % (Auto) Lymph % (Auto) [place] % (Auto) Eos % (Auto) Baso % (Auto) Neut # (Auto) Lymph # (Auto) [place] # (Auto) Eos # (Auto) Baso # (Auto) Immature Gran # (Auto) Polychromasia Sodium Potassium Chloride Carbon Dioxide Anion Gap BUN Creatinine Est Cr Clr Drug Dosing Est GFR ( Amer) Est GFR (Non-Af Amer) BUN/Creatinine Ratio Glucose Calcium Total Bilirubin AST ALT Alkaline Phosphatase Total Creatine Kinase 1282 H Troponin I Total Protein Albumin Globulin Albumin/Globulin Ratio Blood Type Blood Type Recheck Antibody Screen Crossmatch PG Care Time/CCT Total # of Minutes Spent Total Time Spent with Patient: Total time spent is greater than 50% in coordination of care (as documented) at patient's floor/unit and/or counseling patient: Coding Level of Care Code 69578 Inpt Consult Level 4 Diagnoses Multifocal pneumonia J18.9 Anemia D64.9 Acute renal failure N17.9 Acute renal failure type: unspecified (1) Acute renal failure Acute renal failure type: unspecified Qualified Code(s): N17.9 - Acute kidney failure, unspecified
[2021-08-30] MEDS: SODIUM BICARBONATE 8.4% 75 MEQ in SODIUM CHLORIDE 0.45 % 1,000 ML IV SCH (16:54)
[2021-08-30] MEDS: MIRTAZAPINE TAB 15 MG TAB PO SCH (20:49)
[2021-08-30 20:53] LABS: Hematocrit (blood only) 30.3 % (42-52); Hemoglobin 10.1 g/dL (14.0-18.0)
[2021-08-31] MEDS: XTANDI: ORDER AWAITING ACTION SCH ×3 (00:39→17:19)
[2021-08-31] MEDS: methylPREDNISolone 40 MG in SYRINGE 0 ML IV SCH ×3 (02:49→18:17)
[2021-08-31] MEDS: SODIUM BICARBONATE 8.4% 75 MEQ in SODIUM CHLORIDE 0.45 % 1,000 ML IV SCH ×2 (03:21→15:13)
[2021-08-31] MEDS: ALBUT/IPRATROP 3MG/0.5MG NEB 3 ML VIAL NEB SCH ×4 (07:20→19:58)
[2021-08-31 07:26] LABS: Basophils # (auto) 0.01 K/uL (0-0.2); Basophils % (auto) 0.1 %; Hematocrit (blood only) 26.3 % (42-52); Hemoglobin 8.9 g/dL (14.0-18.0); Immature Granulocytes # (auto) 0.09 K/uL (0.00-0.02); Immature Granulocytes % (auto) 0.7 %; Lymphocytes # (auto) 0.47 K/uL (1.2-3.4); Lymphocytes % (auto) 3.5 %; Mean Corpuscular Hemoglobin 30.2 pg (25-34); Mean Corpuscular Hgb Conc 33.8 g/dL (32-36); Mean Corpuscular Volume 89.2 fL (80-100); Monocytes # (auto) 0.58 K/uL (0.11-0.59); Monocytes % (auto) 4.3 %; Neutrophils # (auto) 12.23 K/uL (1.4-6.5); Neutrophils % (auto) 91.4 %; Nucleated RBC # (auto) 0.04 K/uL (0-0); Nucleated RBC % (auto) 0.3 %; Platelet Count 232 K/uL (130-400); Red Blood Count 2.95 M/uL (4.7-6.1); White Blood Count 13.38 K/uL (4.8-10.8)
--- NOTE | 2021-08-31 07:51 | Electrocardiogram Report ---
Test Reason : Blood Pressure : / mmHG Vent. Rate : 107 BPM Atrial Rate : 107 BPM P-R Int : 000 ms QRS Dur : 128 ms QT Int : 374 ms P-R-T Axes : 000 -05 120 degrees QTc Int : 499 ms Sinus tachycardia Non-specific intra-ventricular conduction block T wave abnormality, consider lateral ischemia Abnormal ECG Confirmed by Pillo Delgadillo ([id number]) on 08/31/2021 7:51:40 AM Referred By: REFERRED SELF Confirmed By:John Delgadillo
[2021-08-31 07:56] LABS: Albumin Level 1.3 gm/dl (3.4-5.0); BUN Creatinine Ratio 21.4 (10-20); Calcium 7.4 mg/dl (8.5-10.1); Creatinine Clr Calc Pharmacy 12.5 ml/min; Est GFR (African American) 16.4 ml/min; Est GFR (Non-African American) 14.2 ml/min; Potassium 3.5 mmol/L (3.5-5.1)
[2021-08-31 07:57] LABS: Rouleaux 1+
[2021-08-31 08:11] LABS: Albumin Globulin Ratio 0.3 (0.9-2); Bilirubin,Total 0.3 mg/dl (0.2-1); Globulin 4.6 gm/dl (2.5-4.0); Total Protein 5.9 gm/dl (6.4-8.2)
[2021-08-31] MEDS: PANTOprazole 40 MG in SYRINGE 0 ML IV SCH ×2 (09:15→21:28)
[2021-08-31] MEDS: carvediloL 3.125 MG TAB PO SCH ×2 (09:15→21:33)
[2021-08-31] MEDS: MEGESTROL ACETATE SUSP 400 MG/10 ML UDC PO SCH (09:15)
[2021-08-31] MEDS: METOPROLOL SUCC 25MG EXT REL TAB PO SCH (09:15)
[2021-08-31] MEDS: DOCUSATE SODIUM 100 MG CAP PO SCH (09:15)
[2021-08-31] MEDS: CALCIUM 600MG + VIT D 400 IU TAB PO SCH (09:15)
[2021-08-31] MEDS: DONEPEZIL HCL 5 MG TAB PO SCH (09:15)
[2021-08-31] MEDS: cefTRIAXone SODIUM 2,000 MG in DEXTROSE 5% 50 ML IV SCH (09:16)
[2021-08-31] MEDS: guaiFENesin 600 MG TABCR PO SCH ×2 (09:16→21:29)
--- NOTE | 2021-08-31 10:14 | Nephrology Progress Note ---
Date of Service August 31, 2021 Assessment & Plan (1) Acute renal failure: Plan: Multifactorial. Clinically consistent with underlying ATN. Non-oliguric. Urine +E coli resistant to Levofloxacin. US unobstructed. Garcia intact. Medications appropriate for kidney dysfunction. Rosuvastatin held; dose excessive for kidney dysfunction. CK continues to trend upward. IVF with NaHCO3 replacement is being provided to encourage a positive fluid balance. Continue 1/2 NS + 75 mEq NaHCO3. Additional 10 mEq KCl provided this AM. Repeat metabolic profile + PO4 + CK this afternoon. No emergent indication for dialysis. Given multiple medical comorbidities including dementia, metastatic prostate cancer, cardiovascular disease, Mr. Turk is unfortunately a very poor candidate for dialysis, if kidney dysfunction progresses. (2) Multifocal pneumonia: Plan: Antibiotic therapy appropriate for kidney function. (3) Anemia: Plan: Eliquis held due to acute blood loss anemia. PRBC x 2 untis provided yesterday. Admission and Anticipated Discharge Date Admission Date: August 29, 2021 Subjective No acute events overnight. Resting comfortably in bed this AM but very confused. Denies pain. Denies shortness of breath. No fevers. Review of Systems Review of Systems: All systems reviewed & are unremarkable except as noted in HPI & below Physical Exam Constitutional: + frail appearing; no acute distress Eyes: + anicteric sclerae; no corneal abnormality ENMT: Mouth: no oral mucosal abnormality and oral mucous membranes not dry Neck: normal visual inspection and trachea midline Respiratory: normal respiratory effort Auscultation: + rhonchi Cardiovascular: Rate/Rhythm: + tachycardic Heart Sounds: normal S1, normal S2 and + murmur Extremities: no edema Musculoskeletal: Extremities: no cyanosis and no clubbing Skin: + turgor decreased and + scar (sterotomy ) Neurologic: Motor/Sensory: no tremor and no asterixis Psychiatric: Orientation: alert and oriented to person; + not oriented to place and + not oriented to time Results & Data ([facility]) Vital Signs (Past 12 Hours) Vital Signs Temp Pulse Pulse Resp BP Pulse Ox 08/31/21 07:40 103 H 08/31/21 07:21 89 18 98 08/31/21 07:08 36.8 C 101 H 18 121/59 L 97 08/31/21 04:10 36.4 C L 106 H 126/70 97 08/31/21 01:59 106 H 08/30/21 22:49 36.4 C L 108 H 146/79 H 91 Laboratory Results Laboratory Results - last 24 hr 08/30/21 08/30/21 08/30/21 05:51 05:51 11:04 WBC RBC Hgb Hct MCV MCH MCHC RDW Std Deviation RDW Coeff of Godfrey Plt Count MPV Immature Gran % (Auto) Neut % (Auto) Lymph % (Auto) [place] % (Auto) Eos % (Auto) Baso % (Auto) Neut # (Auto) Lymph # (Auto) [place] # (Auto) Eos # (Auto) Baso # (Auto) Immature Gran # (Auto) Absolute Nucleated RBC Nucleated RBC % (auto) Rouleaux 1+ Sodium Potassium Chloride Carbon Dioxide Anion Gap BUN Creatinine Est Cr Clr Drug Dosing Est GFR ( Amer) Est GFR (Non-Af Amer) BUN/Creatinine Ratio Glucose Calcium Total Bilirubin AST ALT Alkaline Phosphatase Total Creatine Kinase Total Protein Albumin Globulin Albumin/Globulin Ratio Digoxin Blood Type A Positive Blood Type Recheck A Positive Antibody Screen NEGATIVE Crossmatch See Detail 08/30/21 08/30/21 08/30/21 11:04 11:04 19:43 WBC RBC Hgb 5.8 L* 10.1 L D Hct 30.3 L MCV MCH MCHC RDW Std Deviation RDW Coeff of Godfrey Plt Count MPV Immature Gran % (Auto) Neut % (Auto) Lymph % (Auto) [place] % (Auto) Eos % (Auto) Baso % (Auto) Neut # (Auto) Lymph # (Auto) [place] # (Auto) Eos # (Auto) Baso # (Auto) Immature Gran # (Auto) Absolute Nucleated RBC Nucleated RBC % (auto) Rouleaux Sodium Potassium Chloride Carbon Dioxide Anion Gap BUN Creatinine Est Cr Clr Drug Dosing Est GFR ( Amer) Est GFR (Non-Af Amer) BUN/Creatinine Ratio Glucose Calcium Total Bilirubin AST ALT Alkaline Phosphatase Total Creatine Kinase 1282 H Total Protein Albumin Globulin Albumin/Globulin Ratio Digoxin Blood Type Blood Type Recheck Antibody Screen Crossmatch 08/31/21 08/31/21 08/31/21 07:13 07:13 07:13 WBC 13.38 H RBC 2.95 L Hgb 8.9 L Hct 26.3 L MCV 89.2 MCH 30.2 MCHC 33.8 RDW Std Deviation 52.0 H RDW Coeff of Godfrey 16.0 H Plt Count 232 MPV 9.0 Immature Gran % (Auto) 0.7 Neut % (Auto) 91.4 Lymph % (Auto) 3.5 [place] % (Auto) 4.3 Eos % (Auto) 0.0 Baso % (Auto) 0.1 Neut # (Auto) 12.23 H Lymph # (Auto) 0.47 L [place] # (Auto) 0.58 Eos # (Auto) 0.00 Baso # (Auto) 0.01 Immature Gran # (Auto) 0.09 H Absolute Nucleated RBC 0.04 H Nucleated RBC % (auto) 0.3 Rouleaux Sodium 141 Potassium 3.5 Chloride 109 H Carbon Dioxide 23 Anion Gap 9.0 BUN 78 H Creatinine 3.65 H Est Cr Clr Drug Dosing 12.5 Est GFR ( Amer) 16.4 Est GFR (Non-Af Amer) 14.2 BUN/Creatinine Ratio 21.4 H Glucose 125 H Calcium 7.4 L Total Bilirubin 0.3 AST 82 H ALT 34 Alkaline Phosphatase 106 Total Creatine Kinase 1882 H Total Protein 5.9 L Albumin 1.3 L Globulin 4.6 H Albumin/Globulin Ratio 0.3 L Digoxin 1.5 Blood Type Blood Type Recheck Antibody Screen Crossmatch PG Care Time/CCT Total # of Minutes Spent Total Time Spent with Patient: Total time spent is greater than 50% in coordination of care (as documented) at patient's floor/unit and/or counseling patient: Coding Level of Care Code 04017 Subseq Hosp Care Lvl 3 Diagnoses Acute renal failure N17.9 Acute renal failure type: unspecified Multifocal pneumonia J18.9 Anemia D64.9 (1) Acute renal failure Acute renal failure type: unspecified Qualified Code(s): N17.9 - Acute kidney failure, unspecified
[2021-08-31] MEDS ORDERED: POTASSIUM CHLORIDE 10 MEQ TABCR PO STA (10:18)
--- NOTE | 2021-08-31 17:39 | Hospitalist Progress Note ---
Date of Service August 31, 2021 Assessment & Plan (1) Acute hypoxemic respiratory failure: Plan: Acute hypoxemic respiratory failure/multifocal pneumonia- probably exacerbation of copd with described wheezing and sob on arrival Bio fire testing negative in ED including COVID-19 test negative Given concerns for pulmonary and E Coli uti continues on rocephin, not using anaerobic coverage for lung at this time but concern for aspiration, not having speech eval as family is considering hospice after recovery Methylprednisolone tapering dose INitially on bipap now on nc (2) Anemia: Plan: Pt now with acute anemia, suspect blood loss with illness and being on apixiban and asa, these are held, protonix restarted repeat hgb confirms low, transfusion permission from daughter over phone no active signs of bleeding could be from GI source not yet declared or from gross hematuria from previous urinary cath change, hgb augmented appropriately after transfusion (3) Acute renal failure: Plan: See above creatinine 3.35 upon admission. has not improved with ivf checked renal u/s normal anatomy and consult Nephrology following with adjustment of fluids (4) Multifocal pneumonia: Plan: continues on levaquin renal dose (5) Elevated troponin I level: Plan: Elevated troponin with slightl rise h/oparoxysmal atrial flutter/cardiomyopathy/status post AVR with bioprosthetic valve-consider demand ischemia or type 2 mi Continue , carvedilol and metoprolol Hold furosemide check echo for change in EF and RWMA (6) Paroxysmal atrial flutter: Plan: rate controlled at this time, B Blockers and digoxin apixiban, is held may consider restart if hgb is stable (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 Daughter Kristina will look to have some help in the home set up before he goes home Admission and Anticipated Discharge Date Admission Date: August 29, 2021 Subjective No acute events overnight. Resting comfortably in bed this AM but very confused. Denies pain. Denies shortness of breath. No fevers. Review of Systems Review of Systems: Mild respiratory distress and fatigue no headache, no visual changes no speech or swallowing issues no chest pain, pressure or palpitations persistent shortness of breath, loose cough mild suprapubic abdominal pain, nausea or vomiting, no melena tafoya cath is draining without obvious bleeding some wrist pain that the family says is chronic no back pain, CVA tenderness or radicular pain no bruising, bleeding or rashes no focal signs of weakness or numbness or altered sensation no complaints of anxiety or depression.. Physical Exam Physical Exam: The patient appeared chronically ill and mildly dependent Vital signs as documented. Head exam is normocephalic atraumatic Neck is without JVD, thyromegaly, or carotid bruits. Lungs are coarse with RLL crackles Cardiac exam, Rhythm is regular.. No murmurs, rubs or gallops. Abdominal exam reveals normal bowel sounds, soft mild suprapubic tenderness Extremities are nonedematous and both pedal pulses are present Neurologic exam is alert and orientedx2, no focal loss of strength or sensation Skin is without bruises or rashes, seems pale Psychologically is without concerns for anxiety or depression.. Results & Data Results & Data ([facility]) Vital Signs (Past 12 Hours) Vital Signs Temp Pulse Pulse Resp BP Pulse Ox 08/31/21 15:34 98.2 F 99 H 15 111/73 98 08/31/21 14:41 16 08/31/21 11:33 96 H 18 96 08/31/21 11:21 98.2 F 97 H 18 110/60 96 08/31/21 07:40 103 H 08/31/21 07:21 89 18 98 08/31/21 07:08 98.2 F 101 H 18 121/59 L 97 PG Care Time/CCT Total # of Minutes Spent Total Time Spent with Patient: Total time spent is greater than 50% in coordination of care (as documented) at patient's floor/unit and/or counseling patient: Coding Level of Care Code 88555 Subseq Hosp Care Lvl 3 Diagnoses Acute hypoxemic respiratory failure J96.01 Anemia D64.9 Acute renal failure N17.9 Acute renal failure type: unspecified Multifocal pneumonia J18.9 Elevated troponin I level R77.8 Paroxysmal atrial flutter I48.92 Prostate cancer metastatic to bone C61; C79.51 Depression F32.9 Dyslipidemia E78.5 (1) Acute renal failure Acute renal failure type: unspecified Qualified Code(s): N17.9 - Acute kidney failure, unspecified
[2021-08-31] MEDS: MIRTAZAPINE TAB 15 MG TAB PO SCH (21:28)
[2021-09-01] MEDS: XTANDI: ORDER AWAITING ACTION SCH ×3 (01:03→17:09)
[2021-09-01] MEDS: SODIUM BICARBONATE 8.4% 75 MEQ in SODIUM CHLORIDE 0.45 % 1,000 ML IV SCH ×3 (01:04→22:43)
[2021-09-01] MEDS: methylPREDNISolone 40 MG in SYRINGE 0 ML IV SCH ×3 (01:05→17:09)
[2021-09-01] MEDS: ALBUT/IPRATROP 3MG/0.5MG NEB 3 ML VIAL NEB SCH ×4 (05:26→19:34)
[2021-09-01 07:36] LABS: Hemoglobin 8.7 g/dL (14.0-18.0); Immature Granulocytes # (auto) 0.08 K/uL (0.00-0.02); Immature Granulocytes % (auto) 0.6 %; Lymphocytes # (auto) 0.43 K/uL (1.2-3.4); Lymphocytes % (auto) 3.3 %; Mean Corpuscular Hemoglobin 29.8 pg (25-34); Mean Corpuscular Hgb Conc 33.5 g/dL (32-36); Mean Platelet Volume 9.3 fL (7.4-10.4); Monocytes # (auto) 0.65 K/uL (0.11-0.59); Monocytes % (auto) 4.9 %; Neutrophils % (auto) 91.2 %; Nucleated RBC # (auto) 0.05 K/uL (0-0); Nucleated RBC % (auto) 0.4 %; Platelet Count 206 K/uL (130-400); RDW Coefficient of Variation 16.3 % (11.5-14.5); RDW Standard Deviation 52.6 fL (36.4-46.3); Red Blood Count 2.92 M/uL (4.7-6.1); White Blood Count 13.16 K/uL (4.8-10.8)
[2021-09-01 08:10] LABS: Albumin Level 1.2 gm/dl (3.4-5.0); BUN Creatinine Ratio 24.9 (10-20); Calcium 6.7 mg/dl (8.5-10.1); Creatinine Clr Calc Pharmacy 12.4 ml/min; Est GFR (African American) 16.3 ml/min; Est GFR (Non-African American) 14.1 ml/min; Potassium 3.4 mmol/L (3.5-5.1)
[2021-09-01 08:13] LABS: Albumin Globulin Ratio 0.3 (0.9-2); Globulin 4.7 gm/dl (2.5-4.0); Total Protein 5.9 gm/dl (6.4-8.2)
--- NOTE | 2021-09-01 08:25 | Ultrasound Report ---
US arterial duplex LE BI CLINICAL HISTORY: Bilateral leg and toe pain with an open wound of the left great toe. Evaluate for peripheral vascular disease. History of occlusion of the right superficial femoral artery. COMPARISON: 01/23/2018 TECHNIQUE: Duplex sonography of lower extremity arterial system bilaterally was performed. Velocity measurements provided are in centimeters per second FINDINGS: Alan scale, Doppler spectral analysis, and color imaging performed. Right common femoral artery: Triphasic flow velocity. 116 Right profunda femoris artery: Triphasic flow velocity. 120 Right superficial femoral artery: There is biphasic flow velocity within the proximal superficial fe moral artery and monophasic flow within the mid to distal superficial femoral artery and extending in to the remainder of the lower extremity. Velocity measures 39. Right popliteal artery: Monophasic flow velocity. 85 Right posterior tibial artery: Monophasic flow velocity. 38 Right anterior tibial artery: Monophasic flow velocity. 44 Right dorsalis pedis artery: Monophasic flow velocity. 71 Right peroneal artery: Monophasic flow velocity. 21 Right flow velocities: No segmental elevation in flow velocity is noted on the right to suggest a fo roberto carlos stenosis. However, there is significant atherosclerotic calcification present throughout the left lower extremity. Left common femoral artery: Triphasic flow velocity. 129 Left profunda femoris artery:Triphasic flow velocity. 110 Left superficial femoral artery: Biphasic flow velocity is present proximally. The flow velocity radha ures 203 characteristic of focal stenosis. There is an occlusion of the mid SFA with monophasic flow seen within the distal SFA. Left popliteal artery: Monophasic flow velocity. 46 Left posterior tibial artery: Monophasic flow velocity. 21 Left anterior tibial artery: Monophasic flow velocity. 34 Left dorsalis pedis artery: Absent flow velocity. There is occlusion of the dorsalis pedis with no f low detected Left peroneal artery: Absent proximal flow velocity. There is occlusion of the proximal peroneal claire ry with no flow detected. There is marked atherosclerotic plaque present at this level. Left flow velocities: Segmental flow velocity involving the proximal SFA representing high-grade nica nosis. There is occlusion of the mid SFA. IMPRESSION: Marked peripheral vascular disease is identified bilaterally with segmental occlusions pr esent bilaterally as described above. ACT 112: Negative or not required by law. Electronically signed by: Jam Shanks M.D. 09/01/2021 8:23 AM
[2021-09-01 08:44] LABS: Bilirubin,Total 0.4 mg/dl (0.2-1)
[2021-09-01] MEDS: METOPROLOL SUCC 25MG EXT REL TAB PO SCH (09:17)
[2021-09-01] MEDS: carvediloL 3.125 MG TAB PO SCH ×2 (09:17→20:27)
[2021-09-01] MEDS: CALCIUM 600MG + VIT D 400 IU TAB PO SCH (09:17)
[2021-09-01] MEDS: PANTOprazole 40 MG in SYRINGE 0 ML IV SCH ×2 (09:17→20:29)
[2021-09-01] MEDS: DONEPEZIL HCL 5 MG TAB PO SCH (09:18)
[2021-09-01] MEDS: DOCUSATE SODIUM 100 MG CAP PO SCH (09:18)
[2021-09-01] MEDS: MEGESTROL ACETATE SUSP 400 MG/10 ML UDC PO SCH (09:18)
[2021-09-01] MEDS: guaiFENesin 600 MG TABCR PO SCH ×2 (09:19→20:27)
[2021-09-01] MEDS: cefTRIAXone SODIUM 2,000 MG in DEXTROSE 5% 50 ML IV SCH (09:19)
--- NOTE | 2021-09-01 10:01 | Nephrology Progress Note ---
Date of Service September 01, 2021 Assessment & Plan (1) Acute renal failure: Plan: Multifactorial. Clinically consistent with underlying ATN. Non-oliguric. Creatinine stable at 3.65 mg/dL. Urine +E coli -- remains on Rocephin. US unobstructed. Garcia may be removed per nursing protocol. Medications appropriate for kidney dysfunction. Rosuvastatin held. IVF with NaHCO3 replacement is being provided to encourage a positive fluid balance. Continue 1/2 NS + 75 mEq NaHCO3. Additional 10 mEq KCl provided this AM. Repeat metabolic profile + PO4 + CK tomorrow AM. No emergent indication for dialysis. Given multiple medical comorbidities including dementia, metastatic prostate cancer, cardiovascular disease, Mr. Turk is unfortunately a very poor candidate for dialysis, if kidney dysfunction progresses. (2) Multifocal pneumonia: Plan: Antibiotic therapy appropriate for kidney function. (3) Anemia: Plan: H/H stable. PRBC x 2 untis provided 08/30. Admission and Anticipated Discharge Date Admission Date: August 29, 2021 Subjective No acute events overnight. Resting comfortably in bed this AM but very confused. Denies pain. Denies shortness of breath. No fevers. Review of Systems Review of Systems: All systems reviewed & are unremarkable except as noted in HPI & below (thirsty) Physical Exam Constitutional: + frail appearing; no acute distress Eyes: + anicteric sclerae; no corneal abnormality ENMT: Mouth: no oral mucosal abnormality and oral mucous membranes not dry Neck: normal visual inspection and trachea midline Respiratory: normal respiratory effort Auscultation: + rhonchi Cardiovascular: Rate/Rhythm: + tachycardic Heart Sounds: normal S1, normal S2 and + murmur Extremities: no edema Musculoskeletal: Extremities: no cyanosis and no clubbing Skin: + turgor decreased and + scar (sterotomy ) Neurologic: Motor/Sensory: no tremor and no asterixis Psychiatric: Orientation: alert and oriented to person; + not oriented to place and + not oriented to time Results & Data ([facility]) Vital Signs (Past 12 Hours) Vital Signs Temp Pulse Pulse Resp BP Pulse Ox 09/01/21 08:00 37.0 C 79 20 132/64 95 09/01/21 05:26 93 H 18 90 09/01/21 03:21 97 H 09/01/21 03:18 36.7 C 99 H 16 120/64 97 09/01/21 01:00 36.7 C 92 H 18 112/66 97 Laboratory Results Laboratory Results - last 24 hr 09/01/21 09/01/21 09/01/21 07:13 07:13 07:13 WBC 13.16 H RBC 2.92 L Hgb 8.7 L Hct 26.0 L MCV 89.0 MCH 29.8 MCHC 33.5 RDW Std Deviation 52.6 H RDW Coeff of Godfrey 16.3 H Plt Count 206 MPV 9.3 Immature Gran % (Auto) 0.6 Neut % (Auto) 91.2 Lymph % (Auto) 3.3 Scurry % (Auto) 4.9 Eos % (Auto) 0.0 Baso % (Auto) 0.0 Neut # (Auto) 12.00 H Lymph # (Auto) 0.43 L Scurry # (Auto) 0.65 H Eos # (Auto) 0.00 Baso # (Auto) 0.00 Immature Gran # (Auto) 0.08 H Absolute Nucleated RBC 0.05 H Nucleated RBC % (auto) 0.4 Sodium 143 Potassium 3.4 L Chloride 108 H Carbon Dioxide 24 Anion Gap 11.0 BUN 91 H Creatinine 3.67 H Est Cr Clr Drug Dosing 12.4 Est GFR ( Amer) 16.3 Est GFR (Non-Af Amer) 14.1 BUN/Creatinine Ratio 24.9 H Glucose 120 H Calcium 6.7 L Total Bilirubin 0.4 AST 87 H ALT 44 Alkaline Phosphatase 96 Total Protein 5.9 L Albumin 1.2 L Globulin 4.7 H Albumin/Globulin Ratio 0.3 L Digoxin 1.3 PG Care Time/CCT Total # of Minutes Spent Total Time Spent with Patient: Total time spent is greater than 50% in coordination of care (as documented) at patient's floor/unit and/or counseling patient: Coding Level of Care Code 78495 Subseq Hosp Care Lvl 3 Diagnoses Acute renal failure N17.9 Acute renal failure type: unspecified Multifocal pneumonia J18.9 Anemia D64.9 (1) Acute renal failure Acute renal failure type: unspecified Qualified Code(s): N17.9 - Acute kidney failure, unspecified
[2021-09-01] MEDS ORDERED: POTASSIUM CHLORIDE 10 MEQ TABCR PO STA (10:04)
[2021-09-01] MEDS ORDERED: ALBUTEROL 0.083% NEBU SOLN 3 ML VIAL NEB STA (14:56)
[2021-09-01] MEDS ORDERED: DIGOXIN 0.125 MG TAB PO SCH (16:00)
--- NOTE | 2021-09-01 16:42 | XRay Report ---
XR chest 1V portable CLINICAL HISTORY: R sided diminished sounds, hypoxia, ?plug vs infil COMPARISON STUDY: Chest radiograph and chest CT August 29, 2021. FINDINGS: Median sternotomy wires are noted. There is a prosthetic aortic valve. Cardiomegaly is pres ent. Small right and trace left pleural effusions are noted. There is no pneumothorax. Extensive righ t basilar consolidation has slightly progressed. Left basilar opacity has also increased. There are a dditional airspace opacities within the lungs. IMPRESSION: 1. Findings suggestive of multifocal pneumonia, increased since prior exam. Increase in bibasilar con solidation, greater on the right. 2. Small right and trace left pleural effusions. ACT 112: Negative or not required by law. Electronically signed by: Kentrell Richardson M.D. 09/01/2021 4:41 PM
[2021-09-01] MEDS ORDERED: AZITHROMYCIN 500 MG in DEXTROSE 5% 250 ML IV ONE (17:30)
--- NOTE | 2021-09-01 19:25 | Hospitalist Progress Note ---
Date of Service September 01, 2021 Assessment & Plan (1) Acute hypoxemic respiratory failure: Plan: Initially looked at a COPD exacerbation, later probable aspiration pneumonia. Given his events today, strongly suspect aspirationcontinue ceftriaxone, given that it is a multifocal pneumonia, started Zithromax for caution. Updated family at the bedside extensivelyplan is for home with hospice, they are realistic, discussed aspiration and risk mitigation versus permissive aspiration. Hopefully home with hospice in the next day or [facility] really wants to get him home "even if it is for 3 hours" home once ready with with a need for home/hospice. Metabolic encephalopathy due to repeated aspiration pneumoniasupportive care. (2) Anemia: Plan: Hemoglobin 8.7, no clear indications for transfusion. (3) Acute renal failure: Plan: See above creatinine 3.35 upon admission. 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 Admission and Anticipated Discharge Date Admission Date: August 29, 2021 Subjective Patient seen multiple times throughout the day. Earlier today notes that his b reathing was still fairly bad, but better than before, still not quite feeling like he is getting enough air but not terriblehis biggest complaint was a dry mouth. Later nursing informed me that his pulse ox dropped to about 75%rather abruptlyconcern on aspiration versus mucous plugging. Patient immediately revisited and was then seen many times subsequently. Family at the bedside updated to the best of my ability and to their satisfaction. No HPI review of systems obtainable as the follow-up visits progressedearly on he noted feeling more dyspneic Review of Systems Review of Systems: All systems reviewed & are unremarkable except as noted in HPI & below and Unobtainable due to reduced consciousness Constitutional: Initially negative except for as above then unobtainable due to reduced consciousness Physical Exam Physical Exam: Initially awake and pleasant, later somnolent. Initially no distress, later somewhat tachypneic, and then finally on revisit breathing is calm. His lungs showed coarse mucus sounding rhonchi throughout earlier, immediately after his pulse ox dropped his right lung was quite quiet, and in follow-up visits it started to get more open with loud rhonchi again. No accessory muscle use initially or later, was using a little bit of accessory muscles at the middle of my visits whenever he was desaturating. No focal neuro deficits. Somewhat hard of hearing. Skin without rashes, pallor, icterus. Cardio regular without notable rubs murmurs or gallops. Results & Data Results & Data ([facility]) Vital Signs (Past 12 Hours) Vital Signs Temp Pulse Resp BP Pulse Ox 09/01/21 16:00 97.7 F 70 18 135/63 97 09/01/21 14:30 103 H 18 95 09/01/21 12:00 98.4 F 69 16 116/59 L 98 09/01/21 09:59 71 18 95 09/01/21 08:00 98.6 F 79 20 132/64 95 PG Care Time/CCT Total # of Minutes Spent Total Time Spent with Patient: Total time spent is greater than 50% in coordination of care (as documented) at patient's floor/unit and/or counseling patient: Coding Level of Care Code 47987 Subseq Hosp Care Lvl 3 Diagnoses Acute hypoxemic respiratory failure J96.01 Anemia D64.9 Acute renal failure N17.9 Acute renal failure type: unspecified Multifocal pneumonia J18.9 Elevated troponin I level R77.8 Paroxysmal atrial flutter I48.92 Prostate cancer metastatic to bone C61; C79.51 Depression F32.9 Dyslipidemia E78.5 (1) Acute renal failure Acute renal failure type: unspecified Qualified Code(s): N17.9 - Acute kidney failure, unspecified
[2021-09-01] MEDS: MIRTAZAPINE TAB 15 MG TAB PO SCH (20:27)
[2021-09-02] MEDS: XTANDI: ORDER AWAITING ACTION SCH ×3 (00:43→21:27)
[2021-09-02] MEDS: methylPREDNISolone 40 MG in SYRINGE 0 ML IV SCH ×3 (02:05→18:15)
[2021-09-02] MEDS: ALBUT/IPRATROP 3MG/0.5MG NEB 3 ML VIAL NEB SCH ×4 (07:06→19:10)
[2021-09-02] MEDS ORDERED: AZITHROMYCIN 250 MG in DEXTROSE 5% 250 ML IV SCH (09:00)
[2021-09-02] MEDS: carvediloL 3.125 MG TAB PO SCH ×2 (10:07→21:26)
[2021-09-02] MEDS: CALCIUM 600MG + VIT D 400 IU TAB PO SCH (10:07)
[2021-09-02] MEDS: DONEPEZIL HCL 5 MG TAB PO SCH (10:08)
[2021-09-02] MEDS: MEGESTROL ACETATE SUSP 400 MG/10 ML UDC PO SCH (10:08)
[2021-09-02] MEDS: DOCUSATE SODIUM 100 MG CAP PO SCH (10:08)
[2021-09-02] MEDS: METOPROLOL SUCC 25MG EXT REL TAB PO SCH (10:08)
[2021-09-02] MEDS: guaiFENesin 600 MG TABCR PO SCH ×2 (10:08→21:26)
[2021-09-02] MEDS: cefTRIAXone SODIUM 2,000 MG in DEXTROSE 5% 50 ML IV SCH (10:18)
--- NOTE | 2021-09-02 10:42 | Nephrology Progress Note ---
Date of Service September 02, 2021 Assessment & Plan (1) Acute renal failure: Plan: Multifactorial. Clinically consistent with underlying ATN. Non-oliguric. Creatinine stable at 3.65 mg/dL. Transitioned to TICKET SCHEDULER. Nephrology has nothing more to add. Please call with qu estions or concerns. (2) Multifocal pneumonia: (3) Anemia: Admission and Anticipated Discharge Date Admission Date: August 29, 2021 Subjective Transitioned to TICKET SCHEDULER. I reviewed the plan of care with Dr. Campbell this morning. Review of Systems Review of Systems: Unobtainable due to cognitive status Physical Exam Constitutional: no acute distress Results & Data ([facility]) Vital Signs (Past 12 Hours) Vital Signs Temp Pulse Resp BP BP Pulse Ox 09/02/21 10:22 86 22 92 09/02/21 07:08 95 H 20 93 09/02/21 07:00 36.4 C L 95 H 15 106/69 91 09/02/21 03:00 36.3 C L 97 H 18 103/66 97 09/01/21 22:55 36.6 C 96 H 20 92/52 L 93 Laboratory Results Laboratory Results - last 24 hr 09/01/21 09/02/21 09/02/21 07:13 05:15 05:15 Total Creatine Kinase 2582 H Digoxin Cancelled 1.7 PG Care Time/CCT Total # of Minutes Spent Total Time Spent with Patient: Total time spent is greater than 50% in coordination of care (as documented) at patient's floor/unit and/or counseling patient: Coding Level of Care Code 26736 Subseq Hosp Care Lvl 1 Diagnoses Acute renal failure N17.9 Acute renal failure type: unspecified Multifocal pneumonia J18.9 Anemia D64.9 (1) Acute renal failure Acute renal failure type: unspecified Qualified Code(s): N17.9 - Acute kidney failure, unspecified
[2021-09-02] MEDS: PANTOprazole 40 MG in SYRINGE 0 ML IV SCH ×2 (10:49→21:40)
[2021-09-02] MEDS: SODIUM BICARBONATE 8.4% 75 MEQ in SODIUM CHLORIDE 0.45 % 1,000 ML IV SCH ×3 (12:07→22:29)
--- NOTE | 2021-09-02 17:29 | Hospitalist Progress Note ---
Date of Service September 02, 2021 Assessment & Plan (1) Acute hypoxemic respiratory failure: Plan: Initially looked at a COPD exacerbation, later probable aspiration pneumonia. Given his events yesterday, strongly suspect aspirationcontinue ceftriaxone, given that it is a multifocal pneumonia, started Zithromax for caution. At this point, he does appear that he is probably passing from this insultand family would prefer to keep him in the hospital, rather than risk him dying from the physiological stress of being transported home. Did not seem ready to fully withdraw current care and moved to purely comfort measures, but I suspect his passing is fairly imminent either way. Offered empathy and support. Metabolic encephalopathy due to repeated aspiration pneumoniasupportive care. (2) Anemia: Plan: Hemoglobin 8.7, no clear indications for transfusion. (3) Acute renal failure: Plan: See above creatinine 3.35 upon admission. 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 Daughter at the bedside, notes that he has been minimally responsive since yesterday. Breathing becoming more shallow. She notes that he desaturated to the 80s simply by rolling him to clean him up, very worried that a transition to home would kill him. She notes that her goal of getting him home was largely whenever he was still awake and lucid, and now that he is completely out of it, she does not feel so compelled us to get him home, and is content to carry out his comfort care here. She knows that he is passing, and takes peace and the fact that he said he is ready. Review of Systems Review of Systems: Unobtainable due to cognitive status Physical Exam Physical Exam: In bed with oxygen mask on, somewhat shallow breathing, lungs show mild accessory muscle use but shallow breathing, somewhat poor air entry, diffuse rhonchi right worse than left. No appearance of pain or discomfort. No rashes, pallor, icterus. Results & Data Results & Data ([facility]) Vital Signs (Past 12 Hours) Vital Signs Temp Pulse Resp BP BP Pulse Ox 09/02/21 16:05 97.9 F 102 H 14 107/66 96 09/02/21 14:19 79 20 93 09/02/21 11:08 97.3 F L 100 H 18 95/59 L 93 09/02/21 10:22 86 22 92 09/02/21 07:08 95 H 20 93 09/02/21 07:00 97.5 F L 95 H 15 106/69 91 PG Care Time/CCT Total # of Minutes Spent Total Time Spent with Patient: Total time spent is greater than 50% in coordination of care (as documented) at patient's floor/unit and/or counseling patient: Coding Level of Care Code 97963 Subseq Hosp Care Lvl 3 Diagnoses Acute hypoxemic respiratory failure J96.01 Anemia D64.9 Acute renal failure N17.9 Acute renal failure type: unspecified Multifocal pneumonia J18.9 Elevated troponin I level R77.8 Paroxysmal atrial flutter I48.92 Prostate cancer metastatic to bone C61; C79.51 Depression F32.9 Dyslipidemia E78.5 (1) Acute renal failure Acute renal failure type: unspecified Qualified Code(s): N17.9 - Acute kidney failure, unspecified
[2021-09-02 19:11] VITALS: PULSE 103
[2021-09-02] MEDS: MIRTAZAPINE TAB 15 MG TAB PO SCH (21:26)
[2021-09-02 23:42] VITALS: BP 100/61; TEMP 100.4; O2SAT 89
[2021-09-02] MEDS ORDERED: ACETAMINOPHEN 1,000 MG/100 ML VIAL IV STA (23:51)
[2021-09-03] MEDS: methylPREDNISolone 40 MG in SYRINGE 0 ML IV SCH (01:14)
--- NOTE | 2021-09-03 03:28 | Death Pronouncement Note ---
Date of Service September 03, 2021 Pronouncement Note Admission Date Admission Date: August 29, 2021 Date and Time of Date of : 09/03/21 Time of : 02:44 Contributing Factors (1) Acute hypoxemic respiratory failure: (2) Anemia: (3) Acute renal failure: (4) Multifocal pneumonia: (5) Elevated troponin I level: (6) Paroxysmal atrial flutter: (7) Prostate cancer metastatic to bone: (8) Depression: (9) Dyslipidemia: Hospital Course Hospital Course: Please see hospital discharge summary for details Additional Data Family: at bedside Attending/PCP notified?: Yes Attending physician: Jorge Campbell, DO Was code activated?: No Autopsy requested?: No
--- NOTE | 2021-09-03 14:53 | Discharge Summary ---
Date of Service September 03, 2021 Admission HPI Per Admitting Provider The patient is a 86-year-old male with a past medical history including catheter associated UTI, prostate cancer metastatic to bone, paroxysmal atrial flutter, hydropneumothorax, ex exudative pleural effusion, aspiration pneumonia, chronic anticoagulation, status post CABG, PAD, dyslipidemia, depression, status post AVR with bioprosthetic valve, BPH with LUTS, COPD, hypertension and chronic kidney disease. Patient presents his daughter to the emergency department, and her daughter provides the majority of patient information. The patient reportedly had a pulse ox in the 50s to 70s when seen by EMS, and had improvement with CPAP in route to the hospital. In emergency department patient was placed on BiPAP, and after the , was breathing more comfortably. Principal Diagnosis Recurrent aspiration pneumonias, hypoxic respiratory failure Discharge Data Allergies Allergy/AdvReac Type Severity Reaction Status Date / Time Penicillins Allergy Severe Hives and Verified 08/29/21 14:56 shortness of breath doxycycline Allergy Mild Rash Verified 08/29/21 14:56 tetracycline Allergy Mild Rash Verified 08/29/21 14:56 Consultations 08/29/21 04:40 ED Decision to Admit Stat 08/30/21 07:54 Consult Nephrology Routine 08/31/21 17:48 Consult [facility] physical education teacher Routine Ordered Studies 08/29/21 03:29 CT chest diagnostic wo con Urgent 08/30/21 07:54 US renal/blad retro comp Routine 08/31/21 22:32 US arterial duplex LE Routine Hospital Course (1) Acute hypoxemic respiratory failure: Initially looked at a COPD exacerbation, later evolved more clearly to be a probable aspiration pneumonia. Initially his plan was home with hospice, and then unfortunately about a day and a half prior to his passing he suffered what appeared to be a rather severe aspiration event and never truly recovered. Because of his brittle status, family changed plans and opted for comfort in the hospital, where he passed peacefully 08/3021. Metabolic encephalopathy due to repeated aspiration pneumonia (2) Anemia: (3) Acute renal failure: Related to/due to abovecreatinine 3.35 upon admission. 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 (4) Multifocal pneumonia: Zithromax/Rocephin (5) Elevated troponin I level: Probable mild demand ischemia (6) Paroxysmal atrial flutter: (7) Prostate cancer metastatic to bone: (8) Depression: (9) Dyslipidemia: Total Time Total Time Spent Total Time Spent (In Minutes): Less than 30 Discharge Plan Discharge Items Patient Disposition: Other Date/Time: 09/03/21 02:44 Coding Level of Care Code None Diagnoses Acute hypoxemic respiratory failure J96.01 Anemia D64.9 Acute renal failure N17.9 Acute renal failure type: unspecified Multifocal pneumonia J18.9 Elevated troponin I level R77.8 Paroxysmal atrial flutter I48.92 Prostate cancer metastatic to bone C61; C79.51 Depression F32.9 Dyslipidemia E78.5
== END 2021-09-03 04:47 | disposition expired | DRG 177 ==
LOC: ED 03:19 → SUATTDRO 05:48 → EDINP 05:48 → 2S 06:56